=== PATIENT | female | born 1945 | race Caucasian/White ===

== ENCOUNTER → 2018-04-21 06:10 | Outpatient (CLI) | payer MEDICARE, OTHER, SELFPAY ==
--- NOTE | 2018-04-21 12:13 | STRESSREP ---
Stress Test Report Date: 04/21/2018 Procedure: Pharmacologic stress nuclear imaging study Indications: Chest pain; paroxysmal atrial fibrillation; preoperative cardiovascular evaluation Consent: Per the patient Procedure: The patient underwent pharmacologic (Regadenoson) evaluation with a peak heart rate of 86 beats per minute (59 predicted maximal heart rate) and a peak blood pressure of 126/78 mmHg. The baseline ECG demonstrated normal sinus rhythm. The peak pharmacologic ECG demonstrated no obvious ECG changes. There were no cardiac dysrhythmias pretest, during pharmacologic infusion, or recovery. There was no complaint of chest discomfort during pharmacologic infusion or recovery. The examination was discontinued secondary to completion of protocol. Impression: 1. Pharmacologic (Regadenoson) evaluation 2. Peak pharmacologic ECG with no obvious ECG changes. 3. There were no cardiac dysrhythmias pretest, during pharmacologic infusion, or recovery 4. Nuclear images pending Myocardial perfusion imaging study: Technique: The patient was injected with 14.1 millicuries of technetium 99m Cardiolite and subsequently rest SPECT Cardiolite nuclear imaging was obtained in the horizontal long, vertical long, and short axis views. The patient underwent pharmacologic (Regadenoson) evaluation with a peak heart rate of 86 beats per minute (59 % percent predicted maximal heart rate) and a peak blood pressure of 126/78 mmHg. The patient was injected with 44.4 millicuries of technetium 99m Cardiolite and subsequently stress SPECT Cardiolite nuclear imaging was obtained in the horizontal long, vertical long, and short axis views. A gated Cardiolite study at peak stress was obtained. Interpretation: Rest and stress SPECT Cardiolite nuclear imaging status post realignment, normalization, and attenuation correction demonstrate relative uniform tracer uptake and myocardial perfusion appearing within normal limits. There is end systolic thickening and brightening. The gated Cardiolite study demonstrates myocardial thickening and inward wall motion. The reported LVEF is 91%. Impression: 1. Rest and stress SPECT Cardiolite nuclear imaging demonstrate relative uniform tracer uptake and myocardial perfusion appearing within normal limits. 2. The gated Cardiolite study reports an LVEF of 91 %. This note was generated with [employer] software. It may contain incorrect words, spelling, and punctuation that were not noted in checking the note before signing.
== END ==
PROVIDERS: Family Provider Family Medicine; PCP Family Medicine; Visit Provider Internal Medicine Cardiovascular Disease
DX: Z01.818 Encounter for other preprocedural examination (principal); M17.10 Unilateral primary osteoarthritis, unspecified knee; E11.9 Type 2 diabetes mellitus without complications; E78.5 Hyperlipidemia, unspecified; I10 Essential (primary) hypertension; I48.0 Paroxysmal atrial fibrillation; I35.9 Nonrheumatic aortic valve disorder, unspecified; R07.89 Other chest pain
CPT/HCPCS: 78452; 93017; A9500; A4216; J2785

== ENCOUNTER 2018-04-29 23:18 | Emergency (ER) | payer MEDICARE, OTHER, SELFPAY ==
[2018-04-29 23:19] VITALS: BP 134/78; PULSE 82; RESP 22; TEMP 36.8; O2SAT 96; BMI 35.9
--- NOTE | 2018-04-29 23:32 | RAD_ITS ---
STUDY: X-RAY - RIGHT KNEE REASON FOR EXAM: Female, 73 years old. Status post fall. TECHNIQUE: 2 view(s) of the knee. COMPARISON: 04/24/2016. FINDINGS: Normal visualized distal femur. Normal visualized proximal tibia and fibula. Normal proximal tibiofibular articulation. There is no demonstrated fracture. There is new total right knee prosthesis. There is prepatellar soft tissue swelling. There is dressing in the soft tissues anteriorly. There may be small effusion in the suprapatellar joint space. RAD/Knee 1 or 2 Views IMPRESSION: Status post total knee replacement. Soft tissue swelling. No demonstrated fracture. Electronically Signed: John Nelson MD at 0:19 EDT Tel , Service support ,
--- NOTE | 2018-04-29 23:32 | RAD_ITS ---
STUDY: X-RAY - PELVIS AND RIGHT HIP REASON FOR EXAM: Female, 73 years old. Status post fall. TECHNIQUE: Radiological exam, hip, unilateral, with pelvis when performed; 2 or 3 views. COMPARISON: None. FINDINGS: There is a non-specific bowel gas pattern. There are multiple calcified phleboliths. There are degenerative changes in the lower lumbar spine. Normal bilateral iliac wings, sacroiliac joints and visualized sacrum. Normal bilateral superior and inferior pubic rami. Normal pubic symphysis. Normal bilateral ischial tuberosities. Normal visualized femoral head. Normal acetabulum. Normal hip joint. RAD/Hip 2-3 Views with Pelvis IMPRESSION: No demonstrated acute fracture. Electronically Signed: John Nelson MD at 0:16 EDT Tel , Service support ,
--- NOTE | 2018-04-29 23:33 | ED.VISSUMM ---
- ER Visit Summary Date of Service: 04/29/18 Chief Complaint: Right hip injury History of Present Illness: The patient is a 73 F mechanical fall at home after trying to get out of her computer chair. Status post right total knee arthroplasty [address] Martin at [facility], this was elective. Discharged today with a 4 point walker. Was using a Rollator before that. She is on oxycodone every 6 hours. States mild right hip pain, denies knee pain. However is concerned due to her recent surgery. She is on 2 baby aspirins daily. No paresthesias. No head injuries. Unable to get up therefore EMS was called. Lives with her spouse. Physical Examination: General: Alert and oriented ?3, no acute distress HEENT: Normocephalic, atraumatic. Moist mucosa membranes Neck: supple, nontender. Cardiovascular: Regular rate and rhythm, no murmurs Respiratory: Normal breath sounds, symmetric, no distress Abdomen: Soft, nontender, nondistended Extremities: Right lower extremity: Mild tenderness right greater trochanter. Negative logroll. No shortening or rotation. Knee examination, wound clean, dry, intact. No drainage or bleeding. Neuro: no focal neurological deficits. Test Results: X-ray right hip and knee: No fracture or dislocation Emergency Department Course and Treatment: Patient mild right hip tenderness with palpation. X-rays of the hip and knee obtained negative. She is ambulating with a 4 point walker with no difficulties. Nurses redressed the right knee. Patient will follow-up as an outpatient. All questions were answered. Treatment Plan: [] Disposition: Discharge Impression: 1. Mechanical fall 2. Right hip contusion 3. Status post right total knee arthroplasty This note was generated with [employer] dictation software. It may contain incorrect words, spelling, and punctuation that were not noted in review of the chart prior to signing ED Disposition - Plan for ED Patient: Disposition: Home or Assisted Living Chief Complaint: Fall Diagnosis: Contusion of right hip, initial encounter, Mechanical fall Instructions: ED Mechanical Fall, ED Contusion Hip Referrals: Kameron Kemp MD [Primary Care Provider] - 5-7 Days
[2018-04-30 01:02] VITALS: BP 112/75; PULSE 73; RESP 17; O2SAT 96
== END 2018-04-30 01:03 | disposition home or self-care (01) ==
PROVIDERS: Emergency Provider Emergency Medicine; Family Provider Family Medicine; PCP Family Medicine
DX: S70.01XA Contusion of right hip, initial encounter (principal); W18.39XA Other fall on same level, initial encounter; Y93.89 Activity, other specified; Y92.009 Unspecified place in unspecified non-institutional (private) residence as the place of occurrence of the external cause; E11.9 Type 2 diabetes mellitus without complications; E78.00 Pure hypercholesterolemia, unspecified; G47.33 Obstructive sleep apnea (adult) (pediatric); Z96.651 Presence of right artificial knee joint; Z79.82 Long term (current) use of aspirin; Z79.84 Long term (current) use of oral hypoglycemic drugs; Z79.899 Other long term (current) drug therapy
CPT/HCPCS: 73502; 73560; 99284

== ENCOUNTER 2018-10-01 10:30 | Outpatient (RCR) | payer MEDICARE, OTHER, SELFPAY ==
--- NOTE | 2018-05-28 16:15 | HP.PTEVAL_ITS ---
Patient's Visit Information MARCOS OLIVEIRA is a 73 year old F referred to Physical Therapy by Constantine Matias MD with a diagnosis of S/P RIGHT TOTAL KNEE RELPACEMENT,PRIMARY OSTEOARTHRITIS OF RIGHT KNEE. Date of Evaluation: 05/28/18 Physical Therapist: Constantine Katz, PT, - Visit Plan Frequency: 2x /Week Duration: 6 Weeks Plan: AROM,STRENGTHENING QUADS/HAMS,GAIT/BALANCE TRAINING,GAIT TRAINING - Subjective Subjective: This 73 y/o male presents to physical therapy with right TKR on s/p April Ver[facility] at [facility]. Patient d/c home 2017 due to complication with BP and panic attack. Patient d/c to home PT 2weeks. Patient d/ c home with fww. Patient seen DR on 05/20 ,did x-ray of knee looked good. Denies parathesia/tingling. Patient has issues with pain impairs gait ,function and ADL 'S.Patient has h/o falls Patient difficulty with sleeping. Patient surgery affects QOL and function,. SOCAIL: . VOCATION: retired. HOME SITUATION : raunch steps with rails,patient tub seat ,and seat with walk-in shower. with grab rails - Pain Right Knee Pain Intensity (Out of 10): 4 Pain Intensity Range: 10 - Objective POSTURE: mild foward posture. GAIT: mild foward posture,decrease stance time right leg with swing phase gait. STAIRS: one step at time with rail. SKIN: inscion well approximate. EDEMA: mild effusion knee left. BALANCE: fair + with fww. AROM: 5-110 knee supine. MMT: quads/hams 4-/5,hip flexion / abduction 4-/5 ,ankle 4/5. FLEXABLITY: hams min tight - Goals Goal 1:: Patient to be Independant with HEP. Goal Time Frame: 4-6 Weeks Goal 2:: Patient to ambulate with cane with improved quality of gait with swing phase and reciprocal pattern Goal Time Frame: 4-6 Weeks Goal 3:: Patient increase strength quads/hams 4/5 to improve function with ADL'S Goal Time Frame: 4-6 Weeks Goal 4:: Patient increase AROM supine knee flexion 0-120 degrees to improve stairs Goal Time Frame: 4-6 Weeks Goal 5:: Patient improve balance good - for function Goal Time Frame: 4-6 Weeks Goal 6:: Patient be able to perform ADL'S and housework tasks with min limitations. Goal Time Frame: 4-6 Weeks - Rehabilitation Potential Physical Therapy Diagnosis: This patient underwent s/p right TKR on 04/23/18 with decrease ROM ,strength,pain and function thus impairs ADL'S thus benifit from skilled PT Rehabilitation Potential: Good - Anticipated Interventions Patient/Client Instruction: Educate patient on: Condition, Plan of Care For the Purpose of:: To decrease pain, To increase ROM, To improve muscle performance and motor function, To increase tolerance to activity/condition/ position, To improve performance and independence with ADL's, To improve ability of physical actions for home/community/work/leisure, To improve gait and locomotor functions, To improve health of tissue, To decrease soft tissue restriction, To increase flexibility/ROM, To improve endurance, To improve balance, To improve ability to perform tasks related to life management Therapeutic Exercise to Include: Strength training, Endurance training, Balance training, Flexibilty training, Gait and locomotor training, Passive ROM, Active ROM Comment: KNEE For the Purpose of:: To decrease pain, To increase ROM, To improve muscle performance and motor function, To improve ability to perform ADL's, To increase tolerance to activity/condition/position, To improve ability of physical actions for home/community/work/leisure, To improve health of tissue, To decrease soft tissue restriction, To increase flexibility/ROM, To improve balance, To improve safety with gait, To improve ability to perform tasks related to life management Thank you for the opportunity to evaluate your patient. For Medicare and Medicare HMO plans, please review the plan of care and approve it. It will need to be FAXED BACK to us at [phone] for Medicare purposes. Please let me know if there are questions or concerns regarding this plan of care. Physician Signature: Date:
--- NOTE | 2018-06-29 12:40 | HP.PTREVAL_ITS ---
Constantine Matias MD, It has been my pleasure to treat MARCOS OLIVEIRA over the last 9 visits for S/P RIGHT TOTAL KNEE RELPACEMENT,PRIMARY OSTEOARTHRITIS OF RIGHT KNEE. Please see the progress note below for an update on the physical therapy plan of care! Subjective: Doing better .Sees DR Cary. Patient use cane in the house.Patient c /o of knee ocassionally gives way give. Patient doing steps one at time with rail/cane Objective/Function: POSTURE: mild foward posture. GAIT: ambulates with fww in community distances. and cane with reciprocal pattern decrease stance time. BALANCE: fair+ with fww. AROM: 10-115 supine knee flexion. MMT: quads/hams 4/5 ,hip 3+/5. STAIRS: one stepa at time rail /cane Plan Plan: con with POC 2xweek for 4weeks Goals Goal 1:: Patient to be Independant with HEP. Goal Time Frame: 4-6 Weeks Goal 2:: Patient to ambulate with cane with improved quality of gait with swing phase and reciprocal pattern Goal Time Frame: 4-6 Weeks Goal 3:: Patient increase strength quads/hams 4/5 to improve function with ADL'S Goal Time Frame: 4-6 Weeks Goal 4:: Patient increase AROM supine knee flexion 0-120 degrees to improve stairs Goal Time Frame: 4-6 Weeks Goal 5:: Patient improve balance good - for function Goal Time Frame: 4-6 Weeks Goal 6:: Patient be able to perform ADL'S and housework tasks with min limitations. Goal Time Frame: 4-6 Weeks Anticipated Interventions Patient/Client Instruction: Educate patient on: Condition, Plan of Care For the Purpose of:: To decrease pain, To increase ROM, To improve muscle performance and motor function, To increase tolerance to activity/condition/ position, To improve performance and independence with ADL's, To improve ability of physical actions for home/community/work/leisure, To improve gait and locomotor functions, To improve health of tissue, To decrease soft tissue restriction, To increase flexibility/ROM, To improve endurance, To improve balance, To improve ability to perform tasks related to life management Therapeutic Exercise to Include: Strength training, Endurance training, Balance training, Flexibilty training, Gait and locomotor training, Passive ROM, Active ROM Comment: KNEE For the Purpose of:: To decrease pain, To increase ROM, To improve muscle performance and motor function, To improve ability to perform ADL's, To increase tolerance to activity/condition/position, To improve ability of physical actions for home/community/work/leisure, To improve health of tissue, To decrease soft tissue restriction, To increase flexibility/ROM, To improve balance, To improve safety with gait, To improve ability to perform tasks related to life management Please do not hesitate to contact me at [phone] by phone or Fax: if you have questions or concerns regarding this new plan of care! Sincerely, Constantine Katz PT,
--- NOTE | 2018-08-05 12:48 | HP.PTREVAL ---
Constantine Matias MD, It has been my pleasure to treat MARCOS OLIVEIRA over the last 18 visits for S/P RIGHT TOTAL KNEE RELPACEMENT,PRIMARY OSTEOARTHRITIS OF RIGHT KNEE. Please see the progress note below for an update on the physical therapy plan of care! Subjective: Patient stated balance and weakness is cont to be issue. Im abld to perform ADL'S at home Objective/Function: POSTURE: mild foward posture. GAIT: ambulates with mild foward posture reciprocal pattern with cane with lateral sway. BALANCE: good - with cane. STAIRS: alternating ascending steps with descending one step at time with rails and cane. MMT: quads/hams 4/5,hip flexion 3+/5 ,hip abd 4-/5. AROM: supine knee flexion 5-120 degrees Plan Plan: con with POC PT interventions 2x/wk for 4weeks Goals Goal 1:: Patient to be Independant with HEP. Goal Time Frame: 4-6 Weeks Goal 2:: Patient to ambulate with cane with improved quality of gait with swing phase and reciprocal pattern Goal Time Frame: 4-6 Weeks Goal 3:: Patient increase strength quads/hams 4/5 to improve function with ADL'S Goal Time Frame: 4-6 Weeks Goal 4:: Patient increase AROM supine knee flexion 0-120 degrees to improve stairs Goal Time Frame: 4-6 Weeks Goal 5:: Patient improve balance good - for function Goal Time Frame: 4-6 Weeks Goal 6:: Patient be able to perform ADL'S and housework tasks with min limitations. Goal Time Frame: 4-6 Weeks Anticipated Interventions Patient/Client Instruction: Educate patient on: Condition, Plan of Care For the Purpose of:: To decrease pain, To increase ROM, To improve muscle performance and motor function, To increase tolerance to activity/condition/position, To improve performance and independence with ADL's, To improve ability of physical actions for home/community/work/leisure, To improve gait and locomotor functions, To improve health of tissue, To decrease soft tissue restriction, To increase flexibility/ROM, To improve endurance, To improve balance, To improve ability to perform tasks related to life management Therapeutic Exercise to Include: Strength training, Endurance training, Balance training, Flexibilty training, Gait and locomotor training, Passive ROM, Active ROM Comment: KNEE For the Purpose of:: To decrease pain, To increase ROM, To improve muscle performance and motor function, To improve ability to perform ADL's, To increase tolerance to activity/condition/position, To improve ability of physical actions for home/community/work/leisure, To improve health of tissue, To decrease soft tissue restriction, To increase flexibility/ROM, To improve balance, To improve safety with gait, To improve ability to perform tasks related to life management Please do not hesitate to contact me at [phone] by phone or if you have questions or concerns regarding this new plan of care! Sincerely, Constantine Katz, PT,
--- NOTE | 2018-09-01 11:02 | HP.PTREVAL_ITS ---
Constantine Matias MD, It has been my pleasure to treat MARCOS OLIVEIRA over the last 24 visits for S/P RIGHT TOTAL KNEE RELPACEMENT,PRIMARY OSTEOARTHRITIS OF RIGHT KNEE. Please see the progress note below for an update on the physical therapy plan of care! Subjective: Doing better overall ,but I still need cane for walking community. I stumble side to side . I am able to do my ADL'S Objective/Function: POSTURE: mild foward posture. GAIT: ambulates with cane lateral sway 2 point reciporocal pattern. patient able to ambulate with no device improved saida but cues for MELANI and posture. BALANCE : GOOD -. AROM: 5-120 degrees knee flexion. MMT: quads/hams 4/5 fip flexion 4-/5,abduction 3+/5 Plan Plan: con with POC PT interventions 2xweek for 4weeks Goals Goal 1:: Patient to be Independant with HEP. Goal Time Frame: 4-6 Weeks Goal Progress: Goal Met Goal 2:: Patient to ambulate no cane cane with improved quality of gait with swing phase and reciprocal pattern Goal Time Frame: 4-6 Weeks Goal Progress: Progressing Goal 3:: Patient increase strength quads/hams 4/5 hip 4-/5 to improve function with ADL'S Goal Time Frame: 4-6 Weeks Goal 4:: Patient increase AROM supine knee flexion 0-120 degrees to improve stairs Goal Time Frame: 4-6 Weeks Goal Progress: Goal Met Goal 5:: Patient improve balance good - for function no device Goal Time Frame: 4-6 Weeks Goal Progress: Progressing Goal 6:: Patient be able to perform ADL'S and housework tasks with min limitations. Goal Time Frame: 4-6 Weeks Goal Progress: Progressing Anticipated Interventions Patient/Client Instruction: Educate patient on: Condition, Plan of Care For the Purpose of:: To decrease pain, To increase ROM, To improve muscle performance and motor function, To increase tolerance to activity/condi tion/position, To improve performance and independence with ADL's, To improve ability of physical actions for home/community/work/leisure, To improve gait and locomotor functions, To improve health of tissue, To decrease soft tissue restriction, To increase flexibility/ROM, To improve endurance, To improve balance, To improve ability to perform tasks related to life management Therapeutic Exercise to Include: Strength training, Endurance training, Balance training, Flexibilty training, Gait and locomotor training, Passive ROM, Active ROM Comment: KNEE For the Purpose of:: To decrease pain, To increase ROM, To improve muscle performance and motor function, To improve ability to perform ADL's, To increase tolerance to activity/condition/position, To improve ability of physical actions for home/community/work/leisure, To improve health of tissue, To decrease soft tissue restriction, To increase flexibility/ROM, To improve balance, To improve safety with gait, To improve ability to perform tasks related to life management Please do not hesitate to contact me at [phone] by phone or if you have questions or concerns regarding this new plan of care! Sincerely, Constantine Katz PT,
--- NOTE | 2018-10-01 12:51 | HP.PTDCSUM ---
HP - PT D/C Summary It has been my pleasure to treat MARCOS OLIVEIRA under orders from Constantine Matias MD, for the diagnosis of S/P RIGHT TOTAL KNEE RELPACEMENT,PRIMARY OSTEOARTHRITIS OF RIGHT KNEE for a total of 32 visit(s). Discharge Date: Please see the following information for a summary of their discharge status. - Subjective Subjective: Balance has improved overall ,hip/knee strength better. Able to perform all ADL'S - Pain Right Knee Pain Intensity (Out of 10): 0 - Overall Improvement % Improvement: 80 - Objective Objective/Function: POSTURE: mild foward posture. GAIT: ambulate with no device improved gait with UE movement with min sway. BALANCE: good -. MMT: quads/hams 4/5 ,hip flexion/abd 4-/5 - Goals Goal 1:: Patient to be Independant with HEP. Goal Progress: Goal Met Goal 2:: Patient to ambulate no cane cane with improved quality of gait with swing phase and reciprocal pattern Goal Progress: Goal Met Goal 3:: Patient increase strength quads/hams 4/5 hip 4-/5 to improve function with ADL'S Goal Progress: Goal Met Goal 4:: Patient increase AROM supine knee flexion 0-120 degrees to improve stairs Goal Progress: Goal Met Goal 5:: Patient improve balance good - for function no device Goal Progress: Goal Met Goal 6:: Patient be able to perform ADL'S and housework tasks with min limitations. Goal Progress: Goal Met - Plan Plan: D/C TO HEP - D/C Information If there are questions or concerns regarding this patient's physical therapy, please feel free to call me at [phone]. Thank you for the referral of this patient. Sincerely, Constantine Katz, PT,
== END 2018-10-01 19:00 | disposition home or self-care (01) ==
LOC: PT 10:30
PROVIDERS: Family Provider Family Medicine; PCP Family Medicine; Referring Provider Psychiatry & Neurology Neurology; Visit Provider Psychiatry & Neurology Neurology
DX: Z96.651 Presence of right artificial knee joint (principal); M17.11 Unilateral primary osteoarthritis, right knee
CPT/HCPCS: 97110; 97162; 97530; G8978; G8979

== ENCOUNTER 2019-02-01 02:40 | Emergency (ER) | payer MEDICARE, OTHER, SELFPAY ==
[2019-02-01 02:42] VITALS: BP 173/96; PULSE 74; RESP 16; TEMP 36.6; O2SAT 99; BMI 32.9
--- NOTE | 2019-02-01 03:17 | ED.VISSUMM ---
- ER Visit Summary Date of Service: 02/01/19 Chief Complaint: Neck and upper back pain post recent surgery History of Present Illness: The patient is a 73 F who 2 weeks ago at the [facility] had spine surgery on cervical 5 6 and T1 and T2. She had prior cervical spine surgery of 3, 4 and 5 in the past. She is 2 weeks out of surgery. Still has significant drainage. No pus. No fever. No weakness to her upper or lower extremities. No incontinence. She has had her pain medications renewed. Has a scheduled appointment to see her spine surgeon at the end of February. She denies any fall or trauma. Physical Examination: Well-appearing older female. Coming by her . Vital signs are stable and afebrile. H EENT exam unremarkable. Neck and thoracic spine have a well-healing incision over the lower cervical and upper thoracic spine in the midline. There is bruising on both sides. Jen in place. No cellulitis. No pus. There is serosanguineous drainage from the proximal end. Typical appearance of a postop spine surgery 2 weeks out. Lungs clear to auscultation bilaterally. Heart regular rhythm. Abdomen soft not tender. She is moving all 4 extremities. She has normal event coordinator strength bilaterally. Normal dorsi plantar flexion. Normal sensation to her thighs. No cauda equina. No saddle anesthesia. No weakness to upper or lower extremities. She is awake and alert. Test Results: None Emergency Department Course and Treatment: Patient has postop pain. She has drainage but no obvious signs of infection. No fever, redness, cellulitis or pus. Treatment Plan: IM injection of morphine and p.o. Zofran for pain. Continue on her current pain medications. Call and follow-up with her spine surgeon this week. Disposition: Discharge Impression: Neck and upper back pain status post cervical and thoracic multilevel fusion. Drainage for most likely a seroma This note was generated with [employer] dictation software. It may contain incorrect words, spelling, and punctuation that were not noted in review of the chart prior to signing ED Disposition - Plan for ED Patient: Referrals: Kameron Kemp MD [Primary Care Provider] -
[2019-02-01] MEDS: Ondansetron ODT 4 MG Tablet 8 MG PO (03:21)
[2019-02-01] MEDS: morphine 8 MG/ML Syringe IM (03:21)
--- NOTE | 2019-02-01 03:21 | ED.DCSUM_ITS ---
- ER Visit Summary Date of Service: 02/01/19 Chief Complaint: Neck and upper back pain post recent surgery History of Present Illness: The patient is a 73 F who 2 weeks ago at the [facility] had spine surgery on cervical 5 6 and T1 and T2. She had prior cervical spine surgery of 3, 4 and 5 in the past. She is 2 weeks out of surgery. Still has significant drainage. No pus. No fever. No weakness to her upper or lower extremities. No incontinence. She has had her pain medications renewed. Has a scheduled appointment to see her spine surgeon at the end of February. She denies any fall or trauma. Physical Examination: Well-appearing older female. Coming by her . Vital signs are stable and afebrile. H EENT exam unremarkable. Neck and thoracic spine have a well-healing incision over the lower cervical and upper thoracic spine in the midline. There is bruising on both sides. Jen in place. No cellulitis. No pus. There is serosanguineous drainage from the proximal end. Typical appearance of a postop spine surgery 2 weeks out. Lungs clear to auscultation bilaterally. Heart regular rhythm. Abdomen soft not tender. She is moving all 4 extremities. She has normal rod pointer strength bilaterally. Normal dorsi plantar flexion. Normal sensation to her thighs. No cauda equina. No saddle anesthesia. No weakness to upper or lower extremities. She is awake and alert. Test Results: None Emergency Department Course and Treatment: Patient has postop pain. She has drainage but no obvious signs of infection. No fever, redness, cellulitis or pus. Treatment Plan: IM injection of morphine and p.o. Zofran for pain. Continue on her current pain medications. Call and follow-up with her spine surgeon this week. Disposition: Discharge Impression: Neck and upper back pain status post cervical and thoracic multilevel fusion. Drainage for most likely a seroma This note was generated with [employer] dictation software. It may contain incorrect words, spelling, and punctuation that were not noted in review of the chart prior to signing ED Disposition - Plan for ED Patient: Referrals: Kameron Kemp MD [Primary Care Provider] -
--- NOTE | 2019-02-01 03:21 | ED.DEP ---
ED Disposition - Plan for ED Patient: Disposition: Home or Assisted Living Additional Instructions: Keep the surgical site dry and clean. Change the dressing at least twice daily or whenever saturated. Watch for any signs of infection such as fever, redness or pus. Follow-up with your spine surgeon hopefully before your appointment on March 02. You may double up on your pain medication. You can take up to 2 every 4 hours as needed.
[2019-02-01 03:50] VITALS: RESP 16
== END 2019-02-01 03:50 | disposition home or self-care (01) ==
PROVIDERS: Emergency Provider Emergency Medicine; Family Provider Family Medicine; PCP Family Medicine
DX: M54.2 Cervicalgia (principal); M54.6 Pain in thoracic spine; G89.18 Other acute postprocedural pain; I10 Essential (primary) hypertension; I48.91 Unspecified atrial fibrillation; E11.9 Type 2 diabetes mellitus without complications; R42 Dizziness and giddiness; Z79.82 Long term (current) use of aspirin; Z79.84 Long term (current) use of oral hypoglycemic drugs; Z79.899 Other long term (current) drug therapy
CPT/HCPCS: 96372; 99283

== ENCOUNTER → 2019-08-09 08:03 | Outpatient (CLI) | payer MEDICARE, OTHER, SELFPAY ==
[2019-07-23 10:28] VITALS: BMI 34.9
--- NOTE | 2019-08-09 08:09 | ECHOCS_ITS ---
Reason For Study: Chest Pain Procedure This was a 2D Doppler, Color Flow transthoracic echocardiogram. Contrast injection was performed. Exam performed in department. Left Ventricle Normal size and thickness. The estimated ejection fraction is 65 %. Stage 1 diastolic dysfunction. No regional wall motion abnormalities noted. Right Ventricle Normal size and thickness. Normal systolic function. Atria Normal left atrium. Normal right atrium. Normal atrial septum. Mitral Valve The mitral valve is structurally normal. No prolapse or stenosis seen. Mild (1+) eccentric mitral valve insufficiency. Tricuspid Valve Normal tricuspid valve. Mild (1+) tricuspid valve insufficiency. Right ventricular systolic pressure estimated to be 38 mmHg. Mild pulmonary hypertension. Aortic Valve Trisinus/trileaflet aortic valve. Mild diffuse aortic valve thickening. Mild aortic stenosis. Trivial aortic valve insufficiency. Pulmonic Valve Normal pulmonic valve. Trivial pulmonic valve insufficiency. Great Vessels Normal aortic root. Normal arch. Normal inferior vena cava. Inferior vena cava collapse with sniff. Pericardium/Pleural No pericardial effusion. Medication Diluted definity 5ml given slow IV push to enhance endocardial definition. MMode/2D Measurements & Calculations LVIDd: 4.2 cm IVSd: 1.2 cm LVOT diam: 2.0 cm LVIDs: 2.7 cm LVPWd: 1.0 cm RVDd: 4.3 cm FS: 35.5 % LVOT area: 3.1 cm2 Ao root diam: 3.6 cm LAV(MOD-bp): 41.8 ml LVAd ap4: 27.2 cm2 LAV(MOD-bp) Indexed: 22.9 ml/m2 EDV(MOD-sp4): 76.0 ml LAV(MOD-sp2): 42.2 ml EDV(sp4-el): 79.3 ml LAV(MOD-sp4): 36.0 ml LVAs ap4: 12.7 cm2 ESV(MOD-sp4): 24.2 ml ESV(sp4-el): 24.3 ml EF(MOD-sp4): 68.1 % EF(sp4-el): 69.3 % SV(MOD-sp4): 51.7 ml SV(sp4-el): 54.9 ml LA A4 area: 15.9 cm2 LA dimension(2D): 3.8 cm RA A4 area: 15.9 cm2 Doppler Measurements & Calculations MV E max armin: 86.9 cm/sec Lat Peak E' Armin: 9.3 cm/sec Med Peak E' Armin: 7.6 cm/sec MV A max armin: 131.4 cm/sec E/E' lat: 9.4 E/E' med: 11.4 MV E/A: 0.66 Ao V2 max: 231.3 cm/sec LV V1 max: 179.0 cm/sec SV(LVOT): 136.9 ml Ao max P.4 mmHg LV V1 max P.8 mmHg Ao V2 mean: 159.6 cm/sec LV V1 mean P.3 mmHg Ao mean P.4 mmHg LV V1 mean: 127.8 cm/sec Ao V2 VTI: 52.1 cm LV V1 VTI: 43.5 cm EZEQUIEL(I,D): 2.6 cm2 EZEQUIEL(V,D): 2.4 cm2 PA V2 max: 109.8 cm/sec TR max armin: 288.5 cm/sec TR max P.3 mmHg Interpretation Summary The estimated ejection fraction is 65 %. Stage 1 diastolic dysfunction. Mild (1+) eccentric mitral valve insufficiency. Mild (1+) tricuspid valve insufficiency. Right ventricular systolic pressure estimated to be 38 mmHg. Mild pulmonary hypertension. Mild aortic stenosis. Trivial aortic valve insufficiency. The study was technically difficult. Contrast injection was performed. There is no comparison study available. Ordering Physician: Brenton Brandon Referring Physician: Kameron Kemp Performed By: Nati Sapp RDCS, RVT
== END ==
PROVIDERS: Family Provider Family Medicine; PCP Family Medicine; Referring Provider Internal Medicine Cardiovascular Disease; Visit Provider Internal Medicine Cardiovascular Disease
DX: I48.0 Paroxysmal atrial fibrillation (principal); I51.89 Other ill-defined heart diseases; I35.0 Nonrheumatic aortic (valve) stenosis; G47.31 Primary central sleep apnea; R07.9 Chest pain, unspecified
CPT/HCPCS: 93306; Q9957; A4216; C8929

== ENCOUNTER → 2019-08-13 09:31 | Outpatient (CLI) | payer MEDICARE, OTHER, SELFPAY ==
[2019-07-23 10:28] VITALS: BMI 34.9
--- NOTE | 2019-08-13 09:32 | STEWCON_ITS ---
Reason For Study: Chest Pain Stress Results Protocol: Dobutamine Stress Echo Maximum Predicted HR: 144 bpm Target HR: 122 bpm % Maximum Predicted HR: 93 % DurationHeart Rate Stage (mm:ss) (bpm) BP Comment Baseline 66 144/78No Chest Pain; 10 ML Diluted Definity Given DSE 10 MCG 4:02 73 145/59No Chest Pain DSE 20 MCG 3:00 106 138/49No Chest Pain DSE 30 MCG 3:00 110 120/42No Chest Pain DSE 40 MCG 4:32 134 138/534/10 Chest Pain; Atropine 0.25 MG IVP Recovery 102 121/68No Chest Pain Stress Duration: 14:34 mm:ss Maximum Stress HR: 134 bpm METS: 1 Baseline Echocardiogram Findings The estimated ejection fraction is 65 %. Stress Echo Wall motion Data Resting WM Intermediate WM Stress WM Resting Wall Motion Wall Motion Stress No regional wall motion No regional wall motion abnormalities noted. abnormalities noted. EKG Data The baseline ECG displays normal sinus rhythm. The patient was titrated from 10 mcg to a maximum of 40 mcg of dobutamine during the stress. The maximum heart rate attained was 139 beats per minute. This was 96% of maximum predicted heart rate. During dobutamine infusion, there were no ST or T wave changes noted to suggest ischemia. No clinical angina was noted. Interpretation Summary The estimated ejection fraction is 65 %. Normal, adequate, dobutamine echocardiogram. Negative for ischemia by EKG and echocardiographic criteria. No anginal symptoms noted. Rare PVCs, ventricular triplet, and an 8 beat run of nonsustained wide-complex tachycardia during recovery which is a nonspecific finding during dobutamine infusion. Final LVEF of 75%. Decreased sensitivity due to poor echo windows requiring Definity agent. Test terminated due to the attainment of target heart rate. No complications. The study was technically difficult. Contrast injection was performed. Ordering Physician: Brenton Brandon Referring Physician: Kameron Kemp Performed By: Deandre Kruse RCS
== END ==
PROVIDERS: Family Provider Family Medicine; PCP Family Medicine; Referring Provider Internal Medicine Cardiovascular Disease; Visit Provider Internal Medicine Cardiovascular Disease
DX: I11.9 Hypertensive heart disease without heart failure (principal); I35.0 Nonrheumatic aortic (valve) stenosis; I48.0 Paroxysmal atrial fibrillation; R07.9 Chest pain, unspecified
CPT/HCPCS: 93017; 93350; J7040; Q9957; A4216; C8928

== ENCOUNTER 2019-09-06 10:00 | Outpatient (RCR) | payer MEDICARE, OTHER, SELFPAY ==
--- NOTE | 2019-06-28 18:15 | HP.PTEVAL ---
Patient's Visit Information MARCOS OLIVEIRA is a 74 year old F referred to Physical Therapy by KATHLEEN DOWLING with a diagnosis of FUSION OF SPINE OF CERVICOTHORACIC. Date of Evaluation: 06/28/19 Physical Therapist: Constantine Katz, PT, Cert MDT, OCS - Visit Plan Frequency: 2x /Week Duration: 4 Weeks Plan: S/P CERVCAL FUSION . PT INTERVENTIONS US/MHP/STM,PROGRESSIVE BALANCE AND GAIT PROGRAM,GENERALIZED STENGTH LE ,endurance program - Subjective Findings: This 74 y/o female presents to physical therapy with fusion of spine cervicothoracic region. Patient has multiple comorbities Intially,underwent s/p cervical fusion C3-4,C4-[address] Kota Rosas at [facility] May 14 2016. Patient had extensive Rehab due to weakness right side NH and outpatient OT/PT to work , Then had right TKR on April 14 2018 had more therapy. After , being patient noticed more problem with balance and back pain. Patient was consult with DR Rosas after 3 MRI and CATSCAN and recommended surgery due to stenosis and HNP. . But decided to recommend a Neurologist Quintin and recommended surgery. Pateint had posterior decompression T1-T2 ,C5-T12 instrumentation fusion 01/18/19 at [facility]. Patient was d/c next day then had drainage ,then had cervicthoracic wound exploration for debridement and revision on 02/22/19. Patient d/c to home to home with OT/PT ,with OT 1 month and PT d/c June . Patient has pain global. Patient has limiations with ADLS' and housework task. Patient condtion affects QOL. Patient seen DR Mcwilliams recommended PT. patient has some tingling. 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 Patien has difficulty with gait need cane. Patient has difficult with turning affects function. Patient sleeping good.Patient denies dizziness/nausea/WILSON. SOCIAL: . VOCATION: retired - Pain Bilateral Neck Pain Intensity (Out of 10): 2 Pain Intensity Range: 10 - Objective POSTURE: foward head ,rounded shoulders. INSCION: well approximate ,nodual bone cervical spine MD aware. NEUROLOGICAL: C/O tingling in hands ,reflexes C5-6-7 /. PALAPTION:tender UT/levator. CERVICAL ROM: flexion mod loss,rotation/lateral felxion mod/severe loss ~20 degrees. GAIT: ambulates with cane unsteady with 2 point gait. BALANCE: fair + with cane. MMT: quads/hams bilateral 4-/5,hip flexion 3+/5 ,ankle 4/5 ,triceps -R 3+/5,L 4-/5,biceps 4-/5 ,wrist/flexion extension 4-/5,shoulders 3+/5. [employer] STRENGTH : 20# dynamator. BUE : AROM limited 100 degrees flexion. STAIRS: one step at time. - Balance Scores Functional Gait Assessment Score: 5 % Disability: 83.3400 CATSIB Score (Max score 120 seconds): 25 - Goals Goal 1:: Patient to be Independant with HEP Goal Time Frame: 4-6 Weeks Goal 2:: Patient to improve quality of gait with improved gait pattern . Goal Time Frame: 4-6 Weeks Goal 3:: Patient to increase stength to 4/5 except shoulders and hips to 4-/5 to improve function with gait. Goal Time Frame: 4-6 Weeks Goal 4:: Patient to improve CATSIB by 5-10 points to improve balance Goal Time Frame: 4-6 Weeks Goal 5:: Patient to impove dynamic balance to good- Goal Time Frame: 4-6 Weeks Goal 6:: Patient to improve LFES score by 10 points to improve QOL. Goal Time Frame: 4-6 Weeks - Rehabilitation Potential Physical Therapy Diagnosis: This patient has multiple complexity issue with undergoing cervical fusion C5-T12,decompession T1-2 and Wound exploration for debridement and revision .Patient impairments with weakness ,decrease gait and affect balance. Patient deficits impairs ADL's and functional activity ,pain thus benifit from skilled PT Rehabilitation Potential: Good - Anticipated Interventions Thank you for the opportunity to evaluate your patient. For Medicare and Medicare HMO plans, please review the plan of care and approve it. It will need to be FAXED BACK to us at [phone] for Medicare purposes. For Medicare only, by signing this I certify the plan of care. Please let me know if there are questions or concerns regarding this plan of care. Physician Signature: Date:
--- NOTE | 2019-08-05 10:43 | HP.PTREVAL ---
KATHLEEN DOWLING, It has been my pleasure to treat MARCOS OLIVEIRA over the last 9 visits for FUSION OF SPINE OF CERVICOTHORACIC. Please see the progress note below for an update on the physical therapy plan of care! Subjective: Doing okay ,balance about the same. Objective/Function: POSTURE: mod thoracic kyphosis. GAIT: unsteady gait with cane. BALANCE: fair+. MMT: quads 4-/5 R, 4/5 hams 4/5 R ,L 4-/5,HIP flexion 3+/5 R ,L 4-/5 ,ankle 4/5. ROMBERG: feet EC 30SEC. STAIRS: ascend/descend one step with rail /cane Plan Plan: S/P CERVCAL FUSION . CONT WITH POC 2XWK FOR 4WEEKS PT INTERVENTIONS US/MHP/STM,PROGRESSIVE BALANCE AND GAIT PROGRAM,GENERALIZED STENGTH LE ,endurance program Goals Goal 1:: Patient to be Independant with HEP Goal Time Frame: 4-6 Weeks Goal Progress: Progressing Goal 2:: Patient to improve quality of gait with improved gait pattern . Goal Time Frame: 4-6 Weeks Goal Progress: Progressing Goal 3:: Patient to increase stength to 4/5 except shoulders and hips to 4-/5 to improve function with gait. Goal Time Frame: 4-6 Weeks Goal Progress: Progressing Goal 4:: Patient to improve CATSIB by 5-10 points to improve balance Goal Time Frame: 4-6 Weeks Goal Progress: Progressing Goal 5:: Patient to impove dynamic balance to good- Goal Time Frame: 4-6 Weeks Goal Progress: Progressing Goal 6:: Patient to improve LFES score by 10 points to improve QOL. Goal Time Frame: 4-6 Weeks Goal Progress: Progressing Anticipated Interventions Please do not hesitate to contact me at [phone] by phone or if you have questions or concerns regarding this new plan of care! Sincerely, Constantine Katz, PT, Cert MDT, OCS
--- NOTE | 2019-09-06 14:12 | HP.PTDCSUM ---
HP - PT D/C Summary It has been my pleasure to treat MARCOS OLIVEIRA under orders from KATHLEEN DOWLING, for the diagnosis of FUSION OF SPINE OF CERVICOTHORACIC for a total of 17 visit(s). Discharge Date: 09/06/19 Please see the following information for a summary of their discharge status. - Subjective Subjective: Doing okay . said d/c do alot of walking. Still have problem with balance.But able to do all ADL'S - Pain Bilateral Neck Pain Intensity (Out of 10): 4 - Overall Improvement % Improvement: 50 - Objective Objective/Function: POSTURE: mild forward posture,head foward. GAIT: reciprocal pattern mild foward posture unsteady gait with cane. BALANCE: fair+. MMT: shoulderr NT R,LEF4-/5 OTHERWISE 4/5,quads/hams 4/5,hip 4-/5 - Goals Goal 1:: Patient to be Independant with HEP Goal Progress: Goal Met Goal 2:: Patient to improve quality of gait with improved gait pattern . Goal Progress: Progressing Goal 3:: Patient to increase stength to 4/5 except shoulders and hips to 4-/5 to improve function with gait. Goal Progress: Progressing Goal 4:: Patient to improve CATSIB by 5-10 points to improve balance Goal Progress: Goal Met Goal 5:: Patient to impove dynamic balance to good- Goal Progress: Progressing Goal 6:: Patient to improve LFES score by 10 points to improve QOL. Goal Progress: Goal Met - Plan Plan: D/C - D/C Information Discharge Comments: hep If there are questions or concerns regarding this patient's physical therapy, please feel free to call me at [phone]. Thank you for the referral of this patient. Sincerely, Constantine Katz, PT, Cert MDT, OCS
== END 2019-09-06 19:00 | disposition home or self-care (01) ==
LOC: PT 10:00
PROVIDERS: Family Provider Family Medicine; PCP Family Medicine
DX: M43.23 Fusion of spine, cervicothoracic region (principal)
CPT/HCPCS: 97110; 97162; 97530

== ENCOUNTER → 2019-09-20 10:16 | Outpatient (CLI) | payer MEDICARE, OTHER, SELFPAY ==
[2019-07-23 10:28] VITALS: BMI 34.9
[2019-09-20 11:22] LABS: AST(SGOT) 15 U/L (15-37); Alanine Aminotransfer ALT/SGPT 21 U/L (13-56); Albumin, Serum 3.8 g/dL (3.2-5.0); Alkaline Phosphatase 152 U/L (45-117); Bilirubin, Direct 0.17 mg/dL (0.00-0.30); Cholesterol 174 mg/dL (200); Globulin 3.3 g/dL (2.2-4.2); High Density Lipoprotein 64 mg/dL; Protein, Total 7.1 g/dL (6.4-8.2); Triglycerides 95 mg/dL; Very Low Density Lipoprotein 19 mg/dL (5-40)
== END ==
PROVIDERS: Family Provider Family Medicine; PCP Family Medicine; Referring Provider Internal Medicine Cardiovascular Disease; Visit Provider Internal Medicine Cardiovascular Disease
DX: E78.00 Pure hypercholesterolemia, unspecified (principal)
CPT/HCPCS: 36415; 80061; 80076

== ENCOUNTER → 2020-05-09 09:12 | Outpatient (CLI) | payer MEDICARE, OTHER, SELFPAY ==
[2020-03-06 09:47] VITALS: BMI 35.6
[2020-05-09 10:01] LABS: AST(SGOT) 20 U/L (15-37); Alanine Aminotransfer ALT/SGPT 23 U/L (13-56); Alkaline Phosphatase 150 U/L (45-117); Bilirubin, Direct 0.21 mg/dL (0.00-0.30); Cholesterol 179 mg/dL (200); Globulin 3.7 g/dL (2.2-4.2); High Density Lipoprotein 53 mg/dL; Protein, Total 7.7 g/dL (6.4-8.2); Triglycerides 186 mg/dL; Very Low Density Lipoprotein 37 mg/dL (5-40)
[2020-05-09 14:09] LABS: Ferritin 91 ng/mL (8-252); Iron 94 ug/dL (50-170); Iron Binding Capacity,Total 364 ug/dL (250-450)
== END ==
PROVIDERS: PCP Family Medicine; Referring Provider Internal Medicine Cardiovascular Disease; Visit Provider Internal Medicine Cardiovascular Disease
DX: D50.9 Iron deficiency anemia, unspecified (principal); E78.00 Pure hypercholesterolemia, unspecified; E78.5 Hyperlipidemia, unspecified
CPT/HCPCS: 36415; 80061; 80076; 82728; 83540; 83550

== ENCOUNTER → 2020-07-25 17:33 | Outpatient (CLI) | payer MEDICARE, OTHER, SELFPAY ==
[2020-03-06 09:47] VITALS: BMI 35.6
== END ==
PROVIDERS: PCP Family Medicine; Referring Provider Family Medicine; Visit Provider Family Medicine
DX: Z20.828 Contact with and (suspected) exposure to other viral communicable diseases (principal)
CPT/HCPCS: 87635; C9803; U0003

== ENCOUNTER 2020-07-30 17:03 | Inpatient (IN) | payer MEDICARE, OTHER, SELFPAY ==
[2020-03-06 09:47] VITALS: BMI 35.6
[2020-07-30] VITALS (11 sets, daily range): BP systolic 110–125; BP diastolic 48–103; PULSE 83–95; RESP 18–22; TEMP 36.7–38; O2SAT 91–98; BMI 34.5; BMI 33.2; BMI 34.6
--- NOTE | 2020-07-30 17:24 | EKG12_ITS ---
Test Reason : SOB Blood Pressure : / mmHG Vent. Rate : 092 BPM Atrial Rate : 092 BPM P-R Int : 158 ms QRS Dur : 072 ms QT Int : 336 ms P-R-T Axes : -11 -22 -10 degrees QTc Int : 415 ms Normal sinus rhythm Inferior infarct , age undetermined Abnormal ECG Confirmed by VIVI RIGGS, ROHINI ([id number]), manager editorial DESIREE LEAHY ([id number]) on 08/01/2020 11:33:44 AM Referred By: LOUIE/JANNETH Confirmed By:ROHINI TRINIDAD MD
--- NOTE | 2020-07-30 17:25 | ED.VISSUMM ---
- ER Visit Summary Date of Service: 07/30/20 Chief Complaint: [Shortness of breath] History of Present Illness: The patient is a 75 F [presents the emergency department complaint of shortness of breath that started about a week ago. Patient complains of a cough. She denies fever. Cough is been nonproductive. Patient states that she had some blood work including a COVID test on the of the month and was negative for COVID. She denies recent travel or surgery. No history of PE or DVT. She denies any significant chest discomfort. Patient has history of diabetes, hypertension, high cholesterol, GERD, A. fib, and obstructive sleep apnea.] Physical Examination: [HEENT-PERRLA, EOMI. Cranial nerves II through XII grossly intact. TMs clear. Mucous membranes moist. No adenopathy. Cardiovascular-regular rate and rhythm without murmur or ectopy Lungs-good aeration bilaterally. Patient has occasional coarse rhonchi and coughs frequently. No rales noted. No significant expiratory wheezes. No conversational dyspnea. Abdomen-normoactive bowel sounds, soft, nontender, no rebound or rigidity, no peritoneal signs. Extremities-intact ?4, normal range of motion, normal pulses, atraumatic] Test Results: [EKG obtained on arrival showed a sinus rhythm with a ventricular rate of 92 bpm with old inferior infarct. CBC with differential showed a white count 7.6, hemoglobin 9.3, hematocrit 25, placed 391. Chemistries unremarkable. BUN 90 creatinine 1.04. Troponin less than 0.015. BNP was 89. D-dimer was 3.10. Lactate was 2.2. Chest x-ray obtained showed some incomplete expansion of the lungs and some questionable edema versus cannot rule out infiltrates in the lower aspect of the lungs. Patient had a CT of the chest that was nondiagnostic for PE due to the fact of timing of contrast and non-opacification of the pulmonary arteries.] Emergency Department Course and Treatment: [IV line was established. Patient was given normal saline. Patient was given Lovenox 90 mg subcu. Patient ambulated in the department and did become hypoxic with O2 sat dropping to 89% on room air and she became very dyspneic.] Treatment Plan: [Patient will be admitted to hospitalist group.] Etiology of dyspnea unclear at this time I was asked to obtain a COVID test to be done prior to admission. I cannot rule out PE and she does have an elevated d-dimer. Disposition: [Admit] Impression: [Dyspnea Hypoxemia] This note was generated with [employer] dictation software. It may contain incorrect words, spelling, and punctuation that were not noted in review of the chart prior to signing ED Disposition - Plan for ED Patient: Referrals: Kameron Kemp MD [Primary Care Provider] -
--- NOTE | 2020-07-30 17:55 | RAD_ITS ---
STUDY: X-RAY CHEST REASON FOR EXAM: Female, 75 years old. Shortness of breath, cough. TECHNIQUE: Single AP portable view of the chest. COMPARISON: None. FINDINGS: Low to moderate lung volumes. Diffuse hazy density of both lungs with a central distribution. Findings suggest congestion and interstitial edema. More focal mild atelectasis or infiltrate in the lung bases. There is borderline cardiomegaly. Normal mediastinum and giovanna. Normal visualized pulmonary arteries. Normal visualized aortic arch and descending thoracic aorta. Normal visualized thoracic spine. Degenerative changes of the right shoulder. Left shoulder arthroplasty. Extensive cervical spine surgery. There is no demonstrated abnormality of the visualized soft tissue structures of the upper abdomen. RAD/Chest 1 View (Portable) IMPRESSION: Incomplete expansion of the lungs. Mild diffuse pulmonary density suggestive of congestion and pulmonary edema. Cannot exclude additional atelectasis or infiltrate in the lung bases. Electronically Signed: Eagle Barba MD at 18:32 EDT , Service support ,
[2020-07-30 18:12] LABS: Absolute Lymphocyte Count 1.42 X10^3/uL (0.83-4.51); Absolute Neutrophil Count 4.9 X10^3/uL (2.0-7.7); Basophil# 0.05 X10^3/uL; Basophil% 0.7 % (0-1); Eosinophils% 2.6 % (0-5); Hemoglobin 9.3 g/dL (12.0-15.0); Lymphocyte # 1.42 X10^3/ul (4.0); Lymphocyte % 18.8 % (19-41); Mean Corp Hgb Conc 37.2 g/dL (32-36); Mean Corpuscular Hgb 31.7 pg (27.0-32.0); Mean Corpuscular Volume 85.3 fL (81-99); Mean Platelet Vol. 9.5 fl (6.2-12.0); Monocyte# 0.65 X10^3/uL; Monocyte% 8.6 % (0-10); NRBC Flagged by Analyzer 0.3 % (0-5); Neutrophil # 4.92 X10^3/uL (2.7-7.7); Neutrophil % 64.9 % (47-70); Platelet Count 391 K/mm3 (150-450); RBC Distribution Width CV 12.8 % (11.6-14.6); Red Blood Count 2.93 M/mm3 (4.2-5.4); White Blood Count 7.6 K/mm3 (4.4-11.0)
[2020-07-30 18:32] LABS: Anion Gap 7 (5-15); BUN 9 mg/dL (7-18); BUN/Creat Ratio 8.7 RATIO (10-20); Calcium,Total 9.4 mg/dL (8.5-10.1); Chloride 101 mmol/L (98-107); Creatinine, Serum 1.04 mg/dL (0.55-1.02); EST Glomerular Filtration Rate 55 mL/min (>60); Est Glom Filt Rate - Afr Amer 66 mL/min (>60); Estimated Creatinine Clearance 35.83 ml/min; Glucose 224 mg/dL (74-106); Potassium 4.1 mmol/L (3.5-5.1); Sodium Level 134 mmol/L (136-145)
[2020-07-30 18:33] LABS: BNP,B-Type NATRIURETIC PEPTIDE 84.2 pg/mL (0-100)
--- NOTE | 2020-07-30 18:36 | CT_ITS ---
STUDY: CTA CHEST REASON FOR EXAM: Female, 75 years old. DYSPNEA, ELEVATED D-DIMER, COUGH, SOB X 1 WEEK, HX KS, HTN, BASAL CELL CA RADIATION DOSAGE (If Supplied By Facility): CTDIvol = ( 15.03 ) mGy, DLP = ( 507.29 ) mGycm TECHNIQUE: The examination was performed with the intravenous administration of IV 100mL Isovue-370. Post-processing of the angiographic images was performed, with multiplanar reformation and 3D reconstruction. Individualized dose optimization techniques were used for this CT. COMPARISON: None. FINDINGS: Inadequate enhancement of the pulmonary arteries-most of the contrast is seen of the right subclavian vein, yet there is significant contrast in the aorta. This indicates improper contrast timing and bolus. There is adequate enhancement of the main pulmonary trunk. Inadequate enhancement of the main pulmonary arteries and of the bilateral peripheral pulmonary arteries. Therefore, pulmonary emboli cannot be confirmed or excluded beyond the pulmonary trunk. Normal thoracic aorta and visualized great vessels. There is no demonstrated aortic dissection. Normal heart and pericardium. There are calcifications of the coronary arteries. Normal mediastinum. Normal hilar regions. Normal visualized trachea and bronchi. The lungs are well expanded. Lungs show widespread hazy density in all segments most suggestive of mild interstitial edema. No focal infiltrates are seen. No effusions. There are degenerative changes of thoracic spine. Normal visualized upper abdomen. CT/CTA Chest W/WO Contrast IMPRESSION: Technically limited exam-inadequate contrast enhancement of the pulmonary arteries and therefore pulmonary emboli are not confirmed or excluded. Probable widespread mild pulmonary edema. Electronically Signed: Eagle Barba MD at 19:30 EDT , Service support ,
[2020-07-30 18:42] LABS: Lactic Acid 2.2 mmol/L (0.4-1.9)
[2020-07-30] MEDS: 0.9% Normal Saline 1,000 ML 150 ML IV (19:03)
--- NOTE | 2020-07-30 20:48 | HP.PCM_ITS ---
History of Present Illness Date of Admission: 07/30/20 Chief Complaint: Shortness of breath The patient is a 75 year old F with a PMH as below who presents with shortness of breath that started about a 1 to 2 weeks ago. She has a nonproductive cough but denies any fevers or chills. No lightheadedness or dizziness. She was tested for COVID on 07/25/2020 which was negative. She has not had any recent travel or exposures that she can think of. No chest pain or loss of sense of smell or taste. In the ED she had a chest x-ray which showed possible pulmonary edema, a CTA was obtained secondary to an elevated d-dimer over 3 however the CTA read as nondiagnostic secondary to poor contrast bolus, will have second opinion done by radiology as the vasculature does appear to be contrasted and I do not see a PE on my read. She did drop her oxygen sat with ambulation 89%, and a COVID test today was done and it was negative. CTA does show mild diffuse pulmonary edema of unknown etiology as her BNP was normal and her no pleural effusion seen. Past Medical History Past Medical History (Chronic Problems): Chronic Problems (Last Reviewed 07/23/19 @ 10:28 by Susu Jim) Nonrheumatic aortic (valve) stenosis (Chronic) Dynamic left ventricular outflow obstruction (Chronic) Paroxysmal atrial fibrillation (Chronic) Single episode in [address] Rashaun Bauer's OV note from 03/15/2019 Internal hemorrhoids (Chronic) History of total abdominal hysterectomy (Chronic 1983) History of carpal tunnel release of both wrists (Chronic) 09/2000, 11/2000 Hx of bilateral cataract extraction (Chronic) 09/06, 11/2004 History of tonsillectomy (Chronic) History of arthroplasty of left shoulder (Chronic ~2003) History of colonoscopy (Chronic 12/16/08) History of esophagogastroduodenoscopy (EGD) (Chronic 10/21/07) S/P PICC central line placement (Chronic 02/26/19) H/O lumbosacral spine surgery (Chronic ~1989) Status post laser cataract surgery of right eye (Chronic 12/2006) History of blepharoplasty (Chronic 08/2009) H/O cervical spine surgery (Chronic 06/14/16) Diverticulosis of colon (Chronic) Anxiety (Chronic) Thoracic disc herniation (Chronic) Dizziness (Chronic) Abnormality of gait (Chronic) Vitamin D deficiency (Chronic) Chronic constipation (Chronic) Right arm weakness (Chronic) GERD (gastroesophageal reflux disease) (Chronic) Cervical spondylosis with myelopathy (Chronic) RLS (restless legs syndrome) (Chronic) 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 Rashaun Bauer's OV note from 03/15/2019 Essential hypertension (Chronic) I10 Hyperlipidemia (Chronic) E78.5 Diabetes mellitus type II, controlled (Chronic) E11.9 Right hemiparesis (Chronic) G81.91 Obstructive sleep apnea (Chronic) G47.33 Central sleep apnea (Chronic) G47.31 Allergies simvastatin Adverse Reaction (Severe, Verified 07/30/20 17:41) myalgia celecoxib [From Celebrex] Adverse Reaction (Intermediate, Verified 07/30/20 1 7:41) GI upset codeine Adverse Reaction (Intermediate, Verified 07/30/20 17:41) GI upset lisinopril Adverse Reaction (Intermediate, Verified 07/30/20 17:41) cough hydrochlorothiazide Adverse Reaction (Unknown, Verified 07/30/20 17:41) unknown, ask pt at appt metformin Adverse Reaction (Verified 07/30/20 17:41) Other oxycodone Adverse Reaction (Verified 07/30/20 17:41) Nausea/Vom/Diarrhea Home Medications: Ambulatory Orders Medication Instructions Recorded Aspirin [Aspirin, Baby] 81 mg PO DAILY@0800 04/29/18 Atenolol [Tenormin (Beta Ilan)] 50 mg PO DAILY 04/29/18 Glimepiride [Amaryl] 2 mg PO BID 04/29/18 Ipratropium [place] 0.06% 2 spray NASAL BID 04/29/18 [ATROVENT NASAL SPRAY (g)] Omeprazole [Prilosec] 20 mg PO DAILY 04/29/18 Polyethylene Glycol 3350 [Miralax] 17 gm PO QWEEK 04/29/18 docusate sodium 100 mg capsule 100 mg PO DAILY cap 07/21/19 liraglutide 0.6 mg/0.1 mL (18 mg/3 1.8 mg SC DAILY ml 07/21/19 mL) subcutaneous pen injector multivitamin 1 tab PO DAILY 07/21/19 losartan 25 mg tablet 25 mg PO DAILY #90 tab 12/21/19 cholecalciferol (vitamin D3) 25 1,000 unit PO BID tab 03/06/20 mcg (1,000 unit) tablet lovastatin 10 mg tablet 20 mg PO QHS tab 03/06/20 ropinirole 0.25 mg tablet 0.25 mg PO QHS 03/06/20 spironolactone 25 mg tablet 25 mg PO DAILY 03/16/20 ALPRAZolam [Xanax] 0.5 - 1 tab PO TID PRN PRN 07/30/20 Biotin 10,000 mcg PO DAILY 07/30/20 Calcium Carbonate/Vitamin D3 1 ea PO DAILY 07/30/20 [Calcium 250+D Tablet] Cyclosporine/Chondroit Sulf A 1 drp EACH EYE BID 07/30/20 [Cyclosporine 0.1% in [place]] Doxycycline Hyclate 20 mg PO BID PRN 07/30/20 Fluorometholone [Fml] 1 drp EACH EYE DAILY 07/30/20 Ivermectin/Metronidazole/Niaci 1 applicatio TP QHS 07/30/20 [Ivermect 1%-Metronid 1%-Niac4%] L.acidoph,Paracasei, B.lactis 1 ea PO DAILY 07/30/20 [Probiotic] Naproxen Sodium [Aleve] 220 mg PO DAILY 07/30/20 Propylene Glycol/Peg 400 [Systane 1 drp EACH EYE 4X/DAY 07/30/20 Ultra 0.4-0.3% Eye Drp] Surgical History: Surgical History (Last Updated 07/23/19 @ 10:39 by Susu Jim) H/O Spinal surgery Z98.890 X2 since February 2019, complicated by infection and IV antibiotics. Smoking Status: Former smoker Tobacco Use: Cigarettes Alcohol: None Drugs: None - *Family History Maternal Family History: Family History (Last Reviewed 07/23/19 @ 10:28 by Susu Jim) Mother Arthritis CAD (coronary artery disease) Father CAD (coronary artery disease) Diabetes Sister Diabetes Hypertension Sister Diabetes Hypertension Sister Diabetes Hypertension Sister Hypertension Brother Diabetes Hypertension Brother Diabetes Hypertension Brother Hypertension Review of Systems Constitutional: Denies: Chills, Fever, Weight Change HEENT: Denies: Head Aches, Sinus Congestion, Sinus Drainage Cardiovascular: Denies: Chest Pain, Palpitations Respiratory: Reports: Cough, Shortness of Breath. Denies: Shortness of breath at rest, Sputum production Gastrointestinal: Denies: Abdominal Pain, Nausea, Vomiting Genitourinary: Denies: Dysuria Musculoskeletal: Denies: Joint Pain, Joint Tenderness Skin: Denies: Rash, Wounds Neurological: Denies: Numbness, Tingling, Focal weakness Psychiatric: Denies: Anxiety, Depression, Homicidal Ideations, Suicidal Ideations Hematologic/ Lymphatic: Denies: Easy Bruising, Easy Bleeding VTE Information - Inpt Only VTE Present on Admission: No - Physical Exam Vitals/I&O's: Vital Signs Temp Pulse Resp BP Pulse Ox 98.7 F 83 20 H 119/58 L 98 07/30/20 20:00 07/30/20 20:00 07/30/20 20:00 07/30/20 20:00 07/30/20 20:00 Oxygen Flow Rate (L/min) 2 Oxygen Delivery Method Nasal Cannula Weight: 189 lb Body Mass Index (BMI) 34.5 General: Alert, Oriented x3, Cooperative, No apparent distress HEENT: Atraumatic, PERRLA, EOMI, Normocephalic Oral: Moist Mucosa Neck: Supple, No JVD Lungs: Clear to auscultation, Normal air movement, No rhonchi, No wheeze, No rales, Diminished Cardiovascular: Regular rate, Regular Rhythm, Normal S1, Normal S2, No murmurs Abdomen: Soft, Non Tender, Non-Distended, No Hepato-splenomegaly Extremities: No edema, Capillary Refill Less than 3 Seconds Skin: No rashes, No breakdown Neurological: Neuro grossly intact, Sensory exam intact to light touch and pain Psych/Mental Status: Normal Affect, Appropriate Laboratory Results 07/30/20 17:10: COVID-19 ([facility]) Pending 07/30/20 17:40: COVID-19 ([facility]) Cancelled 07/30/20 17:45: WBC 7.6, RBC 2.93 L, Hgb 9.3 L, Hct 25.0 L, MCV 85.3, MCH 31.7, MCHC 37.2 H, RDW Std Deviation 39.0, RDW Coeff of Britt 12.8, Plt Count 391, MPV 9.5, Immature Gran % (Auto) 4.400 H, Neut % (Auto) 64.9, Lymph % (Auto) 18.8 L, [place] % (Auto) 8.6, Eos % (Auto) 2.6, Baso % (Auto) 0.7, Absolute Neuts (auto) 4.9, Absolute Lymphs (auto) 1.42, Nucleated RBC % 0.3 07/30/20 17:45: D-Dimer Quant (PE/DVT) 3.10 H* 07/30/20 17:45: Sodium 134 L, Potassium 4.1, Chloride 101, Carbon Dioxide 26.0, Anion Gap 7, BUN 9, Creatinine 1.04 H, Estim Creat Clear Calc 35.83, Est GFR (MDRD) Af Amer 66, Est GFR (MDRD) Non-Af 55 L, BUN/Creatinine Ratio 8.7 L, Glucose 224 H, Calcium 9.4, Troponin I < 0.015 07/30/20 17:45: Lactic Acid 2.2 H* 07/30/20 17:45: B-Natriuretic Peptide 84.2 Current Medications Enoxaparin Sodium (Lovenox) 90 mg SC Q12 [facility] Sodium Chloride () 1,000 mls @ 150 mls/hr IV .Q6H40M [facility] Last Admin: 07/30/20 19:03 Dose: 150 mls/hr Documented by: Iopamidol (Contrast Allergy Check) 0 ml IV X1 [facility] Assessment/Plan 1. Shortness of breath with acute hypoxic respiratory insufficiency -Unsure of the etiology at the moment. She does not have a history of heart failure however CTA is read as mild pulmonary edema -COVID test was negative, will obtain a respiratory panel -No consolidation or leukocytosis to consider arterial pneumonia -She does require oxygen as she did drop her oxygen saturations to about 88-89% with ambulation -Her d-dimer was elevated to over [address] was read as nondiagnostic, will try to have a second opinion done by radiology, if unable will have in-house radiology in the morning provided over read in the meantime because a PE cannot be excluded as the cause of her shortness of breath despite the elevation in her d-dimer, she will be anticoagulated with therapeutic Lovenox 2. HTN/HLD -Blood pressures are stable currently -Given the possible pulmonary edema, will only give her 1 L of fluid after her CTA -Continue with atenolol, losartan, Aldactone -Continue with lovastatin 3. DM 2 -We will hold her oral hypoglycemics and start her on a sliding scale insulin -Accu-Cheks AC at bedtime 4. GERD -Stable -Continue with PPI DVT: Therapeutic Lovenox OBSV E&M: [id number] Initial observation care L2
[2020-07-30 21:39] LABS: Probe Check PASS; Specimen Processing Control PASS
[2020-07-30 22:08] LABS: Reflex Lactate? Y
[2020-07-30] MEDS: Enoxaparin 100 MG/ML Syringe 90 MG SC (22:16)
[2020-07-30 22:49] LABS: Lactic Acid 1.2 mmol/L (0.4-1.9)
[2020-07-30] MEDS: 0.9% Normal Saline 1,000 ML 100 ML IV (23:31)
[2020-07-31] VITALS (12 sets, daily range): BP systolic 105–138; BP diastolic 51–61; PULSE 75–92; RESP 16–18; TEMP 36.6–36.9; O2SAT 94–97
[2020-07-31 00:10] LABS: Bedside Glucose 208 mg/dL (70-110)
[2020-07-31 05:26] LABS: Absolute Lymphocyte Count 2.39 X10^3/uL (0.83-4.51); Absolute Neutrophil Count 3.9 X10^3/uL (2.0-7.7); Basophil# 0.06 X10^3/uL; Basophil% 0.8 % (0-1); Eosinophil# 0.25 X10^3/uL; Eosinophils% 3.2 % (0-5); Hematocrit 22.7 % (37-47); Hemoglobin 7.6 g/dL (12.0-15.0); Lymphocyte # 2.39 X10^3/ul (4.0); Lymphocyte % 30.5 % (19-41); Mean Corp Hgb Conc 33.5 g/dL (32-36); Mean Corpuscular Hgb 29.2 pg (27.0-32.0); Mean Corpuscular Volume 87.3 fL (81-99); Monocyte# 0.86 X10^3/uL; NRBC Flagged by Analyzer 0 % (0-5); Neutrophil % 49.7 % (47-70); Platelet Count 301 K/mm3 (150-450); RBC Distribution Width CV 13.2 % (11.6-14.6); RBC Distribution Width SD 41.4 fl (35.1-43.9); White Blood Count 7.8 K/mm3 (4.4-11.0)
[2020-07-31 05:41] LABS: Anion Gap 6 (5-15); BUN 8 mg/dL (7-18); BUN/Creat Ratio 8.7 RATIO (10-20); Calcium,Total 8.4 mg/dL (8.5-10.1); Chloride 103 mmol/L (98-107); Creatinine, Serum 0.92 mg/dL (0.55-1.02); EST Glomerular Filtration Rate 63 mL/min (>60); Est Glom Filt Rate - Afr Amer 76 mL/min (>60); Glucose 206 mg/dL (74-106); Potassium 3.7 mmol/L (3.5-5.1); Sodium Level 136 mmol/L (136-145)
[2020-07-31] MEDS: Insulin Lispro 100 UNIT/ML INSULN.PEN SC ×4 (06:37→21:29)
[2020-07-31 06:38] LABS: Ferritin 645 ng/mL (8-252); Iron 50 ug/dL (50-170); Iron Binding Capacity,Total 229 ug/dL (250-450); PERCENT IRON SATURATION 21.8 % (15.0-55.0)
[2020-07-31 06:51] LABS: Bedside Glucose 178 mg/dL (70-110)
[2020-07-31] MEDS: Aspirin 81 MG TAB.CHEW PO (08:52)
[2020-07-31] MEDS: Atenolol 50 MG Tablet PO (08:53)
[2020-07-31] MEDS: Losartan Potassium 25 MG Tablet PO (08:53)
[2020-07-31] MEDS: Pantoprazole Sodium 20 MG Tablet PO (08:53)
[2020-07-31] MEDS: Spironolactone 25 MG Tablet PO (08:53)
[2020-07-31] MEDS: Enoxaparin 100 MG/ML Syringe 90 MG SC (09:01)
--- NOTE | 2020-07-31 11:03 | PN_ITS ---
Reason for Visit: CHF Subjective: Breathing better with oxygen. Dry cough. Vitals/I&O's: Vital Signs Temp Pulse Resp BP Pulse Ox 36.6 C 80 18 119/51 L 94 07/31/20 10:52 07/31/20 10:52 07/31/20 10:52 07/31/20 10:52 07/31/20 10:52 Oxygen Flow Rate (L/min) 2 Oxygen Delivery Method Nasal Cannula Weight: 82.4 kg Body Mass Index (BMI) 33.2 Intake and Output for Last 24 Hours 07/29/20 07/30/20 07/31/20 23:59 23:59 23:59 Intake Total 690 / 690 1000 / 1000 Balance 690 / 690 1000 / 1000 General: Alert, No apparent distress HEENT: Atraumatic, Normocephalic Oral: Moist Mucosa, No Gingival or Mucosal Lesions/ Ulcerations Neck: No Nodes, Thyroid Normal Size and Texture Lungs: Clear to auscultation, Normal air movement, No rhonchi, No wheeze, No rales Cardiovascular: Regular rate, Regular Rhythm, Normal S1, Normal S2, No murmurs Abdomen: Bowel Sounds Present, Soft, Non Tender, Non-Distended, No Hepato- splenomegaly Extremities: No edema, No Calf Tenderness Skin: No rashes, No breakdown Psych/Mental Status: Normal Affect, Appropriate Microbiology Past 72 Hours 07/31/20 07:11 Mucosa - Nasopharyngeal Respiratory Panel (PCR) - Final Laboratory Results 07/30/20 17:10: COVID-19 ([facility]) Negative 07/30/20 17:40: COVID-19 ([facility]) Cancelled 07/30/20 17:45: WBC 7.6, RBC 2.93 L, Hgb 9.3 L, Hct 25.0 L, MCV 85.3, MCH 31.7, MCHC 37.2 H, RDW Std Deviation 39.0, RDW Coeff of Britt 12.8, Plt Count 391, MPV 9.5, Immature Gran % (Auto) 4.400 H, Neut % (Auto) 64.9, Lymph % (Auto) 18.8 L, [place] % (Auto) 8.6, Eos % (Auto) 2.6, Baso % (Auto) 0.7, Absolute Neuts (auto) 4.9, Absolute Lymphs (auto) 1.42, Nucleated RBC % 0.3 07/30/20 17:45: D-Dimer Quant (PE/DVT) 3.10 H* 07/30/20 17:45: Sodium 134 L, Potassium 4.1, Chloride 101, Carbon Dioxide 26.0, Anion Gap 7, BUN 9, Creatinine 1.04 H, Estim Creat Clear Calc 35.83, Est GFR (MDRD) Af Amer 66, Est GFR (MDRD) Non-Af 55 L, BUN/Creatinine Ratio 8.7 L, Glucose 224 H, Calcium 9.4, Troponin I < 0.015 07/30/20 17:45: Lactic Acid 2.2 H* 07/30/20 17:45: B-Natriuretic Peptide 84.2 07/30/20 22:18: Lactic Acid 1.2 07/30/20 23:35: POC Glucose 208 H 07/31/20 05:05: WBC 7.8, RBC 2.60 L, Hgb 7.6 L, Hct 22.7 L, MCV 87.3, MCH 29.2, MCHC 33.5 D, RDW Std Deviation 41.4, RDW Coeff of Rbitt 13.2, Plt Count 301, MPV 9.0, Immature Gran % (Auto) 4.800 H, Neut % (Auto) 49.7, Lymph % (Auto) 30.5, [place] % (Auto) 11.0 H, Eos % (Auto) 3.2, Baso % (Auto) 0.8, Absolute Neuts (auto) 3.9, Absolute Lymphs (auto) 2.39, Nucleated RBC % 0 07/31/20 05:05: Sodium 136, Potassium 3.7, Chloride 103, Carbon Dioxide 27.0, Anion Gap 6, BUN 8, Creatinine 0.92, Estim Creat Clear Calc 40.50, Est GFR (MDRD) Af Amer 76, Est GFR (MDRD) Non-Af 63, BUN/Creatinine Ratio 8.7 L, Glucose 206 H, Calcium 8.4 L 07/31/20 05:05: Iron 50, TIBC 229 L, Iron Saturation 21.8, Ferritin 645 H 07/31/20 06:29: POC Glucose 178 H 07/31/20 06:30: Blood Type B NEGATIVE, Antibody Screen NEGATIVE Current Medications Acetaminophen (Tylenol) 650 mg PO Q6H PRN PRN PRN Reason: Pain Score 1-10/Temp > 100.7 F Aspirin (Aspirin, Baby) 81 mg PO DAILY@0800 COUNT INCLUDES THE [facility] Last Admin: 07/31/20 08:52 Dose: 81 mg Documented by: Atenolol (Tenormin (Beta Ialn)) 50 mg PO DAILY COUNT INCLUDES THE [facility] Last Admin: 07/31/20 08:53 Dose: 50 mg Documented by: Atorvastatin Calcium (Lipitor) 5 mg PO QHS COUNT INCLUDES THE [facility] Dextrose (D50w Syringe) 0 gm IV X1 PRN; Protocol PRN Reason: Hypoglycemia Enoxaparin Sodium (Lovenox) 90 mg SC Q12 [facility]CLUD[facility] Last Admin: 07/31/20 09:01 Dose: 90 mg Documented by: Glucagon () 1 mg IM .X1 PRN PRN Reason: Hypoglycemia Insulin Human Lispro (Humalog Kwikpen (Bkc)) 0 unit SC ACHS COUNT INCLUDES THE [facility]; Protocol Last Admin: 07/31/20 10:54 Dose: 6 units Documented by: Losartan Potassium (Cozaar) 25 mg PO DAILY COUNT INCLUDES THE [facility] Last Admin: 07/31/20 08:53 Dose: 25 mg Documented by: Melatonin (Melatonin) 3 mg PO QHS PRN PRN PRN Reason: INSOMNIA Ondansetron HCl (Zofran) 4 mg IV Q8H PRN PRN PRN Reason: NAUSEA/VOMITING Pantoprazole Sodium (Protonix) 20 mg PO DAILY COUNT INCLUDES THE [facility] Last Admin: 07/31/20 08:53 Dose: 20 mg Documented by: Pramipexole Dihydrochloride (Mirapex) 0.125 mg PO QHS@2100 COUNT INCLUDES THE [facility] Sodium Chloride () 10 - 40 ml IV UD PRN PRN Reason: SALINE FLUSH Spironolactone (Aldactone) 25 mg PO DAILY COUNT INCLUDES THE [facility] Last Admin: 07/31/20 08:53 Dose: 25 mg Documented by: STROKE Vital Signs/Narrative: Vital Signs Temp Pulse Resp BP Pulse Ox 07/31/20 10:52 36.6 C 80 18 119/51 L 94 07/31/20 08:44 36.6 C 88 18 133/55 H 97 Medical Necessity - Tobacco Use Smoking Status: Former smoker Tobacco Use: Cigarettes Assessment/Plan 1. Acute heart failure with preserved ejection fraction exacerbation, * EF 65% from echocardiogram on August 09, 2019 * Start furosemide. Patient states that she has had issues with hypoglycemia with being on furosemide in the past. Informed patient I will be checking her blood sugar while she is here to see if there is any issues with that. Told her that I have not had any patients who have had had issues with hypoglycemia while on furosemide. * Hold Spironolactone * Recheck echocardiogram * BNP was normal but CAT scan showed diffuse edema throughout. Doubt infectious etiology as patient does not have any other somatic complaints. 2. Diabetes mellitus type 2 * Sliding scale insulin * Glimepiride currently held. Liraglutide currently held 3. Acute hypoxic respiratory insufficiency * CAT scan was incomplete though my clinical suspicion for a pulmonary embolism is low. Therefore, I am going to discontinue the therapeutic enoxaparin. * Feels related with presumed heart failure. 4. Anemia * Normocytic * iron studies normal * Check B12, folate and TSH * Check Hemoccult 5. VTE prophylaxis with enoxaparin. Greater than 35 minutes of which greater than 50% of the time was discussed with the patient about CHF, reviewing her echocardiogram, treatment of CHF. Inpatient E&M: [id number] [facility] L3
--- NOTE | 2020-07-31 11:03 | ECHOCS_ITS ---
Version 2 Reason For Study: CHF Procedure This was a 2D Doppler, Color Flow transthoracic echocardiogram. The study was technically difficult. Contrast injection was performed. Exam performed portable in patient room. Left Ventricle Normal LV size. Left ventricular systolic function is normal. The estimated ejection fraction is 65 %. No regional wall motion abnormalities noted. Right Ventricle Normal RV size. Normal systolic function. Mitral Valve Normal mitral valve. Tricuspid Valve Normal tricuspid valve. Mild (1+) tricuspid valve insufficiency. Pulmonary artery systolic pressure is 34 mmHg. Aortic Valve Trisinus/trileaflet aortic valve. Mild focal aortic valve calcification. Peak aortic valve gradient 27 mmHg. Mean aortic valve gradient 14 mmHg. Mild (1+) aortic valve insufficiency. Pulmonic Valve Normal pulmonic valve. Great Vessels Normal aortic root. The pulmonary artery is normal size. Normal inferior vena cava. Pericardium/Pleural No pericardial effusion. Medication Diluted definity 5ml given slow IV push to enhance endocardial definition. MMode/2D Measurements & Calculations LVIDd: 4.1 cm IVSd: 1.0 cm LVOT diam: 2.0 cm LVIDs: 2.6 cm LVPWd: 1.1 cm LVOT area: 3.0 cm2 RVDd: 3.6 cm FS: 37.5 % Ao root diam: 3.1 cm LAV(MOD-bp): 44.3 ml LVAd ap4: 26.9 cm2 LA dimension: 3.8 cm LAV(MOD-bp) Indexed: 23.7 ml/m2 EDV(MOD-sp4): 74.5 ml LAV(MOD-sp2): 35.9 ml EDV(sp4-el): 78.1 ml LAV(MOD-sp4): 43.9 ml LVAs ap4: 12.8 cm2 ESV(MOD-sp4): 23.8 ml ESV(sp4-el): 23.8 ml EF(MOD-sp4): 68.1 % EF(sp4-el): 69.5 % SV(MOD-sp4): 50.7 ml SV(sp4-el): 54.3 ml LA A4 area: 17.4 cm2 RA A4 area: 15.4 cm2 Time Measurements MV dec time: 0.26 sec Doppler Measurements & Calculations MV E max armin: 103.5 cm/sec Lat Peak E' Armin: 11.4 cm/sec Med Peak E' Armin: 9.8 cm/sec MV A max armin: 141.2 cm/sec E/E' lat: 9.1 E/E' med: 10.5 MV E/A: 0.73 MV V2 max: 148.3 cm/sec MV P1/2t max armin: 114.6 cm/sec Ao V2 max: 261.9 cm/sec MV max P.8 mmHg MV P1/2t: 82.7 msec Ao max P.4 mmHg MV V2 mean: 82.5 cm/sec Ao V2 mean: 181.5 cm/sec MV mean P.1 mmHg MV dec slope: 405.6 cm/sec2 Ao mean P.9 mmHg MV V2 VTI: 33.2 cm MVA(P1/2t): 2.7 cm2 Ao V2 VTI: 53.6 cm MVA(VTI): 3.5 cm2 EZEQUIEL(I,D): 2.2 cm2 EZEQUIEL(V,D): 2.1 cm2 LV V1 max: 186.0 cm/sec SV(LVOT): 117.4 ml PA V2 max: 117.5 cm/sec LV V1 max P.8 mmHg LV V1 mean P.6 mmHg LV V1 mean: 126.1 cm/sec LV V1 VTI: 39.0 cm TR max armin: 277.7 cm/sec TR max P.8 mmHg Interpretation Summary Normal LV size. Left ventricular systolic function is normal. The estimated ejection fraction is 65 %. Pulmonary artery systolic pressure is 34 mmHg. Contrast injection was performed. Ordering Physician: Alcides Barajas Referring Physician: MD Justo Kameron Performed By: Deandre Kruse RCS
[2020-07-31 11:10] LABS: Bedside Glucose 316 mg/dL (70-110)
[2020-07-31 11:48] LABS: Vitamin B12 1359 pg/mL (211-911)
--- NOTE | 2020-07-31 13:23 | CASEMGMT ---
LYNSEY MARCOS assessment: Face to Face with patient for initial transition planning/care coordination assessment. LYNSEY MARCOS introduced self and role at [facility], pt voices understanding and consents to assessment at this time. Pt is sitting up in chair with occasional coughing fits at this time. Pt is A/Ox4 at this time and answers all questions appropriately at this time. Pt's is at bedside during assessment. Care providers, pharmacy, and demographics verified at this time. Presentation: Pt c/o increasing cough/SOB w/ symptoms starting one week ago. pt reports had a COVID test on 07/25/2020 Admitting dx: SOB PCP: Justo Specialists: [facility] cardiology(was with Aleksandr but not sure who she will see now); Mustapha pulebony; Radha, pod; Keagan, octavio Preferred Pharmacy: [facility] Insurance: [facility] A/B, [employer] Prescription Benefit: [employer] Living Will/HPOA: Pt states has LW/HPOA and is aware that they are not on file at [facility] at this time. Pt states her , Wojciech Howard, is HPOA. LNOK: Wojciech Howard, /HPOA Living Arrangements: Pt states lives with in a ranch home with 3 railed steps into home and states no concerns at home at this time. Pt states is independent with ADL's. Transportation: Pt states drives self and states no transportation concerns at this time. DME/HHC: Pt states has the following DME: cane, walker, raised toilet seat, grab bars, rails, and shower chair. Pt states she is interested in home oxygen and home oxygen qualification explained to pt/ at this time, voice understanding. Pt states [employer] would be her preference after list of local in-network DME companies provided. Pt states no need for any further DME. Pt states has had HHC x2 in the past and has been to [facility] in the past. Pt states no concerns with going home at time of discharge. Pt states is retired. Pt states quit smoking cigarettes 52 years ago and does not drink ETOH. Pt voice no further concerns/needs at this time. CM to follow for home oxygen qualifications and any further discharge planning/needs. Advised pt to ask for CM if any further questions/concerns/needs arise, voices understanding. Pt Goal: Home Plan: [place] LYNSEY MARCOS
[2020-07-31 16:30] LABS: Bedside Glucose 191 mg/dL (70-110)
[2020-07-31] MEDS: Furosemide 40 MG/4 ML Vial IV (17:24)
[2020-07-31] MEDS: 0.9% Saline Lock 10 ML Syringe IV (17:25)
[2020-07-31] MEDS: Atorvastatin Calcium 10 MG Tablet 5 MG PO (21:30)
[2020-07-31] MEDS: Pramipexole Di-HCl 0.125 MG Tablet PO (21:31)
[2020-07-31 21:41] LABS: Bedside Glucose 232 mg/dL (70-110)
[2020-08-01] VITALS (10 sets, daily range): BP systolic 100–109; BP diastolic 49–56; PULSE 72–85; RESP 18–20; TEMP 36.6–37.1; O2SAT 88–96
[2020-08-01 05:53] LABS: Absolute Lymphocyte Count 1.97 X10^3/uL (0.83-4.51); Absolute Neutrophil Count 3.4 X10^3/uL (2.0-7.7); Basophil# 0.06 X10^3/uL; Basophil% 0.9 % (0-1); Eosinophil# 0.25 X10^3/uL; Eosinophils% 3.7 % (0-5); Hematocrit 23.7 % (37-47); Lymphocyte # 1.97 X10^3/ul (4.0); Lymphocyte % 29.5 % (19-41); Mean Corp Hgb Conc 33.8 g/dL (32-36); Mean Corpuscular Volume 88.8 fL (81-99); Mean Platelet Vol. 9.3 fl (6.2-12.0); Monocyte# 0.73 X10^3/uL; Monocyte% 10.9 % (0-10); NRBC Flagged by Analyzer 0 % (0-5); Neutrophil # 3.37 X10^3/uL (2.7-7.7); Neutrophil % 50.5 % (47-70); Platelet Count 336 K/mm3 (150-450); RBC Distribution Width CV 13.4 % (11.6-14.6); RBC Distribution Width SD 43.3 fl (35.1-43.9); Red Blood Count 2.67 M/mm3 (4.2-5.4); White Blood Count 6.7 K/mm3 (4.4-11.0)
[2020-08-01 06:14] LABS: Anion Gap 6 (5-15); BUN 10 mg/dL (7-18); BUN/Creat Ratio 10.2 RATIO (10-20); Calcium,Total 8.7 mg/dL (8.5-10.1); Chloride 101 mmol/L (98-107); Creatinine, Serum 0.98 mg/dL (0.55-1.02); EST Glomerular Filtration Rate 59 mL/min (>60); Est Glom Filt Rate - Afr Amer 71 mL/min (>60); Estimated Creatinine Clearance 38.02 ml/min; Glucose 202 mg/dL (74-106); Potassium 4.1 mmol/L (3.5-5.1); Sodium Level 135 mmol/L (136-145)
[2020-08-01] MEDS: Enoxaparin 40 MG/0.4 ML Syringe SC (06:29)
[2020-08-01] MEDS: Insulin Lispro 100 UNIT/ML INSULN.PEN SC ×2 (06:29→11:54)
[2020-08-01 06:40] LABS: Bedside Glucose 222 mg/dL (70-110)
[2020-08-01] MEDS: Aspirin 81 MG TAB.CHEW PO (08:04)
[2020-08-01] MEDS: Losartan Potassium 25 MG Tablet PO (09:54)
[2020-08-01] MEDS: Atenolol 50 MG Tablet PO (09:54)
[2020-08-01] MEDS: Pantoprazole Sodium 20 MG Tablet PO (09:54)
[2020-08-01] MEDS: 0.9% Saline Lock 10 ML Syringe IV (09:55)
[2020-08-01] MEDS: Furosemide 40 MG/4 ML Vial IV (09:55)
--- NOTE | 2020-08-01 11:32 | DCINST_ITS ---
You will use the following diet at home:: Cardiac Your food should be the consistency of: Regular Your liquids should be the consistency of: Regular/Thin Discharge Activity: Return to Normal Activity Call your doctor if you observe: Shortness of breath, Swelling in the ankles Allergies/Adverse Reactions: Allergies simvastatin Adverse Reaction (Severe, Verified 07/30/20 17:41) myalgia celecoxib [From Celebrex] Adverse Reaction (Intermediate, Verified 07/30/20 17:41) GI upset codeine Adverse Reaction (Intermediate, Verified 07/30/20 17:41) GI upset lisinopril Adverse Reaction (Intermediate, Verified 07/30/20 17:41) cough hydrochlorothiazide Adverse Reaction (Unknown, Verified 07/30/20 17:41) unknown, ask pt at appt metformin Adverse Reaction (Verified 07/30/20 17:41) Other oxycodone Adverse Reaction (Verified 07/30/20 17:41) Nausea/Vom/Diarrhea Medications to take at Discharge Aspirin [Aspirin, Baby] 81 mg PO DAILY@0800 04/29/18 Atenolol [Tenormin (beta gina)] 50 mg PO DAILY 04/29/18 Glimepiride [Amaryl] 2 mg PO BID 04/29/18 Ipratropium [place] 0.06% [ATROVENT NASAL SPRAY] 2 spray NASAL BID 04/29/18 Omeprazole [Prilosec] 20 mg PO DAILY 04/29/18 Polyethylene Glycol 3350 [Miralax] 17 gm PO QWEEK 04/29/18 docusate sodium 100 mg capsule 100 mg PO DAILY cap 07/21/19 liraglutide 0.6 mg/0.1 mL (18 mg/3 mL) subcutaneous pen injector 1.8 mg SC DAILY ml 07/21/19 multivitamin 1 tab PO DAILY 07/21/19 losartan 25 mg tablet 25 mg PO DAILY #90 tab 12/21/19 cholecalciferol (vitamin D3) 25 mcg (1,000 unit) tablet 1,000 unit PO BID tab 03/06/20 lovastatin 10 mg tablet 20 mg PO QHS tab 03/06/20 ropinirole 0.25 mg tablet 0.25 mg PO QHS 03/06/20 spironolactone 25 mg tablet 25 mg PO DAILY 03/16/20 ALPRAZolam [Xanax] 0.5 - 1 tab PO TID PRN PRN 07/30/20 Biotin 10,000 mcg PO DAILY 07/30/20 Calcium Carbonate/Vitamin D3 [Calcium 250-D Tablet] 1 ea PO DAILY 07/30/20 Cyclosporine/Chondroit Sulf A [Cyclosporine 0.1% in Klarity] 1 drp EACH EYE BID 07/30/20 Fluorometholone [Fml] 1 drp EACH EYE DAILY 07/30/20 Ivermectin/Metronidazole/Niaci [Ivermect 1%-Metronid 1%-Niac4%] 1 applicatio TP QHS 07/30/20 L.acidoph,Paracasei, B.lactis [Probiotic] 1 ea PO DAILY 07/30/20 Naproxen Sodium [Aleve] 220 mg PO DAILY 07/30/20 Propylene Glycol/Peg 400 [Systane Ultra 0.4-0.3% Eye Drp] 1 drp EACH EYE 4X/DAY 07/30/20 Albuterol Inhaler [Ventolin Hfa] 2 puff INHALATION Q4H PRN PRN #1 inhaler 08/01/20 Benzonatate [Tessalon Perle] 100 mg PO Q4H PRN PRN #30 cap 08/01/20 Prednisone 2 tab PO DAILY #10 tab 08/01/20 The following prescriptions were given: Prednisone 2 tab PO DAILY #10 tab Transmission Status: Pending to [id number] Benzonatate [Tessalon Perle] 100 mg PO Q4H PRN PRN #30 cap PRN Reason: Cough Transmission Status: Pending to [id number] Albuterol Inhaler [Ventolin Hfa] 2 puff INHALATION Q4H PRN PRN #1 inhaler PRN Reason: Shortness Of Breath Transmission Status: Pending to [id number] Primary Care Physician: Kameron Kemp MD [Primary Care Provider] - Within 1 Week Test Results: Test results from this visit will be discussed in further detail at your follow- up appointment, if applicable. Please Follow Up With: [facility] When: 3-6 weeks Please Follow Up With: [facility] When: 1-2 months Proposed Discharge Date: 08/01/20
--- NOTE | 2020-08-01 11:34 | PCM.DC.SUM ---
Discharge Date and Diagnosis Date of Admission: 07/30/20 Date of Discharge: 08/01/20 - Primary Discharge Diagnosis Acute Problems: 1. acute hypoxic respiratory insufficiency - Secondary Discharge Diagnosis Chronic Problems: Chronic Problems (Last Reviewed 07/23/19 @ 10:28 by Susu Jim) Nonrheumatic aortic (valve) stenosis (Chronic) Dynamic left ventricular outflow obstruction (Chronic) Paroxysmal atrial fibrillation (Chronic) Single episode in [address] Rashaun Bauer's OV note from 03/15/2019 Internal hemorrhoids (Chronic) History of total abdominal hysterectomy (Chronic 1983) History of carpal tunnel release of both wrists (Chronic) 09/2000, 11/2000 Hx of bilateral cataract extraction (Chronic) 09/06, 11/2004 History of tonsillectomy (Chronic) History of arthroplasty of left shoulder (Chronic ~2003) History of colonoscopy (Chronic 12/16/08) History of esophagogastroduodenoscopy (EGD) (Chronic 10/21/07) S/P PICC central line placement (Chronic 02/26/19) H/O lumbosacral spine surgery (Chronic ~1989) Status post laser cataract surgery of right eye (Chronic 12/2006) History of blepharoplasty (Chronic 08/2009) H/O cervical spine surgery (Chronic 06/14/16) Diverticulosis of colon (Chronic) Anxiety (Chronic) Thoracic disc herniation (Chronic) Dizziness (Chronic) Abnormality of gait (Chronic) Vitamin D deficiency (Chronic) Chronic constipation (Chronic) Right arm weakness (Chronic) GERD (gastroesophageal reflux disease) (Chronic) Cervical spondylosis with myelopathy (Chronic) RLS (restless legs syndrome) (Chronic) 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 Mild diffuse pulmonary density suggestive of congestion and pulmonary edema. Cannot exclude additional atelectasis or infiltrate in the lung bases. Electronically Signed: Eagle Barba MD at 18:32 EDT , Service support , Chest CTA 07/30/20 18:36 IMPRESSION: Technically limited exam-inadequate contrast enhancement of the pulmonary arteries and therefore pulmonary emboli are not confirmed or excluded. Probable widespread mild pulmonary edema. Electronically Signed: Eagle Barba MD at 19:30 EDT , Service support , Procedures: 2-D Echocardiogram - Normal LV size. Left ventricular systolic function is normal. The estimated ejection fraction is 65 %. Pulmonary artery systolic pressure is 34 mmHg. Contrast injection was performed. Summary of Care Provided: The patient is a 75 year old F presents with a 1 to 2-week history of shortness of breath and cough. Cough is been nonproductive. Patient had been checked for COVID-19 on the and then again on the . Both were negative. Chest x-ray and CT scan shows some pulmonary edema. CAT scan was CTA and did not show to have complete opacification of the arteries but certainly did not show any large burden pulmonary embolism. The clinical suspicion for this being a pulmonary embolism, however, is low and was felt that anticoagulation would not be appropriate. Concern was for heart failure though the patient's BNP was normal. Patient echocardiogram showed EF of 65%. Patient was started on some empiric Lasix to see how she would respond to that. Patient had been on Lasix in the past but had been stopped due to issues with some hyperglycemia. Patient not having fever nor does she have a white count. Explained the patient has really not clear what the etiology of her shortness of breath nor cough is. Recommended a albuterol metered-dose inhaler plus a short course of prednisone burst. Patient will have an amatory pulse ox prior to her being discharged. To sum up, it is not clear the patient does have an infection such as bronchitis with patient will be treated as such. Did have some edema noted on her CAT scan but clinically does not fit with CHF particular with a normal BNP and certainly no evidence of any pneumonia. And clinically, the suspicion for pulmonary embolism is low and will not treat her as such. [] - Physical Exam Vitals/I&O's: Vital Signs Temp Pulse Resp BP Pulse Ox 36.6 C 80 20 H 106/51 L 94 08/01/20 09:52 08/01/20 09:52 08/01/20 09:52 08/01/20 09:52 08/01/20 09:52 Oxygen Flow Rate (L/min) 2 Oxygen Delivery Method Room Air Weight: 81.13 kg Body Mass Index (BMI) 33.2 Intake and Output for Last 24 Hours 07/30/20 07/31/20 08/01/20 23:59 23:59 23:59 Intake Total 690 / 690 2000 / 2000 Output Total 100 / 1100 1000 / 1000 Balance 690 / 690 1900 / 900 -1000 / -1000 General: Alert, No apparent distress HEENT: Atraumatic, Normocephalic Oral: Moist Mucosa, No Gingival or Mucosal Lesions/ Ulcerations Neck: No Nodes, Thyroid Normal Size and Texture Lungs: Normal air movement, - - faint bibasilar crackles. Psych/Mental Status: Normal Affect, Appropriate Microbiology Past 72 Hours 07/31/20 13:55 Stool Stool Occult Blood (SHERRI) - Final 07/31/20 07:11 Mucosa - Nasopharyngeal Respiratory Panel (PCR) - Final Laboratory Results 07/31/20 05:10: TSH 1.10 07/31/20 05:10: Vitamin B12 1359 H 07/31/20 16:25: POC Glucose 191 H 07/31/20 21:28: POC Glucose 232 H 08/01/20 05:24: WBC 6.7, RBC 2.67 L, Hgb 8.0 L, Hct 23.7 L, MCV 88.8, MCH 30.0, MCHC 33.8, RDW Std Deviation 43.3, RDW Coeff of Britt 13.4, Plt Count 336, MPV 9.3, Immature Gran % (Auto) 4.500 H, Neut % (Auto) 50.5, Lymph % (Auto) 29.5, Castro % (Auto) 10.9 H, Eos % (Auto) 3.7, Baso % (Auto) 0.9, Absolute Neuts (auto) 3.4, Absolute Lymphs (auto) 1.97, Nucleated RBC % 0 08/01/20 05:24: Sodium 135 L, Potassium 4.1, Chloride 101, Carbon Dioxide 28.0, Anion Gap 6, BUN 10, Creatinine 0.98, Estim Creat Clear Calc 38.02, Est GFR (MDRD) Af Amer 71, Est GFR (MDRD) Non-Af 59 L, BUN/Creatinine Ratio 10.2, Glucose 202 H, Calcium 8.7 08/01/20 06:29: POC Glucose 222 H Current Medications Acetaminophen (Tylenol) 650 mg PO Q6H PRN PRN PRN Reason: Pain Score 1-10/Temp > 100.7 F Aspirin (Aspirin, Baby) 81 mg PO DAILY@0800 [facility] Last Admin: 08/01/20 08:04 Dose: 81 mg Documented by: Atenolol (Tenormin (Beta Ilan)) 50 mg PO DAILY [facility] Last Admin: 08/01/20 09:54 Dose: 50 mg Documented by: Atorvastatin Calcium (Lipitor) 5 mg PO QHS [facility] Last Admin: 07/31/20 21:30 Dose: 5 mg Documented by: Dextrose (D50w Syringe) 0 gm IV X1 PRN; Protocol PRN Reason: Hypoglycemia Enoxaparin Sodium (Lovenox) 40 mg SC DAILY@0600 [facility] Last Admin: 08/01/20 06:29 Dose: 40 mg Documented by: Furosemide (Lasix) 40 mg IV BID@1000,1800 [facility] Last Admin: 08/01/20 09:55 Dose: 40 mg Documented by: Glucagon () 1 mg IM .X1 PRN PRN Reason: Hypoglycemia Insulin Human Lispro (Humalog Kwikpen (Bkc)) 0 unit SC ACHS [facility]; Protocol Last Admin: 08/01/20 06:29 Dose: 4 units Documented by: Losartan Potassium (Cozaar) 25 mg PO DAILY [facility] Last Admin: 08/01/20 09:54 Dose: 25 mg Documented by: Melatonin (Melatonin) 3 mg PO QHS PRN PRN PRN Reason: INSOMNIA Ondansetron HCl (Zofran) 4 mg IV Q8H PRN PRN PRN Reason: NAUSEA/VOMITING Pantoprazole Sodium (Protonix) 20 mg PO DAILY [facility] Last Admin: 08/01/20 09:54 Dose: 20 mg Documented by: Pramipexole Dihydrochloride (Mirapex) 0.125 mg PO QHS@2100 [facility] Last Admin: 07/31/20 21:31 Dose: 0.125 mg Documented by: Sodium Chloride () 10 - 40 ml IV UD PRN PRN Reason: SALINE FLUSH Last Admin: 08/01/20 09:55 Dose: 10 ml Documented by: Discharge Diet: No Restrictions Discharge Activity: Return to Normal Activity Call your doctor if you observe: Shortness of breath, Swelling in the ankles Home Medications: Medications to take at Discharge Aspirin [Aspirin, Baby] 81 mg PO DAILY@0800 04/29/18 Atenolol [Tenormin (beta ilan)] 50 mg PO DAILY 04/29/18 Glimepiride [Amaryl] 2 mg PO BID 04/29/18 Ipratropium [place] 0.06% [ATROVENT NASAL SPRAY] 2 spray NASAL BID 04/29/18 Omeprazole [Prilosec] 20 mg PO DAILY 04/29/18 Polyethylene Glycol 3350 [Miralax] 17 gm PO QWEEK 04/29/18 docusate sodium 100 mg capsule 100 mg PO DAILY cap 07/21/19 liraglutide 0.6 mg/0.1 mL (18 mg/3 mL) subcutaneous pen injector 1.8 mg SC DAILY ml 07/21/19 multivitamin 1 tab PO DAILY 07/21/19 losartan 25 mg tablet 25 mg PO DAILY #90 tab 12/21/19 cholecalciferol (vitamin D3) 25 mcg (1,000 unit) tablet 1,000 unit PO BID tab 03/06/20 lovastatin 10 mg tablet 20 mg PO QHS tab 03/06/20 ropinirole 0.25 mg tablet 0.25 mg PO QHS 03/06/20 spironolactone 25 mg tablet 25 mg PO DAILY 03/16/20 ALPRAZolam [Xanax] 0.5 - 1 tab PO TID PRN PRN 07/30/20 Biotin 10,000 mcg PO DAILY 07/30/20 Calcium Carbonate/Vitamin D3 [Calcium 250-D Tablet] 1 ea PO DAILY 07/30/20 Cyclosporine/Chondroit Sulf A [Cyclosporine 0.1% in Klarity] 1 drp EACH EYE BID 07/30/20 Fluorometholone [Fml] 1 drp EACH EYE DAILY 07/30/20 Ivermectin/Metronidazole/Niaci [Ivermect 1%-Metronid 1%-Niac4%] 1 applicatio TP QHS 07/30/20 L.acidoph,Paracasei, B.lactis [Probiotic] 1 ea PO DAILY 07/30/20 Naproxen Sodium [Aleve] 220 mg PO DAILY 07/30/20 Propylene Glycol/Peg 400 [Systane Ultra 0.4-0.3% Eye Drp] 1 drp EACH EYE 4X/DAY 07/30/20 Albuterol Inhaler [Ventolin Hfa] 2 puff INHALATION Q4H PRN PRN #1 inhaler 08/01/20 Benzonatate [Tessalon Perle] 100 mg PO Q4H PRN PRN #30 cap 08/01/20 Prednisone 2 tab PO DAILY #10 tab 08/01/20 Following Prescriptions Were Given to Patient: Prednisone 2 tab PO DAILY #10 tab Transmission Status: Pending to [facility]/pharmacy #[id number] Benzonatate [Tessalon Perle] 100 mg PO Q4H PRN PRN #30 cap PRN Reason: Cough Transmission Status: Pending to [facility]/pharmacy #[id number] Albuterol Inhaler [Ventolin Hfa] 2 puff INHALATION Q4H PRN PRN #1 inhaler PRN Reason: Shortness Of Breath Transmission Status: Pending to [facility]/pharmacy #[id number] Primary Care Physician: Kameron Kemp MD [Primary Care Provider] - Within 1 Week Please Follow Up With: [facility] When: 3-6 weeks Please Follow Up With: [facility] When: 1-2 months Medical Necessity - Tobacco Use Smoking Status: Former smoker Tobacco Use: Cigarettes Meaningful Use Info Meaningful Use Diagnoses (Choose all that apply): None applicable Inpatient E&M: 31790 [facility]
[2020-08-01 12:01] LABS: Bedside Glucose 308 mg/dL (70-110)
--- NOTE | 2020-08-01 12:44 | CASEMGMT ---
Pt does qualify for home oxygen at this time and stated preference for [employer] previously. Order/referral faxed to [facility] at this time and call to Chloé at [facility] to notify of referral at this time, voices understanding. Pt updated on all at this time, voices understanding and all questions answered at this time. Pt/ voice no further questions/concerns/needs at this time. Pt is awaiting tank for dispo and Natalie MENON aware. Lucretia MENON CM
--- NOTE | 2020-08-01 14:18 | PHA.DC.MC ---
Pharmacy Service has performed discharge medication reconciliation and counseling for this patient. The patient was counseled on the following discharge medications and changes in medications for homegoing were reviewed. 1. PREDNISONE 2. PROAIR 3. TESSALON PERLES The Reason for Use, instructions for use, and potential side effects were reviewed for all new medications. The patient's questions regarding all of their medications were answered. The patient was able to verbally demonstrate an understanding of their discharge medications. Home Medications Aspirin [Aspirin, Baby] 81 mg PO DAILY@0800 04/29/18 Atenolol [Tenormin (beta gina)] 50 mg PO DAILY 04/29/18 Glimepiride [Amaryl] 2 mg PO BID 04/29/18 Ipratropium [place] 0.06% [ATROVENT NASAL SPRAY] 2 spray NASAL BID 04/29/18 Omeprazole [Prilosec] 20 mg PO DAILY 04/29/18 Polyethylene Glycol 3350 [Miralax] 17 gm PO QWEEK 04/29/18 docusate sodium 100 mg capsule 100 mg PO DAILY cap 07/21/19 liraglutide 0.6 mg/0.1 mL (18 mg/3 mL) subcutaneous pen injector 1.8 mg SC DAILY ml 07/21/19 multivitamin 1 tab PO DAILY 07/21/19 losartan 25 mg tablet 25 mg PO DAILY #90 tab 12/21/19 cholecalciferol (vitamin D3) 25 mcg (1,000 unit) tablet 1,000 unit PO BID tab 03/06/20 lovastatin 10 mg tablet 20 mg PO QHS tab 03/06/20 ropinirole 0.25 mg tablet 0.25 mg PO QHS 03/06/20 spironolactone 25 mg tablet 25 mg PO DAILY 03/16/20 ALPRAZolam [Xanax] 0.5 - 1 tab PO TID PRN PRN 07/30/20 Biotin 10,000 mcg PO DAILY 07/30/20 Calcium Carbonate/Vitamin D3 [Calcium 250-D Tablet] 1 ea PO DAILY 07/30/20 Cyclosporine/Chondroit Sulf A [Cyclosporine 0.1% in Klarity] 1 drp EACH EYE BID 07/30/20 Fluorometholone [Fml] 1 drp EACH EYE DAILY 07/30/20 Ivermectin/Metronidazole/Niaci [Ivermect 1%-Metronid 1%-Niac4%] 1 applicatio TP QHS 07/30/20 L.acidoph,Paracasei, B.lactis [Probiotic] 1 ea PO DAILY 07/30/20 Naproxen Sodium [Aleve] 220 mg PO DAILY 07/30/20 Propylene Glycol/Peg 400 [Systane Ultra 0.4-0.3% Eye Drp] 1 drp EACH EYE 4X/DAY 07/30/20 Albuterol Inhaler [Ventolin Hfa] 2 puff INHALATION Q4H PRN PRN #1 inhaler 08/01/20 Benzonatate [Tessalon Perle] 100 mg PO Q4H PRN PRN #30 cap 08/01/20 Prednisone 2 tab PO DAILY #10 tab 08/01/20 The patient's discharge medication list was reviewed for discrepancies and discrepancies were resolved.
[2020-08-01 21:07] LABS: Folates, RBC Test 1733 ng/mL (>498)
== END 2020-08-01 14:39 | disposition home or self-care (01) | DRG 206 ==
LOC: ED 22:20 → PCU 22:44
PROVIDERS: Admitting Provider Family Medicine; Emergency Provider Emergency Medicine; PCP Family Medicine
DX: R09.02 Hypoxemia (principal); I50.32 Chronic diastolic (congestive) heart failure; G81.91 Hemiplegia, unspecified affecting right dominant side; R06.89 Other abnormalities of breathing; Z23 Encounter for immunization; K21.9 Gastro-esophageal reflux disease without esophagitis; I48.0 Paroxysmal atrial fibrillation; I11.0 Hypertensive heart disease with heart failure; E11.9 Type 2 diabetes mellitus without complications; G47.33 Obstructive sleep apnea (adult) (pediatric); E78.5 Hyperlipidemia, unspecified; Z87.891 Personal history of nicotine dependence; D64.9 Anemia, unspecified
CPT/HCPCS: 36415; 71045; 71275; 80048; 82274; 82607; 82728; 82747; 82962; 83540; 83550; 83605; 83880; 84443; 84484; 85014; 85025; 85379; 86850; 86900; 86901; 87040; 87633; 87635; 93005; 93306; 97110; 97162; 97166; 97530; 99285; G0008; J7030; Q9957; Q9967; 90686; A4216; C8929; J1940; U0003

== ENCOUNTER → 2020-08-15 13:34 | Outpatient (CLI) | payer MEDICARE, OTHER, SELFPAY ==
[2020-07-30 23:17] VITALS: BMI 33.2
[2020-08-14 09:10] LABS: Bacteria 0 SEEN /hpf (None Seen); Mucous, Urine 0 SEEN /hpf (<or=2+); Red Blood Cells-Urine 0 SEEN /hpf (0-5); Squamous Epithelial Cells - UA 0 SEEN /hpf (5-10)
[2020-08-14 09:49] LABS: Erythrocyte Sedimentation Rate < 1 mm/hr (0-30)
[2020-08-14 10:41] LABS: CRP < 2.90 mg/L (0.0-3.0); Rheumatoid Factor < 10.0 IU/mL (<15)
[2020-08-14 11:02] LABS: Color, Urine Yellow (Yellow); Glucose, Dipstick 1000 mg/dl (Normal); Ketone-Dipstick 5 mg/dl (Negative); Leukocyte Esterase-Dipstick 500 /ul (Negative); Nitrite-Dipstick Negative (Negative); Occult Blood-Urine Negative /ul (Negative); Protein-Dipstick 30 mg/dl (Negative); Specific Gravity, Urine 1.015 (1.002-1.030); Urine Bilirubin Dipstick Negative (Negative); Urine Clarity Clear (Clear); Urine Urobilinogen 1 mg/dl (Normal)
[2020-08-14 11:27] LABS: White Blood Cells 5-10 SEEN /hpf (0-5)
[2020-08-14 11:58] LABS: BNP,B-Type NATRIURETIC PEPTIDE 155.2 pg/mL (0-100)
[2020-08-15 08:57] LABS: SARS-COV-2 TOTAL ABS Nonreactive (Nonreactive)
--- NOTE | 2020-08-15 13:36 | VDLE_ITS ---
Reason For Study: edema RIGHT LEFT GSV is normal. GSV is normal. CFV is compressible, spontaneous, phasic, CFV is compressible, spontaneous, phasic, competent and demonstrates normal competent, and demonstrates normal augmentation. augmentation. FV is compressible, spontaneous, phasic, FV is compressible, spontaneous, phasic, competent and demonstrates normal competent and demonstrates normal augmentation. augmentation. POP V is compressible, spontaneous, phasic, POP V is compressible, spontaneous, phasic, competent and demonstrates normal competent and demonstrates normal augmentation. augmentation. T/P Trunk is compressible. T/P Trunk is compressible. PTV is compressible. LT PerV is compressible. RT PerV is compressible. PTV and Soleus V are dilated and Soleus V is dilated and noncompressible. noncompressible. Procedure This is a venous duplex using B-mode, color flow and spectral Doppler. Exam performed in department. The exam was diagnostic. A preliminary report was called and/or faxed to Dr. Luciano. Interpretation Summary Acute deep vein thrombosis is noted in the right soleus vein. The remainder of the right lower extremity deep venous system is patent and compressible. Acute deep vein thrombosis is noted in the left posterior tibial vein. Acute deep vein thrombosis is noted in the left soleus vein. The remainder of the left lower extremity deep venous system is patent and compressible. The proximal deep venous system is competent bilaterally. The great saphenous veins are patent and compressible bilaterally. Ordering Physician: Issac Luciano Performed By: Deny Bates RVT
[2020-08-15 15:58] LABS: Anti-Scleroderma-70 AB <0.2 AI (0.0-0.9)
[2020-08-15 16:03] LABS: ANTINUCLEAR ANTIBODIES DIRECT Negative (Negative); Anti-dsDNA Ab <1 IU/mL (0-9)
[2020-08-16 16:08] LABS: Angiotensin Convert Enzyme 63 U/L (14-82); Cytoplasmic Ab (C-ANCA) <1:20 titer (Neg:<1:20)
[2020-08-16 21:06] LABS: Immunoglobulin M 391 mg/dL (26-217); Perinuclear Ab (P-ANCA) <1:20 titer (Neg:<1:20)
== END ==
PROVIDERS: PCP Family Medicine; Referring Provider Internal Medicine Pulmonary Disease; Visit Provider Internal Medicine Pulmonary Disease
DX: R60.0 Localized edema (principal); R06.00 Dyspnea, unspecified; R05 Cough; I27.20 Pulmonary hypertension, unspecified
CPT/HCPCS: 81001; 82164; 82784; 83880; 85652; 86038; 86140; 86225; 86235; 86256; 86431; 86769; 93970

== ENCOUNTER → 2020-11-02 09:27 | Outpatient (CLI) | payer MEDICARE, OTHER, SELFPAY ==
[2020-11-02 09:26] VITALS: BMI 34.9
[2020-11-02 10:24] LABS: Erythrocyte Sedimentation Rate < 1 mm/hr (0-30)
[2020-11-02 10:50] LABS: AST(SGOT) 29 U/L (15-37); Alanine Aminotransfer ALT/SGPT 63 U/L (13-56); Albumin, Serum 3.5 g/dL (3.2-5.0); Alkaline Phosphatase 142 U/L (45-117); Bilirubin, Direct 0.42 mg/dL (0.00-0.30); CRP 5.65 mg/L (0.0-3.0); Cholesterol 194 mg/dL (200); Globulin 2.7 g/dL (2.2-4.2); High Density Lipoprotein 73 mg/dL; Protein, Total 6.2 g/dL (6.4-8.2); Triglycerides 305 mg/dL; Very Low Density Lipoprotein 61 mg/dL (5-40)
== END ==
PROVIDERS: Physician Assistant Medical; PCP Family Medicine; Visit Provider Internal Medicine Pulmonary Disease
DX: J84.9 Interstitial pulmonary disease, unspecified (principal); R05 Cough; E78.5 Hyperlipidemia, unspecified
CPT/HCPCS: 36415; 80061; 80076; 85652; 86140

== ENCOUNTER → 2021-03-29 07:54 | Outpatient (CLI) | payer MEDICARE, OTHER, SELFPAY ==
[2021-03-12 10:47] VITALS: BMI 34.9
[2021-03-29 08:13] VITALS: BP 177/56; PULSE 55; RESP 16; TEMP 35.7; O2SAT 100; BMI 21.9
[2021-03-29] MEDS: Cosyntropin 0.25 MG Vial IM (08:35)
[2021-03-29 08:38] LABS: Erythrocyte Sedimentation Rate < 1 mm/hr (0-30)
[2021-03-29 08:46] LABS: CRP 9.54 mg/L (0.0-3.0)
== END ==
PROVIDERS: PCP Family Medicine; Referring Provider Internal Medicine Pulmonary Disease; Visit Provider Internal Medicine Pulmonary Disease
DX: J84.9 Interstitial pulmonary disease, unspecified (principal); Z79.899 Other long term (current) drug therapy
CPT/HCPCS: 36415; 82533; 85652; 86140; 96372; J0834

== ENCOUNTER → 2021-05-08 08:30 | Outpatient (CLI) | payer MEDICARE, OTHER, SELFPAY ==
[2021-03-29 08:13] VITALS: BMI 21.9
[2021-05-08 09:34] LABS: AST(SGOT) 31 U/L (15-37); Alanine Aminotransfer ALT/SGPT 29 U/L (13-56); Albumin, Serum 3.3 g/dL (3.2-5.0); Alkaline Phosphatase 130 U/L (45-117); Bilirubin, Direct 0.42 mg/dL (0.00-0.30); Cholesterol 165 mg/dL (200); Globulin 3.3 g/dL (2.2-4.2); High Density Lipoprotein 58 mg/dL; Protein, Total 6.6 g/dL (6.4-8.2); Triglycerides 191 mg/dL; Very Low Density Lipoprotein 38 mg/dL (5-40)
== END ==
PROVIDERS: PCP Family Medicine; Referring Provider Physician Assistant Medical; Visit Provider Physician Assistant Medical
DX: E78.00 Pure hypercholesterolemia, unspecified (principal); E78.5 Hyperlipidemia, unspecified
CPT/HCPCS: 36415; 80061; 80076

== ENCOUNTER → 2021-06-06 10:42 | Outpatient (CLI) | payer MEDICARE, OTHER, SELFPAY ==
[2021-03-29 08:13] VITALS: BMI 21.9
[2021-06-06 11:26] LABS: Erythrocyte Sedimentation Rate 1 mm/hr (0-30)
[2021-06-06 11:34] LABS: Hematocrit 29.4 % (37-47); Hemoglobin 10.9 g/dL (12.0-15.0); Mean Corp Hgb Conc 37.1 g/dL (32-36); Mean Corpuscular Hgb 35.6 pg (27.0-32.0); Mean Corpuscular Volume 96.1 fL (81-99); Mean Platelet Vol. 9.9 fl (6.2-12.0); Platelet Count 287 K/mm3 (150-450); RBC Distribution Width CV 13.7 % (11.6-14.6); RBC Distribution Width SD 45.4 fl (35.1-43.9); Red Blood Count 3.06 M/mm3 (4.2-5.4)
== END ==
PROVIDERS: PCP Family Medicine; Referring Provider Internal Medicine Pulmonary Disease; Visit Provider Internal Medicine Pulmonary Disease
DX: J84.111 Idiopathic interstitial pneumonia, not otherwise specified (principal); I27.20 Pulmonary hypertension, unspecified; I10 Essential (primary) hypertension
CPT/HCPCS: 36415; 85027; 85652; 86140

== ENCOUNTER → 2021-06-13 17:36 | Outpatient (CLI) | payer MEDICARE, OTHER, SELFPAY ==
[2021-03-29 08:13] VITALS: BMI 21.9
--- NOTE | 2021-06-13 17:39 | CT_ITS ---
STUDY: CT CHEST WITHOUT CONTRAST REASON FOR EXAM: Female, 76 years old. INTERSTITIAL PNEUMONIA -- HI RES RADIATION DOSAGE (If Supplied By Facility): CTDIvol = ( 23.10 ) mGy, DLP = ( 671.33 ) mGycm TECHNIQUE: Transaxial imaging was performed without the administration of intravenous contrast material. Multiplanar coronal and sagittal images were reformatted. Individualized dose optimization techniques were used for this CT. COMPARISON: Comparison is made with the prior examination dated 07/30/2020. FINDINGS: Mild degree of increased interstitial markings in the lower lobes more prominent along the posterior medial segments of the right and left lower lobes. There is no demonstrated pleural abnormality. There are calcifications of the coronary arteries. Normal mediastinum. Normal hilar regions. Normal unenhanced pulmonary arteries. There is atherosclerotic calcification of the aortic arch with tortuosity and elongation of the aortic arch and descending thoracic aorta. There are multi-level degenerative changes of the thoracic spine. There is a 9.2 mm x 9 mm well-defined rounded hypodensity in the right side of the T12 vertebrae. There is no demonstrated abnormality of the visualized upper abdomen. CT/Chest without Contrast IMPRESSION: Mild increased interstitial markings at the lung bases more prominent in the posterior medial segments. Coronary artery calcification. 9.2 mm x 9 mm well-defined round hypodensity in the right side of the T12 vertebrae. Electronically Signed: Gene Nieves MD at 9:22 EDT , Service support ,
== END ==
PROVIDERS: PCP Family Medicine; Referring Provider Internal Medicine Pulmonary Disease; Visit Provider Internal Medicine Pulmonary Disease
DX: J84.111 Idiopathic interstitial pneumonia, not otherwise specified (principal)
CPT/HCPCS: 71250

== ENCOUNTER → 2021-06-28 08:42 | Outpatient (CLI) | payer MEDICARE, OTHER, SELFPAY ==
[2021-06-28 10:04] LABS: Erythrocyte Sedimentation Rate < 1 mm/hr (0-30)
[2021-06-28 10:39] LABS: CRP 9.24 mg/L (0.0-3.0)
== END ==
PROVIDERS: PCP Family Medicine; Referring Provider Internal Medicine Pulmonary Disease; Visit Provider Internal Medicine Pulmonary Disease
DX: J84.111 Idiopathic interstitial pneumonia, not otherwise specified (principal); R05 Cough
CPT/HCPCS: 36415; 85652; 86140

== ENCOUNTER → 2021-07-05 10:00 | Outpatient (CLI) | payer MEDICARE, OTHER, SELFPAY ==
[2021-07-05 11:07] LABS: Hematocrit 35.6 % (37-47); Hemoglobin 11.6 g/dL (12.0-15.0); Mean Corp Hgb Conc 32.6 g/dL (32-36); Mean Corpuscular Hgb 29.7 pg (27.0-32.0); Mean Corpuscular Volume 91.3 fL (81-99); Mean Platelet Vol. 9.9 fl (6.2-12.0); Platelet Count 254 K/mm3 (150-450); RBC Distribution Width CV 13.3 % (11.6-14.6); White Blood Count 11.4 K/mm3 (4.4-11.0)
[2021-07-05 11:33] LABS: AST(SGOT) 22 U/L (15-37); Alanine Aminotransfer ALT/SGPT 30 U/L (13-56); Albumin, Serum 3.4 g/dL (3.2-5.0); Alkaline Phosphatase 134 U/L (45-117); Bilirubin, Direct 0.29 mg/dL (0.00-0.30); Protein, Total 6.4 g/dL (6.4-8.2)
== END ==
PROVIDERS: PCP Family Medicine; Referring Provider Internal Medicine Pulmonary Disease; Visit Provider Internal Medicine Pulmonary Disease
DX: D50.9 Iron deficiency anemia, unspecified (principal); I10 Essential (primary) hypertension; R05 Cough
CPT/HCPCS: 36415; 80076; 85027

== ENCOUNTER → 2021-07-24 13:05 | Outpatient (CLI) | payer MEDICARE, OTHER, SELFPAY ==
[2021-07-24 13:25] LABS: Bacteria 0 SEEN /hpf (None Seen); Mucous, Urine 0 SEEN /hpf (<or=2+); Red Blood Cells-Urine 0 SEEN /hpf (0-5)
[2021-07-24 13:41] LABS: Absolute Lymphocyte Count 0.92 X10^3/uL (0.83-4.51); Absolute Neutrophil Count 9.3 X10^3/uL (2.0-7.7); Basophil# 0.04 X10^3/uL; Basophil% 0.4 % (0-1); Eosinophil# 0.03 X10^3/uL; Eosinophils% 0.3 % (0-5); Hemoglobin 11.5 g/dL (12.0-15.0); Lymphocyte # 0.92 X10^3/ul (0.83-4.51); Lymphocyte % 8.4 % (19-41); Mean Corp Hgb Conc 31.9 g/dL (32-36); Mean Corpuscular Hgb 29.4 pg (27.0-32.0); Mean Corpuscular Volume 92.1 fL (81-99); Mean Platelet Vol. 9.7 fl (6.2-12.0); Monocyte# 0.43 X10^3/uL; Monocyte% 3.9 % (0-10); NRBC Flagged by Analyzer 0 % (0-5); Neutrophil # 9.33 X10^3/uL (2.7-7.7); Neutrophil % 85.5 % (47-70); Platelet Count 237 K/mm3 (150-450); RBC Distribution Width CV 13.7 % (11.6-14.6); RBC Distribution Width SD 46.4 fl (35.1-43.9); Red Blood Count 3.91 M/mm3 (4.2-5.4); White Blood Count 10.9 K/mm3 (4.4-11.0)
[2021-07-24 13:43] LABS: Color, Urine Yellow (Yellow); Glucose, Dipstick 1000 mg/dl (Normal); Ketone-Dipstick Negative (Negative); Leukocyte Esterase-Dipstick 100 /ul (Negative); Nitrite-Dipstick Negative (Negative); Occult Blood-Urine Negative /ul (Negative); Protein-Dipstick Negative (Negative); Urine Bilirubin Dipstick Negative (Negative); Urine Clarity Clear (Clear); Urine Urobilinogen Normal (Normal)
[2021-07-24 13:48] LABS: White Blood Cells 0-5 SEEN /hpf (0-5)
[2021-07-24 13:49] LABS: Squamous Epithelial Cells - UA 0-5 SEEN /hpf (5-10)
[2021-07-24 14:12] LABS: CPK Total, Creatine Kinase 37 U/L (26-192); Calcium,Total 9.6 mg/dL (8.5-10.1); Creatinine, Serum 1.15 mg/dL (0.55-1.02); EST Glomerular Filtration Rate 49 mL/min (>60); Est Glom Filt Rate - Afr Amer 59 mL/min (>60); Rheumatoid Factor < 10.0 IU/mL (<15)
[2021-07-26 16:09] LABS: RNP Ab <0.2 AI (0.0-0.9); SJOGREN'S Anti-SS-A test < 0.2 AI (0.0-0.9); SJOGREN'S Anti-SS-B test < 0.2 AI (0.0-0.9); Smith Ab <0.2 AI (0.0-0.9)
[2021-07-26 17:12] LABS: ANTINUCLEAR ANTIBODIES DIRECT Negative (Negative); Anti-dsDNA Ab <1 IU/mL (0-9)
[2021-07-27 03:06] LABS: Albumin 3.6 g/dL (2.9-4.4); Alpha-1-Globulins 0.3 g/dL (0.0-0.4); Alpha-2-Globulins 0.7 g/dL (0.4-1.0); Gamma Globulin 0.7 g/dL (0.4-1.8); Immunoglobulin G 433 mg/dL (586-1602); Immunoglobulin M 311 mg/dL (26-217); PROEL- TOTAL PROTEIN 6.2 g/dL (6.0-8.5)
[2021-07-27 08:38] LABS: CCP IgG Antibodies 5 units (0-19); Immunoglobulin A 49 mg/dL (64-422)
== END ==
PROVIDERS: PCP Family Medicine; Referring Provider Internal Medicine Rheumatology; Visit Provider Internal Medicine Rheumatology
DX: M79.18 Myalgia, other site (principal); J84.9 Interstitial pulmonary disease, unspecified
CPT/HCPCS: 36415; 81001; 82310; 82550; 82565; 82784; 84165; 85025; 86038; 86200; 86225; 86235; 86334; 86431

== ENCOUNTER → 2021-08-07 11:38 | Outpatient (CLI) | payer MEDICARE, OTHER, SELFPAY ==
[2021-08-07 12:36] LABS: Hematocrit 30.8 % (37-47); Mean Corpuscular Volume 95.1 fL (81-99); Mean Platelet Vol. 9.7 fl (6.2-12.0); POSITIVE COUNT YES; Platelet Count 237 K/mm3 (150-450); RBC Distribution Width CV 15.8 % (11.6-14.6); Red Blood Count 3.24 M/mm3 (4.2-5.4)
[2021-08-07 13:02] LABS: Hemoglobin 11.8 g/dL (12.0-15.0)
[2021-08-07 13:03] LABS: Mean Corpuscular Hgb 36.4 pg (27.0-32.0)
[2021-08-07 13:04] LABS: Mean Corp Hgb Conc 38.3 g/dL (32-36)
[2021-08-07 13:05] LABS: Scan Indicated on CBC? Y/N NO
== END ==
PROVIDERS: PCP Family Medicine; Referring Provider Internal Medicine Pulmonary Disease; Visit Provider Internal Medicine Pulmonary Disease
DX: J84.111 Idiopathic interstitial pneumonia, not otherwise specified (principal)
CPT/HCPCS: 36415; 85027

== ENCOUNTER → 2021-10-02 10:22 | Outpatient (CLI) | payer MEDICARE, OTHER, SELFPAY ==
[2021-10-02 10:45] LABS: Hematocrit 35.5 % (37-47); Hemoglobin 11.7 g/dL (12.0-15.0); Mean Corpuscular Hgb 29.8 pg (27.0-32.0); Mean Corpuscular Volume 90.3 fL (81-99); Mean Platelet Vol. 9.5 fl (6.2-12.0); Platelet Count 219 K/mm3 (150-450); RBC Distribution Width CV 13.8 % (11.6-14.6); RBC Distribution Width SD 45.3 fl (35.1-43.9); Red Blood Count 3.93 M/mm3 (4.2-5.4); White Blood Count 12.2 K/mm3 (4.4-11.0)
== END ==
PROVIDERS: PCP Family Medicine; Referring Provider Internal Medicine Pulmonary Disease; Visit Provider Internal Medicine Pulmonary Disease
DX: J84.111 Idiopathic interstitial pneumonia, not otherwise specified (principal)
CPT/HCPCS: 36415; 85027

== ENCOUNTER 2021-11-22 13:02 | Outpatient (CLI) | payer MEDICARE, OTHER, SELFPAY ==
--- NOTE | 2021-11-22 13:09 | CT_ITS ---
STUDY: CT CHEST WITHOUT CONTRAST REASON FOR EXAM: Female, 76 years old. PNEUMONIA RADIATION DOSAGE (If Supplied By Facility): CTDIvol = ( 20.03 ) mGy, DLP = ( 606.52 ) mGycm TECHNIQUE: Transaxial imaging was performed without the administration of intravenous contrast material. Multiplanar coronal and sagittal images were reformatted. Individualized dose optimization techniques were used for this CT. COMPARISON: Comparison is made with prior study of 06/13/2021. FINDINGS: The patient is status post left shoulder replacement as well as fusion in the lower cervical spine. The lungs are normal. There is no demonstrated pleural abnormality. There are calcifications of the coronary arteries. Normal mediastinum. Normal hilar regions. Normal unenhanced pulmonary arteries. There is atherosclerotic calcification of the aortic arch with tortuosity and elongation of the aortic arch and descending thoracic aorta. There are multi-level degenerative changes of the thoracic spine. Stable 9.2 mm well-defined rounded hypodensity in the right side of the T12 vertebrae. There is no demonstrated abnormality of the visualized upper abdomen. CT/Chest without Contrast IMPRESSION: Stable examination. No acute pneumonia is seen. Electronically Signed: Gene Nieves MD at 13:48 EST , Service support ,
== END 2021-11-22 23:59 | disposition short-term general hospital (02) ==
LOC: CT 13:04
PROVIDERS: PCP Family Medicine; Referring Provider Internal Medicine Pulmonary Disease; Visit Provider Internal Medicine Pulmonary Disease
DX: J84.111 Idiopathic interstitial pneumonia, not otherwise specified (principal)
CPT/HCPCS: 71250

== ENCOUNTER 2021-12-12 11:32 | Outpatient (CLI) | payer MEDICARE, OTHER, SELFPAY ==
--- NOTE | 2021-12-12 11:47 | RAD_ITS ---
STUDY: X-RAY CHEST REASON FOR EXAM: Female, 76 years old. Dyspnea. Recent shortness of breath. History of interstitial pneumonia. TECHNIQUE: PA and lateral views of the chest. COMPARISON: 07/30/2020. CT of the chest, 11/22/2021. FINDINGS: The lungs are clear and expanded. There is no demonstrated pleural abnormality. Normal size heart. Normal mediastinum and giovanna. Normal visualized pulmonary arteries. Normal visualized aortic arch and descending thoracic aorta. Normal visualized thoracic spine. End noted is cervical spine fusion. There are degenerative changes of the right shoulder. There are surgical changes of the left shoulder. There is no demonstrated abnormality of the visualized soft tissue structures of the upper abdomen. RAD/Chest PA and Lateral IMPRESSION: No acute cardiopulmonary disease. Electronically Signed: Enoc Mcnamara DO at 16:49 EST ,
[2021-12-12 12:13] LABS: Erythrocyte Sedimentation Rate < 1 mm/hr (0-30)
[2021-12-12 13:01] LABS: CRP 5.52 mg/L (0.0-3.0)
== END 2021-12-12 23:59 | disposition home or self-care (01) ==
LOC: RAD.FUTURE 11:35 → RAD 11:49
PROVIDERS: PCP Family Medicine; Referring Provider Internal Medicine Pulmonary Disease; Visit Provider Internal Medicine Pulmonary Disease
DX: R06.00 Dyspnea, unspecified (principal); I27.20 Pulmonary hypertension, unspecified
CPT/HCPCS: 36415; 71046; 85652; 86140

== ENCOUNTER 2021-12-13 09:21 | Outpatient (CLI) | payer MEDICARE, OTHER, SELFPAY ==
[2021-12-13 10:57] LABS: AST(SGOT) 37 U/L (15-37); Alanine Aminotransfer ALT/SGPT 45 U/L (13-56); Albumin, Serum 3.6 g/dL (3.2-5.0); Alkaline Phosphatase 103 U/L (45-117); Bilirubin, Direct 0.45 mg/dL (0.00-0.30); Cholesterol 140 mg/dL (200); High Density Lipoprotein 78 mg/dL; Protein, Total 6.6 g/dL (6.4-8.2); Triglycerides 147 mg/dL; Very Low Density Lipoprotein 29 mg/dL (5-40)
== END 2021-12-13 23:59 | disposition home or self-care (01) ==
LOC: LAB 09:25
PROVIDERS: PCP Family Medicine; Referring Provider Physician Assistant Medical; Visit Provider Physician Assistant Medical
DX: E78.00 Pure hypercholesterolemia, unspecified (principal); E78.5 Hyperlipidemia, unspecified
CPT/HCPCS: 36415; 80061; 80076

== ENCOUNTER 2021-12-14 16:32 | Outpatient (CLI) | payer MEDICARE, OTHER, SELFPAY ==
[2021-12-14 17:50] LABS: Hematocrit 32.9 % (37-47); Hemoglobin 11.4 g/dL (12.0-15.0); Mean Corp Hgb Conc 34.7 g/dL (32-36); Mean Corpuscular Volume 92.4 fL (81-99); Mean Platelet Vol. 9.6 fl (6.2-12.0); Platelet Count 289 K/mm3 (150-450); RBC Distribution Width CV 15.1 % (11.6-14.6); RBC Distribution Width SD 49.5 fl (35.1-43.9); Red Blood Count 3.56 M/mm3 (4.2-5.4)
[2021-12-14 17:59] LABS: BNP,B-Type NATRIURETIC PEPTIDE 118.8 pg/mL (0-100)
[2021-12-14 18:02] LABS: AST(SGOT) 24 U/L (15-37); Alanine Aminotransfer ALT/SGPT 48 U/L (13-56); Albumin, Serum 3.9 g/dL (3.2-5.0); Alkaline Phosphatase 120 U/L (45-117); Anion Gap 8 (5-15); Bilirubin, Direct 0.64 mg/dL (0.00-0.30); Chloride 100 mmol/L (98-107); Potassium 5.1 mmol/L (3.5-5.1); Protein, Total 6.9 g/dL (6.4-8.2); Sodium Level 137 mmol/L (136-145)
[2021-12-14 18:51] LABS: D-Dimer Quantitative (DVT/PE) 2.24 FEU/ug/m (0.27-0.49)
== END 2021-12-14 23:59 | disposition home or self-care (01) ==
LOC: LAB 16:33
PROVIDERS: PCP Family Medicine; Visit Provider Internal Medicine Pulmonary Disease
DX: R06.00 Dyspnea, unspecified (principal); R60.9 Edema, unspecified
CPT/HCPCS: 36415; 80051; 80076; 83880; 85027; 85379

== ENCOUNTER 2021-12-18 11:57 | Outpatient (CLI) | payer MEDICARE, OTHER, SELFPAY ==
--- NOTE | 2021-12-18 12:18 | CT_ITS ---
STUDY: CTA CHEST REASON FOR EXAM: Female, 76 years old. SOB RADIATION DOSAGE (If Supplied By Facility): CTDIvol = ( 10.29 ) mGy, DLP = ( 459.41 ) mGycm TECHNIQUE: The examination was performed with the intravenous administration of IV 100mL [id number]-370. Post-processing of the angiographic images was performed, with multiplanar reformation and 3D reconstruction. Individualized dose optimization techniques were used for this CT. COMPARISON: Comparison is made with prior study dated 05/22/2022. FINDINGS: Intraluminal filling defects are seen in the distal portion of the right pulmonary artery extending into the right upper lobe pulmonary arterial branches as well as the right interlobar pulmonary artery and the branches in the lower lobe. Small intraluminal filling defects are also seen in branches of the left lower lobe pulmonary artery. Normal thoracic aorta and visualized great vessels. There is no demonstrated aortic dissection. There are calcifications of the coronary arteries. Normal mediastinum. Normal hilar regions. Normal visualized trachea and bronchi. The lungs are well expanded. Normal pulmonary parenchyma. Normal pleura. Normal chest wall structures. There are degenerative changes of thoracic spine. Normal visualized upper abdomen. CT/CTA Chest W/WO Contrast IMPRESSION: Bilateral pulmonary emboli more prominent in the right lung. Electronically Signed: Gene Nieves MD at 12:42 EST ,
== END 2021-12-18 23:59 | disposition home or self-care (01) ==
LOC: CT 11:59
PROVIDERS: PCP Family Medicine; Referring Provider Internal Medicine Pulmonary Disease; Visit Provider Internal Medicine Pulmonary Disease
DX: R06.02 Shortness of breath (principal); R06.00 Dyspnea, unspecified; R07.9 Chest pain, unspecified
CPT/HCPCS: 71275; Q9967

== ENCOUNTER 2021-12-18 12:25 | Emergency (ER) | payer MEDICARE, OTHER, SELFPAY ==
[2021-12-18 12:25] VITALS: BP 149/83; PULSE 78; RESP 16; TEMP 36.6; O2SAT 95; O2SAT 98; BMI 39.0
[2021-12-18 13:04] VITALS: O2SAT 98
[2021-12-18] MEDS: APIXABAN 5 MG TABLET 10 MG PO (14:07)
[2021-12-18 14:17] LABS: Absolute Lymphocyte Count 1.17 X10^3/uL (0.83-4.51); Absolute Neutrophil Count 7.9 X10^3/uL (2.0-7.7); Basophil# 0.04 X10^3/uL; Basophil% 0.4 % (0-1); Eosinophil# 0.03 X10^3/uL; Eosinophils% 0.3 % (0-5); Hematocrit 30.2 % (37-47); Hemoglobin 10.3 g/dL (12.0-15.0); Lymphocyte # 1.17 X10^3/ul (0.83-4.51); Lymphocyte % 11.8 % (19-41); Mean Corp Hgb Conc 34.1 g/dL (32-36); Mean Corpuscular Hgb 31.4 pg (27.0-32.0); Mean Corpuscular Volume 92.1 fL (81-99); Mean Platelet Vol. 9.1 fl (6.2-12.0); Monocyte# 0.66 X10^3/uL; Monocyte% 6.7 % (0-10); NRBC Flagged by Analyzer 0 % (0-5); Neutrophil # 7.87 X10^3/uL (2.7-7.7); Neutrophil % 79.3 % (47-70); Platelet Count 209 K/mm3 (150-450); RBC Distribution Width CV 15.6 % (11.6-14.6); RBC Distribution Width SD 50.5 fl (35.1-43.9); Red Blood Count 3.28 M/mm3 (4.2-5.4); White Blood Count 9.9 K/mm3 (4.4-11.0)
[2021-12-18 14:25] LABS: Prothrombin Time (Protime)PT. 12.9 SECONDS (11.7-14.9)
[2021-12-18 14:26] LABS: Partial Thromboplast Time 21.9 Seconds (24.1-36.2)
[2021-12-18 14:34] LABS: ALB/GLOB Ratio 1.4 RATIO (0.9-2.4); AST(SGOT) 24 U/L (15-37); Alanine Aminotransfer ALT/SGPT 38 U/L (13-56); Albumin, Serum 3.5 g/dL (3.2-5.0); Alkaline Phosphatase 92 U/L (45-117); Anion Gap 6 (5-15); BUN 15 mg/dL (7-18); BUN/Creat Ratio 14.6 RATIO (10-20); Calcium,Total 8.9 mg/dL (8.5-10.1); Chloride 105 mmol/L (98-107); Creatinine, Serum 1.03 mg/dL (0.55-1.02); EST Glomerular Filtration Rate 55 mL/min (>60); Est Glom Filt Rate - Afr Amer 67 mL/min (>60); Estimated Creatinine Clearance 32.33 ml/min; Globulin 2.5 g/dL (2.2-4.2); Glucose 157 mg/dL (74-106); Potassium 4.1 mmol/L (3.5-5.1); Sodium Level 138 mmol/L (136-145)
--- NOTE | 2021-12-18 15:05 | EDS_ITS ---
HPI History of Present Illness Chief Complaint: Shortness of Breath Informant: patient Onset/Context/Timing Onset: Weeks (2) Context: gradual Timing: Intermittent Quality: Positive for Dyspnea on exertion Worsened by: Exertion Relieved by: Nothing Associated Symptoms Negative for cough, rhinorrhea, post nasal drip, ear pain, fever, sore throat, chills, sweats, clear sputum, white sputum, yellow sputum or green sputum Chest Pain: Positive for None Narrative Narrative: Patient presents with shortness of breath that has been getting worse over the past 2 weeks. Patient states it comes and goes. Patient states it is worse with any exertion. Patient denies any chest pain. Patient denies any cough. Patient denies any nausea or vomiting. Patient had an outpatient CTA of the chest which showed pulmonary embolism in the distal portion of the right pulmonary artery extending into the right upper lobe as well as the right interlobar pulmonary artery. There is also a small intraluminal filling defects in the branches of the left lower lobe pulmonary artery. Patient was then referred to the emergency department for further evaluation. 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 lactis 1 ea PO DAILY 07/30/20 [History Last Taken Unknown] cyclosporine-chondroit sulf A 1 drp EACH EYE BID 07/30/20 [History Last Taken Unknown] dobyqdvwvw-tecngzjsygjg-ljkcat 1 applicatio TP QHS 07/30/20 [History Last Taken Unknown] aspirin 81 mg tablet,delayed release 81 mg PO DAILY 10/05/20 [History Last Taken Unknown] glimepiride 2 mg tablet 4 mg PO BID tab 03/12/21 [History Last Taken Unknown] apixaban [Eliquis] 5 mg PO BID #74 tab 12/18/21 [Rx Last Taken Unknown] atenolol 25 mg tablet 25 mg PO DAILY 12/18/21 [History Last Taken Unknown] calcium carbonate 600 mg-vitamin D3 5 mcg (200 unit) capsule 1 cap PO DAILY cap 12/18/21 [History Last Taken Unknown] cholecalciferol (vitamin D3) 25 mcg (1,000 unit) tablet 1,000 unit PO DAILY tab 12/18/21 [History Last Taken Unknown] dulaglutide 1.5 mg/0.5 mL subcutaneous pen injector 1.5 mg SUBCUT QWEEK 12/18/21 [History Last Taken Unknown] fluorometholone 0.1 % eye drops,suspension 1 drp EACH EYE BID ml 12/18/21 [History Last Taken Unknown] insulin glargine 100 unit/mL (3 mL) subcutaneous pen 55 unit SUBCUT DAILY ml 12/18/21 [History Last Taken Unknown] losartan 100 mg tablet 100 mg PO DAILY 12/18/21 [History Last Taken Unknown] mycophenolate mofetil 500 mg tablet 1,000 mg PO BID tab 12/18/21 [History Last Taken Unknown] peg 400-propylene glycol 0.4 %-0.3 % eye drops 1 drp EACH EYE 4X/DAY PRN 12/18/21 [History Last Taken Unknown] prednisone 10 mg tablet 5 mg PO DAILY tab 12/18/21 [History Last Taken Unknown] rosuvastatin 20 mg tablet 20 mg PO DAILY tab 12/18/21 [History Last Taken Unkno wn] Allergy/AdvReac Type Severity Reaction Status Date / Time furosemide [From Lasix] Allergy Intermediate elevated Verified 12/18/21 11:04 glucose simvastatin AdvReac Severe myalgia Verified 12/18/21 11:04 celecoxib [From Celebrex] AdvReac Intermediate GI upset Verified 12/18/21 11:04 codeine AdvReac Intermediate GI upset Verified 12/18/21 11:04 lisinopril AdvReac Intermediate cough Verified 12/18/21 11:04 hydrochlorothiazide AdvReac Unknown unknown, Verified 12/18/21 11:04 ask pt at appt metformin AdvReac Other Verified 12/18/21 11:04 naproxen [From Naprosyn] AdvReac Upset Verified 12/18/21 11:04 Stomach oxycodone AdvReac Nausea/Vom/ Verified 12/18/21 11:04 Diarrhea Family History Mother Arthritis CAD (coronary artery disease) Father CAD (coronary artery disease) Diabetes Sister Diabetes Hypertension Sister Diabetes Hypertension Sister Diabetes Hypertension Sister Hypertension Brother Diabetes Hypertension Brother Diabetes Hypertension Brother Hypertension Surgical History H/O cervical spine surgery (06/14/16) H/O lumbosacral spine surgery (~1989) H/O Spinal surgery History of arthroplasty of left shoulder (~2003) History of blepharoplasty (08/2009) History of carpal tunnel release of both wrists History of colonoscopy (12/16/08) History of esophagogastroduodenoscopy (EGD) (10/21/07) History of tonsillectomy History of total abdominal hysterectomy (1983) Hx of bilateral cataract extraction S/P PICC central line placement (02/26/19) Status post laser cataract surgery of right eye (12/2006) Social History Smoking Status: Former smoker quit date: 04/03/1968 Tobacco: How many years used: 1 how long ago did patient quit smokin alcohol intake: never substance use type: does not use caffeine: Yes Type: tea ROS ROS ED Constitutional Constitutional ED: Denies chills or fever(s) Eyes Eyes: Denies blurry vision or change in vision ENT ENT ED: Denies rhinorrhea or sore throat Cardiovascular Cardiovascular: Denies chest pain or palpitations Respiratory/Chest Respiratory/Chest: Reports dyspnea; Denies cough Gastrointestinal Gastrointestinal: Denies nausea or vomiting Genitourinary Genitourinary ED: Denies dysuria or hematuria Musculoskeletal Musculoskeletal: Reports back pain and neck pain Integumentary Denies abscess or rash Neurologic Neurologic: Denies headache(s) or weakness Allergic/Immunologic Allergic/Immunologic ED: Denies mouth swelling or urticaria EXAM Physical Exam Const Vital Signs: 12/18/21 12:25 12/18/21 13:04 Temperature 97.8 F Temperature Source Temporal Pulse Rate 78 Respiratory Rate 16 Respiratory Effort Short of Breath Respiratory Depth Normal Respiratory Pattern Normal Blood Pressure 149/83 H Blood Pressure Mean 105 Pulse Ox 95 Oxygen Delivery Method Room Air Room Air Positive well nourished, well developed and obese General Appearance ED: well developed and NAD Nutritional Appearance: obese HEENT Reports moist mucous membranes Neck supple and no JVD Resp normal respiratory effort and clear to auscultation bilaterally Cardio regular rate, regular rhythm and no murmurs GI normal to inspection, nondistended, normoactive bowel sounds and non-tender Palpation: soft Extremity normal to inspection General Extremety ED: Negative for edema or tenderness General Extremity: Negative for edema Neuro oriented x3, CN's II-XII intact bilaterally and no sensory deficits noted Sensorium / Orientation: alert Motor Exam: strength 5/5 throughout Psych mental status grossly normal Skin no rashes or lesions noted MDM MDM MDM Narrative Medical decision making narrative: Outpatient CTA of the chest was reviewed which showed the bilateral pulmonary emboli. Patient was given a dose of Eliquis here. CBC shows a slight anemia with a hemoglobin of 10.3 hematocrit 30.2. PT with INR and PTT were within normal limits. Comprehensive metabolic profile was essentially within normal limits. Patient had no hypoxic episodes here in the emergency department. Patient feels better and wants to go home. Patient was given a prescription for Eliquis. Patient was instructed to follow- up with her primary care physician in 5 to 7 days. Patient understood and was agreeable with the plan. All questions were answered. Lab Data Attestation: I reviewed the patient's lab results. Labs: Laboratory Results - last 24 hr 12/18/21 12/18/21 12/18/21 14:08 14:08 14:08 WBC 9.9 RBC 3.28 L Hgb 10.3 L Hct 30.2 L MCV 92.1 MCH 31.4 MCHC 34.1 RDW Std Deviation 50.5 H RDW Coeff of Britt 15.6 H Plt Count 209 MPV 9.1 Immature Gran % (Auto) 1.500 H Neut % (Auto) 79.3 H Lymph % (Auto) 11.8 L Kidder % (Auto) 6.7 Eos % (Auto) 0.3 Baso % (Auto) 0.4 Absolute Neuts (auto) 7.9 H Absolute Lymphs (auto) 1.17 Nucleated RBC % 0 PT 12.9 INR 1.0 APTT 21.9 L Sodium 138 Potassium 4.1 Chloride 105 Carbon Dioxide 27.0 Anion Gap 6 BUN 15 Creatinine 1.03 H Estim Creat Clear Calc 32.33 Est GFR (MDRD) Af Amer 67 Est GFR (MDRD) Non-Af 55 L BUN/Creatinine Ratio 14.6 Glucose 157 H Calcium 8.9 Total Bilirubin 1.60 H AST 24 ALT 38 Alkaline Phosphatase 92 Total Protein 6.0 L Albumin 3.5 Globulin 2.5 Albumin/Globulin Ratio 1.4 Discharge Plan Triage Chief Complaint: Shortness of Breath ED Provider: Alcides Alvares Dx/Rx/DC Orders Clinical Impression: Pulmonary embolism, bilateral Instructions: Pulmonary Embolism Prescriptions: New Eliquis 5 MG tablet 5 mg PO BID Qty: 74 RF: 0 No Action multivitamin Tablet 1 tab PO DAILY RF: 0 ropinirole 0.25 mg tablet 0.25 mg PO QHS RF: 0 rosuvastatin 20 mg tablet 20 mg PO DAILY RF: 0 Basaglar KwikPen U-100 Insulin 100 unit/mL (3 mL) insulin pen 55 unit subcut DAILY RF: 0 Trulicity 1.5 mg/0.5 mL pen injector 1.5 mg subcut QWEEK RF: 0 atenolol 25 mg tablet 25 mg PO DAILY RF: 0 losartan 100 mg tablet 100 mg PO DAILY RF: 0 prednisone 10 mg tablet 5 mg PO DAILY RF: 0 mycophenolate mofetil 500 mg tablet 1,000 mg PO BID RF: 0 Calcium 600 + D(3) 600 mg-5 mcg (200 unit) capsule 1 cap PO DAILY RF: 0 polyethylene glycol 3350 17 GM packet 17 g PO QWEEK RF: 0 ipratropium bromide 1 SPRAY spray,non-aerosol 2 spray NASAL BID RF: 0 docusate sodium 100 mg capsule 100 mg PO DAILY RF: 0 glimepiride 2 mg tablet 4 mg PO BID RF: 0 cholecalciferol (vitamin D3) 25 mcg (1,000 unit) tablet 1,000 unit PO DAILY RF: 0 L.acidoph, paracasei,B. lactis 1 EACH capsule 1 ea PO DAILY RF: 0 cyclosporine-chondroit sulf A 5.5 ML drops 1 drp EACH EYE BID RF: 0 daigokuvyv-gwyrvgbspvhc-knsdlg 30 GM gel 1 applicatio TP QHS RF: 0 fluorometholone 0.1 % drops,suspension 1 drp EACH EYE BID RF: 0 peg 400-propylene glycol 0.4-0.3 % drops 1 drp EACH EYE 4X/DAY PRN (Reason: Constipation) RF: 0 aspirin [Adult Aspirin Regimen] 81 mg tablet,delayed release (DR/EC) 81 mg PO DAILY RF: 0 Primary Care Provider: Kameron Kemp Referrals: Kameron Kemp MD [Primary Care Provider] - 3-5 Days Disposition Disposition: Home, Self Care
[2021-12-18 15:16] VITALS: BP 137/61; PULSE 78; RESP 16; O2SAT 96
== END 2021-12-18 15:22 | disposition home or self-care (01) ==
PROVIDERS: Emergency Provider Emergency Medicine; PCP Family Medicine; Visit Provider Emergency Medicine
DX: I26.99 Other pulmonary embolism without acute cor pulmonale (principal); I48.0 Paroxysmal atrial fibrillation; E11.9 Type 2 diabetes mellitus without complications; R06.00 Dyspnea, unspecified; R07.9 Chest pain, unspecified; E78.5 Hyperlipidemia, unspecified; D64.9 Anemia, unspecified; I10 Essential (primary) hypertension; E66.9 Obesity, unspecified; G47.33 Obstructive sleep apnea (adult) (pediatric); Z86.718 Personal history of other venous thrombosis and embolism; Z87.891 Personal history of nicotine dependence; Z79.01 Long term (current) use of anticoagulants; Z79.82 Long term (current) use of aspirin; Z79.899 Other long term (current) drug therapy
CPT/HCPCS: 71275; 80053; 85025; 85610; 85730; 99284; Q9967

== ENCOUNTER 2022-01-07 08:10 | Outpatient (CLI) | payer MEDICARE, OTHER, SELFPAY ==
--- NOTE | 2022-01-07 08:11 | ECHOCS_ITS ---
Reason For Study: Dyspnea/SOB Procedure This was a 2D Doppler, Color Flow transthoracic echocardiogram. Contrast injection was performed. Exam performed in department. Left Ventricle Normal LV size. Left ventricular systolic function is normal. The estimated ejection fraction is 70 %. Stage 1 diastolic dysfunction. No regional wall motion abnormalities noted. Right Ventricle Normal RV size. Normal systolic function. Atria Normal left atrium. Normal right atrium. Mitral Valve Normal mitral valve. Tricuspid Valve Normal tricuspid valve. Mild (1+) tricuspid valve insufficiency. Pulmonary artery systolic pressure is 38 mmHg. Aortic Valve Trisinus/trileaflet aortic valve. Mild focal aortic valve calcification. Peak aortic valve gradient 27 mmHg. Mean aortic valve gradient 14 mmHg. Mild aortic stenosis. Mild (1+) aortic valve insufficiency. Pulmonic Valve Normal pulmonic valve. Great Vessels Calcified aortic root. The pulmonary artery is normal size. Normal inferior vena cava. Pericardium/Pleural No pericardial effusion. Medication Diluted definity 2ml given slow IV push to enhance endocardial definition. MMode/2D Measurements & Calculations LVIDd: 4.7 cm IVSd: 1.0 cm LVOT diam: 1.9 cm LVIDs: 2.6 cm LVPWd: 1.1 cm RVDd: 3.0 cm FS: 45.7 % LVOT area: 2.9 cm2 Ao root diam: 3.1 cm LAV(MOD-bp): 44.3 ml LVAd ap4: 21.7 cm2 LAV(MOD-bp) Indexed: 23.5 ml/m2 LVLd ap4: 6.8 cm LAV(MOD-sp2): 54.2 ml EDV(MOD-sp4): 56.7 ml LAV(MOD-sp4): 33.4 ml EDV(sp4-el): 58.7 ml LVAs ap4: 10.8 cm2 LVLs ap4: 5.3 cm ESV(MOD-sp4): 18.5 ml ESV(sp4-el): 18.5 ml EF(MOD-sp4): 67.3 % EF(sp4-el): 68.5 % SV(MOD-sp4): 38.2 ml SV(sp4-el): 40.2 ml LA A4 area: 15.5 cm2 LA dimension(2D): 3.8 cm RA A4 area: 11.7 cm2 Doppler Measurements & Calculations MV E max armin: 72.4 cm/sec Lat Peak E' Armin: 6.5 cm/sec Med Peak E' Armin: 7.3 cm/sec MV A max armin: 113.0 cm/sec E/E' lat: 11.1 E/E' med: 9.9 MV E/A: 0.64 Ao V2 max: 258.7 cm/sec AI max armin: 388.8 cm/sec LV V1 max: 181.8 cm/sec Ao max P.8 mmHg AI max P.5 mmHg LV V1 max P.2 mmHg Ao V2 mean: 178.2 cm/sec LV V1 mean P.5 mmHg Ao mean P.2 mmHg AI dec slope: 185.1 cm/sec2 LV V1 mean: 138.6 cm/sec Ao V2 VTI: 53.8 cm AI P1/2t: 615.2 msec LV V1 VTI: 38.6 cm EZEQUIEL(I,D): 2.1 cm2 EZEQUIEL(V,D): 2.1 cm2 SV(LVOT): 113.1 ml PA V2 max: 145.4 cm/sec TR max armin: 294.2 cm/sec TR max P.6 mmHg ECHO/Echo Complete W/ Contrast Interpretation Summary Normal LV size. Left ventricular systolic function is normal. The estimated ejection fraction is 70 %. Stage 1 diastolic dysfunction. Contrast injection was performed. Ordering Physician: Joanne Pena Referring Physician: Kameron Kemp Performed By: Nati Sapp RDCS, RVT
== END 2022-01-07 23:59 | disposition home or self-care (01) ==
LOC: CVS 08:10
PROVIDERS: PCP Family Medicine; Referring Provider Physician Assistant Medical; Visit Provider Physician Assistant Medical
DX: G47.31 Primary central sleep apnea (principal); R06.00 Dyspnea, unspecified; R06.02 Shortness of breath
CPT/HCPCS: 93306; Q9957; A4216; C8929

== ENCOUNTER 2022-01-22 09:44 | Outpatient (CLI) | payer MEDICARE, OTHER, SELFPAY ==
--- NOTE | 2022-01-22 09:47 | VDLE_ITS ---
Reason For Study: BLE Edema RIGHT LEFT GSV is normal. GSV is normal. CFV is compressible, spontaneous, phasic, CFV is compressible, spontaneous, phasic, competent and demonstrates normal competent, and demonstrates normal augmentation. augmentation. FV is compressible, spontaneous, phasic, FV is compressible, spontaneous, phasic, competent and demonstrates normal competent and demonstrates normal augmentation. augmentation. POP V is compressible, spontaneous, phasic, POP V is compressible, spontaneous, phasic, competent and demonstrates normal competent and demonstrates normal augmentation. augmentation. T/P Trunk is compressible. T/P Trunk is compressible. PTV is compressible. PTV is compressible. RT PerV is compressible. LT PerV is compressible. Procedure This is a venous duplex using B-mode, color flow and spectral Doppler. Exam performed in department. A preliminary report was called and/or faxed to [facility]. VL/Venous Duplex US - Ian Extrem Interpretation Summary Deep veins of the lower extremities are bilaterally patent and compressible seg mentally. There is no evidence of deep vein thrombosis on either side. Valvular competence appears in tact within the proximal deep venous systems bilaterally. The great saphenous veins appear bila terally patent and compressible segmentally. Ordering Physician: Issac Luicano Referring Physician: MD Justo Kameron Performed By: Paloma Younger RVT
== END 2022-01-22 23:59 | disposition home or self-care (01) ==
LOC: CVS 09:45
PROVIDERS: PCP Family Medicine; Referring Provider Internal Medicine Pulmonary Disease; Visit Provider Internal Medicine Pulmonary Disease
DX: R60.0 Localized edema (principal)
CPT/HCPCS: 93970

== ENCOUNTER 2022-02-05 10:08 | Emergency (ER) | payer MEDICARE, OTHER, SELFPAY ==
[2022-02-05 10:09] VITALS: BP 159/74; PULSE 78; RESP 19; TEMP 36.6; O2SAT 99; BMI 40.3
--- NOTE | 2022-02-05 10:37 | EKG12_ITS ---
Test Reason : SOB Blood Pressure : / mmHG Vent. Rate : 074 BPM Atrial Rate : 074 BPM P-R Int : 184 ms QRS Dur : 084 ms QT Int : 380 ms P-R-T Axes : -11 -25 000 degrees QTc Int : 421 ms Normal sinus rhythm low voltage QRS ( precordial leads) Confirmed by JONI RIGGS, ADA ([id number]), editor trade journal JESSICA NGUYEN ([id number]) on 02/07/2022 11:32:33 AM Referred By: MARK/EVELIA Confirmed By:ADA QUINONES MD
--- NOTE | 2022-02-05 10:37 | RAD_ITS ---
STUDY: X-RAY CHEST REASON FOR EXAM: Female, 76 years old. Sob TECHNIQUE: Single AP portable view of the chest. COMPARISON: Comparison is made with prior study dated 12/12/2021. FINDINGS: EKG electrodes are seen. Increased markings are seen at the right lung base. Atelectasis and/or early infiltrate should be ruled out. There is no demonstrated pleural abnormality. Normal size heart. Normal mediastinum and giovanna. Normal visualized pulmonary arteries. There is atherosclerotic tortuosity of the aortic arch and descending thoracic aorta. There are diffuse degenerative changes of the visualized thoracic spine. Prior left shoulder replacement. Degenerative changes of the right shoulder. Prior laminectomy and fusion of the cervical spine. There is no demonstrated abnormality of the visualized soft tissue structures of the upper abdomen. RAD/Chest 1 View (Portable) IMPRESSION: Increased markings at the right lung base suggestive of atelectasis and/or early infiltrate. Electronically Signed: Gene Nieves MD at 11:07 EDT ,
--- NOTE | 2022-02-05 10:46 | ED.VIS.DYS ---
HPI History of Present Illness Chief Complaint: Shortness of Breath Informant: patient Narrative Narrative: Patient is a 76-year-old female with history of proximal atrial fibrillation, recent diagnosis of pulmonary emboli started on Eliquis on January 03 as well as aortic valve stenosis presenting with shortness of breath. Patient states has had worsening shortness of breath over the past few days. Seems to worsen the evening before she goes to bed. She does have a history of obstructive sleep apnea and she states her breathing feels better when she wears her CPAP. She notes when she took her CPAP off this morning her breathing felt significantly worse. She describes it as feeling like she is not getting enough air in her lungs even though she knows she is breathing. She was brought to the ER by EMS for evaluation of this. Patient denies any swelling of her legs. She notes she is been completely compliant with her Eliquis but did not take it this morning. She was reported to have a pulse ox around 98% but did feel better when they placed her on nasal cannula oxygen. Patient does not wear oxygen at home. She denies any current chest pain. She states chronically she will get a nagging sensation in her sternal area but does not have that currently and states that is not new. No other complaints at this time. PE Risk Factors: Positive for Prior DVT or PE [facility] Medical History Abnormality of gait Anxiety Central sleep apnea Cervical spondylosis with myelopathy Chronic constipation Deep vein thrombosis of both lower extremities (08/2020) Diabetes mellitus type II, controlled Diverticulosis of colon Dizziness Dynamic left ventricular outflow obstruction Essential hypertension GERD (gastroesophageal reflux disease) Hyperlipidemia Internal hemorrhoids Nonrheumatic aortic (valve) stenosis Obstructive sleep apnea Paroxysmal atrial fibrillation Right arm weakness Right hemiparesis RLS (restless legs syndrome) 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 lactis 1 ea PO DAILY 07/30/20 [History Last Taken Unknown] cyclosporine-chondroit sulf A 1 drp EACH EYE BID 07/30/20 [History Last Taken Unknown] jjieuainnl-vujhbzakrvme-bnblpq 1 applicatio TP QHS 07/30/20 [History Last Taken Unknown] aspirin 81 mg tablet,delayed release 81 mg PO DAILY 10/05/20 [History Last Taken Unknown] glimepiride 2 mg tablet 4 mg PO BID tab 03/12/21 [History Last Taken Unknown] apixaban [Eliquis] 5 mg PO BID #74 tab 12/18/21 [Rx Last Taken Unknown] atenolol 25 mg tablet 25 mg PO DAILY 12/18/21 [History Last Taken Unknown] calcium carbonate 600 mg-vitamin D3 5 mcg (200 unit) capsule 1 cap PO DAILY cap 12/18/21 [History Last Taken Unknown] cholecalciferol (vitamin D3) 25 mcg (1,000 unit) tablet 1,000 unit PO DAILY tab 12/18/21 [History Last Taken Unknown] dulaglutide 1.5 mg/0.5 mL subcutaneous pen injector 1.5 mg SUBCUT QWEEK 12/18/21 [History Last Taken Unknown] fluorometholone 0.1 % eye drops,suspension 1 drp EACH EYE BID ml 12/18/21 [History Last Taken Unknown] insulin glargine 100 unit/mL (3 mL) subcutaneous pen 55 unit SUBCUT DAILY ml 12/18/21 [History Last Taken Unknown] losartan 100 mg tablet 100 mg PO DAILY 12/18/21 [History Last Taken Unknown] mycophenolate mofetil 500 mg tablet 1,000 mg PO BID tab 12/18/21 [History Last Taken Unknown] peg 400-propylene glycol 0.4 %-0.3 % eye drops 1 drp EACH EYE 4X/DAY PRN 12/18/21 [History Last Taken Unknown] prednisone 10 mg tablet 5 mg PO DAILY tab 12/18/21 [History Last Taken Unknown] rosuvastatin 20 mg tablet 20 mg PO DAILY tab 12/18/21 [History Last Taken Unknown] Allergy/AdvReac Type Severity Reaction Status Date / Time furosemide [From Lasix] Allergy Intermediate elevated Verified 02/05/22 10:15 glucose simvastatin AdvReac Severe myalgia Verified 02/05/22 10:15 celecoxib [From Celebrex] AdvReac Intermediate GI upset Verified 02/05/22 10:15 codeine AdvReac Intermediate GI upset Verified 02/05/22 10:15 lisinopril AdvReac Intermediate cough Verified 02/05/22 10:15 hydrochlorothiazide AdvReac Unknown unknown, Verified 02/05/22 10:15 ask pt at appt metformin AdvReac Other Verified 02/05/22 10:15 naproxen [From Naprosyn] AdvReac Upset Verified 02/05/22 10:15 Stomach oxycodone AdvReac Nausea/Vom/ Verified 02/05/22 10:15 Diarrhea Family History Mother Arthritis CAD (coronary artery disease) Father CAD (coronary artery disease) Diabetes Sister Diabetes Hypertension Sister Diabetes Hypertension Sister Diabetes Hypertension Sister Hypertension Brother Diabetes Hypertension Brother Diabetes Hypertension Brother Hypertension Surgical History H/O cervical spine surgery (06/14/16) H/O lumbosacral spine surgery (~1989) H/O Spinal surgery History of arthroplasty of left shoulder (~2003) History of blepharoplasty (08/2009) History of carpal tunnel release of both wrists History of colonoscopy (12/16/08) History of esophagogastroduodenoscopy (EGD) (10/21/07) History of tonsillectomy History of total abdominal hysterectomy (1983) Hx of bilateral cataract extraction S/P PICC central line placement (02/26/19) Status post laser cataract surgery of right eye (12/2006) Social History Smoking Status: Former smoker quit date: 04/03/1968 Tobacco: How many years used: 1 how long ago did patient quit smokin alcohol intake: never substance use type: does not use caffeine: Yes Type: tea ROS ROS ED Constitutional Constitutional ED: Denies chills, fever(s) or sweats Eyes Eyes: Denies change in vision ENT ENT ED: Denies rhinorrhea or sore throat Cardiovascular Cardiovascular: Denies chest pain or palpitations Respiratory/Chest Respiratory/Chest: Reports dyspnea; Denies cough, dyspnea on exertion or sputum Gastrointestinal Gastrointestinal: Denies abdominal pain, melena or vomiting Musculoskeletal Musculoskeletal: Denies arthralgias or myalgias Integumentary Denies rash Neurologic Neurologic: Denies headache(s), paresthesias or weakness Psychiatric Psychiatric: Reports anxiety; Denies depression Hematologic/Lymphatic Hematologic/Lymphatic: Reports easy bleeding and easy bruising EXAM Physical Exam Const Vital Signs: 02/05/22 10:09 02/05/22 10:13 02/05/22 13:50 Temperature 97.8 F Temperature Source Oral Pulse Rate 78 90 Respiratory Rate 19 H 20 H Respiratory Effort Normal Non-Labored Respiratory Depth Normal Respiratory Pattern Normal Blood Pressure 159/74 H 121/88 H Blood Pressure Mean 102 99 Pulse Ox 99 98 Oxygen Delivery Method Room Air Room Air Positive well nourished, well developed and obese General Appearance ED: well developed and NAD Nutritional Appearance: obese HEENT Reports TM's clear and moist mucous membranes atraumatic Tympanic Membrane ED: Yes TM's clear Eyes PERRL and EOMs intact bilaterally Neck supple and no JVD Resp normal respiratory effort and clear to auscultation bilaterally Auscultation: Negative for wheezes or diminished lung sounds Cardio regular rate and regular rhythm Cardio Narrative: + murmur GI non-tender and non-distended Palpation: soft Neuro oriented x3 and CN's II-XII intact bilaterally Sensorium / Orientation: alert and oriented to person Motor Exam: Negative for general weakness Psych mental status grossly normal Thought Process: normal thought process Skin Lesions: no lesions Rashes: no rashes MDM MDM MDM Narrative Medical decision making narrative: Patient evaluated for sensation of knocking of air in her lungs. Is been worsening over the past few days. She is currently anticoagulated with a new diagnosis of pulmonary emboli. Patient is hemodynamically stable. She is not hypoxic in the emergency room. Overall she is very well. She has normal breath sounds. Hemoglobin is mildly low at 11.4 but this appears to be her baseline. No signs of acute bleed. Her high since he troponin is normal at 7. Given that her symptoms going on for the past few days I do not suspect ACS or NSTEMI. Patient does not appear fluid overloaded. BNP is normal. Do not suspect right-sided heart strain either. I did obtain a repeat CTA of the chest to make sure that she does not all of a sudden have increased clot burden or failure of outpatient therapy. CT of the chest shows mild residual intraluminal filling defects in the distal portion of the right pulmonary artery and proximal aspect of the right upper lobe pulmonary artery. This is not appear to be an acute change. Patient has outpatient follow-up tomorrow. She also has follow-up with her eeg technician in a couple weeks. At this time I do not think she requires admission. I think she is safe to go home. Patient is agreeable with this plan of care. Lab Data Attestation: I reviewed the patient's lab results. Labs: Laboratory Results - last 24 hr 02/05/22 02/05/22 02/05/22 10:00 10:00 10:00 WBC 7.7 RBC 3.60 L Hgb 11.4 L Hct 33.1 L MCV 91.9 MCH 31.7 MCHC 34.4 RDW Std Deviation 45.1 H RDW Coeff of Britt 13.5 Plt Count 267 MPV 9.6 Immature Gran % (Auto) 0.700 Neut % (Auto) 62.5 Lymph % (Auto) 24.9 Ada % (Auto) 9.6 Eos % (Auto) 1.4 Baso % (Auto) 0.9 Absolute Neuts (auto) 4.8 Absolute Lymphs (auto) 1.91 Nucleated RBC % 0 Sodium 137 Potassium 3.7 Chloride 102 Carbon Dioxide 28.0 Anion Gap 7 BUN 11 Creatinine 0.92 Estim Creat Clear Calc 36.20 Est GFR (MDRD) Af Amer 76 Est GFR (MDRD) Non-Af 63 BUN/Creatinine Ratio 12.0 Glucose 173 H Calcium 9.5 Troponin I High Sens 7 B-Natriuretic Peptide 44.2 Radiography Chest X-Ray - ED: 1 View, Read by ED Physician, Read by Radiologist, No Acute Disease and - (right atelectasis) Diagnostic Testing: Clinical Impression(s) from Imaging Studies Chest X-Ray 02/05/22 10:37 IMPRESSION: Increased markings at the right lung base suggestive of atelectasis and/or early infiltrate. Electronically Signed: Gene Nieves MD at 11:07 EDT , Chest CTA 02/05/22 12:18 IMPRESSION: Mild residual intraluminal filling defects in the distal portion of the right pulmonary artery and proximal aspect of the right upper lobe pulmonary artery. Electronically Signed: Gene Nieves MD at 13:13 EDT , Rhythm Strip Rhythm Strip: Sinus Rhythm Rate: 74 Ectopy: None EKG Initial EKG: Attestation: I personally reviewed and interpreted this EKG as follows: Interpretation: Sinus Rhythm Comments: Normal sinus rhythm at a rate of 84 Slight left axis deviation Normal intervals Normal ST segments Discharge Plan Triage Chief Complaint: Shortness of Breath ED Provider: Antionette Porter Dx/Rx/DC Orders Clinical Impression: Acute dyspnea, Pulmonary emboli Instructions: ED Dyspnea Prescriptions: No Action multivitamin Tablet 1 tab PO DAILY RF: 0 ropinirole 0.25 mg tablet 0.25 mg PO QHS RF: 0 rosuvastatin 20 mg tablet 20 mg PO DAILY RF: 0 Basaglar KwikPen U-100 Insulin 100 unit/mL (3 mL) insulin pen 55 unit subcut DAILY RF: 0 Trulicity 1.5 mg/0.5 mL pen injector 1.5 mg subcut QWEEK RF: 0 atenolol 25 mg tablet 25 mg PO DAILY RF: 0 losartan 100 mg tablet 100 mg PO DAILY RF: 0 prednisone 10 mg tablet 5 mg PO DAILY RF: 0 mycophenolate mofetil 500 mg tablet 1,000 mg PO BID RF: 0 Calcium 600 + D(3) 600 mg-5 mcg (200 unit) capsule 1 cap PO DAILY RF: 0 polyethylene glycol 3350 17 GM packet 17 g PO QWEEK RF: 0 ipratropium bromide 1 SPRAY spray,non-aerosol 2 spray NASAL BID RF: 0 docusate sodium 100 mg capsule 100 mg PO DAILY RF: 0 glimepiride 2 mg tablet 4 mg PO BID RF: 0 cholecalciferol (vitamin D3) 25 mcg (1,000 unit) tablet 1,000 unit PO DAILY RF: 0 L.acidoph, paracasei,B. lactis 1 EACH capsule 1 ea PO DAILY RF: 0 cyclosporine-chondroit sulf A 5.5 ML drops 1 drp EACH EYE BID RF: 0 ghmjcaftxz-eymipvaearqm-kjakip 30 GM gel 1 applicatio TP QHS RF: 0 fluorometholone 0.1 % drops,suspension 1 drp EACH EYE BID RF: 0 peg 400-propylene glycol 0.4-0.3 % drops 1 drp EACH EYE 4X/DAY PRN (Reason: Constipation) RF: 0 Eliquis 5 MG tablet 5 mg PO BID Qty: 74 RF: 0 aspirin [Adult Aspirin Regimen] 81 mg tablet,delayed release (DR/EC) 81 mg PO DAILY RF: 0 Primary Care Provider: Kameron Kemp Referrals: Kameron Kemp MD [Primary Care Provider] - Disposition Disposition: Home, Self Care Discharge Date/Time: 02/05/22 14:15
[2022-02-05 11:10] LABS: Anion Gap 7 (5-15); BUN 11 mg/dL (7-18); Calcium,Total 9.5 mg/dL (8.5-10.1); Chloride 102 mmol/L (98-107); Creatinine, Serum 0.92 mg/dL (0.55-1.02); EST Glomerular Filtration Rate 63 mL/min (>60); Est Glom Filt Rate - Afr Amer 76 mL/min (>60); Glucose 173 mg/dL (74-106); Potassium 3.7 mmol/L (3.5-5.1); Sodium Level 137 mmol/L (136-145); Troponin-I HS 7 pg/mL (3.0-54.0)
[2022-02-05 11:18] LABS: Absolute Lymphocyte Count 1.91 X10^3/uL (0.83-4.51); Absolute Neutrophil Count 4.8 X10^3/uL (2.0-7.7); Basophil# 0.07 X10^3/uL; Basophil% 0.9 % (0-1); Eosinophil# 0.11 X10^3/uL; Eosinophils% 1.4 % (0-5); Hematocrit 33.1 % (37-47); Hemoglobin 11.4 g/dL (12.0-15.0); Lymphocyte # 1.91 X10^3/ul (0.83-4.51); Lymphocyte % 24.9 % (19-41); Mean Corp Hgb Conc 34.4 g/dL (32-36); Mean Corpuscular Hgb 31.7 pg (27.0-32.0); Mean Corpuscular Volume 91.9 fL (81-99); Mean Platelet Vol. 9.6 fl (6.2-12.0); Monocyte# 0.74 X10^3/uL; Monocyte% 9.6 % (0-10); NRBC Flagged by Analyzer 0 % (0-5); Neutrophil # 4.79 X10^3/uL (2.7-7.7); Neutrophil % 62.5 % (47-70); Platelet Count 267 K/mm3 (150-450); RBC Distribution Width CV 13.5 % (11.6-14.6); RBC Distribution Width SD 45.1 fl (35.1-43.9); White Blood Count 7.7 K/mm3 (4.4-11.0)
[2022-02-05 11:34] LABS: BNP,B-Type NATRIURETIC PEPTIDE 44.2 pg/mL (0-100)
--- NOTE | 2022-02-05 12:18 | CT_ITS ---
STUDY: CTA CHEST REASON FOR EXAM: Female, 76 years old. Sob, hx of pe RADIATION DOSAGE (If Supplied By Facility): CTDIvol = ( 12.67 ) mGy, DLP = ( 455.85 ) mGycm TECHNIQUE: The examination was performed with the intravenous administration of IV 100mL Isovue-370. Post-processing of the angiographic images was performed, with multiplanar reformation and 3D reconstruction. Individualized dose optimization techniques were used for this CT. COMPARISON: Comparison is made with prior study dated 12/18/2021. FINDINGS: Tiny residual intraluminal filling defects are seen in the distal portion of the right pulmonary artery and the proximal portion of the right upper lobe pulmonary artery although there has been improvement as compared to prior study.. Normal thoracic aorta and visualized great vessels. There is no demonstrated aortic dissection. Normal heart and pericardium. Normal mediastinum. Normal hilar regions. Normal visualized trachea and bronchi. The lungs are well expanded. Mild degree of dependent bibasilar atelectasis. Normal pleura. Normal chest wall structures. There are degenerative changes of thoracic spine. Normal visualized upper abdomen. CT/CTA Chest W/WO Contrast IMPRESSION: Mild residual intraluminal filling defects in the distal portion of the right pulmonary artery and proximal aspect of the right upper lobe pulmonary artery. Electronically Signed: Gene Nieves MD at 13:13 EDT ,
[2022-02-05 13:47] VITALS: O2SAT 98
[2022-02-05 13:50] VITALS: BP 121/88; PULSE 90; RESP 20; O2SAT 98
== END 2022-02-05 14:15 | disposition home or self-care (01) ==
PROVIDERS: Emergency Provider Emergency Medicine; PCP Family Medicine; Visit Provider Emergency Medicine
DX: I26.99 Other pulmonary embolism without acute cor pulmonale (principal); R06.00 Dyspnea, unspecified; G47.33 Obstructive sleep apnea (adult) (pediatric); E66.9 Obesity, unspecified; Z79.01 Long term (current) use of anticoagulants; Z87.891 Personal history of nicotine dependence
CPT/HCPCS: 71045; 71275; 80048; 83880; 84484; 85025; 93005; 99285; Q9967

== ENCOUNTER 2022-02-08 08:43 | Outpatient (CLI) | payer MEDICARE, OTHER, SELFPAY ==
[2022-02-08 08:57] VITALS: BP 143/109; PULSE 70; RESP 16; TEMP 35.9; O2SAT 100; BMI 39.0
[2022-02-08] MEDS: Cosyntropin 0.25 MG Vial IM (09:20)
== END 2022-02-08 23:59 | disposition home or self-care (01) ==
LOC: MEDOUTP 08:43
PROVIDERS: PCP Family Medicine; Referring Provider Internal Medicine Pulmonary Disease; Visit Provider Internal Medicine Pulmonary Disease
DX: Z79.899 Other long term (current) drug therapy (principal)
CPT/HCPCS: 82533; 96372; J0834

== ENCOUNTER → 2022-02-26 | Outpatient (CLI) | payer MEDICARE, OTHER, SELFPAY ==
[2022-02-26 09:31] LABS: Hematocrit 36.1 % (37-47); Hemoglobin 12.3 g/dL (12.0-15.0); Mean Corp Hgb Conc 34.1 g/dL (32-36); Mean Corpuscular Hgb 31.9 pg (27.0-32.0); Mean Corpuscular Volume 93.8 fL (81-99); Mean Platelet Vol. 9.6 fl (6.2-12.0); Platelet Count 337 K/mm3 (150-450); RBC Distribution Width CV 14.5 % (11.6-14.6); RBC Distribution Width SD 46.8 fl (35.1-43.9); Red Blood Count 3.85 M/mm3 (4.2-5.4); White Blood Count 13.6 K/mm3 (4.4-11.0)
== END | disposition home or self-care (01) ==
LOC: LAB 08:46
PROVIDERS: PCP Family Medicine; Referring Provider Internal Medicine Pulmonary Disease; Visit Provider Internal Medicine Pulmonary Disease
DX: R06.00 Dyspnea, unspecified (principal)
CPT/HCPCS: 36415; 85027

== ENCOUNTER → 2022-06-12 | Outpatient (CLI) | payer MEDICARE, OTHER, SELFPAY ==
[2022-06-12 10:44] LABS: AST(SGOT) 15 U/L (15-37); Alanine Aminotransfer ALT/SGPT 19 U/L (13-56); Albumin, Serum 3.3 g/dL (3.2-5.0); Alkaline Phosphatase 112 U/L (45-117); Bilirubin, Direct 0.23 mg/dL (0.00-0.30); Cholesterol 149 mg/dL (200); Globulin 3.1 g/dL (2.2-4.2); High Density Lipoprotein 63 mg/dL; Protein, Total 6.4 g/dL (6.4-8.2); Triglycerides 102 mg/dL; Very Low Density Lipoprotein 20 mg/dL (5-40)
== END | disposition home or self-care (01) ==
LOC: LAB 08:34
PROVIDERS: PCP Family Medicine; Referring Provider Internal Medicine Cardiovascular Disease; Visit Provider Internal Medicine Cardiovascular Disease
DX: E78.00 Pure hypercholesterolemia, unspecified (principal)
CPT/HCPCS: 36415; 80061; 80076

== ENCOUNTER → 2022-07-29 | Outpatient (CLI) | payer MEDICARE, OTHER, SELFPAY ==
--- NOTE | 2022-07-29 09:41 | STRESSREP ---
Stress Test Report Oncologic cardial perfusion stress test. 77-year-old lady with a history of dyspnea on exertion. Stress protocol: Resting EKG demonstrates sinus rhythm with a rate of 81 bpm normal intervals are noted resting blood pressure is 130/62 mmHg. 0.4 mg of regadenoson was infused per usual protocol followed by rapid intravenous saline flush injection continuous EKG monitoring was performed. The maximum heart rate was 102 bpm which was 72% of max impacted heart rate the maximum workload was 1 metabolic equivalent. At rest there were no ST or T wave changes noted to suggest ischemia. At peak infusion nonspecific ST changes were noted with did not meet the criteria for ischemia. No clinical angina was noted. Myocardial perfusion protocol. 11.5 mCi of technetium 99m sestamibi was injected at rest. 0.4 mg of regadenoson was infused per usual protocol. At peak infusion 33.5 mCi of technetium 99m sestamibi was injected stress images were obtained stress and rest images were reconstructed and compared in the short axis vertical long and horizontal long axis. Gated images were also obtained. Perfusion SPECT analysis: Review of the stress images demonstrate normal uptake of tracer noted in all areas of the myocardium. The resting images similar demonstrate normal uptake of tracer noted in all areas of the myocardium. No areas of reversibility are noted to suggest ischemia and no previous infarct is noted. Gated SPECT analysis: The gated ejection fraction is 88%. Conclusion: Normal pharmacologic myocardial perfusion stress test. Preserved ejection fraction.
== END | disposition home or self-care (01) ==
LOC: CVS 07:06
PROVIDERS: PCP Family Medicine; Referring Provider Physician Assistant Medical; Visit Provider Physician Assistant Medical
DX: R06.09 Other forms of dyspnea (principal)
CPT/HCPCS: 78452; 93017; A9500; A4216; J2785

== ENCOUNTER → 2022-08-16 | Outpatient (CLI) | payer MEDICARE, OTHER, SELFPAY ==
[2022-08-16 10:52] LABS: Absolute Lymphocyte Count 1.32 X10^3/uL (0.83-4.51); Absolute Neutrophil Count 7.1 X10^3/uL (2.0-7.7); Basophil# 0.05 X10^3/uL; Basophil% 0.5 % (0-1); Eosinophil# 0.17 X10^3/uL; Eosinophils% 1.8 % (0-5); Hematocrit 31.3 % (37-47); Hemoglobin 10.8 g/dL (12.0-15.0); Lymphocyte # 1.32 X10^3/ul (0.83-4.51); Lymphocyte % 13.8 % (19-41); Mean Corp Hgb Conc 34.5 g/dL (32-36); Mean Corpuscular Hgb 31.4 pg (27.0-32.0); Mean Platelet Vol. 10.1 fl (6.2-12.0); Monocyte# 0.87 X10^3/uL; Monocyte% 9.1 % (0-10); NRBC Flagged by Analyzer 0 % (0-5); Neutrophil # 7.08 X10^3/uL (2.7-7.7); Platelet Count 288 K/mm3 (150-450); RBC Distribution Width CV 14.2 % (11.6-14.6); RBC Distribution Width SD 45.7 fl (35.1-43.9); Red Blood Count 3.44 M/mm3 (4.2-5.4); White Blood Count 9.6 K/mm3 (4.4-11.0)
[2022-08-16 11:25] LABS: Anion Gap 7 (5-15); BUN 9 mg/dL (7-18); BUN/Creat Ratio 10.1 RATIO (10-20); Calcium,Total 9.6 mg/dL (8.5-10.1); Chloride 104 mmol/L (98-107); EST Glomerular Filtration Rate 65 mL/min (>60); Est Glom Filt Rate - Afr Amer 78 mL/min (>60); Glucose 204 mg/dL (74-106); Potassium 4.4 mmol/L (3.5-5.1); Sodium Level 138 mmol/L (136-145)
== END | disposition home or self-care (01) ==
LOC: LAB 10:14
PROVIDERS: PCP Family Medicine; Referring Provider Physician Assistant Medical; Visit Provider Physician Assistant Medical
DX: R06.00 Dyspnea, unspecified (principal); I48.0 Paroxysmal atrial fibrillation
CPT/HCPCS: 36415; 80048; 83880; 85025

== ENCOUNTER 2022-10-21 09:09 | Emergency (ER) | payer MEDICARE, OTHER, SELFPAY ==
[2022-10-21 09:10] VITALS: BP 158/104; PULSE 79; RESP 16; TEMP 36.4; O2SAT 99; BMI 34.0
--- NOTE | 2022-10-21 09:39 | EX.ED.VIS.UR ---
HPI HPI - URI History of Present Illness Chief Complaint: Nosebleed Detail of Chief Complaint: Left-sided nosebleed this morning. Informant: patient Onset/Context/Timing Onset: Today and Hours Context: Gradual Onset Timing: Continuous Current Severity: Mild Maximum Severity: Mild Associated Symptoms Associated Symptoms: Negative for Nasal Congestion, Headache, Sinus Pressure, Diarrhea, Shortness of Breath, Chest Pain or Nonproductive cough Narrative Narrative: 77-year-old female on Xarelto due to A. fib. Also history of diabetes and lymphoma. States that this morning she had a bloody nose on the left side. It resolved after they put on a nasal clip. She denies any other complaints. She does not get frequent nose bleeds. Prior similar symptoms: Yes Recent Illness/Hospitalization: No ROS ROS ED ROS Narrative Denies. Review of Systems ROS Unobtainable: Denies due to encephalopathy Constitutional Constitutional ED: Denies chills or fever(s) Eyes Eyes: Denies blurry vision ENT ENT ED: Denies ear pain, rhinorrhea or sore throat Cardiovascular Cardiovascular: Denies chest pain or palpitations Respiratory/Chest Respiratory/Chest: Denies cough or dyspnea Gastrointestinal Gastrointestinal: Denies abdominal pain Genitourinary Genitourinary ED: Denies dysuria or hematuria Musculoskeletal Musculoskeletal: Denies arthralgias Integumentary Denies abscess Neurologic Neurologic: Denies headache(s) Psychiatric Psychiatric: Denies anxiety Endocrine Endocrinology: Denies cold intolerance Hematologic/Lymphatic Hematologic/Lymphatic: Denies easy bleeding Allergic/Immunologic Allergic/Immunologic ED: Denies mouth swelling or tongue swelling [facility] Medical History Abnormality of gait Anxiety Cancer Central sleep apnea Cervical spondylosis with myelopathy Chronic constipation Deep vein thrombosis of both lower extremities (08/2020) Diabetes mellitus type II, controlled Diverticulosis of colon Dizziness Dynamic left ventricular outflow obstruction Essential hypertension GERD (gastroesophageal reflux disease) Hyperlipidemia Internal hemorrhoids Nonrheumatic aortic (valve) stenosis Obstructive sleep apnea Osteoarthritis Paroxysmal atrial fibrillation Right arm weakness Right hemiparesis RLS (restless legs syndrome) Rosacea 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 Vitamin D deficiency Home Medications ipratropium bromide 42 mcg (0.06 %) nasal spray 2 spray NASAL BID 04/29/18 [History Last Taken Unknown] ropinirole 0.25 mg tablet 0.25 mg PO QHS 03/06/20 [History Last Taken Unknown] atenolol 25 mg tablet 25 mg PO DAILY 12/18/21 [History Last Taken Unknown] cholecalciferol (vitamin D3) 25 mcg (1,000 unit) tablet 1,000 unit PO DAILY 12/18/21 [History Last Taken Unknown] fluorometholone 0.1 % eye drops,suspension 1 drp EACH EYE BID 12/18/21 [History Last Taken Unknown] losartan 100 mg tablet 100 mg PO DAILY 12/18/21 [History Last Taken Unknown] mycophenolate mofetil 500 mg tablet 1,000 mg PO BID 12/18/21 [History Last Taken Unknown] Lactobacillus acidophilus 10 billion cell capsule (Probiotic) 10,000 mmu cells PO DAILY 10/21/22 [History Last Taken Unknown] amoxicillin 250 mg capsule 250 mg PO TID 3 days #9 caps 10/21/22 [Rx Last Taken Unknown] docusate sodium 100 mg capsule (Stool Softener) 100 mg PO DAILY 10/21/22 [History Last Taken Unknown] dulaglutide 3 mg/0.5 mL subcutaneous pen injector (Trulicity) 3 mg subcut QWEEK 10/21/22 [History Last Taken Unknown] folic acid 1 mg tablet 1 mg PO DAILY 10/21/22 [History Last Taken Unknown] glimepiride 4 mg tablet 4 mg PO DAILY 10/21/22 [History Last Taken Unknown] insulin glargine 100 unit/mL (3 mL) subcutaneous pen (Basaglar Tempo Pen (U-100) Insulin) 42 unit subcut QPM 10/21/22 [History Last Taken Unknown] polyethylene glycol 3350 17 gram oral powder packet (Miralax) 17 g PO DAILY 10/21/22 [History Last Taken Unknown] rivaroxaban 10 mg tablet (Xarelto) 10 mg PO DAILY 10/21/22 [History Last Taken Unknown] rosuvastatin 20 mg tablet 20 mg PO DAILY 10/21/22 [History Last Taken Unknown] Allergy/AdvReac Type Severity Reaction Status Date / Time furosemide [From Lasix] Allergy Intermediate elevated Verified 10/21/22 09:11 glucose simvastatin AdvReac Severe myalgia Verified 10/21/22 09:11 celecoxib [From Celebrex] AdvReac Intermediate GI upset Verified 10/21/22 09:11 codeine AdvReac Intermediate GI upset Verified 10/21/22 09:11 lisinopril AdvReac Intermediate cough Verified 10/21/22 09:11 hydrochlorothiazide AdvReac Unknown unknown, Verified 10/21/22 09:11 ask pt at appt metformin AdvReac Other Verified 10/21/22 09:11 naproxen [From Naprosyn] AdvReac Upset Verified 10/21/22 09:11 Stomach oxycodone AdvReac Nausea/Vom/ Verified 10/21/22 09:11 Diarrhea Family History Mother Arthritis CAD (coronary artery disease) Father CAD (coronary artery disease) Diabetes Sister Diabetes Hypertension Sister Diabetes Hypertension Sister Diabetes Hypertension Sister Hypertension Brother Diabetes Hypertension Brother Diabetes Hypertension Brother Hypertension Surgical History H/O cervical spine surgery (06/14/16) H/O lumbosacral spine surgery (~1989) H/O Spinal surgery History of arthroplasty of left shoulder (~2003) History of blepharoplasty (08/2009) History of carpal tunnel release of both wrists History of colonoscopy (12/16/08) History of esophagogastroduodenoscopy (EGD) (10/21/07) History of tonsillectomy History of total abdominal hysterectomy (1983) Hx of bilateral cataract extraction S/P PICC central line placement (02/26/19) Status post laser cataract surgery of right eye (12/2006) Social History Smoking Status: Former smoker quit date: 04/03/1968 Tobacco: How many years used: 1 how long ago did patient quit smokin alcohol intake: never substance use type: does not use caffeine: Yes Type: tea EXAM Physical Exam Narrative Exam Narrative: 77 female no acute distress. Vital signs stable afebrile. H EENT exam left anterior Kesselbachs plexus of the nose on the nasal septum is dried and there is blood but no active bleeding. No clots. Right side is normal. Posterior pharynx moist and pink. There is no blood or active bleeding. Neck nontender no lymphadenopathy. Lungs clear. Heart regular rhythm rate about 80. 3/6 systolic ejection murmur. Abdomen soft nontender. Moving all 4 extremities. Normal strength. Calves are nontender without edema. Neurologically she is awake and alert. No focal motor deficits. Const Vital Signs: 10/21/22 09:10 Temperature 97.5 F L Temperature Source Temporal Pulse Rate 79 Respiratory Rate 16 Blood Pressure 158/104 H Blood Pressure Mean 122 Pulse Ox 99 Oxygen Delivery Method Room Air Positive well nourished and well developed; Negative for cachectic or contractures General Appearance ED: well developed and NAD; Negative for cachectic, contractures, cyanotic, diaphoretic or pallor Nutritional Appearance: Negative for cachectic HEENT Reports moist mucous membranes; Denies dry mucous membranes normocephalic and atraumatic; Negative for scalp tenderness Face and Sinus: Negative for sinus tenderness, maxillary instability or facial tenderness Mouth ED: No dry mucous membranes Mouth: No dry mucous membranes Teeth and Gingiva: Negative for caries Throat: posterior oropharynx normal Eyes PERRL and EOMs intact bilaterally General Eye ED: Negative for pale conjunctiva or scleral icterus Neck no lymphadenopathy, supple, no meningeal signs and no JVD General: Negative for anterior neck swelling or lymphadenopathy Resp normal respiratory effort and clear to auscultation bilaterally Effort and Inspection: Negative for retractions Auscultation: Negative for rales, rhonchi or wheezes Cardio S1 normal heart sound, S2 normal heart sound and no murmurs Rate: regular rate; Negative for bradycardia or tachycardic Rhythm: regular rhythm; Negative for abnormal rhythm GI non-tender, non-distended and no masses Inspection: Negative for abdominal distention Auscultation: normoactive bowel sounds Palpation: soft; Negative for tender or guarding Back/Spine no CVA tenderness and normal ROM General Back: CVA tenderness Cervical Spine: Negative for cervical spine tenderness Thoracic Spine / Upper Back: Negative for thoracic spinal tenderness Lumbar Spine / Lower Back: Negative for lumbar spinal tenderness Sacrum: Negative for tenderness Extremity normal to inspection and full ROM General Extremety ED: Negative for cyanosis, tenderness or other findings General Extremity: Negative for cyanosis or other findings Neuro oriented x3, CN's II-XII intact bilaterally and no sensory deficits noted Sensorium / Orientation: alert, oriented to person and oriented to place; Negative for oriented to time, orientation impaired, lethargic or stuporous Motor Exam: strength 5/5 throughout Psych mental status grossly normal Appearance: Negative for other Attitude: No agitated Mood & Affect: Negative for depressed or anxious Skin General Skin Exam: Negative for jaundice or pallor Lesions: no lesions Rashes: no rashes Trauma: Negative for abrasion MDM MDM MDM Narrative Medical decision making narrative: 77-year-old female on Xarelto due to A. fib with a left anterior nosebleed. Currently she is not bleeding. But there is an obvious anterior source. Cotton ball soaked with Afrin to be placed in her nose. Then we will place an anterior nasal pack. Placed a Merocel anterior nasal pack in the left side of her nose. Patient tolerated well. There is no bleeding from the right or the posterior pharynx. She will be discharged to home. Pull the packing in 3 days. Started on amoxicillin 253 times a day for 3 days. Follow-up with ENT as needed. Return if worse. Procedures Other Procedures Procedure(s): Left anterior nasal packing placed. Discharge Plan Triage Chief Complaint: Nosebleed ED Provider: Surendra Alvarenga Dx/Rx/DC Orders Clinical Impression: Acute anterior epistaxis, Chronic anticoagulation, History of atrial fibrillation Instructions: ED Epistaxis (Adult) Prescriptions: New amoxicillin 250 mg capsule 250 mg PO TID 3 Days Qty: 9 0RF No Action ropinirole 0.25 mg tablet 0.25 mg PO QHS Rx Instructions: administer 1-3 hours before bedtime atenolol 25 mg tablet 25 mg PO DAILY losartan 100 mg tablet 100 mg PO DAILY mycophenolate mofetil 500 mg tablet 1,000 mg PO BID ipratropium bromide 1 SPRAY spray,non-aerosol 2 spray NASAL BID cholecalciferol (vitamin D3) 25 mcg (1,000 unit) tablet 1,000 unit PO DAILY fluorometholone 0.1 % drops,suspension 1 drp EACH EYE BID polyethylene glycol 3350 [Miralax] 17 gram Powder In Packet 17 g PO DAILY glimepiride 4 mg Tablet 4 mg PO DAILY docusate sodium [Stool Softener] 100 mg Capsule 100 mg PO DAILY folic acid 1 mg Tablet 1 mg PO DAILY rosuvastatin 20 mg Tablet 20 mg PO DAILY insulin glargine [Basaglar Tempo Pen(U-100)Insln] 100 unit/mL (3 mL) Insulin Pen 42 unit SUBCUT QPM Xarelto 10 mg Tablet 10 mg PO DAILY Probiotic 10 billion cell Capsule 10,000 mmu cells PO DAILY Trulicity 3 mg/0.5 mL Pen Injector 3 mg SUBCUT QWEEK Primary Care Provider: Kameron Kemp Referrals: Juan Manuel Dunne MD [Med Staff - Active Staff] - 3-5 Days if not improving Kameron Kemp MD [Primary Care Provider] - As Needed Activity Restrictions/Additional Instructions: You have a left anterior nosebleed. Keep the packing in for 3 days you can slowly pull it out either Friday night or morning. You will be on antibiotics amoxicillin 3 times a day for the next 3 days while the packing is in to prevent any type of sinus infection. If you have recurrent bleeding direct pressure pinch her nose for 20 to 30 minutes if unable to stop return. Once the packing is out take it Q-tip with either Vaseline or antibiotic ointment on it put it inside your nose and help keep the area moist. The dry air has caused your nose to bleed. Disposition Disposition: Home, Self Care
[2022-10-21] MEDS: Oxymetazoline 0.05% 1 SPRAY SPRAY.BTL 2 SPRAY NASAL (10:06)
== END 2022-10-21 10:46 | disposition home or self-care (01) ==
PROVIDERS: Emergency Provider Emergency Medicine; PCP Family Medicine; Visit Provider Emergency Medicine
DX: R04.0 Epistaxis (principal); I48.91 Unspecified atrial fibrillation; E11.9 Type 2 diabetes mellitus without complications; I10 Essential (primary) hypertension; E78.5 Hyperlipidemia, unspecified; Z79.01 Long term (current) use of anticoagulants; Z87.891 Personal history of nicotine dependence
CPT/HCPCS: 30901; 99282

== ENCOUNTER → 2022-12-17 | Outpatient (CLI) | payer MEDICARE, OTHER, SELFPAY ==
[2022-12-17 11:05] LABS: BNP,B-Type NATRIURETIC PEPTIDE 132.3 pg/mL (0-100)
[2022-12-17 11:08] LABS: AST(SGOT) 21 U/L (15-37); Alanine Aminotransfer ALT/SGPT 22 U/L (13-56); Albumin, Serum 3.4 g/dL (3.2-5.0); Alkaline Phosphatase 110 U/L (45-117); Bilirubin, Direct 0.28 mg/dL (0.00-0.30); CRP < 2.90 mg/L (0.0-3.0); Cholesterol 132 mg/dL (200); Globulin 2.5 g/dL (2.2-4.2); High Density Lipoprotein 61 mg/dL; Protein, Total 5.9 g/dL (6.4-8.2); Triglycerides 84 mg/dL; Very Low Density Lipoprotein 17 mg/dL (5-40)
[2022-12-17 11:15] LABS: Absolute Lymphocyte Count 1.01 X10^3/uL (0.83-4.51); Absolute Neutrophil Count 6.1 X10^3/uL (2.0-7.7); Basophil# 0.03 X10^3/uL; Basophil% 0.4 % (0-1); Eosinophil# 0.06 X10^3/uL; Eosinophils% 0.8 % (0-5); Hematocrit 30.5 % (37-47); Hemoglobin 10.8 g/dL (12.0-15.0); Lymphocyte # 1.01 X10^3/ul (0.83-4.51); Lymphocyte % 12.7 % (19-41); Mean Corp Hgb Conc 35.4 g/dL (32-36); Mean Corpuscular Hgb 32.7 pg (27.0-32.0); Mean Corpuscular Volume 92.4 fL (81-99); Mean Platelet Vol. 10.2 fl (6.2-12.0); Monocyte# 0.67 X10^3/uL; Monocyte% 8.4 % (0-10); NRBC Flagged by Analyzer 0 % (0-5); Neutrophil # 6.11 X10^3/uL (2.7-7.7); Neutrophil % 77.1 % (47-70); Platelet Count 225 K/mm3 (150-450); RBC Distribution Width CV 13.7 % (11.6-14.6); RBC Distribution Width SD 44.9 fl (35.1-43.9); White Blood Count 7.9 K/mm3 (4.4-11.0)
[2022-12-18 01:52] LABS: Erythrocyte Sedimentation Rate < 1 mm/hr (0-30)
== END | disposition home or self-care (01) ==
LOC: LAB 10:13
PROVIDERS: Internal Medicine Cardiovascular Disease; PCP Family Medicine; Referring Provider Internal Medicine Pulmonary Disease; Visit Provider Internal Medicine Pulmonary Disease
DX: J84.111 Idiopathic interstitial pneumonia, not otherwise specified (principal); I50.32 Chronic diastolic (congestive) heart failure; E78.00 Pure hypercholesterolemia, unspecified
CPT/HCPCS: 36415; 80061; 80076; 83880; 85025; 85652; 86140

== ENCOUNTER → 2023-01-02 | Outpatient (CLI) | payer MEDICARE, OTHER, SELFPAY ==
[2023-01-02 07:21] LABS: Anion Gap 5 (5-15); BUN 31 mg/dL (7-18); BUN/Creat Ratio 20.4 RATIO (10-20); Chloride 105 mmol/L (98-107); Creatinine, Serum 1.52 mg/dL (0.55-1.02); EST Glomerular Filtration Rate 35 mL/min (>60); Est Glom Filt Rate - Afr Amer 42 mL/min (>60); Glucose 182 mg/dL (74-106); Potassium 4.8 mmol/L (3.5-5.1); Sodium Level 138 mmol/L (136-145)
== END | disposition home or self-care (01) ==
LOC: LAB 06:02
PROVIDERS: PCP Family Medicine; Referring Provider Physician Assistant Medical; Visit Provider Physician Assistant Medical
DX: R06.00 Dyspnea, unspecified (principal)
CPT/HCPCS: 36415; 80048

== ENCOUNTER → 2023-01-09 | Outpatient (CLI) | payer MEDICARE, OTHER, SELFPAY ==
--- NOTE | 2023-01-09 07:53 | CT_ITS ---
INDICATION: INTERSITIAL PNA EXAMINATION: CT CHEST WITHOUT CONTRAST - CT Chest W/O Contrast Injection TECHNIQUE: Helically acquired images were obtained of the chest. A radiation dose optimization technique was used for this scan. IV Contrast dosage and agent: None. COMPARISON: CT chest February 05, 2022 no other comparisons are provided. FINDINGS: LUNGS, PLEURA AND LARGE AIRWAYS: A minimal focus of probable scarring in the posterior aspect of the lung in the superior aspect of the left lower lobe. There is minimal bronchiectasis within the lingula. There is no visualized new focal consolidation pleural effusion or pulmonary edema. No pleural effusion or thickening. No pneumothorax. THYROID: No thyroid lesions. HEART AND PERICARDIUM: The heart is of normal size. There are coronary calcifications. No pericardial effusion. CORONARY ARTERIES: Coronary artery calcification is seen. VESSELS: There is partially calcified. The aorta is tortuous. There is borderline aneurysmal dilatation of the ascending thoracic aorta similar to prior study. MEDIASTINUM AND DREW: No mediastinal or hilar adenopathy. Esophagus is unremarkable. No hiatal hernia. UPPER ABDOMEN: No acute pathology. BONES: There is advanced degenerative change of the thoracic spine. There is multilevel disc space narrowing spondylosis. There is a visualized cervical spine fusion and a T1-T2 effusion. There is a visualized left shoulder arthroplasty. Advanced degenerative change of the right shoulder joint. CT/Chest without Contrast IMPRESSION: Coronary artery calcifications. Borderline aneurysmal dilatation of the ascending thoracic aorta stable since prior study. Minimal dependent atelectasis possible minimal scarring within the superior aspect of the left lower lobe. No visualized focal consolidation or findings to suggest pneumonia. Advanced degenerative change of the thoracic spine and right shoulder joint. Status post left shoulder arthroplasty. Partially visualized cervical spine fusion and upper thoracic spine fusion. Electronically Signed: Dinorah Youngblood MD at 5:33 EST ,
== END | disposition home or self-care (01) ==
PROVIDERS: PCP Family Medicine; Referring Provider Internal Medicine Pulmonary Disease; Visit Provider Internal Medicine Pulmonary Disease
DX: J84.111 Idiopathic interstitial pneumonia, not otherwise specified (principal)
CPT/HCPCS: 71250

== ENCOUNTER → 2023-01-20 | Outpatient (CLI) | payer MEDICARE, OTHER, SELFPAY ==
[2023-01-20 11:18] LABS: Anion Gap 6 (5-15); BUN 16 mg/dL (7-18); BUN/Creat Ratio 14.7 RATIO (10-20); Chloride 105 mmol/L (98-107); Creatinine, Serum 1.09 mg/dL (0.55-1.02); EST Glomerular Filtration Rate 51 mL/min (>60); Est Glom Filt Rate - Afr Amer 62 mL/min (>60); Glucose 170 mg/dL (74-106); Potassium 4.8 mmol/L (3.5-5.1); Sodium Level 138 mmol/L (136-145)
== END | disposition home or self-care (01) ==
LOC: LAB 10:26
PROVIDERS: PCP Family Medicine; Referring Provider Physician Assistant Medical; Visit Provider Physician Assistant Medical
DX: I10 Essential (primary) hypertension (principal)
CPT/HCPCS: 36415; 80048

== ENCOUNTER → 2023-04-09 | Outpatient (CLI) | payer MEDICARE, OTHER, SELFPAY ==
--- NOTE | 2023-04-09 09:25 | RAD_ITS ---
STUDY: X-RAY CHEST REASON FOR EXAM: Female, 78 years old. SOB and cough. TECHNIQUE: PA and lateral views of the chest. COMPARISON: Comparison is made with prior study February 05, 2022. FINDINGS: Mild increased markings at the right lung base suggests probably atelectasis and/or scarring. There is no demonstrated pleural abnormality. Normal size heart. Normal mediastinum and giovanna. Normal visualized pulmonary arteries. There is atherosclerotic calcification of the aortic arch with tortuosity. Normal visualized thoracic spine. There is degenerative osteoarthritis of the right shoulder. The patient is status post left shoulder replacement. Prior fusion in the lower cervical spine. There is no demonstrated abnormality of the visualized soft tissue structures of the upper abdomen. RAD/Chest PA and Lateral IMPRESSION: Mild increased markings at the right lung base suggests probable atelectasis and/or scarring. Electronically Signed: Gene Nieves MD at 9:59 EDT ,
[2023-04-09 09:51] LABS: Erythrocyte Sedimentation Rate 2 mm/hr (0-30)
[2023-04-09 10:13] LABS: BNP,B-Type NATRIURETIC PEPTIDE 93.1 pg/mL (0-100)
== END | disposition home or self-care (01) ==
LOC: LAB 09:11
PROVIDERS: PCP Family Medicine; Referring Provider Internal Medicine Pulmonary Disease; Visit Provider Internal Medicine Pulmonary Disease
DX: R06.02 Shortness of breath (principal)
CPT/HCPCS: 36415; 71046; 83880; 85652; 86140

== ENCOUNTER 2023-04-11 08:07 | Emergency (ER) | payer MEDICARE, OTHER, SELFPAY ==
[2023-04-11] VITALS (7 sets, daily range): BP systolic 95–136; BP diastolic 42–114; PULSE 69–103; RESP 14–22; TEMP 37.2; O2SAT 96–99
--- NOTE | 2023-04-11 08:46 | EKG12_ITS ---
Test Reason : SOB Blood Pressure : / mmHG Vent. Rate : 076 BPM Atrial Rate : 000 BPM P-R Int : 000 ms QRS Dur : 056 ms QT Int : 352 ms P-R-T Axes : 000 -16 009 degrees QTc Int : 396 ms Atrial fibrillation Minimal voltage criteria for LVH, may be normal variant ( R in aVL ) Junctional ST depression, probably abnormal Abnormal ECG Confirmed by VIVI RIGGS, ROHINI ([id number]), make up editor DESIREE LEAHY ([id number]) on 04/14/2023 1:34:04 PM Referred By: CATARINO Confirmed By:ROHINI TRINIDAD MD
--- NOTE | 2023-04-11 08:47 | EDS_ITS ---
HPI History of Present Illness Chief Complaint: Shortness of Breath Informant: patient Narrative Narrative: Patient states she has some type of interstitial lung disease and sees Dr. Luciano with pulmonary, she started having an exacerbation about a week ago and saw him, was placed on a prednisone taper, she is still on 40 mg daily which is where she started that, and no other new prescriptions, her breathing has been getting worse within the last day or 2 especially in this morning she states she woke up and cannot breathe. She has been coughing the whole time, but just now coughing out some sputum that is a little yellowish but no blood. No fevers or chills or leg swelling or orthopnea. No other new symptoms. Chronically anticoagulated on rivaroxaban for paroxysmal atrial fibrillation. No bleeding from anywhere right now. [facility] Medical History Abnormality of gait Anxiety Cancer Central sleep apnea Cervical spondylosis with myelopathy Chronic constipation Deep vein thrombosis of both lower extremities (08/2020) Diabetes mellitus type II, controlled Diverticulosis of colon Dizziness Dynamic left ventricular outflow obstruction Essential hypertension GERD (gastroesophageal reflux disease) Hyperlipidemia Internal hemorrhoids Nonrheumatic aortic (valve) stenosis Obstructive sleep apnea Osteoarthritis Paroxysmal atrial fibrillation Right arm weakness Right hemiparesis RLS (restless legs syndrome) Rosacea 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 Vitamin D deficiency Home Medications ipratropium bromide 42 mcg (0.06 %) nasal spray 2 spray NASAL BID 04/29/18 [History Last Taken Unknown] atenolol 25 mg tablet 25 mg PO DAILY 12/18/21 [History Last Taken Unknown] cholecalciferol (vitamin D3) 25 mcg (1,000 unit) tablet 1,000 unit PO DAILY 12/18/21 [History Last Taken Unknown] fluorometholone 0.1 % eye drops,suspension 1 drp EACH EYE BID 12/18/21 [History Last Taken Unknown] losartan 100 mg tablet 100 mg PO DAILY 12/18/21 [History Last Taken Unknown] mycophenolate mofetil 500 mg tablet 1,000 mg PO BID 12/18/21 [History Last Taken Unknown] Lactobacillus acidophilus 10 billion cell capsule (Probiotic) 10,000 mmu cells PO DAILY 10/21/22 [History Last Taken Unknown] docusate sodium 100 mg capsule (Stool Softener) 100 mg PO DAILY 10/21/22 [History Last Taken Unknown] folic acid 1 mg tablet 1 mg PO DAILY 10/21/22 [History Last Taken Unknown] polyethylene glycol 3350 17 gram oral powder packet (Miralax) 17 g PO DAILY 10/21/22 [History Last Taken Unknown] rosuvastatin 20 mg tablet 20 mg PO DAILY 10/21/22 [History Last Taken Unknown] dulaglutide 4.5 mg/0.5 mL subcutaneous pen injector (Trulicity) 4.5 mg subcut QWEEK 12/19/22 [History Last Taken Unknown] glimepiride 4 mg tablet 4 mg PO BID 12/19/22 [History Last Taken Unknown] insulin glargine 100 unit/mL (3 mL) subcutaneous pen (Basaglar Tempo Pen (U-100) Insulin) 44 unit subcut QPM 12/19/22 [History Last Taken Unknown] rivaroxaban 20 mg tablet (Xarelto) 20 mg PO DAILY 12/19/22 [History Last Taken Unknown] ropinirole 0.5 mg tablet 1 mg PO QHS 12/19/22 [History Last Taken Unknown] spironolactone 25 mg tablet 25 mg PO DAILY #90 tabs 12/19/22 [Rx Last Taken Unknown] albuterol sulfate 90 mcg/actuation aerosol inhaler (Ventolin HFA) 1 - 2 puff inhalation Q4H PRN PRN Wheezing ##1 04/11/23 [Rx Last Taken Unknown] Allergy/AdvReac Type Severity Reaction Status Date / Time furosemide [From Lasix] Allergy Intermediate elevated Verified 04/11/23 08:09 glucose simvastatin AdvReac Severe myalgia Verified 04/11/23 08:09 celecoxib [From Celebrex] AdvReac Intermediate GI upset Verified 04/11/23 08:09 codeine AdvReac Intermediate GI upset Verified 04/11/23 08:09 lisinopril AdvReac Intermediate cough Verified 04/11/23 08:09 hydrochlorothiazide AdvReac Unknown unknown, Verified 04/11/23 08:09 ask pt at appt metformin AdvReac Other Verified 04/11/23 08:09 naproxen [From Naprosyn] AdvReac Upset Verified 04/11/23 08:09 Stomach oxycodone AdvReac Nausea/Vom/ Verified 04/11/23 08:09 Diarrhea Family History Mother Arthritis CAD (coronary artery disease) Father CAD (coronary artery disease) Diabetes Sister Diabetes Hypertension Sister Diabetes Hypertension Sister Diabetes Hypertension Sister Hypertension Brother Diabetes Hypertension Brother Diabetes Hypertension Brother Hypertension Surgical History H/O cervical spine surgery (06/14/16) H/O lumbosacral spine surgery (~1989) H/O Spinal surgery History of arthroplasty of left shoulder (~2003) History of blepharoplasty (08/2009) History of carpal tunnel release of both wrists History of colonoscopy (12/16/08) History of esophagogastroduodenoscopy (EGD) (10/21/07) History of tonsillectomy History of total abdominal hysterectomy (1983) Hx of bilateral cataract extraction S/P PICC central line placement (02/26/19) Status post laser cataract surgery of right eye (12/2006) Social History Smoking Status: Former smoker quit date: 04/03/1968 Tobacco: How many years used: 1 how long ago did patient quit smokin alcohol intake: never substance use type: does not use caffeine: Yes Type: tea ROS ROS ED Constitutional Constitutional ED: Denies chills or fever(s) Eyes Eyes: Denies change in vision or diplopia ENT ENT ED: Denies rhinorrhea or sore throat Cardiovascular Cardiovascular: Denies chest pain or palpitations Respiratory/Chest Respiratory/Chest: Reports cough, dyspnea and sputum Gastrointestinal Gastrointestinal: Denies abdominal pain, diarrhea, nausea or vomiting Genitourinary Genitourinary ED: Denies dysuria or hematuria Musculoskeletal Musculoskeletal: Denies back pain or neck pain Integumentary Denies abscess or rash Neurologic Neurologic: Denies headache(s), paresthesias or weakness Psychiatric Psychiatric: Denies anxiety or suicidal thoughts EXAM Physical Exam Const Vital Signs: 04/11/23 08:09 04/11/23 08:40 04/11/23 08:40 Temperature 99 F 99 F 99 F Temperature Source Temporal Temporal Temporal Pulse Rate 75 79 103 H Respiratory Rate 14 16 16 Respiratory Effort Respiratory Depth Respiratory Pattern Blood Pressure 95/42 L 136/114 H 136/114 H Blood Pressure Mean 59 121 121 Pulse Ox 99 98 98 Oxygen Delivery Method Room Air Room Air Room Air 04/11/23 08:40 04/11/23 09:30 04/11/23 10:15 Temperature Temperature Source Pulse Rate 69 Respiratory Rate 22 H 20 H Respiratory Effort Short of Breath Labored Respiratory Depth Normal Respiratory Pattern Normal Blood Pressure Blood Pressure Mean Pulse Ox 96 Oxygen Delivery Method Room Air Room Air Positive well nourished and well developed General Appearance ED: well developed and NAD HEENT Reports moist mucous membranes normocephalic and atraumatic Eyes PERRL and EOMs intact bilaterally Neck full ROM, no lymphadenopathy and supple Resp Resp Narrative: Mild respiratory distress, lung exam limited due to bronchospasm whenever she tries to take a breath, breath sounds are equal bilaterally, coarse on expiration Cardio regular rate, regular rhythm and no murmurs GI non-tender and non-distended Auscultation: normoactive bowel sounds Palpation: soft Back/Spine no CVA tenderness General Back: other FROM Extremity normal to inspection General Extremety ED: Negative for edema, pulses abnormal or tenderness General Extremity: Negative for edema or pulses abnormal Neuro oriented x3, CN's II-XII intact bilaterally and no sensory deficits noted Sensorium / Orientation: awake and alert Motor Exam: strength 5/5 throughout Skin no rashes or lesions noted and no wounds MDM MDM MDM Narrative Medical decision making narrative: Work patient up while giving her breathing treatments which really helped. She states she really is worse in the mornings, this morning was worse than they had been, she is not hypoxic, she is not fluid overloaded clinically and her BNP of only 100 supports that, and the rest of her work-up here is unremarkable. I attempted to discuss with Dr. Luciano with regards to prescription/medication recommendations, however he is not available until 04/14 which is Friday, today is Friday. I discussed her general case with the radiation therapy technician on-call Dr. Quintanilla, and he does not recommend antibiotics or other prescriptions other than the prednisone she is on unless she has pneumonia which she does not. Two-view x-ray my interpretation negative for acute pneumonia, radiology in agreement. Patient is ambulatory without hypoxemia, doing well clinically and okay going home, will prescribe her an albuterol inhaler since that worked well give her another treatment prior to discharge. She is comfortable with that plan we discussed reasons to return. Lab Data Attestation: I reviewed the patient's lab results. Labs: Laboratory Results - last 24 hr 04/11/23 04/11/23 04/11/23 08:40 08:40 08:40 WBC 12.1 H RBC 3.84 L Hgb 11.4 L Hct 33.6 L MCV 87.5 MCH 29.7 MCHC 33.9 RDW Std Deviation 44.4 H RDW Coeff of Britt 14.2 Plt Count 408 MPV 9.5 Immature Gran % (Auto) 4.600 H Neut % (Auto) 76.2 H Lymph % (Auto) 8.4 L Smith % (Auto) 10.1 H Eos % (Auto) 0.0 Baso % (Auto) 0.7 Absolute Neuts (auto) 9.2 H Absolute Lymphs (auto) 1.02 Nucleated RBC % 0.2 Sodium 135 L Potassium 4.1 Chloride 102 Carbon Dioxide 26.0 Anion Gap 7 BUN 30 H Creatinine 1.26 H Est GFR (MDRD) Af Amer 53 L Est GFR (MDRD) Non-Af 43 L BUN/Creatinine Ratio 23.8 H Glucose 195 H Calcium 9.8 Troponin I High Sens 11 B-Natriuretic Peptide 100.3 H Radiography Diagnostic Testing: Clinical Impression(s) from Imaging Studies Chest X-Ray 04/11/23 09:45 IMPRESSION: Stable examination. No acute abnormality is seen. Electronically Signed: Gene Nieves MD at 10:17 EDT , Rhythm Strip Rhythm Strip: Sinus Rhythm Rate: 75 Ectopy: None EKG Initial EKG: Attestation: I personally reviewed and interpreted this EKG as follows: Interpretation: Sinus Rhythm and No Acute Injury Pattern Prior EKG tracings: available for review Prior: Unchanged Discharge Plan Triage Chief Complaint: Shortness of Breath ED Provider: Mukul Acosta Dx/Rx/DC Orders Clinical Impression: Interstitial pulmonary disease, unspecified, Acute dyspnea Instructions: Interstitial Lung Disease, Interstitial Lung Disease Meds Prescriptions: New albuterol sulfate [Ventolin HFA] 90 mcg/actuation HFA aerosol inhaler 1 - 2 puff inhalation Q4H PRN PRN (Reason: Wheezing) Qty: 1 0RF No Action atenolol 25 mg tablet 25 mg PO DAILY losartan 100 mg tablet 100 mg PO DAILY mycophenolate mofetil 500 mg tablet 1,000 mg PO BID Xarelto 20 mg tablet 20 mg PO DAILY Trulicity 4.5 mg/0.5 mL pen injector 4.5 mg subcut QWEEK ropinirole 0.5 mg tablet 1 mg PO QHS Label Comments: TAKE 1-2 TABLETS BY MOUTH AT BEDTIME spironolactone 25 mg tablet 25 mg PO DAILY Qty: 90 3RF ipratropium bromide 1 SPRAY spray,non-aerosol 2 spray NASAL BID cholecalciferol (vitamin D3) 25 mcg (1,000 unit) tablet 1,000 unit PO DAILY fluorometholone 0.1 % drops,suspension 1 drp EACH EYE BID polyethylene glycol 3350 [Miralax] 17 gram Powder In Packet 17 g PO DAILY docusate sodium [Stool Softener] 100 mg Capsule 100 mg PO DAILY folic acid 1 mg Tablet 1 mg PO DAILY rosuvastatin 20 mg Tablet 20 mg PO DAILY Probiotic 10 billion cell Capsule 10,000 mmu cells PO DAILY insulin glargine [Basaglar Tempo Pen(U-100)Insln] 100 unit/mL (3 mL) insulin pen 44 unit SUBCUT QPM glimepiride 4 mg tablet 4 mg PO BID Primary Care Provider: Kameron Kemp Referrals: Kameron Kemp MD [Primary Care Provider] - Issac Luciano MD [Med Staff - Active Staff] - 3-5 Days Disposition Disposition: Home, Self Care
[2023-04-11 08:56] LABS: Absolute Lymphocyte Count 1.02 X10^3/uL (0.83-4.51); Absolute Neutrophil Count 9.2 X10^3/uL (2.0-7.7); Basophil# 0.08 X10^3/uL; Basophil% 0.7 % (0-1); Hematocrit 33.6 % (37-47); Hemoglobin 11.4 g/dL (12.0-15.0); Lymphocyte # 1.02 X10^3/ul (0.83-4.51); Lymphocyte % 8.4 % (19-41); Mean Corp Hgb Conc 33.9 g/dL (32-36); Mean Corpuscular Hgb 29.7 pg (27.0-32.0); Mean Corpuscular Volume 87.5 fL (81-99); Mean Platelet Vol. 9.5 fl (6.2-12.0); Monocyte# 1.23 X10^3/uL; Monocyte% 10.1 % (0-10); NRBC Flagged by Analyzer 0.2 % (0-5); Neutrophil # 9.24 X10^3/uL (2.7-7.7); Neutrophil % 76.2 % (47-70); Platelet Count 408 K/mm3 (150-450); RBC Distribution Width CV 14.2 % (11.6-14.6); RBC Distribution Width SD 44.4 fl (35.1-43.9); Red Blood Count 3.84 M/mm3 (4.2-5.4); White Blood Count 12.1 K/mm3 (4.4-11.0)
[2023-04-11] MEDS: Ipratropium/Albuterol Sulfate 3 ML AMPUL.NEB INHALATION (09:09)
[2023-04-11] MEDS: Albuterol 2.5 MG/3 ML VIAL.NEB. INHALATION ×2 (09:09→11:38)
[2023-04-11 09:14] LABS: BNP,B-Type NATRIURETIC PEPTIDE 100.3 pg/mL (0-100)
[2023-04-11 09:19] LABS: Anion Gap 7 (5-15); BUN 30 mg/dL (7-18); BUN/Creat Ratio 23.8 RATIO (10-20); Calcium,Total 9.8 mg/dL (8.5-10.1); Chloride 102 mmol/L (98-107); Creatinine, Serum 1.26 mg/dL (0.55-1.02); EST Glomerular Filtration Rate 43 mL/min (>60); Est Glom Filt Rate - Afr Amer 53 mL/min (>60); Glucose 195 mg/dL (74-106); Potassium 4.1 mmol/L (3.5-5.1); Sodium Level 135 mmol/L (136-145); Troponin-I HS 11 pg/mL (3.0-54.0)
--- NOTE | 2023-04-11 09:45 | RAD_ITS ---
STUDY: X-RAY CHEST REASON FOR EXAM: Female, 78 years old. Shortness of breath. Dry cough. TECHNIQUE: PA and lateral views of the chest. COMPARISON: Comparison is made with prior study dated April 09, 2023. FINDINGS: EKG electrodes are seen. Stable mild degree of increased markings at the right lung base suggestive of scarring. No acute infiltrate is seen. There is no demonstrated pleural abnormality. Normal size heart. Normal mediastinum and giovanna. Normal visualized pulmonary arteries. There is atherosclerotic calcification of the aortic arch with tortuosity. There are diffuse degenerative changes of the visualized thoracic spine. There is degenerative osteoarthritis of the right shoulder. Status post left reverse shoulder replacement. Fusion of the lower cervical spine. There is no demonstrated abnormality of the visualized soft tissue structures of the upper abdomen. RAD/Chest PA and Lateral IMPRESSION: Stable examination. No acute abnormality is seen. Electronically Signed: Gene Nieves MD at 10:17 EDT ,
== END 2023-04-11 12:17 | disposition home or self-care (01) ==
PROVIDERS: Emergency Provider Emergency Medicine; PCP Family Medicine; Visit Provider Emergency Medicine
DX: J84.9 Interstitial pulmonary disease, unspecified (principal); R06.00 Dyspnea, unspecified; G47.33 Obstructive sleep apnea (adult) (pediatric); Z86.718 Personal history of other venous thrombosis and embolism; Z87.891 Personal history of nicotine dependence
CPT/HCPCS: 71046; 80048; 83880; 84484; 85025; 93005; 94640; 99284; A4216

== ENCOUNTER → 2023-04-28 | Outpatient (CLI) | payer MEDICARE, OTHER, SELFPAY ==
[2023-04-28 12:54] LABS: Hematocrit 25.7 % (37-47); Hemoglobin 8.5 g/dL (12.0-15.0); Mean Corp Hgb Conc 33.1 g/dL (32-36); Mean Corpuscular Hgb 30.4 pg (27.0-32.0); Mean Corpuscular Volume 91.8 fL (81-99); Mean Platelet Vol. 10.3 fl (6.2-12.0); Platelet Count 172 K/mm3 (150-450); RBC Distribution Width CV 14.8 % (11.6-14.6); RBC Distribution Width SD 48.5 fl (35.1-43.9); White Blood Count 7.6 K/mm3 (4.4-11.0)
[2023-04-28 13:13] LABS: AST(SGOT) 20 U/L (15-37); Alanine Aminotransfer ALT/SGPT 27 U/L (13-56); Albumin, Serum 3.3 g/dL (3.2-5.0); Alkaline Phosphatase 98 U/L (45-117); Bilirubin, Direct 0.43 mg/dL (0.00-0.30); Globulin 2.2 g/dL (2.2-4.2); Protein, Total 5.5 g/dL (6.4-8.2)
== END | disposition home or self-care (01) ==
LOC: LAB 11:19
PROVIDERS: PCP Family Medicine; Referring Provider Internal Medicine Pulmonary Disease; Visit Provider Internal Medicine Pulmonary Disease
DX: R05.9 Cough, unspecified (principal); R06.02 Shortness of breath
CPT/HCPCS: 36415; 80076; 85027

== ENCOUNTER → 2023-05-12 | Outpatient (CLI) | payer MEDICARE, OTHER, SELFPAY ==
--- NOTE | 2023-05-12 07:44 | CT_ITS ---
STUDY: CT CHEST WITHOUT CONTRAST REASON FOR EXAM: Female, 78 years old. COUGH RADIATION DOSAGE (If Supplied By Facility): CTDIvol = ( 18.50 ) mGy, DLP = ( 588.93 ) mGycm TECHNIQUE: Transaxial imaging was performed without the administration of intravenous contrast material. Multiplanar coronal and sagittal images were reformatted. Individualized dose optimization techniques were used for this CT. COMPARISON: Comparison is made with prior study dated January 09, 2023. FINDINGS: CHEST Stable minimal focal area of scarring in the posterior medial aspect of the superior segment of the left lower lobe. There is no demonstrated pleural abnormality. There are calcifications of the coronary arteries. Normal mediastinum. Normal hilar regions. Normal unenhanced pulmonary arteries. There is atherosclerotic calcification of the aortic arch with tortuosity and elongation of the aortic arch and descending thoracic aorta. There are multi-level degenerative changes of the thoracic spine. There is no demonstrated abnormality of the visualized upper abdomen. CT/Chest without Contrast IMPRESSION: Stable examination. Electronically Signed: Gene Nieves MD at 15:22 EDT ,
== END | disposition home or self-care (01) ==
LOC: CT 07:43
PROVIDERS: PCP Family Medicine; Referring Provider Internal Medicine Pulmonary Disease; Visit Provider Internal Medicine Pulmonary Disease
DX: J84.111 Idiopathic interstitial pneumonia, not otherwise specified (principal); R05.9 Cough, unspecified
CPT/HCPCS: 71250

== ENCOUNTER → 2023-05-22 | Outpatient (CLI) | payer MEDICARE, OTHER, SELFPAY ==
[2023-05-22 11:25] LABS: Hematocrit 27.9 % (37-47); Mean Corp Hgb Conc 32.3 g/dL (32-36); Mean Corpuscular Hgb 30.3 pg (27.0-32.0); Mean Corpuscular Volume 93.9 fL (81-99); Mean Platelet Vol. 9.5 fl (6.2-12.0); Platelet Count 250 K/mm3 (150-450); RBC Distribution Width CV 15.7 % (11.6-14.6); RBC Distribution Width SD 53.3 fl (35.1-43.9); Red Blood Count 2.97 M/mm3 (4.2-5.4); White Blood Count 12.8 K/mm3 (4.4-11.0)
[2023-05-22 11:33] LABS: AST(SGOT) 19 U/L (15-37); Alanine Aminotransfer ALT/SGPT 37 U/L (13-56); Albumin, Serum 3.4 g/dL (3.2-5.0); Alkaline Phosphatase 115 U/L (45-117); Globulin 2.7 g/dL (2.2-4.2); Protein, Total 6.1 g/dL (6.4-8.2)
== END | disposition home or self-care (01) ==
LOC: LAB 09:29
PROVIDERS: PCP Family Medicine; Referring Provider Internal Medicine Pulmonary Disease; Visit Provider Internal Medicine Pulmonary Disease
DX: R05.9 Cough, unspecified (principal); R06.02 Shortness of breath
CPT/HCPCS: 36415; 80076; 85027

== ENCOUNTER → 2023-06-17 | Outpatient (CLI) | payer MEDICARE, OTHER, SELFPAY ==
[2023-06-17 11:17] LABS: Hematocrit 20.6 % (37-47); Hemoglobin 6.9 g/dL (12.0-15.0); Mean Corp Hgb Conc 33.5 g/dL (32-36); Mean Corpuscular Hgb 31.7 pg (27.0-32.0); Mean Corpuscular Volume 94.5 fL (81-99); Mean Platelet Vol. 9.9 fl (6.2-12.0); Platelet Count 228 K/mm3 (150-450); RBC Distribution Width CV 15.9 % (11.6-14.6); RBC Distribution Width SD 53.4 fl (35.1-43.9); Red Blood Count 2.18 M/mm3 (4.2-5.4); White Blood Count 10.8 K/mm3 (4.4-11.0)
[2023-06-17 11:20] LABS: AST(SGOT) 22 U/L (15-37); Alanine Aminotransfer ALT/SGPT 40 U/L (13-56); Albumin, Serum 3.4 g/dL (3.2-5.0); Alkaline Phosphatase 140 U/L (45-117); Bilirubin, Direct 0.74 mg/dL (0.00-0.30); Globulin 2.5 g/dL (2.2-4.2); Protein, Total 5.9 g/dL (6.4-8.2)
== END | disposition home or self-care (01) ==
LOC: LAB 10:02
PROVIDERS: PCP Family Medicine; Referring Provider Internal Medicine Pulmonary Disease; Visit Provider Internal Medicine Pulmonary Disease
DX: I27.20 Pulmonary hypertension, unspecified (principal); J84.111 Idiopathic interstitial pneumonia, not otherwise specified
CPT/HCPCS: 36415; 80076; 85027

== ENCOUNTER 2023-07-25 08:19 | Outpatient (CLI) | payer MEDICARE, OTHER, SELFPAY ==
[2023-07-25] VITALS (7 sets, daily range): BP systolic 81–111; BP diastolic 30–46; PULSE 74–82; RESP 16; TEMP 36.2–36.6; O2SAT 98–99; BMI 33.2
[2023-07-25] MEDS: 0.9% Normal Saline (500mL Bag) 500 ML 15 ML IV (08:56)
[2023-07-25] MEDS: 0.9% NaCl Peripheral Flush Adult/Peds IV ×2 (08:57→11:14)
== END 2023-07-25 08:20 | disposition home or self-care (01) ==
PROVIDERS: PCP Family Medicine; Referring Provider Internal Medicine Hematology & Oncology; Visit Provider Internal Medicine Hematology & Oncology
DX: D59.10 Autoimmune hemolytic anemia, unspecified (principal)
CPT/HCPCS: 36430; 86850; 86900; 86901; 86920; 86922; J7040; P9016; A4216

== ENCOUNTER 2023-09-09 08:26 | Outpatient (CLI) | payer MEDICARE, OTHER, SELFPAY ==
[2023-09-09] VITALS (8 sets, daily range): BP systolic 92–129; BP diastolic 46–66; PULSE 70–76; RESP 16; TEMP 35.9–36.6; O2SAT 98–100; BMI 33.2
[2023-09-09] MEDS: 0.9% Normal Saline (500mL Bag) 500 ML 15 ML IV (09:06)
[2023-09-09] MEDS: 0.9% NaCl Peripheral Flush Adult/Peds IV (09:06)
== END 2023-09-09 08:27 | disposition home or self-care (01) ==
LOC: MEDOUTP 08:26
PROVIDERS: PCP Family Medicine; Referring Provider Internal Medicine Hematology & Oncology; Visit Provider Internal Medicine Hematology & Oncology
DX: D59.10 Autoimmune hemolytic anemia, unspecified (principal)
CPT/HCPCS: 36430; 86850; 86900; 86901; 86920; 86922; J7040; P9016; A4216

== ENCOUNTER 2023-09-29 11:09 | Inpatient (IN) | payer MEDICARE, OTHER, SELFPAY ==
[2023-09-29] VITALS (12 sets, daily range): BP systolic 75–123; BP diastolic 41–71; PULSE 68–85; RESP 15–19; TEMP 36.2–37.1; O2SAT 95–100; BMI 32.2; BMI 33.5
--- NOTE | 2023-09-29 11:37 | EKG12_ITS ---
Test Reason : ABD PAIN Blood Pressure : / mmHG Vent. Rate : 079 BPM Atrial Rate : 079 BPM P-R Int : 170 ms QRS Dur : 066 ms QT Int : 380 ms P-R-T Axes : 022 -20 -12 degrees QTc Int : 435 ms Normal sinus rhythm Nonspecific ST and T wave abnormality Abnormal ECG Confirmed by VIVI RIGGS, ROHINI ([id number]), editor in chief DESIREE LEAHY ([id number]) on 09/30/2023 10:43:20 AM Referred By: Confirmed By:ROHINI TRINIDAD MD
--- NOTE | 2023-09-29 11:54 | EDS_ITS ---
HPI <NAIMA Martin - Last Filed: 09/29/23 13:08> History of Present Illness Chief Complaint: Abn Labs Narrative Narrative: Patient is an 78-year-old female with history of lymphoma who sees Dr. Arnold, she is currently undergoing chemotherapy, last treatment was 1 week ago. Patient also has history of hypertension, hyperlipidemia, diabetes. She is currently on Xarelto for DVT/pulmonary emboli. Patient states that since Friday she noticed that she had dark tarry stool. Patient was called secondary to a hemoglobin of 5.9, she is here for evaluation. Since Friday, she states has been more tired, more shortness of breath on exertion. Patient is pale appearing, is here for evaluation. She denies any specific pain. PFS <NAIMA Martin - Last Filed: 09/29/23 13:08> [facility] Medical History Abnormality of gait Anxiety Cancer Central sleep apnea Cervical spondylosis with myelopathy Chronic constipation Deep vein thrombosis of both lower extremities (08/2020) Diabetes mellitus type II, controlled Diverticulosis of colon Dizziness Dynamic left ventricular outflow obstruction Essential hypertension GERD (gastroesophageal reflux disease) Hyperlipidemia Internal hemorrhoids Nonrheumatic aortic (valve) stenosis Obstructive sleep apnea Osteoarthritis Paroxysmal atrial fibrillation Right arm weakness Right hemiparesis RLS (restless legs syndrome) Rosacea 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 Vitamin D deficiency Home Medications atenolol 25 mg tablet 25 mg PO DAILY 12/18/21 [History Last Taken 09/28/23] cholecalciferol (vitamin D3) 25 mcg (1,000 unit) tablet 1,000 unit PO DAILY 12/18/21 [History Last Taken 09/28/23] losartan 100 mg tablet 100 mg PO DAILY 12/18/21 [History Last Taken 09/28/23] Lactobacillus acidophilus 10 billion cell capsule (Probiotic) 10,000 mmu cells PO DAILY 10/21/22 [History Last Taken 09/28/23] folic acid 1 mg tablet 1 mg PO DAILY 10/21/22 [History Last Taken 09/28/23] rosuvastatin 20 mg tablet 20 mg PO DAILY 10/21/22 [History Last Taken 09/28/23] dulaglutide 4.5 mg/0.5 mL subcutaneous pen injector (Trulicity) 4.5 mg subcut QWEEK 12/19/22 [History Last Taken 09/28/23] glimepiride 4 mg tablet 4 mg PO BID 12/19/22 [History Last Taken Unknown] insulin glargine 100 unit/mL (3 mL) subcutaneous pen (Basaglar Tempo Pen (U-100) Insulin) 44 unit subcut QPM 12/19/22 [History Last Taken 09/28/23] ropinirole 0.5 mg tablet 1 mg PO TID 12/19/22 [History Last Taken 09/28/23] spironolactone 25 mg tablet 25 mg PO DAILY #90 tabs 12/19/22 [Rx Last Taken 09/28/23] prednisone 10 mg tablet 5 mg PO DAILY 07/25/23 [History Last Taken 09/28/23] insulin aspart (niacinamide)(U-100) 100 unit/mL(3 mL) subcutaneous pen (Fiasp FlexTouch U-100 Insulin) 22 unit subcut TID 09/29/23 [History Last Taken 09/28/23] pantoprazole 40 mg tablet,delayed release 40 mg PO DAILY 09/29/23 [History Last Taken 09/28/23] rivaroxaban 15 mg tablet (Xarelto) 15 mg PO Q24H 09/29/23 [History Last Taken 09/28/23] Allergy/AdvReac Type Severity Reaction Status Date / Time furosemide [From Lasix] Allergy Intermediate elevated Verified 09/29/23 11:12 glucose simvastatin AdvReac Severe myalgia Verified 09/29/23 11:12 celecoxib [From Celebrex] AdvReac Intermediate GI upset Verified 09/29/23 11:12 codeine AdvReac Intermediate GI upset Verified 09/29/23 11:12 lisinopril AdvReac Intermediate cough Verified 09/29/23 11:12 hydrochlorothiazide AdvReac Unknown unknown, Verified 09/29/23 11:12 ask pt at appt metformin AdvReac Other Verified 09/29/23 11:12 naproxen [From Naprosyn] AdvReac Upset Verified 09/29/23 11:12 Stomach oxycodone AdvReac Nausea/Vom/ Verified 09/29/23 11:12 Diarrhea Family History Mother Arthritis CAD (coronary artery disease) Father CAD (coronary artery disease) Diabetes Sister Diabetes Hypertension Sister Diabetes Hypertension Sister Diabetes Hypertension Sister Hypertension Brother Diabetes Hypertension Brother Diabetes Hypertension Brother Hypertension Surgical History H/O cervical spine surgery (06/14/16) H/O lumbosacral spine surgery (~1989) H/O Spinal surgery History of arthroplasty of left shoulder (~2003) History of blepharoplasty (08/2009) History of carpal tunnel release of both wrists History of colonoscopy (12/16/08) History of esophagogastroduodenoscopy (EGD) (10/21/07) History of tonsillectomy History of total abdominal hysterectomy (1983) Hx of bilateral cataract extraction S/P PICC central line placement (02/26/19) Status post laser cataract surgery of right eye (12/2006) Social History Smoking Status: Former smoker quit date: 04/03/1968 Tobacco: How many years used: 1 how long ago did patient quit smokin alcohol intake: never substance use type: does not use caffeine: Yes Type: tea ROS <NAIMA Martin - Last Filed: 09/29/23 13:08> ROS ED ROS Narrative Constitutional: Negative for fever, chills, weight loss. Positive for generalized weakness Eyes: Negative for vision loss, vision change, double vision ENT: Negative for any sore throat, ear pain, congestion Cardiovascular: Negative for any chest pain, tightness, palpitations Respiratory: Negative for any cough, sputum production, hemoptysis, dyspnea, orthopnea. Positive for dyspnea on exertion Gastrointestinal: Negative for any abdominal pain, nausea, vomiting, diarrhea, constipation, blood in vomit. Positive for blood in stool : Negative for any urinary frequency, dysuria, retention, blood in urine Muscle skeletal: Negative for any myalgias, arthralgias, neck pain, back pain Neurological: Negative for any headache, syncope, numbness or tingling, dizziness Skin: Negative for any rashes, lumps, itching, abrasions, lacerations Psychiatric: Negative for any depression, anxiety, stress, suicidal ideation, homicidal ideation Hematologic: Negative for any easy bruising, excessive bruising, easy bleeding Allergies: Negative for any eczema, hives, rash EXAM <NAIMA Martin - Last Filed: 09/29/23 13:08> Physical Exam Narrative Exam Narrative: Vital signs reviewed. Patient's blood pressure is slightly low, 96 systolic. Patient is not tachycardic. Patient's color does appear pale HEET: Head normocephalic atraumatic, TMs clear bilaterally. Posterior pharynx is clear, dry mucous membranes. Nares clear bilaterally. Neck: Supple with no lymphadenopathy or tenderness. No signs of meningismus. Cardiac: Regular rate and rhythm no murmurs gallops or rubs, equal peripheral pu lses bilaterally. Respiratory: Lungs clear to auscultation bilaterally. No chest tenderness. Abdomen: Soft, nontender, nondistended. No abdominal bruit or pulsatile masses. No hepatosplenomegaly Extremities: No peripheral edema, no signs of gross trauma or deformity. Active full range of motion of all extremities. Neuro: Cranial nerves II through XII intact, no focal neurological deficits. Skin: Clean dry and intact with no rash, purpura, petechiae, vesicles or pustules. Pale appearing Backs/flank: No CVA tenderness, no midline spinal tenderness, no deformity. Psych: Normal mood and affect. No SI, HI or acute psychosis. Rectal: Rectal exam was completed with female nurse cfo controller nurse Kenia, there is no active bleeding, there is no letty blood. Patient did have hard stool in the rectal vault, she has history of chronic constipation. Patient's stool was dark in color. There is no masses felt, Const Vital Signs: 09/29/23 11:10 Temperature 97.2 F L Temperature Source Temporal Pulse Rate 84 Respiratory Rate 16 Blood Pressure 86/71 L Blood Pressure Mean 76 Pulse Ox 95 Oxygen Delivery Method Room Air Positive well nourished and well developed General Appearance ED: well developed <Dr. Alcides Alvares DO - Last Filed: 09/29/23 13:05> Physical Exam Const Vital Signs: 09/29/23 11:10 Temperature 97.2 F L Temperature Source Temporal Pulse Rate 84 Respiratory Rate 16 Blood Pressure 86/71 L Blood Pressure Mean 76 Pulse Ox 95 Oxygen Delivery Method Room Air MDM <NAIMA Martin - Last Filed: 09/29/23 13:08> MDM Lab Data Labs: Laboratory Results - last 24 hr 09/29/23 09/29/23 11:40 12:30 WBC 9.0 RBC 1.52 L Hgb 5.0 L* Hct 15.7 L MCV 103.3 H MCH 32.9 H MCHC 31.8 L RDW Std Deviation 60.6 H RDW Coeff of Britt 18.3 H Plt Count 196 MPV 10.1 Immature Gran % (Auto) 3.100 H Neut % (Auto) 80.7 H Lymph % (Auto) 8.2 L [place] % (Auto) 7.7 Eos % (Auto) 0.1 Baso % (Auto) 0.2 Absolute Neuts (auto) 7.2 Absolute Lymphs (auto) 0.74 L Nucleated RBC % 1.0 Differential Comment COMMENT Diff Path Review March foll PT 23.9 H INR 2.1 Sodium 138 Potassium 4.9 Chloride 106 Carbon Dioxide 20.0 L Anion Gap 12 BUN 48 H Creatinine 1.66 H Estim Creat Clear Calc 19.42 Est GFR (MDRD) Af Amer 38 L Est GFR (MDRD) Non-Af 32 L BUN/Creatinine Ratio 28.9 H Glucose 336 H Calcium 8.5 Urine Color Yellow Urine Clarity Sl. Cloudy Urine pH 5.0 Ur Specific [place] 1.020 Urine Protein Negative Urine Glucose (UA) 100 H Urine Ketones Negative Urine Occult Blood Negative Urine Nitrite Negative Urine Bilirubin Negative Urine Urobilinogen Normal Ur Leukocyte Esterase Negative Urine RBC 0 SEEN Urine WBC 0 SEEN Ur Squamous Epith Cells 0-5 SEEN Urine Bacteria 0 SEEN Urine Mucus 0 SEEN EKG Normal sinus rhythm: Attestation: I personally reviewed and interpreted this EKG as follows: Comments: Normal sinus rhythm, rate 79 bpm, RI 170 ms, QRS duration 66 ms, no acute ST elevation, no acute infarct noted. Treatment and Re-Evaluation :: Patient appears to be in no obvious respiratory distress, vital signs do show slight hypotension with a blood pressure at 96 systolic. Patient is alert and orient x4, patient is pale appearing. Patient is brought in for a hemoglobin of 5.9. Differential diagnosis includes anemia secondary to cancer, anemia secondary to rectal bleeding, I am concerned because the patient is on Xarelto. Rectal exam did show some dark stool. Patient will receive basic labs, type and cross for 2 units of packed red blood cells, patient will receive 2 units of packed red blood cells. After my initial evaluation, I did speak with the patient regarding admission. Patient's CBC showed significantly low hemoglobin of 5.0. This is the lowest that patient has been. Patient baseline is around 10-11. Patient has been having anemia since April 2023. Patient's chemistries show slight renal insufficiency with a creatinine of 1.6, patient is normally 0.9-1.0. PT/INR still pending. Urinalysis is negative for any infection. Patient will be typed and screened, given 2 units of blood here. Patient's stool occult was positive. I did reach out to Dr. Hurd to make him aware of this patient, I will admit this patient to medicine. Patient remained stable. Patient is in no discomfort. <Dr. Alcides Alvares, DO - Last Filed: 09/29/23 13:05> [facility] Narrative Medical decision making narrative: I have personally performed a face to face assessment of the patient and have reviewed the LETI Note. I performed a substantive portion of the visit including all aspects of the following. My zaragoza findings include: History: Patient presents with low hemoglobin that was noticed today. Patient states she had an episode of black tarry stools last night. Patient denies any abdominal pain. Patient denies any nausea or vomiting. Patient denies any fevers or chills. Patient denies any chest pain or shortness of breath. Exam: Vital signs are stable. Patient is afebrile. Patient is in no acute distress. Pupils are equal, round, and reactive to light bilaterally. Extraocular muscles are intact. Conjunctiva was pale. There is pallor noted to the skin as well. Heart was regular rate and rhythm. Lungs are clear and equal bilaterally. Abdomen is soft. Bowel sounds are normal. There is no tenderness. Cranial nerves II through XII are intact. There are no focal motor or sensory deficits noted. Medical Decision Making: Differential diagnosis includes gastrointestinal bleeding, anemia, electrolyte abnormality, and coagulopathy. CBC will be obtained to assess for anemia and leukocytosis. Basic metabolic profile will be obtained to assess for electrolyte abnormality and renal function. PT with INR will be obtained to assess for coagulopathy. Urinalysis will be obtained to assess for urinary tract infection. CBC was reviewed. Hemoglobin was 5.0 and hematocrit was 15.7. Platelets were normal. White blood cell count was normal. Basic metabolic profile was reviewed. BUN was 48 and creatinine was 1.66. Glucose was mildly elevated at 336. Urinalysis was reviewed. There is no evidence of urinary tract infection or hematuria. Stool was positive for occult blood. Patient was typed and crossed for 2 units of packed red blood cells. These will be transfused. Case was discussed with the hospitalist. He will admit the patient to his service. Patient understood and was agreeable with the plan. All questions were answered. Lab Data Labs: Laboratory Results - last 24 hr 09/29/23 09/29/23 11:40 12:30 WBC 9.0 RBC 1.52 L Hgb 5.0 L* Hct 15.7 L MCV 103.3 H MCH 32.9 H MCHC 31.8 L RDW Std Deviation 60.6 H RDW Coeff of Britt 18.3 H Plt Count 196 MPV 10.1 Immature Gran % (Auto) 3.100 H Neut % (Auto) 80.7 H Lymph % (Auto) 8.2 L [place] % (Auto) 7.7 Eos % (Auto) 0.1 Baso % (Auto) 0.2 Absolute Neuts (auto) 7.2 Absolute Lymphs (auto) 0.74 L Nucleated RBC % 1.0 Differential Comment COMMENT Diff Path Review March foll PT 23.9 H INR 2.1 Sodium 138 Potassium 4.9 Chloride 106 Carbon Dioxide 20.0 L Anion Gap 12 BUN 48 H Creatinine 1.66 H Estim Creat Clear Calc 19.42 Est GFR (MDRD) Af Amer 38 L Est GFR (MDRD) Non-Af 32 L BUN/Creatinine Ratio 28.9 H Glucose 336 H Calcium 8.5 Urine Color Yellow Urine Clarity Sl. Cloudy Urine pH 5.0 Ur Specific [place] 1.020 Urine Protein Negative Urine Glucose (UA) 100 H Urine Ketones Negative Urine Occult Blood Negative Urine Nitrite Negative Urine Bilirubin Negative Urine Urobilinogen Normal Ur Leukocyte Esterase Negative Urine RBC 0 SEEN Urine WBC 0 SEEN Ur Squamous Epith Cells 0-5 SEEN Urine Bacteria 0 SEEN Urine Mucus 0 SEEN Discharge Plan Triage Chief Complaint: Abn Labs ED Midlevel Provider: Vickey Garvin ED Provider: Alcides Alvares Dx/Rx/DC Orders Prescriptions: No Action atenolol 25 mg tablet 25 mg PO DAILY losartan 100 mg tablet 100 mg PO DAILY Trulicity 4.5 mg/0.5 mL pen injector 4.5 mg subcut QWEEK ropinirole 0.5 mg tablet 1 mg PO TID spironolactone 25 mg tablet 25 mg PO DAILY Qty: 90 3RF cholecalciferol (vitamin D3) 25 mcg (1,000 unit) tablet 1,000 unit PO DAILY folic acid 1 mg Tablet 1 mg PO DAILY rosuvastatin 20 mg Tablet 20 mg PO DAILY Probiotic 10 billion cell Capsule 10,000 mmu cells PO DAILY insulin glargine [Basaglar Tempo Pen(U-100)Insln] 100 unit/mL (3 mL) insulin pen 44 unit SUBCUT QPM glimepiride 4 mg tablet 4 mg PO BID Hold Instructions: MD Ordered prednisone 10 mg tablet 5 mg PO DAILY Fiasp FlexTouch U-100 Insulin 100 unit/mL (3 mL) insulin pen 22 unit SUBCUT TID pantoprazole 40 mg tablet,delayed release (DR/EC) 40 mg PO DAILY Xarelto 15 mg tablet 15 mg PO Q24H Primary Care Provider: Kameron Kemp Referrals: Kameron Kemp MD [Primary Care Provider] -
[2023-09-29 12:06] LABS: Absolute Lymphocyte Count 0.74 X10^3/uL (0.83-4.51); Absolute Neutrophil Count 7.2 X10^3/uL (2.0-7.7); Basophil# 0.02 X10^3/uL; Basophil% 0.2 % (0-1); Eosinophil# 0.01 X10^3/uL; Eosinophils% 0.1 % (0-5); Hematocrit 15.7 % (37-47); Lymphocyte # 0.74 X10^3/ul (0.83-4.51); Lymphocyte % 8.2 % (19-41); Mean Corp Hgb Conc 31.8 g/dL (32-36); Mean Corpuscular Hgb 32.9 pg (27.0-32.0); Mean Corpuscular Volume 103.3 fL (81-99); Mean Platelet Vol. 10.1 fl (6.2-12.0); Monocyte# 0.69 X10^3/uL; Monocyte% 7.7 % (0-10); Neutrophil # 7.23 X10^3/uL (2.7-7.7); Neutrophil % 80.7 % (47-70); POSITIVE COUNT YES; Platelet Count 196 K/mm3 (150-450); RBC Distribution Width CV 18.3 % (11.6-14.6); RBC Distribution Width SD 60.6 fl (35.1-43.9); Red Blood Count 1.52 M/mm3 (4.2-5.4)
[2023-09-29 12:09] LABS: Differential Indicated SCAN CRITERIA MET
[2023-09-29 12:12] LABS: Anion Gap 12 (5-15); BUN 48 mg/dL (7-18); BUN/Creat Ratio 28.9 RATIO (10-20); Calcium,Total 8.5 mg/dL (8.5-10.1); Chloride 106 mmol/L (98-107); Creatinine, Serum 1.66 mg/dL (0.55-1.02); EST Glomerular Filtration Rate 32 mL/min (>60); Est Glom Filt Rate - Afr Amer 38 mL/min (>60); Estimated Creatinine Clearance 19.42 ml/min; Glucose 336 mg/dL (74-106); Potassium 4.9 mmol/L (3.5-5.1); Sodium Level 138 mmol/L (136-145)
[2023-09-29 12:38] LABS: Bacteria 0 SEEN /hpf (None Seen); Mucous, Urine 0 SEEN /hpf (<or=2+); Red Blood Cells-Urine 0 SEEN /hpf (0-5); White Blood Cells 0 SEEN /hpf (0-5)
[2023-09-29 12:43] LABS: Color, Urine Yellow (Yellow); Glucose, Dipstick 100 mg/dl (Normal); Ketone-Dipstick Negative (Negative); Leukocyte Esterase-Dipstick Negative /ul (Negative); Nitrite-Dipstick Negative (Negative); Occult Blood-Urine Negative /ul (Negative); Protein-Dipstick Negative (Negative); Urine Bilirubin Dipstick Negative (Negative); Urine Clarity Sl. Cloudy (Clear); Urine Urobilinogen Normal (Normal)
[2023-09-29 12:51] LABS: Squamous Epithelial Cells - UA 0-5 SEEN /hpf (5-10)
[2023-09-29 12:57] LABS: International Normalized Ratio 2.1; Prothrombin Time (Protime)PT. 23.9 SECONDS (11.7-14.9)
[2023-09-29] MEDS: Pantoprazole Sodium 80 MG in 0.9% Normal Saline (100mL Bag) 80 ML 10 MG CONT INF (15:00)
[2023-09-29] MEDS: 0.9% Saline Lock 10 ML Syringe IV ×3 (15:03→23:52)
--- NOTE | 2023-09-29 15:38 | EX.PCM.CON.S ---
Assessment & Plan Assessment/Plan (1) Anemia: QUALIFIERS: Anemia type: unspecified type Qualified Code(s): D64.9 - Anemia, unspecified (2) Deep vein thrombosis of both lower extremities: QUALIFIERS: Affected thrombotic vein of extremity: unspecified vein of extremity Chronicity: unspecified Qualified Code(s): I82.403 - Acute embolism and thrombosis of unspecified deep veins of lower extremity, bilateral (3) Pulmonary emboli: QUALIFIERS: Pulmonary embolism type: unspecified Chronicity: unspecified Acute cor pulmonale presence: unspecified Qualified Code(s): I26.99 - Other pulmonary embolism without acute cor pulmonale PLAN: Plan I have been consulted in conjunction with Dr. Curtis. I have reviewed and discussed this patient with Dr. Curtis. Dr. Curtis will plan to preform an inferior vena cava filter placement tomorrow. Procedure details, risks and benefits have been explained. Patient verbally understands and agrees with the plan. Plan to hold Xarelto for at least 1 day, will defer to medicine if/when to restart blood thinner. Plan for patient to be NPO after midnight tonight for procedure tomorrow. Our office will reach out to Dr. Lindo's office to make him aware of the proposed surgical procedure. Thank you for allowing us to participate in this patient's care. HPI Consult Data Date of Consult: 09/30/23 HPI Narrative Reason for Consultation: IVC filter placement HPI Narrative: MARCOS OLIVEIRA, is a 78 F who presents at the recommendation of her oncologist, Dr. Lindo's office, following 1 week post-treatment laboratory. Patient's hemoglobin was found to be 5.9 on her labs yesterday. She was instructed to proceed to the ED. Patient states she has had anemia previously where she required blood transfusions. Patient is currently being treated for leukemia. She completed her 4 cycle series 1 week ago. She is unsure of the plan moving forward at this time. She is hopeful she will not need any further chemotherapy treatment. 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 Patient has a history of lower extremity DVT's and pulmonary embolism in 2019 and 2021 that have been documented. Patient states she is unable to recall how many other times she has developed blood clots, however she believes only two occasions. Patient was first placed on Eliquis and is now on Xarelto. Patient notes she also has a history of A Fib for which she sees the [facility]. Patient denies any previous complications or side effects from anesthesia. She denies previous myocardial infarction or stroke. She does follow with a early childhood special educator, Dr. Luciano for sleep apnea and interstitial lung disease. Patient's Hgb on admission was 5.0 in the ED. Patient denies any ongoing bleeding today. She notes a history of nosebleeds, however those typically cease on their own. She denies rectal bleeding. [facility] Medical History (Updated 09/30/23 @ 06:[address] 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 Chronic constipation Constipation Deep vein thrombosis of both lower extremities (08/2020) Diabetes Diabetes mellitus type II, controlled Diverticulosis of colon Dizziness DVT (deep venous thrombosis) Dynamic left ventricular outflow obstruction Essential hypertension GERD (gastroesophageal reflux disease) Hyperlipidemia Hypertension Internal hemorrhoids Nonrheumatic aortic (valve) stenosis Obstructive sleep apnea Osteoarthritis Paroxysmal atrial fibrillation Right arm weakness Right hemiparesis RLS (restless legs syndrome) Rosacea 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 Vitamin D deficiency Home Medications atenolol 25 mg tablet 25 mg PO DAILY 12/18/21 [History Last Taken 09/28/23] cholecalciferol (vitamin D3) 25 mcg (1,000 unit) tablet 1,000 unit PO DAILY 12/18/21 [History Last Taken 09/28/23] losartan 100 mg tablet 100 mg PO DAILY 12/18/21 [History Last Taken 09/28/23] Lactobacillus acidophilus 10 billion cell capsule (Probiotic) 10,000 mmu cells PO DAILY 10/21/22 [History Last Taken 09/28/23] folic acid 1 mg tablet 1 mg PO DAILY 10/21/22 [History Last Taken 09/28/23] rosuvastatin 20 mg tablet 20 mg PO DAILY 10/21/22 [History Last Taken 09/28/23] dulaglutide 4.5 mg/0.5 mL subcutaneous pen injector (Trulicity) 4.5 mg subcut QWEEK 12/19/22 [History Last Taken 09/28/23] glimepiride 4 mg tablet 4 mg PO BID 12/19/22 [History Last Taken Unknown] insulin glargine 100 unit/mL (3 mL) subcutaneous pen (Basaglar Tempo Pen (U-100) Insulin) 44 unit subcut QPM 12/19/22 [History Last Taken 09/28/23] ropinirole 0.5 mg tablet 1 mg PO TID 12/19/22 [History Last Taken 09/28/23] spironolactone 25 mg tablet 25 mg PO DAILY #90 tabs 12/19/22 [Rx Last Taken 09/28/23] prednisone 10 mg tablet 5 mg PO DAILY 07/25/23 [History Last Taken 09/28/23] insulin aspart (niacinamide)(U-100) 100 unit/mL(3 mL) subcutaneous pen (Fiasp FlexTouch U-100 Insulin) 22 unit subcut TID 09/29/23 [History Last Taken 09/28/23] pantoprazole 40 mg tablet,delayed release 40 mg PO DAILY 09/29/23 [History Last Taken 09/28/23] rivaroxaban 15 mg tablet (Xarelto) 15 mg PO Q24H 09/29/23 [History Last Taken 09/28/23] Allergy/AdvReac Type Severity Reaction Status Date / Time furosemide [From Lasix] Allergy Intermediate elevated Verified 09/29/23 11:12 glucose simvastatin AdvReac Severe myalgia Verified 09/29/23 11:12 celecoxib [From Celebrex] AdvReac Intermediate GI upset Verified 09/29/23 11:12 codeine AdvReac Intermediate GI upset Verified 09/29/23 11:12 lisinopril AdvReac Intermediate cough Verified 09/29/23 11:12 hydrochlorothiazide AdvReac Unknown unknown, Verified 09/29/23 11:12 ask pt at appt metformin AdvReac Other Verified 09/29/23 11:12 naproxen [From Naprosyn] AdvReac Upset Verified 09/29/23 11:12 Stomach oxycodone AdvReac Nausea/Vom/ Verified 09/29/23 11:12 Diarrhea Family History Mother Arthritis CAD (coronary artery disease) Father CAD (coronary artery disease) Diabetes Sister Diabetes Hypertension Sister Diabetes Hypertension Sister Diabetes Hypertension Sister Hypertension Brother Diabetes Hypertension Brother Diabetes Hypertension Brother Hypertension Surgical History H/O cervical spine surgery (06/14/16) H/O lumbosacral spine surgery (~1989) H/O Spinal surgery History of arthroplasty of left shoulder (~2003) History of blepharoplasty (08/2009) History of carpal tunnel release of both wrists History of colonoscopy (12/16/08) History of esophagogastroduodenoscopy (EGD) (10/21/07) History of tonsillectomy History of total abdominal hysterectomy (1983) Hx of bilateral cataract extraction S/P PICC central line placement (02/26/19) Status post laser cataract surgery of right eye (12/2006) Social History Smoking Status: Former smoker quit date: 04/03/1968 Tobacco: How many years used: 1 how long ago did patient quit smokin alcohol intake: never substance use type: does not use caffeine: Yes Type: tea ROS Constitutional Constitutional: Reports fatigue, lethargy and malaise Eyes Eyes: Reports systems reviewed and no addt'l complaints, except as documented ENT HEENT: Reports systems reviewed and no addt'l complaints, except as documented Cardiovascular Cardiovascular: Reports systems reviewed and no addt'l complaints, except as documented Respiratory/Chest Respiratory/Chest: Reports systems reviewed and no addt'l complaints, except as documented Gastrointestinal Gastrointestinal: Reports systems reviewed and no addt'l complaints, except as documented Genitourinary Genitourinary: Reports systems reviewed and no addt'l complaints, except as documented Musculoskeletal Musculoskeletal: Reports systems reviewed and no addt'l complaints, except as documented Integumentary Integumentary: Reports systems reviewed and no addt'l complaints, except as documented Neurologic Neurologic: Reports systems reviewed and no addt'l complaints, except as documented Psychiatric Psychiatric: Reports systems reviewed and no addt'l complaints, except as documented Endocrine Endocrinology: Reports systems reviewed and no addt'l complaints, except as documented Hematologic/Lymphatic Hematologic/Lymphatic: Reports systems reviewed and no addt'l complaints, except as documented Allergic/Immunologic Allergic/Immunologic: Reports systems reviewed and no addt'l complaints, except as documented Physical Exam Const alert, oriented x3 and no apparent distress HEENT normocephalic and head/scalp atraumatic Eyes PERRL Neck full ROM Lymph Lymphatic: no lymphadenopathy noted Chest inspection of chest normal Resp normal respiratory effort and clear to auscultation bilaterally Cardio regular rate and regular rhythm GI normal to inspection, nondistended, normoactive bowel sounds no CVA tenderness Back/Spine no CVA tenderness Extremity normal to inspection Skin no rashes or lesions noted Neuro no focal motor deficits and no sensory deficits noted Psych mental status grossly normal Appearance: grossly normal Attitude: calm Thought Process: normal thought process Lab / Micro Data 09/30/23 04:44 09/30/23 04:44 Labs: Laboratory Results - last 24 hr 09/29/23 11:40: WBC 9.0, RBC 1.52 L, Hgb 5.0 L*, Hct 15.7 L, MCV 103.3 H, MCH 32.9 H, MCHC 31.8 L, RDW Std Deviation 60.6 H, RDW Coeff of Britt 18.3 H, Plt Count 196, MPV 10.1, Immature Gran % (Auto) 3.100 H, Neut % (Auto) 80.7 H, Lymph % (Auto) 8.2 L, [place] % (Auto) 7.7, Eos % (Auto) 0.1, Baso % (Auto) 0.2, Absolute Neuts (auto) 7.2, Absolute Lymphs (auto) 0.74 L, Nucleated RBC % 1.0, Differential Comment COMMENT, Diff Path Review March foll, PT 23.9 H, INR 2.1, Sodium 138, Potassium 4.9, Chloride 106, Carbon Dioxide 20.0 L, Anion Gap 12, BUN 48 H, Creatinine 1.66 H, Estim Creat Clear Calc 19.42, Est GFR (MDRD) Af Amer 38 L, Est GFR (MDRD) Non-Af 32 L, BUN/Creatinine Ratio 28.9 H, Glucose 336 H, Calcium 8.5 09/29/23 12:30: Urine Color Yellow, Urine Clarity Sl. Cloudy, Urine pH 5.0, Ur Specific [place] 1.020, Urine Protein Negative, Urine Glucose (UA) 100 H, Urine Ketones Negative, Urine Occult Blood Negative, Urine Nitrite Negative, Urine Bilirubin Negative, Urine Urobilinogen Normal, Ur Leukocyte Esterase Negative, Urine RBC 0 SEEN, Urine WBC 0 SEEN, Ur Squamous Epith Cells 0-5 SEEN, Urine Bacteria 0 SEEN, Urine Mucus 0 SEEN 09/29/23 15:00: Crossmatch See Detail Micro: Microbiology 09/29/23 11:50 Stool Stool Occult Blood (SHERRI) - Final Occult Blood Positive Charges/Coding Visit Charges Office Visits / Consults: 47628 IP Consult L3
--- NOTE | 2023-09-29 16:31 | EX.PCM.CON.G ---
HPI Consult Data Date of Consult: 09/30/23 HPI Narrative Reason for Consultation: Anemia HPI Narrative: MARCOS OLIVEIRA, is a 78 F who presents with fatigue and weakness. She has a history of lymphoma who sees Dr. Arnold, she is currently undergoing chemotherapy, last treatment was 1 week ago. Patient also has history of hypertension, hyperlipidemia, diabetes. She is currently on Xarelto for DVT/pulmonary emboli. Patient states that since Friday she noticed that she had dark tarry stool. Patient was called secondary to a hemoglobin of 5.9, she is here for evaluation. Since Friday, she states has been more tired, more shortness of breath on exertion. Patient is pale appearing, is here for evaluation. She denies any specific pain. [facility] Medical History (Updated 09/30/23 @ 06:[address] 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 Chronic constipation Constipation Deep vein thrombosis of both lower extremities (08/2020) Diabetes Diabetes mellitus type II, controlled Diverticulosis of colon Dizziness DVT (deep venous thrombosis) Dynamic left ventricular outflow obstruction Essential hypertension GERD (gastroesophageal reflux disease) Hyperlipidemia Hypertension Internal hemorrhoids Nonrheumatic aortic (valve) stenosis Obstructive sleep apnea Osteoarthritis Paroxysmal atrial fibrillation Right arm weakness Right hemiparesis RLS (restless legs syndrome) Rosacea 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 Vitamin D deficiency Home Medications atenolol 25 mg tablet 25 mg PO DAILY 12/18/21 [History Last Taken 09/28/23] cholecalciferol (vitamin D3) 25 mcg (1,000 unit) tablet 1,000 unit PO DAILY 12/18/21 [History Last Taken 09/28/23] losartan 100 mg tablet 100 mg PO DAILY 12/18/21 [History Last Taken 09/28/23] Lactobacillus acidophilus 10 billion cell capsule (Probiotic) 10,000 mmu cells PO DAILY 10/21/22 [History Last Taken 09/28/23] folic acid 1 mg tablet 1 mg PO DAILY 10/21/22 [History Last Taken 09/28/23] rosuvastatin 20 mg tablet 20 mg PO DAILY 10/21/22 [History Last Taken 09/28/23] dulaglutide 4.5 mg/0.5 mL subcutaneous pen injector (Trulicity) 4.5 mg subcut QWEEK 12/19/22 [History Last Taken 09/28/23] glimepiride 4 mg tablet 4 mg PO BID 12/19/22 [History Last Taken Unknown] insulin glargine 100 unit/mL (3 mL) subcutaneous pen (Basaglar Tempo Pen (U-100) Insulin) 44 unit subcut QPM 12/19/22 [History Last Taken 09/28/23] ropinirole 0.5 mg tablet 1 mg PO TID 12/19/22 [History Last Taken 09/28/23] spironolactone 25 mg tablet 25 mg PO DAILY #90 tabs 12/19/22 [Rx Last Taken 09/28/23] prednisone 10 mg tablet 5 mg PO DAILY 07/25/23 [History Last Taken 09/28/23] insulin aspart (niacinamide)(U-100) 100 unit/mL(3 mL) subcutaneous pen (Fiasp FlexTouch U-100 Insulin) 22 unit subcut TID 09/29/23 [History Last Taken 09/28/23] pantoprazole 40 mg tablet,delayed release 40 mg PO DAILY 09/29/23 [History Last Taken 09/28/23] rivaroxaban 15 mg tablet (Xarelto) 15 mg PO Q24H 09/29/23 [History Last Taken 09/28/23] Allergy/AdvReac Type Severity Reaction Status Date / Time furosemide [From Lasix] Allergy Intermediate elevated Verified 09/29/23 11:12 glucose simvastatin AdvReac Severe myalgia Verified 09/29/23 11:12 celecoxib [From Celebrex] AdvReac Intermediate GI upset Verified 09/29/23 11:12 codeine AdvReac Intermediate GI upset Verified 09/29/23 11:12 lisinopril AdvReac Intermediate cough Verified 09/29/23 11:12 hydrochlorothiazide AdvReac Unknown unknown, Verified 09/29/23 11:12 ask pt at appt metformin AdvReac Other Verified 09/29/23 11:12 naproxen [From Naprosyn] AdvReac Upset Verified 09/29/23 11:12 Stomach oxycodone AdvReac Nausea/Vom/ Verified 09/29/23 11:12 Diarrhea Family History Mother Arthritis CAD (coronary artery disease) Father CAD (coronary artery disease) Diabetes Sister Diabetes Hypertension Sister Diabetes Hypertension Sister Diabetes Hypertension Sister Hypertension Brother Diabetes Hypertension Brother Diabetes Hypertension Brother Hypertension Surgical History H/O cervical spine surgery (06/14/16) H/O lumbosacral spine surgery (~1989) H/O Spinal surgery History of arthroplasty of left shoulder (~2003) History of blepharoplasty (08/2009) History of carpal tunnel release of both wrists History of colonoscopy (12/16/08) History of esophagogastroduodenoscopy (EGD) (10/21/07) History of tonsillectomy History of total abdominal hysterectomy (1983) Hx of bilateral cataract extraction S/P PICC central line placement (02/26/19) Status post laser cataract surgery of right eye (12/2006) Social History Smoking Status: Former smoker quit date: 04/03/1968 Tobacco: How many years used: 1 how long ago did patient quit smokin alcohol intake: never substance use type: does not use caffeine: Yes Type: tea ROS Review of Systems ROS Unobtainable: other Constitutional Constitutional: Denies fatigue, fever(s), poor appetite, weight gain or weight loss ENT HEENT: Denies mouth lesions Cardiovascular Cardiovascular: Denies abdominal bloating, abdominal edema or abdominal pain Respiratory/Chest Respiratory/Chest: Denies change in mental status, change in phlegm color, chest congestion or chest tightness Gastrointestinal Gastrointestinal: Denies belching, bloating, change in bowel habits, change in stool character, chewing difficulty, coffee ground emesis, constipation, cramping, diarrhea, dyspepsia, dysphagia, early satiety, excessive flatus, fecal incontinence, heartburn, hematemesis, hematochezia, hemorrhoids, loose stools, melena, nausea, odynophagia, rectal bleeding, tenesmus, vomiting or weight changes Genitourinary Genitourinary: Denies abdominal discomfort, burning urination or itching Musculoskeletal Musculoskeletal: Reports as per HPI; Denies muscle weakness or myalgias Integumentary Integumentary: Denies jaundice Neurologic Neurologic: Denies lack of coordination or weakness Psychiatric Psychiatric: Denies confusion, depression, memory loss, mood swings, paranoia or suicidal ideation Endocrine Endocrinology: Denies systems reviewed and no addt'l complaints, except as documented Hematologic/Lymphatic Hematologic/Lymphatic: Denies anemia, easy bleeding, easy bruising or lymphadenopathy Allergic/Immunologic Allergic/Immunologic: Denies systems reviewed and no addt'l complaints, except as documented Physical Exam Const alert General Appearance: cooperative Orientation / Consciousness: oriented to person HEENT hearing grossly normal bilaterally Head and Scalp: normal to inspection Face and Sinus: face symmetric Nose: external nose normal Mouth: oral and palatal mucosa normal Eyes conjunctivae normal General Eye: normal appearance of both eyes Neck full ROM General: normal visual inspection Lymph Lymphatic: no lymphadenopathy noted Chest inspection of chest normal and palpation of chest normal Chest: symmetrical chest wall rise Resp normal respiratory effort Effort and Inspection: able to speak in complete sentences Cardio regular rate GI non-distended Percussion: normal to percussion Rectal Exam: deferred Neuro Speech: speech normal Gait (Neuro): normal gait Lab / Micro Data 09/30/23 08:53 09/30/23 04:44 Labs: Laboratory Results - last 24 hr 09/29/23 11:40: WBC 9.0, RBC 1.52 L, Hgb 5.0 L*, Hct 15.7 L, MCV 103.3 H, MCH 32.9 H, MCHC 31.8 L, RDW Std Deviation 60.6 H, RDW Coeff of Britt 18.3 H, Plt Count 196, MPV 10.1, Immature Gran % (Auto) 3.100 H, Neut % (Auto) 80.7 H, Lymph % (Auto) 8.2 L, [place] % (Auto) 7.7, Eos % (Auto) 0.1, Baso % (Auto) 0.2, Absolute Neuts (auto) 7.2, Absolute Lymphs (auto) 0.74 L, Nucleated RBC % 1.0, Differential Comment COMMENT, Diff Path Review March foll, PT 23.9 H, INR 2.1, Sodium 138, Potassium 4.9, Chloride 106, Carbon Dioxide 20.0 L, Anion Gap 12, BUN 48 H, Creatinine 1.66 H, Estim Creat Clear Calc 19.42, Est GFR (MDRD) Af Amer 38 L, Est GFR (MDRD) Non-Af 32 L, BUN/Creatinine Ratio 28.9 H, Glucose 336 H, Calcium 8.5 09/29/23 12:30: Urine Color Yellow, Urine Clarity Sl. Cloudy, Urine pH 5.0, Ur Specific [place] 1.020, Urine Protein Negative, Urine Glucose (UA) 100 H, Urine Ketones Negative, Urine Occult Blood Negative, Urine Nitrite Negative, Urine Bilirubin Negative, Urine Urobilinogen Normal, Ur Leukocyte Esterase Negative, Urine RBC 0 SEEN, Urine WBC 0 SEEN, Ur Squamous Epith Cells 0-5 SEEN, Urine Bacteria 0 SEEN, Urine Mucus 0 SEEN 09/29/23 15:00: Blood Type B NEGATIVE, Antibody Screen NEGATIVE, Crossmatch See Detail Micro: Microbiology 09/29/23 11:50 Stool Stool Occult Blood (SHERRI) - Final Occult Blood Positive Assessment & Plan Assessment/Plan (1) Anemia: QUALIFIERS: Anemia type: unspecified type Qualified Code(s): D64.9 - Anemia, unspecified (2) Chronic anticoagulation: PLAN: Plan 78-year-old with past medical history of lymphoma on chemotherapy, history of PE and DVT on Xarelto comes in with a significant drop in hemoglobin. This is likely secondary to acute GI blood loss. She will need to undergo an upper endoscopy to evaluate upper GI tract to see if it safe for her to go back on Xarelto therapy. If this had a negative she may need a colonoscopy and possible capsule endoscopy. She was explained alternatives, risk, benefits include not withstanding bleeding, infection, sepsis, perforation, need for emergent surgery . She will have an ASA of 3. Charges/Coding Visit Charges Inpatient E&M: 54224 Init Hosp L3
[2023-09-29 17:01] LABS: Bedside Glucose 234 mg/dL (74-106)
[2023-09-29] MEDS: Insulin Lispro 100 UNIT/ML INSULN.PEN SC (17:51)
--- NOTE | 2023-09-29 19:03 | HP.PCM.HOS_ITS ---
HPI - General General Date of Admission: 09/29/23 Date of Service: 09/29/23 Chief Complaint: Abnormal outpatient CBC HPI Cha OLIVEIRA, is a 78 F who presents to the emergency room at [place]
--- NOTE | 2023-09-29 19:03 | PCM.HP.STD ---
[facility] - General General Date of Admission: 09/29/23 Date of Service: 09/29/23 Chief Complaint: Abnormal outpatient CBC HPI Narrative MARCSO OLIVEIRA, is a 78 F who presents to the emergency room at [facility] after having outpatient labs which showed a low hemoglobin at 5.9. Patient tells this examiner that she underwent a blood transfusion approximately 1 to 2 weeks ago, she has had anemia in the past but the etiology of the anemia has not been confirmed. Patient states that this year she believes she underwent a colonoscopy, she states the prep was not good however and nobody informed her that there was a cause of her anemia. Patient states she is seeing black stools at home over the past week, she denies seeing any letty rectal bleeding or any hematochezia. She denies any unusual odor to her stool. She denies taking iron. Patient states she is on Pepcid AC for GERD symptoms. Work-up in the emergency room today included a hemoglobin which was low at 5, Susannah profile showed a creatinine 1.66 and a BUN of 48. Patient's glucose was 336. Patient will be admitted to PCU, she will be given 2 units of packed red blood cells initially and her hemoglobin will be monitored. She will be seen by gastroenterology who has been contacted by the emergency room concerning endoscopic evaluation. I have also taken the liberty to contact general surgery about the insertion of an IVC filter due to the fact the patient has had a history of venous thromboembolism including a pulmonary embolism in the past, I went over this plan with her oncologist and he agreed that it would be ybarra to place a filter. Dr. Deluca will place a filter tomorrow. [facility] Medical History (Updated 09/29/23 @ 15:39 by Meghan RICHARDS, PAAdonayC) Abnormality of gait Anxiety Arthritis Atrial fibrillation Cancer Central sleep apnea Cervical spondylosis with myelopathy Chronic constipation Constipation Deep vein thrombosis of both lower extremities (08/2020) Diabetes Diabetes mellitus type II, controlled Diverticulosis of colon Dizziness DVT (deep venous thrombosis) Dynamic left ventricular outflow obstruction Essential hypertension GERD (gastroesophageal reflux disease) Hyperlipidemia Hypertension Internal hemorrhoids Nonrheumatic aortic (valve) stenosis Obstructive sleep apnea Osteoarthritis Paroxysmal atrial fibrillation Right arm weakness Right hemiparesis RLS (restless legs syndrome) Rosacea 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 Vitamin D deficiency Home Medications atenolol 25 mg tablet 25 mg PO DAILY 12/18/21 [History Last Taken 09/28/23] cholecalciferol (vitamin D3) 25 mcg (1,000 unit) tablet 1,000 unit PO DAILY 12/18/21 [History Last Taken 09/28/23] losartan 100 mg tablet 100 mg PO DAILY 12/18/21 [History Last Taken 09/28/23] Lactobacillus acidophilus 10 billion cell capsule (Probiotic) 10,000 mmu cells PO DAILY 10/21/22 [History Last Taken 09/28/23] folic acid 1 mg tablet 1 mg PO DAILY 10/21/22 [History Last Taken 09/28/23] rosuvastatin 20 mg tablet 20 mg PO DAILY 10/21/22 [History Last Taken 09/28/23] dulaglutide 4.5 mg/0.5 mL subcutaneous pen injector (Trulicity) 4.5 mg subcut QWEEK 12/19/22 [History Last Taken 09/28/23] glimepiride 4 mg tablet 4 mg PO BID 12/19/22 [History Last Taken Unknown] insulin glargine 100 unit/mL (3 mL) subcutaneous pen (Basaglar Tempo Pen (U-100) Insulin) 44 unit subcut QPM 12/19/22 [History Last Taken 09/28/23] ropinirole 0.5 mg tablet 1 mg PO TID 12/19/22 [History Last Taken 09/28/23] spironolactone 25 mg tablet 25 mg PO DAILY #90 tabs 12/19/22 [Rx Last Taken 09/28/23] prednisone 10 mg tablet 5 mg PO DAILY 07/25/23 [History Last Taken 09/28/23] insulin aspart (niacinamide)(U-100) 100 unit/mL(3 mL) subcutaneous pen (Fiasp FlexTouch U-100 Insulin) 22 unit subcut TID 09/29/23 [History Last Taken 09/28/23] pantoprazole 40 mg tablet,delayed release 40 mg PO DAILY 09/29/23 [History Last Taken 09/28/23] rivaroxaban 15 mg tablet (Xarelto) 15 mg PO Q24H 09/29/23 [History Last Taken 09/28/23] Allergy/AdvReac Type Severity Reaction Status Date / Time furosemide [From Lasix] Allergy Intermediate elevated Verified 09/29/23 11:12 glucose simvastatin AdvReac Severe myalgia Verified 09/29/23 11:12 celecoxib [From Celebrex] AdvReac Intermediate GI upset Verified 09/29/23 11:12 codeine AdvReac Intermediate GI upset Verified 09/29/23 11:12 lisinopril AdvReac Intermediate cough Verified 09/29/23 11:12 hydrochlorothiazide AdvReac Unknown unknown, Verified 09/29/23 11:12 ask pt at appt metformin AdvReac Other Verified 09/29/23 11:12 naproxen [From Naprosyn] AdvReac Upset Verified 09/29/23 11:12 Stomach oxycodone AdvReac Nausea/Vom/ Verified 09/29/23 11:12 Diarrhea Family History Mother Arthritis CAD (coronary artery disease) Father CAD (coronary artery disease) Diabetes Sister Diabetes Hypertension Sister Diabetes Hypertension Sister Diabetes Hypertension Sister Hypertension Brother Diabetes Hypertension Brother Diabetes Hypertension Brother Hypertension Surgical History H/O cervical spine surgery (06/14/16) H/O lumbosacral spine surgery (~1989) H/O Spinal surgery History of arthroplasty of left shoulder (~2003) History of blepharoplasty (08/2009) History of carpal tunnel release of both wrists History of colonoscopy (12/16/08) History of esophagogastroduodenoscopy (EGD) (10/21/07) History of tonsillectomy History of total abdominal hysterectomy (1983) Hx of bilateral cataract extraction S/P PICC central line placement (02/26/19) Status post laser cataract surgery of right eye (12/2006) Social History Smoking Status: Former smoker quit date: 04/03/1968 Tobacco: How many years used: 1 how long ago did patient quit smokin alcohol intake: never substance use type: does not use caffeine: Yes Type: tea ROS Constitutional Constitutional: Reports fatigue and weakness; Denies anorexia, change in weight, chills, fever(s) or night sweats Eyes Eyes: Denies blurry vision, change in vision, discharge from eye(s) or eye pain Cardiovascular Cardiovascular: Denies chest pain, claudication, dyspnea on exertion, edema, lightheadedness, orthopnea or palpitations Respiratory/Chest Respiratory/Chest: Denies cough, hemoptysis, shortness of breath at rest or shortness of breath with exertion Gastrointestinal Gastrointestinal: Reports dyspepsia and melena; Denies abdominal pain, coffee ground emesis, constipation, diarrhea, hematemesis, hematochezia, loose stools, nausea or vomiting Genitourinary Genitourinary: Denies dysuria, hematuria, urinary frequency, urinary hesitancy, urinary incontinence or urinary urgency Musculoskeletal Musculoskeletal: Denies back pain, joint pain, joint stiffness, joint swelling, myalgias or neck pain Neurologic Neurologic: Denies abnormal gait, abnormal speech, dizziness, focal weakness, headache(s), loss of vision, numbness, other visual disturbances, paresthesias, syncope or tingling Psychiatric Psychiatric: Denies anxiety, cognitive impairment, depression, irritability, mood swings or suicidal ideation Endocrine Endocrinology: Denies change in body appearance, cold intolerance, excessive sweating, heat intolerance, polydipsia or polyuria Hematologic/Lymphatic Hematologic/Lymphatic: Denies none, anemia, easy bleeding, easy bruising or lymphadenopathy Allergic/Immunologic Allergic/Immunologic: Denies rhinitis, urticaria, eczemia or asthma Vital Signs Vital Signs Vital Signs: 09/29/23 11:10 09/29/23 13:14 09/29/23 13:32 Temperature 97.2 F L Temperature Source Temporal Pulse Rate 84 72 Respiratory Rate 16 19 H Respiratory Effort Respiratory Depth Respiratory Pattern Normal Blood Pressure 86/71 L 104/41 L Blood Pressure Mean 76 62 Blood Pressure Source Blood Pressure Position Blood Pressure Location Pulse Ox 95 98 Oxygen Delivery Method Room Air Room Air 09/29/23 14:00 09/29/23 14:26 09/29/23 17:44 Temperature 97.4 F L 98.5 F Temperature Source Oral Oral Pulse Rate 68 83 Respiratory Rate 16 16 Respiratory Effort Normal Non-Labored Respiratory Depth Normal Respiratory Pattern Normal Blood Pressure 102/47 L 75/59 L Blood Pressure Mean 65 64 Blood Pressure Source Monitor Monitor Blood Pressure Position Semi-Fowlers Semi-Fowlers Blood Pressure Location Right Arm Right Arm Pulse Ox 99 97 Oxygen Delivery Method Room Air Room Air Room Air 09/29/23 18:00 Temperature 98.8 F Temperature Source Oral Pulse Rate 79 Respiratory Rate 16 Respiratory Effort Respiratory Depth Respiratory Pattern Blood Pressure 100/60 Blood Pressure Mean 73 Blood Pressure Source Monitor Blood Pressure Position Semi-Fowlers Blood Pressure Location Right Arm Pulse Ox 100 Oxygen Delivery Method Room Air Weight Weight: 77.8 kg Body Mass Index (BMI) 33.5 Physical Exam Const alert, oriented x3 and no apparent distress Constitutional Narrative: Patient appears younger than her stated age General Appearance: cooperative, well kempt and well developed Orientation / Consciousness: awake, oriented to person, oriented to place and oriented to time HEENT normocephalic, head/scalp atraumatic, hearing grossly normal bilaterally and moist oral mucous membranes Eyes PERRL, EOMs intact bilaterally and conjunctivae normal Neck supple, no JVD, thyroid normal and no carotid bruits General: trachea midline Resp normal respiratory effort, no retractions, no use of accessory muscles and clear to auscultation bilaterally Auscultation: Negative for rales, rhonchi or wheezes Cardio regular rate, regular rhythm, S1 normal heart sound, S2 normal heart sound, no rub, no gallops and no clicks Cardio Narrative: Patient has a 3/6 systolic murmur noted at the apex and left sternal border, there is a 2/6 systolic murmur noted at the right sternal border GI normal to inspection, nondistended, normoactive bowel sounds, soft to palpation, non-tender and non-distended Extremity no clubbing, cyanosis or edema Skin no rashes or lesions noted General Skin Exam: no breakdown Neuro oriented x3, CN's II-XII intact bilaterally, moves all extremities, no focal motor deficits and no sensory deficits noted Sensorium / Orientation: awake and alert Speech: speech normal Psych affect normal Results Lab / Micro Data 09/29/23 11:40 09/29/23 11:40 Labs: Laboratory Results - last 24 hr 09/29/23 11:40: WBC 9.0, RBC 1.52 L, Hgb 5.0 L*, Hct 15.7 L, MCV 103.3 H, MCH 32.9 H, MCHC 31.8 L, RDW Std Deviation 60.6 H, RDW Coeff of Britt 18.3 H, Plt Count 196, MPV 10.1, Immature Gran % (Auto) 3.100 H, Neut % (Auto) 80.7 H, Lymph % (Auto) 8.2 L, [place] % (Auto) 7.7, Eos % (Auto) 0.1, Baso % (Auto) 0.2, Absolute Neuts (auto) 7.2, Absolute Lymphs (auto) 0.74 L, Nucleated RBC % 1.0, Differential Comment COMMENT, Diff Path Review March foll, PT 23.9 H, INR 2.1, Sodium 138, Potassium 4.9, Chloride 106, Carbon Dioxide 20.0 L, Anion Gap 12, BUN 48 H, Creatinine 1.66 H, Estim Creat Clear Calc 19.42, Est GFR (MDRD) Af Amer 38 L, Est GFR (MDRD) Non-Af 32 L, BUN/Creatinine Ratio 28.9 H, Glucose 336 H, Calcium 8.5 09/29/23 12:30: Urine Color Yellow, Urine Clarity Sl. Cloudy, Urine pH 5.0, Ur Specific [place] 1.020, Urine Protein Negative, Urine Glucose (UA) 100 H, Urine Ketones Negative, Urine Occult Blood Negative, Urine Nitrite Negative, Urine Bilirubin Negative, Urine Urobilinogen Normal, Ur Leukocyte Esterase Negative, Urine RBC 0 SEEN, Urine WBC 0 SEEN, Ur Squamous Epith Cells 0-5 SEEN, Urine Bacteria 0 SEEN, Urine Mucus 0 SEEN 09/29/23 15:00: Blood Type B NEGATIVE, Antibody Screen NEGATIVE, Crossmatch See Detail 09/29/23 16:43: POC Glucose 234 H Micro: Microbiology 09/29/23 11:50 Stool Stool Occult Blood (SHERRI) - Final Occult Blood Positive Assessment & Plan Assessment/Plan (1) Anemia: QUALIFIERS: Anemia type: unspecified type Qualified Code(s): D64.9 - Anemia, unspecified PLAN: Plan 1. Acute on chronic anemia-etiology unclear, patient was admitted to PCU, she received 2 units of packed red blood cells, CBC will be rechecked, she will need to undergo an endoscopic evaluation and she will need an IVC filter placed due to her past history of pulmonary embolism and DVT. Patient was placed on a Protonix drip. #2 paroxysmal atrial fib-patient will need to stay off her Xarelto for now, she remains in sinus rhythm at this time #3 lymphoma-patient is currently under treatment as an outpatient for lymphoma, this complicates care, medical course, recovery, and prognosis #4 probable melena-patient gives a history of dark/black stool over the past week-again she will be placed on a Protonix drip and undergo endoscopic evaluation by gastroenterology #5 essential hypertension-patient's blood pressure medications will be held at this time due to her anemia, she will be reevaluated for restart of the medication tomorrow #6 hyperlipidemia-patient's statin will be held at this time, I will reevaluate placing the patient on a statin tomorrow #7 type 2 diabetes-patient's blood sugars will be checked every 6 hours, sliding scale insulin was ordered per fingerstick blood sugar result Total clinical time spent by myself addressing the patient's medical issues, reviewing all of her data, and collaborating with patient's care team: 75-minutes Charges/Coding Visit Charges Inpatient E&M: 74776 Init Hosp L3
[2023-09-30] VITALS (19 sets, daily range): BP systolic 87–128; BP diastolic 44–79; PULSE 72–84; RESP 16–22; TEMP 36.4–36.8; O2SAT 95–100; BMI 33.5
[2023-09-30] MEDS: Pantoprazole Sodium 80 MG in 0.9% Normal Saline (100mL Bag) 80 ML 10 MG CONT INF ×2 (00:04→12:05)
[2023-09-30 00:25] LABS: Bedside Glucose 300 mg/dL (74-106)
[2023-09-30 01:29] LABS: Hematocrit 24.4 % (37-47); Hemoglobin 8.3 g/dL (12.0-15.0)
[2023-09-30 04:58] LABS: Absolute Lymphocyte Count 0.65 X10^3/uL (0.83-4.51); Absolute Neutrophil Count 6.3 X10^3/uL (2.0-7.7); Basophil# 0.03 X10^3/uL; Basophil% 0.4 % (0-1); Eosinophil# 0.02 X10^3/uL; Eosinophils% 0.2 % (0-5); Hematocrit 22.8 % (37-47); Hemoglobin 7.6 g/dL (12.0-15.0); Lymphocyte # 0.65 X10^3/ul (0.83-4.51); Lymphocyte % 8.1 % (19-41); Mean Corp Hgb Conc 33.3 g/dL (32-36); Mean Corpuscular Volume 93.1 fL (81-99); Mean Platelet Vol. 9.7 fl (6.2-12.0); Monocyte% 9.9 % (0-10); NRBC Flagged by Analyzer 1.6 % (0-5); Neutrophil # 6.33 X10^3/uL (2.7-7.7); Neutrophil % 78.4 % (47-70); Platelet Count 167 K/mm3 (150-450); RBC Distribution Width CV 18.4 % (11.6-14.6); RBC Distribution Width SD 55.8 fl (35.1-43.9); Red Blood Count 2.45 M/mm3 (4.2-5.4); White Blood Count 8.1 K/mm3 (4.4-11.0)
[2023-09-30 05:06] LABS: International Normalized Ratio 1.2; Prothrombin Time (Protime)PT. 15.5 SECONDS (11.7-14.9)
[2023-09-30 05:07] LABS: Partial Thromboplast Time 21.4 Seconds (24.1-36.2)
[2023-09-30 05:16] LABS: Anion Gap 8 (5-15); BUN 43 mg/dL (7-18); BUN/Creat Ratio 33.6 RATIO (10-20); Calcium,Total 8.1 mg/dL (8.5-10.1); Chloride 108 mmol/L (98-107); Creatinine, Serum 1.28 mg/dL (0.55-1.02); EST Glomerular Filtration Rate 43 mL/min (>60); Est Glom Filt Rate - Afr Amer 52 mL/min (>60); Estimated Creatinine Clearance 25.18 ml/min; Glucose 252 mg/dL (74-106); Potassium 4.2 mmol/L (3.5-5.1); Sodium Level 139 mmol/L (136-145)
[2023-09-30 05:42] LABS: Bedside Glucose 244 mg/dL (74-106)
--- NOTE | 2023-09-30 05:55 | EKG12_ITS ---
Test Reason : AM EKG Blood Pressure : / mmHG Vent. Rate : 078 BPM Atrial Rate : 078 BPM P-R Int : 176 ms QRS Dur : 082 ms QT Int : 394 ms P-R-T Axes : 032 -21 016 degrees QTc Int : 449 ms Normal sinus rhythm Low voltage QRS Borderline ECG When compared with ECG of 29-SEP-2023 11:53, MANUAL COMPARISON REQUIRED, DATA IS UNCONFIRMED Confirmed by VIVI RIGGS, ROHINI ([id number]), news videotape editor JESSICA NGUYEN ([id number]) on 09/30/2023 1:20:37 PM Referred By: Confirmed By:ROHINI TRINIDAD MD
--- NOTE | 2023-09-30 06:19 | PN.SURG_ITS ---
Subjective Subjective Patient is resting comfortably without complaint. Objective Data Objective Data Vital Signs: Vital Signs Temp Pulse Resp BP Pulse Ox O2 Del Method 98.2 F 78 16 114/54 L 97 Room Air 09/30/23 05:03 09/30/23 05:03 09/30/23 05:03 09/30/23 05:03 09/30/23 05:03 09/30/23 05:03 Oxygen Delivery Method Room Air Weight: 171 lb 8.314 oz Body Mass Index (BMI) 33.5 Intake & Output: Intake and Output for Last 24 Hours 09/28/23 09/29/23 09/30/23 23:59 23:59 23:59 Intake Total 122 210.67 / 210.67 Balance 122 210.67 / 210.67 Lab / Micro Data 09/30/23 04:44 09/30/23 04:44 Labs: Laboratory Results - last 24 hr 09/29/23 11:40: WBC 9.0, RBC 1.52 L, Hgb 5.0 L*, Hct 15.7 L, MCV 103.3 H, MCH 32.9 H, MCHC 31.8 L, RDW Std Deviation 60.6 H, RDW Coeff of Britt 18.3 H, Plt Count 196, MPV 10.1, Immature Gran % (Auto) 3.100 H, Neut % (Auto) 80.7 H, Lymph % (Auto) 8.2 L, [place] % (Auto) 7.7, Eos % (Auto) 0.1, Baso % (Auto) 0.2, Absolute Neuts (auto) 7.2, Absolute Lymphs (auto) 0.74 L, Nucleated RBC % 1.0, Differential Comment COMMENT, Diff Path Review March foll, PT 23.9 H, INR 2.1, Sodium 138, Potassium 4.9, Chloride 106, Carbon Dioxide 20.0 L, Anion Gap 12, BUN 48 H, Creatinine 1.66 H, Estim Creat Clear Calc 19.42, Est GFR (MDRD) Af Amer 38 L, Est GFR (MDRD) Non-Af 32 L, BUN/Creatinine Ratio 28.9 H, Glucose 336 H, Calcium 8.5 09/29/23 12:30: Urine Color Yellow, Urine Clarity Sl. Cloudy, Urine pH 5.0, Ur Specific [place] 1.020, Urine Protein Negative, Urine Glucose (UA) 100 H, Urine Ketones Negative, Urine Occult Blood Negative, Urine Nitrite Negative, Urine Bilirubin Negative, Urine Urobilinogen Normal, Ur Leukocyte Esterase Negative, Urine RBC 0 SEEN, Urine WBC 0 SEEN, Ur Squamous Epith Cells 0-5 SEEN, Urine Bacteria 0 SEEN, Urine Mucus 0 SEEN 09/29/23 15:00: Blood Type B NEGATIVE, Antibody Screen NEGATIVE, Crossmatch See Detail 09/29/23 16:43: POC Glucose 234 H 09/29/23 23:59: POC Glucose 300 H 09/30/23 01:13: Hgb 8.3 L, Hct 24.4 L 09/30/23 04:44: WBC 8.1, RBC 2.45 L, Hgb 7.6 L, Hct 22.8 L, MCV 93.1 D, MCH 31.0, MCHC 33.3, RDW Std Deviation 55.8 H, RDW Coeff of Britt 18.4 H, Plt Count 167, MPV 9.7, Immature Gran % (Auto) 3.000 H, Neut % (Auto) 78.4 H, Lymph % (Auto) 8.1 L, [place] % (Auto) 9.9, Eos % (Auto) 0.2, Baso % (Auto) 0.4, Absolute Neuts (auto) 6.3, Absolute Lymphs (auto) 0.65 L, Nucleated RBC % 1.6, PT 15.5 H, INR 1.2, APTT 21.4 L, Sodium 139, Potassium 4.2, Chloride 108 H, Carbon Dioxide 23.0, Anion Gap 8, BUN 43 H, Creatinine 1.28 H, Estim Creat Clear Calc 25.18, Est GFR (MDRD) Af Amer 52 L, Est GFR (MDRD) Non-Af 43 L, BUN/Creatinine Ratio 33.6 H, Glucose 252 H, Calcium 8.1 L 09/30/23 05:08: POC Glucose 244 H Micro: Microbiology 09/29/23 11:50 Stool Stool Occult Blood (SHERRI) - Final Occult Blood Positive Physical Exam Resp normal respiratory effort Resp Narrative: Neck and upper chest appear clear Assessment & Plan Assessment/Plan (1) Anemia: QUALIFIERS: Anemia type: unspecified type Qualified Code(s): D64.9 - Anemia, unspecified (2) Pulmonary emboli: QUALIFIERS: Pulmonary embolism type: unspecified Chronicity: unspecified Acute cor pulmonale presence: unspecified Qualified Code(s): I26.99 - Other pulmonary embolism without acute cor pulmonale (3) Deep vein thrombosis of both lower extremities: QUALIFIERS: Affected thrombotic vein of extremity: unspecified vein of extremity Chronicity: unspecified Qualified Code(s): I82.403 - Acute embolism and thrombosis of unspecified deep veins of lower extremity, bilateral PLAN: Plan 78-year-old female whose had a previous history of DVT and PE. Fact one of her episodes occurred when she was on Eliquis and she had her therapy changed to Xarelto. She now presents with significant anemia and her anticoagulation is being held. She is felt to be at increased risk for DVT and PE. I have disc ussed with her technique, benefit, risk, alternatives of retrievable inferior vena cava filter placement. She has had an opportunity to ask and have questions answered. I plan to proceed under mild sedation and local anesthesia and she is scheduled for 1130 today. Also anticipate surgery contacting the patient's publications editor Dr. Vickey Lindo this morning prior to proceeding. Appreciate the opportunity of assisting with her surgical care Issac Curtis M.D., F.A.C.S.
[2023-09-30 09:11] LABS: Hematocrit 22.3 % (37-47); Hemoglobin 7.4 g/dL (12.0-15.0)
--- NOTE | 2023-09-30 10:57 | PCM.OPRPT ---
Report of Operation Date of Procedure: 09/30/23 Pre-Operative Diagnosis: History of deep venous thrombosis and pulmonary embolus with severe anemia and suspected GI bleeding Post-Operative Diagnosis: Same Surgery/Procedure Performed:: Right internal jugular inferior vena cava Cat filter placement Description of Surgical Findings:: Timeout informed consent was obtained. The patient was taken to the special procedures lab placed upon the table. 50 mcg of fentanyl 1 mg of Versed were given as intravenous sedation. The right neck was sterilely prepped and draped. Under ultrasound guidance 2% lidocaine was instilled overlying the right internal jugular vein. Micropuncture needle was inserted I actually had to do 2 insertions in order to get the wire to advance. Was unable to get the wire to nicely advance but a micropuncture sheath and then an 035 standard J-wire. Using a universal flush cath was able to get the J-wire into the SVC IVC and into the right common iliac. Placed the universal flush catheter distally in the vena cava and using Isovue contrast a rate of 15 cc a second for 20 cc an inferior venacavogram was obtained. The inferior venacavogram demonstrates a normal diameter vena cava I did not see any thrombus and I could see the origin of both renal veins. We then dilated the tract with a 9 [place] sheath after removing the catheter. We then placed the 8 [place] introducing sheath to advance the jugular release Cat filter position itself the apex was at the junction of the renal veins and deployed the filter. The filter deployed in a straight upright clean fashion. Delivery magnet was removed the sheath was removed pressure was held for hemostasis Steri-Strip Telfa OpSite dressing applied. She taught procedure well with no apparent complication she was taken back to her room in satisfied condition. Specimens none. Drains none. Blood loss minimal. Issac Curtis M.D., F.A.C.S. Surgeon: Issac Curtis Type of Anesthesia: IV Sedation and Local
[2023-09-30 11:44] LABS: Bedside Glucose 233 mg/dL (74-106)
--- NOTE | 2023-09-30 14:22 | PCM.PN.HOSP ---
Reason for Visit Reason for Visit: Diagnoses Anemia, unspecified (09/29/23) Other pulmonary embolism without acute cor pulmonale (09/29/23) Acute embolism and thrombosis of unspecified deep veins of lower extremity, bilateral (09/29/23) Subjective Subjective Patient was seen and examined today, her hemoglobin this morning was 7.4, at the time of my visit today she underwent placement of an IVC filter today without complications. Objective Data Objective Data Vital Signs: Vital Signs Temp Pulse Resp BP Pulse Ox O2 Del Method 98.1 F 79 18 120/53 L 99 Room Air 09/30/23 13:59 09/30/23 13:59 09/30/23 13:59 09/30/23 13:59 09/30/23 13:59 09/30/23 13:59 Oxygen Delivery Method Room Air Weight: 77.8 kg Body Mass Index (BMI) 33.5 Intake & Output: Intake and Output for Last 24 Hours 09/28/23 09/29/23 09/30/23 23:59 23:59 23:59 Intake Total 2 122 330.50 / 330.50 Balance 2 122 330.50 / 330.50 Lab / Micro Data 09/30/23 08:53 09/30/23 04:44 Labs: Laboratory Results - last 24 hr 09/29/23 15:00: Blood Type B NEGATIVE, Antibody Screen NEGATIVE, Crossmatch See Detail 09/29/23 16:43: POC Glucose 234 H 09/29/23 23:59: POC Glucose 300 H 09/30/23 01:13: Hgb 8.3 L, Hct 24.4 L 09/30/23 04:44: WBC 8.1, RBC 2.45 L, Hgb 7.6 L, Hct 22.8 L, MCV 93.1 D, MCH 31.0, MCHC 33.3, RDW Std Deviation 55.8 H, RDW Coeff of Britt 18.4 H, Plt Count 167, MPV 9.7, Immature Gran % (Auto) 3.000 H, Neut % (Auto) 78.4 H, Lymph % (Auto) 8.1 L, [place] % (Auto) 9.9, Eos % (Auto) 0.2, Baso % (Auto) 0.4, Absolute Neuts (auto) 6.3, Absolute Lymphs (auto) 0.65 L, Nucleated RBC % 1.6, PT 15.5 H, INR 1.2, APTT 21.4 L, Sodium 139, Potassium 4.2, Chloride 108 H, Carbon Dioxide 23.0, Anion Gap 8, BUN 43 H, Creatinine 1.28 H, Estim Creat Clear Calc 25.18, Est GFR (MDRD) Af Amer 52 L, Est GFR (MDRD) Non-Af 43 L, BUN/Creatinine Ratio 33.6 H, Glucose 252 H, Hemoglobin A1c 6.0 H, Calcium 8.1 L 09/30/23 05:08: POC Glucose 244 H 09/30/23 08:53: Hgb 7.4 L, Hct 22.3 L 09/30/23 11:25: POC Glucose 233 H Micro: Microbiology 09/29/23 11:50 Stool Stool Occult Blood (SHERRI) - Final Occult Blood Positive Physical Exam Narrative alert, oriented x3 and no apparent distress Constitutional Narrative: Patient appears younger than her stated age General Appearance: cooperative, well kempt and well developed Orientation / Consciousness: awake, oriented to person, oriented to place and oriented to time HEENT normocephalic, head/scalp atraumatic, hearing grossly normal bilaterally and moist oral mucous membranes Eyes PERRL, EOMs intact bilaterally and conjunctivae normal Neck supple, no JVD, thyroid normal and no carotid bruits General: trachea midline Resp normal respiratory effort, no retractions, no use of accessory muscles and clear to auscultation bilaterally Auscultation: Negative for rales, rhonchi or wheezes Cardio regular rate, regular rhythm, S1 normal heart sound, S2 normal heart sound, no rub, no gallops and no clicks Cardio Narrative: Patient has a 3/6 systolic murmur noted at the apex and left sternal border, there is a 2/6 systolic murmur noted at the right sternal border GI normal to inspection, nondistended, normoactive bowel sounds, soft to palpation, non-tender and non-distended Extremity no clubbing, cyanosis or edema Skin no rashes or lesions noted General Skin Exam: no breakdown Neuro oriented x3, CN's II-XII intact bilaterally, moves all extremities, no focal motor deficits and no sensory deficits noted Sensorium / Orientation: awake and alert Speech: speech normal Psych affect normal Assessment & Plan Assessment/Plan (1) Anemia: QUALIFIERS: Anemia type: unspecified type Qualified Code(s): D64.9 - Anemia, unspecified PLAN: Plan 1. Acute on chronic anemia-etiology unclear, requiring blood transfusion-patient's CBC will be rechecked tomorrow, she remains on a Protonix drip at this time. #2 paroxysmal atrial fib-patient will need to stay off her Xarelto for now, she remains in sinus rhythm at this time #3 lymphoma-patient is currently under treatment as an outpatient for lymphoma, this complicates care, medical course, recovery, and prognosis #4 probable melena-patient gives a history of dark/black stool over the past week-again she will undergo endoscopic evaluation by gastroenterology, she is on a Protonix drip #5 essential hypertension-patient's blood pressure medications will be held , blood pressure is stable at this time #6 hyperlipidemia-patient's statin will be held at this time, patient will resume her statin upon discharge #7 type 2 diabetes-patient's blood sugars will be checked every 6 hours, sliding scale insulin was ordered per fingerstick blood sugar result Total clinical time spent by myself addressing the patient's medical issues, reviewing all of her data, and collaborating with patient's care team: 25-minutes Charges/Coding Visit Charges Inpatient E&M: 49485 Subs Hosp L1
[2023-09-30] MEDS: Lactated Ringers 1,000 ML 15 ML IV (14:25)
--- NOTE | 2023-09-30 14:46 | CHAPLAIN ---
Type of Pastoral Visit _x__ Initial Visit ___ Follow-up Visit ___ On-call Visit ___ General Patient Visit ___ Spiritual Assessment ___ Family Conference ___ Bereavement ___ Rapid Response ___ Code Blue ___ Other (describe below) Pastoral Care Referral From _x__ Patient ___ Family ___ Nurse ___ Physician ___ Temporary Data Entry Clerk ___ Civil Engineering Technician ___ Other (describe below) Sacrament/Intervention _x__ Active listening ___ Anointing ___ Mosque ___ Bereavement ___ Communion ___ Janelle exploration ___ _x__ Life review ___ Prayer ___ Reconciliation ___ Sacrament of Sick _x__ Supportive presence ___ Wedding ___ Other (describe below) Pastoral Comments patient and spouse are in the room together; both talk and invite this demand generation manager to be present and give support; pt gives her health review of recent weeks with input from spouse; this couple has been for 55 years and speak of a good marriage; pt states that does so much around the house for her; pt is having tests done to determine cause for her condition; pt speaks of her other diagnosis as well and how she handles it all; pt states that she just takes whatever life gives her and she goes with that as best as she can; pt has enjoyed blessings over the years
--- NOTE | 2023-09-30 15:35 | OP.EGD_ITS ---
Patient Name: Ivonne Howard Procedure Date: 09/30/2023 3:13 PM Date of : 1945 Age: 78 Procedure: Upper GI endoscopy Indications: Recent gastrointestinal bleeding, Suspected upper gastrointestinal bleeding Providers: Tony Hurd DO Medicines: Monitored Anesthesia Care Patient Profile: This is an 78 year old female. Refer to note in patient chart for documentation of history and physical. Patient has symptoms of acute dyspepsia. Complications: No immediate complications. Procedure: Pre-Anesthesia Assessment: - Prior to the procedure, a History and Physical was performed, and patient medications and allergies were reviewed. The patient is competent. The risks and benefits of the procedure and the sedation options and risks were discussed with the patient. All questions were answered and informed consent was obtained. Patient identification and proposed procedure were verified by the physician in the pre-procedure area. Mental Status Examination: alert and oriented. Airway Examination: normal oropharyngeal airway and neck mobility. Respiratory Examination: clear to auscultation. CV Examination: normal. Prophylactic Antibiotics: The patient does not require prophylactic antibiotics. Prior Anticoagulants: The patient has taken no anticoagulant or antiplatelet agents. ASA Grade Assessment: III - A patient with severe systemic disease. After reviewing the risks and benefits, the patient was deemed in satisfactory condition to undergo the procedure. The anesthesia plan was to use monitored anesthesia care (MAC). Immediately prior to administration of medications, the patient was re-assessed for adequacy to receive sedatives. The heart rate, respiratory rate, oxygen saturations, blood pressure, adequacy of pulmonary ventilation, and response to care were monitored throughout the procedure. The physical status of the patient was re-assessed after the procedure. After obtaining informed consent, the endoscope was passed under direct vision. Throughout the procedure, the patient's blood pressure, pulse, and oxygen saturations were monitored continuously. The gastroscope was introduced through the mouth, and advanced to the second part of duodenum. The upper GI endoscopy was accomplished without difficulty. The patient tolerated the procedure well. Scope In: 3:25:38 PM Scope Out: 3:30:05 PM Total Procedure Duration Time 0 hours 4 minutes 27 seconds Findings: The examined esophagus was normal. A medium-sized hiatal hernia was present. The cardia and gastric fundus were normal on retroflexion. The second portion of the duodenum was normal. Impression: - Normal esophagus. - Medium-sized hiatal hernia. - Normal second portion of the duodenum. - No specimens collected. Recommendation: - [facility]. - Clear liquid diet today. - Continue present medications. - Colonoscopy tomorrow Procedure Code(s): --- Professional --- 18261, Esophagogastroduodenoscopy, flexible, transoral; diagnostic, including collection of specimen(s) by brushing or washing, when performed (separate procedure) CPT copyright 2021 [employer]. All rights reserved. The codes documented in this report are preliminary and upon baggage smasher review may be revised to meet current compliance requirements. Tony Hurd DO 09/30/2023 3:35:01 PM This report has been signed electronically. Number of Addenda: 0 Note Initiated On: 09/30/2023 3:13 PM
--- NOTE | 2023-09-30 15:35 | OP.CCLET_ITS ---
09/30/2023 Kameron Kemp [address] [place] [address] Re : Upper GI endoscopy procedure for Ivonne Howard Dear Dr. Kemp This procedure was performed on Saturday, September 30, 2023. My impressions and recommendations are as follows: Impressions : - Normal esophagus. - Medium-sized hiatal hernia. - Normal second portion of the duodenum. - No specimens collected. Recommendations : - [facility] care. - Clear liquid diet today. - Continue present medications. - Colonoscopy tomorrow My findings are described in the full procedure note, which is enclosed. If I can be of further assistance, please feel free to contact me at . Sincerely, Tony Hurd, 09/30/2023 3:35:01 PM This report has been signed electronically.
[2023-09-30] MEDS: Bisacodyl 5 MG Tablet 20 MG PO (16:12)
[2023-09-30] MEDS: Azithromycin 500 MG in Dextrose 5%-Water (250mL Bag) 250 ML 250 MG IV (16:19)
--- NOTE | 2023-09-30 16:30 | CASEMGMT ---
RN CM attempted to complete assessment at this time. Patient is OOR at procedure. CM will attempt to complete assessment at later time.
[2023-09-30] MEDS: Electrolyte Solution/Peg's 4000 ML PO (16:41)
[2023-09-30] MEDS: Insulin Lispro 100 UNIT/ML INSULN.PEN SC ×2 (16:43)
[2023-09-30 17:03] LABS: Bedside Glucose 236 mg/dL (74-106)
[2023-09-30] MEDS: Metoclopramide 10 MG/2 ML Vial 5 MG IV (17:28)
[2023-09-30] MEDS: Ondansetron 4 MG/2 ML Vial IV (20:34)
[2023-09-30] MEDS: 0.9% Saline Lock 10 ML Syringe IV (20:34)
[2023-09-30] MEDS: Ipratropium Bromide 0.06% NASAL SPRAY 2 SPRAY NASAL (20:56)
[2023-10-01] VITALS (10 sets, daily range): BP systolic 91–146; BP diastolic 38–130; PULSE 62–88; RESP 16–18; TEMP 36.4–36.7; O2SAT 97–100; BMI 33.5
[2023-10-01] MEDS: Metoclopramide 10 MG/2 ML Vial 5 MG IV ×2 (00:05→05:50)
[2023-10-01] MEDS: 0.9% Saline Lock 10 ML Syringe IV ×3 (00:06→09:56)
[2023-10-01] MEDS: Insulin Lispro 100 UNIT/ML INSULN.PEN SC (00:12)
[2023-10-01] MEDS: Pantoprazole Sodium 80 MG in 0.9% Normal Saline (100mL Bag) 80 ML 10 MG CONT INF (00:14)
--- NOTE | 2023-10-01 05:42 | EX.PCM.DISCH ---
Discharge Instructions Follow Up Care Please Follow Up With: Issac Curtis MD When: Once you have been cleared to resume your blood thinning therapy and have no further problems with anemia and are cleared by your primary care physician and intelligence manager then please contact my office for planned removal of your inferior vena cava filter. This is typically not considered a permanent filter and retrieval is important if medically possible. [phone] Test Results: Test results from this visit will be discussed in further detail at your follow-up appointment, if applicable. Discharge Plan Admission Admit Date/Time: 09/29/23 12:58 Attending Provider: Kameron Chen Primary Care Provider: Kameron Kemp Consulting Providers: Issac Curtis Discharge Orders/Prescriptions Prescriptions: No Action atenolol 25 mg tablet 25 mg PO DAILY losartan 100 mg tablet 100 mg PO DAILY Trulicity 4.5 mg/0.5 mL pen injector 4.5 mg subcut QWEEK ropinirole 0.5 mg tablet 1 mg PO TID spironolactone 25 mg tablet 25 mg PO DAILY Qty: 90 3RF cholecalciferol (vitamin D3) 25 mcg (1,000 unit) tablet 1,000 unit PO DAILY folic acid 1 mg Tablet 1 mg PO DAILY rosuvastatin 20 mg Tablet 20 mg PO DAILY Probiotic 10 billion cell Capsule 10,000 mmu cells PO DAILY insulin glargine [Basaglar Tempo Pen(U-100)Insln] 100 unit/mL (3 mL) insulin pen 44 unit SUBCUT QPM glimepiride 4 mg tablet 4 mg PO BID Hold Instructions: Ordered prednisone 10 mg tablet 5 mg PO DAILY Fiasp FlexTouch U-100 Insulin 100 unit/mL (3 mL) insulin pen 22 unit SUBCUT TID pantoprazole 40 mg tablet,delayed release (DR/EC) 40 mg PO DAILY Xarelto 15 mg tablet 15 mg PO Q24H Referrals / Follow Up: Kameron Kemp MD [Primary Care Provider] -
[2023-10-01 05:45] LABS: Bedside Glucose 233 mg/dL (74-106)
[2023-10-01 06:24] LABS: Bedside Glucose 200 mg/dL (74-106)
[2023-10-01 08:39] LABS: Anion Gap 9 (5-15); BUN 27 mg/dL (7-18); BUN/Creat Ratio 20.3 RATIO (10-20); Calcium,Total 8.5 mg/dL (8.5-10.1); Chloride 107 mmol/L (98-107); Creatinine, Serum 1.33 mg/dL (0.55-1.02); EST Glomerular Filtration Rate 41 mL/min (>60); Est Glom Filt Rate - Afr Amer 50 mL/min (>60); Estimated Creatinine Clearance 24.23 ml/min; Glucose 225 mg/dL (74-106); Potassium 3.6 mmol/L (3.5-5.1); Sodium Level 139 mmol/L (136-145)
--- NOTE | 2023-10-01 09:18 | NURSING ---
unsure of retained amount d/t intermittent leaking during enema being given. pt tushar call when ready to get up to [facility].
[2023-10-01 09:25] LABS: International Normalized Ratio 1.1; Prothrombin Time (Protime)PT. 14.3 SECONDS (11.7-14.9)
[2023-10-01 09:26] LABS: Partial Thromboplast Time 20.4 Seconds (24.1-36.2)
[2023-10-01 09:31] LABS: Absolute Lymphocyte Count 0.65 X10^3/uL (0.83-4.51); Absolute Neutrophil Count 8.7 X10^3/uL (2.0-7.7); Basophil# 0.05 X10^3/uL; Basophil% 0.5 % (0-1); Eosinophil# 0.01 X10^3/uL; Eosinophils% 0.1 % (0-5); Hematocrit 25.4 % (37-47); Hemoglobin 8.4 g/dL (12.0-15.0); Lymphocyte # 0.65 X10^3/ul (0.83-4.51); Lymphocyte % 6.1 % (19-41); Mean Corp Hgb Conc 33.1 g/dL (32-36); Mean Corpuscular Hgb 31.7 pg (27.0-32.0); Mean Corpuscular Volume 95.8 fL (81-99); Mean Platelet Vol. 9.9 fl (6.2-12.0); Monocyte# 0.92 X10^3/uL; Monocyte% 8.7 % (0-10); NRBC Flagged by Analyzer 0.6 % (0-5); Neutrophil # 8.68 X10^3/uL (2.7-7.7); Platelet Count 210 K/mm3 (150-450); RBC Distribution Width CV 18.3 % (11.6-14.6); RBC Distribution Width SD 58.8 fl (35.1-43.9); Red Blood Count 2.65 M/mm3 (4.2-5.4); White Blood Count 10.6 K/mm3 (4.4-11.0)
[2023-10-01] MEDS: Ipratropium Bromide 0.06% NASAL SPRAY 2 SPRAY NASAL (09:37)
--- NOTE | 2023-10-01 10:01 | NURSING ---
took full bag with intermittent leaking. will call when ready to get up to [facility]
[2023-10-01] MEDS: Lactated Ringers 1,000 ML 15 ML IV (11:16)
--- NOTE | 2023-10-01 12:17 | OP.CCLET_ITS ---
10/01/2023 Kameron Kemp [address] [place] [address] Re : Colonoscopy procedure for Ivonne Howard Dear Dr. Kemp This procedure was performed on Sunday, October 01, 2023. My impressions and recommendations are as follows: Impressions : - Diverticulosis in the recto-sigmoid colon and in the sigmoid colon. - The examination was otherwise normal on direct and retroflexion views. - No specimens collected. Recommendations : - Discharge patient to home. - Resume previous diet. - Continue present medications. - No repeat colonoscopy due to age. - Outpatient capsule endoscopy My findings are described in the full procedure note, which is enclosed. If I can be of further assistance, please feel free to contact me at . Sincerely, Tony Friend, 10/01/2023 12:17:03 PM This report has been signed electronically.
--- NOTE | 2023-10-01 12:17 | OP.COLON_ITS ---
Patient Name: Ivonne Howard Procedure Date: 10/01/2023 11:45 AM Date of : 1945 Age: 78 Procedure: Colonoscopy Indications: Iron deficiency anemia Providers: Tony Hurd DO Medicines: Monitored Anesthesia Care Patient Profile: This is an 78 year old female. Refer to note in patient chart for documentation of history and physical. Last Colonoscopy: 3 years ago. Complications: No immediate complications. Procedure: Pre-Anesthesia Assessment: - Prior to the procedure, a History and Physical was performed, and patient medications and allergies were reviewed. The patient is competent. The risks and benefits of the procedure and the sedation options and risks were discussed with the patient. All questions were answered and informed consent was obtained. Patient identification and proposed procedure were verified by the physician in the pre-procedure area. Mental Status Examination: alert and oriented. Airway Examination: normal oropharyngeal airway and neck mobility. Respiratory Examination: clear to auscultation. CV Examination: normal. Prophylactic Antibiotics: The patient does not require prophylactic antibiotics. Prior Anticoagulants: The patient has taken no anticoagulant or antiplatelet agents. ASA Grade Assessment: III - A patient with severe systemic disease. After reviewing the risks and benefits, the patient was deemed in satisfactory condition to undergo the procedure. The anesthesia plan was to use monitored anesthesia care (MAC). Immediately prior to administration of medications, the patient was re-assessed for adequacy to receive sedatives. The heart rate, respiratory rate, oxygen saturations, blood pressure, adequacy of pulmonary ventilation, and response to care were monitored throughout the procedure. The physical status of the patient was re-assessed after the procedure. After I obtained informed consent, the scope was passed under direct vision. Throughout the procedure, the patient's blood pressure, pulse, and oxygen saturations were monitored continuously. The Colonoscope was introduced through the anus and advanced to the cecum, identified by appendiceal orifice and ileocecal valve. The colonoscopy was performed without difficulty. The patient tolerated the procedure well. The quality of the bowel preparation was adequate. The terminal ileum was photographed. Scope In: 11:58:59 AM Scope Withdrawal Time 0 hours 7 minutes 28 seconds Scope Out: 12:11:09 PM Total Procedure Duration Time 0 hours 12 minutes 10 seconds Findings: The perianal and digital rectal examinations were normal. Multiple small and large-mouthed diverticula were found in the recto-sigmoid colon and sigmoid colon. The exam was otherwise without abnormality on direct and retroflexion views. Impression: - Diverticulosis in the recto-sigmoid colon and in the sigmoid colon. - The examination was otherwise normal on direct and retroflexion views. - No specimens collected. Recommendation: - Discharge patient to home. - Resume previous diet. - Continue present medications. - No repeat colonoscopy due to age. - Outpatient capsule endoscopy Procedure Code(s): --- Professional --- 12162, Colonoscopy, flexible; diagnostic, including collection of specimen(s) by brushing or washing, when performed (separate procedure) CPT copyright 2021 [employer]. All rights reserved. The codes documented in this report are preliminary and upon field sales engineer review may be revised to meet current compliance requirements. Tony Hurd DO 10/01/2023 12:17:03 PM This report has been signed electronically. Number of Addenda: 0 Note Initiated On: 10/01/2023 11:45 AM
--- NOTE | 2023-10-01 13:45 | DCINST_ITS ---
Discharge Instructions Diet Discharge Diet: 1800 Calorie Control Diet Activity Discharge Activity: Return to Normal Activity Weight Bearing Status: Full weight bearing Follow Up Care Please Follow Up With: Issac Curtis MD Test Results: Test results from this visit will be discussed in further detail at your follow- up appointment, if applicable. Discharge Plan Admission Admit Date/Time: 09/29/23 12:58 Primary Reason for Your Visit: anemia Attending Provider: Kameron Chen Primary Care Provider: Kameron Kemp Consulting Providers: Issac Curtis Instructions Additional Instructions / Restrictions: You will need to follow-up with Dr. Curtis when you are placed back on Xarelto, your vena caval filter will need to be removed if possible in the future if you resume Xarelto and have no problems/anemia with this medication Discharge Orders/Prescriptions Prescriptions: Continued atenolol 25 mg tablet 25 mg PO DAILY losartan 100 mg tablet 100 mg PO DAILY Trulicity 4.5 mg/0.5 mL pen injector 4.5 mg subcut QWEEK ropinirole 0.5 mg tablet 1 mg PO TID spironolactone 25 mg tablet 25 mg PO DAILY Qty: 90 3RF cholecalciferol (vitamin D3) 25 mcg (1,000 unit) tablet 1,000 unit PO DAILY folic acid 1 mg Tablet 1 mg PO DAILY rosuvastatin 20 mg Tablet 20 mg PO DAILY Probiotic 10 billion cell Capsule 10,000 mmu cells PO DAILY insulin glargine [Basaglar Tempo Pen(U-100)Insln] 100 unit/mL (3 mL) insulin pen 44 unit SUBCUT QPM glimepiride 4 mg tablet 4 mg PO BID Hold Instructions: Ordered prednisone 10 mg tablet 5 mg PO DAILY Fiasp FlexTouch U-100 Insulin 100 unit/mL (3 mL) insulin pen 22 unit SUBCUT TID pantoprazole 40 mg tablet,delayed release (DR/EC) 40 mg PO DAILY Discontinued Xarelto 15 mg tablet 15 mg PO Q24H Referrals / Follow Up: Kameron Kemp MD [Primary Care Provider] - Within 1 Month Vickey Lindo DO [Med Staff - Active Staff] - Within 2 Weeks Tony Hurd DO [Med Staff - Active Staff] - Within 2 Weeks Disposition Disposition (needs filled in before D/C Order can be placed): Home, Self Care
--- NOTE | 2023-10-01 13:45 | CASEMGMT ---
RN HEMANT Face to Face with patient for initial transition planning/care coordination assessment. RN CM introduced self and role at [facility]. Patient sitting in chair, alert and oriented, at bedside. Patient willing to participate in assessment and is able to answer all questions appropriately. Care providers, pharmacy, and demographics verified. Patient wishes to discharge home, denies need for home health at this time. Patient states she has no further needs or concerns at this time. CM to follow for discharge planning needs that may arise. PCP: [facility] Specialists: Philip, cardiologsit; Mustapha, pulmonologsit; Guicho, oncologsit; Radha, labeling specialist; Friend, GI Preferred Pharmacy: [facility] Insurance: [employer], [employer] Prescription Benefit: yes Living Will/HPOA: yes, Wojciech Howard LNOK: Living Arrangements: Patient lives with in a single story home with 2 step and railing to enter the home. Patient was independent at home prior to current illness Transportation: DME/HHC: Patient has shower chair, raised toilet, cane, walker, grab bars, rollator, cpap, pulse ox, and glucometer at home. Patient has been to [facility] in the past. Patient has had HHC in the past. Disposition Plan: Patient to discharge home with family support and follow-up plans in place. Paloma NEUMANN, RN, CM
[2023-10-01 15:20] LABS: Pathologist Review Reviewed
--- NOTE | 2023-10-01 18:41 | DS.PCM_ITS ---
Providers Date of Admission: 09/29/23 Date of Discharge: 10/01/23 Primary Care Physician: Dr. Kameron Kemp MD Consultations 09/29/23 14:04 Consult: Gastroenterology Routine Consulting Provider: [facility] Reason for Consult: upper gi bleed EMERGENT Consult: No Notified: Yes Date Notified: 09/29/23 Time Notified: 13:05 Method of Notification: Verbal 09/29/23 14:41 Consult: General Surgery Routine Consulting Provider: Issac Curtis Reason for Consult: IVC placement EMERGENT Consult: No Notified: Yes Date Notified: 09/29/23 Time Notified: 14:41 Method of Notification: Verbal Reason For Visit: BLOOD LOSS ANEMIA Diagnosis Discharge Diagnosis (1) Anemia: Status: Acute Code(s): D64.9 - Anemia, unspecified Qualifiers: Anemia type: unspecified type Qualified Code(s): D64.9 - Anemia, unspecified (2) Chronic anticoagulation: Status: Inactive 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 Acute on chronic anemia-etiology unclear, requiring blood transfusion- patient's CBC will be rechecked tomorrow, she remains on a Protonix drip at this time. #2 paroxysmal atrial fib-patient will need to stay off her Xarelto for now, she remains in sinus rhythm at this time #3 lymphoma-patient is currently under treatment as an outpatient for lymphoma, this complicates care, medical course, recovery, and prognosis #4 probable melena-patient gives a history of dark/black stool over the past week-again she will undergo endoscopic evaluation by gastroenterology, she is on a Protonix drip #5 essential hypertension-patient's blood pressure medications will be held , blood pressure is stable at this time #6 hyperlipidemia-patient's statin will be held at this time, patient will resume her statin upon discharge #7 type 2 diabetes-patient's blood sugars will be checked every 6 hours, sliding scale insulin was ordered per fingerstick blood sugar result Total clinical time spent by myself addressing the patient's medical issues, reviewing all of her data, and collaborating with patient's care team: 25- minutes Medications at Discharge Home Medications atenolol 25 mg tablet 25 mg PO DAILY 12/18/21 cholecalciferol (vitamin D3) 25 mcg (1,000 unit) tablet 1,000 unit PO DAILY 12/18/21 losartan 100 mg tablet 100 mg PO DAILY 12/18/21 Lactobacillus acidophilus 10 billion cell capsule (Probiotic) 10,000 mmu cells PO DAILY 10/21/22 folic acid 1 mg tablet 1 mg PO DAILY 10/21/22 rosuvastatin 20 mg tablet 20 mg PO DAILY 10/21/22 dulaglutide 4.5 mg/0.5 mL subcutaneous pen injector (Trulicity) 4.5 mg subcut QWEEK 12/19/22 glimepiride 4 mg tablet 4 mg PO BID 12/19/22 insulin glargine 100 unit/mL (3 mL) subcutaneous pen (Basaglar Tempo Pen (U-100) Insulin) 44 unit subcut QPM 12/19/22 ropinirole 0.5 mg tablet 1 mg PO TID 12/19/22 spironolactone 25 mg tablet 25 mg PO DAILY #90 tabs 12/19/22 prednisone 10 mg tablet 5 mg PO DAILY 07/25/23 insulin aspart (niacinamide)(U-100) 100 unit/mL(3 mL) subcutaneous pen (Fiasp FlexTouch U-100 Insulin) 22 unit subcut TID 09/29/23 pantoprazole 40 mg tablet,delayed release 40 mg PO DAILY 09/29/23 Hospital Course Operations None Procedures Colonoscopy and EGD Summary of Care Provided Minutes Spent on Discharge: 33 Hospital Course: This 78-year-old white female was seen in the emergency room at [facility] after having outpatient labs which showed a low hemoglobin of 5.9. Patient had previously undergone a blood transfusion approximately 2 weeks prior, she had a history of anemia in the past but the etiology of the anemia had not been confirmed. Patient stated that she was seeing black stools over the past week, she denied any letty rectal bleeding. Labs were repeated in the emergency room, her hemoglobin was 5, chemistry profile showed a creatinine 1.66 and a BUN of 48, patient's glucose was 336. Patient was admitted to PCU, she was transfused 2 units of packed red blood cells and her labs were monitored. She was seen in consultation by gastroenterology who performed an EGD which was unremarkable and performed a colonoscopy which did not show evidence of bleeding or any etiology of her anemia. It was recommended that she have a capsule endoscopy as an outpatient, patient underwent an insertion of an IVC filter due to the fact she was on chronic anticoagulation for previous pulmonary emboli and VTE's. There were no untoward events noted from placing the IVC filter. On 10/01/2023, patient was seen and examined: On examination she appeared in good health and spirits, she does not appear to be in any distress. Vital signs as documented. Skin warm and dry and without overt rashes. Neck without JVD, thyroid appears normal, trachea is midline, neck is supple. Lungs clear, normal air movement was noted. Heart exam notable for regular rhythm, normal sounds and absence of murmurs, rubs or gallops. Abdomen unremarkable and without evidence of organomegaly, masses, or abdominal aortic enlargement, bowel sounds are present in all 4 quadrants, no abdominal tenderness was noted. Extremities nonedematous, no cyanosis was noted, no clubbing was noted. Neuro: Cranial nerv es II through XII are grossly intact, no focal motor deficits were noted, sensation to light touch and pinprick is intact, motor exam 5/5 throughout. Psych: Patient is alert and oriented x3, she does not appear anxious or depressed, she does not appear agitated. Patient was discharged home in stable condition on 10/01/2023, she was instructed to contact gastroenterology concerning capsule endoscopy as an outpatient and she was instructed that when she was placed back on full anticoagulation by her oncologist, she was to contact Dr. Curtis's office for follow-up appointment to discuss removal of her IVC filter. Weight / BMI Weight Weight: 77.8 kg Body Mass Index (BMI) 33.5 ABG / Lab / Microbiology Data 10/01/23 07:00 10/01/23 07:00 Laboratory: Laboratory Results - last 24 hr 09/29/23 11:40: Diff Path Review Reviewed 10/01/23 00:11: POC Glucose 233 H 10/01/23 05:56: POC Glucose 200 H 10/01/23 07:00: WBC 10.6, RBC 2.65 L, Hgb 8.4 L, Hct 25.4 L, MCV 95.8, MCH 31.7, MCHC 33.1, RDW Std Deviation 58.8 H, RDW Coeff of Britt 18.3 H, Plt Count 210, MPV 9.9, Immature Gran % (Auto) 2.600 H, Neut % (Auto) 82.0 H, Lymph % (Auto) 6.1 L, [place] % (Auto) 8.7, Eos % (Auto) 0.1, Baso % (Auto) 0.5, Absolute Neuts (auto) 8.7 H, Absolute Lymphs (auto) 0.65 L, Nucleated RBC % 0.6, PT 14.3, INR 1.1, APTT 20.4 L, Sodium 139, Potassium 3.6, Chloride 107, Carbon Dioxide 23.0, Anion Gap 9, BUN 27 H, Creatinine 1.33 H, Estim Creat Clear Calc 24.23, Est GFR (MDRD) Af Amer 50 L, Est GFR (MDRD) Non-Af 41 L, BUN/Creatinine Ratio 20.3 H, Glucose 225 H, Calcium 8.5 Microbiology: Microbiology 09/29/23 11:50 Stool Stool Occult Blood (SHERRI) - Final Occult Blood Positive D/C Instructions Discharge Diet: 1800 Calorie Control Diet Weight Bearing Status: Full weight bearing Please Follow Up With: Issac Curtis MD When: Once you have been cleared to resume your blood thinning therapy and have no further problems with anemia and are 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 This is typically not considered a permanent filter and retrieval is important if medically possible. [phone] Meaningful Use Info Meaningful Use Diagnoses (Choose all that apply): None applicable Discharge Plan Admission Admit Date/Time: 09/29/23 12:58 Primary Reason for Your Visit: anemia Attending Provider: Kameron Chen Primary Care Provider: Kameron Kemp Consulting Providers: Issac Curtis Instructions Additional Instructions / Restrictions: You will need to follow-up with Dr. Curtis when you are placed back on Xarelto, your vena caval filter will need to be removed if possible in the future if you resume Xarelto and have no problems/anemia with this medication Discharge Orders/Prescriptions Prescriptions: Continued atenolol 25 mg tablet 25 mg PO DAILY losartan 100 mg tablet 100 mg PO DAILY Trulicity 4.5 mg/0.5 mL pen injector 4.5 mg subcut QWEEK ropinirole 0.5 mg tablet 1 mg PO TID spironolactone 25 mg tablet 25 mg PO DAILY Qty: 90 3RF cholecalciferol (vitamin D3) 25 mcg (1,000 unit) tablet 1,000 unit PO DAILY folic acid 1 mg Tablet 1 mg PO DAILY rosuvastatin 20 mg Tablet 20 mg PO DAILY Probiotic 10 billion cell Capsule 10,000 mmu cells PO DAILY insulin glargine [Basaglar Tempo Pen(U-100)Insln] 100 unit/mL (3 mL) insulin pen 44 unit SUBCUT QPM glimepiride 4 mg tablet 4 mg PO BID Hold Instructions: MD Ordered prednisone 10 mg tablet 5 mg PO DAILY Fiasp FlexTouch U-100 Insulin 100 unit/mL (3 mL) insulin pen 22 unit SUBCUT TID pantoprazole 40 mg tablet,delayed release (DR/EC) 40 mg PO DAILY Discontinued Xarelto 15 mg tablet 15 mg PO Q24H Referrals / Follow Up: Kameron Kemp MD [Primary Care Provider] - Within 1 Month Vickey Lindo DO [Med Staff - Active Staff] - Within 2 Weeks Tony Hurd DO [Med Staff - Active Staff] - Within 2 Weeks Disposition Disposition (needs filled in before D/C Order can be placed): Home, Self Care Charges/Coding Visit Charges Inpatient E&M: 33872 Disch Hosp >30min
== END 2023-10-01 16:58 | disposition home or self-care (01) | DRG 812 ==
LOC: ED 12:50 → PCU 13:19
PROVIDERS: Anesthesiology; Internal Medicine Gastroenterology; Nurse Practitioner; Admitting Provider Internal Medicine; Emergency Provider Emergency Medicine; PCP Family Medicine; Visit Provider Internal Medicine
PROC: 0DJ08ZZ Inspection of Upper Intestinal Tract, Via Natural or Artificial Opening Endoscopic (ICD-10-PCS; CPT 43235; principal; 2023-09-30 15:10)
PROC: 0DJD8ZZ Inspection of Lower Intestinal Tract, Via Natural or Artificial Opening Endoscopic (ICD-10-PCS; CPT 45378; principal; 2023-10-01 12:15)
DX: D50.9 Iron deficiency anemia, unspecified (principal); C85.90 Non-Hodgkin lymphoma, unspecified, unspecified site; E11.9 Type 2 diabetes mellitus without complications; E78.5 Hyperlipidemia, unspecified; K44.9 Diaphragmatic hernia without obstruction or gangrene; I48.0 Paroxysmal atrial fibrillation; Z79.4 Long term (current) use of insulin; I10 Essential (primary) hypertension; K57.30 Diverticulosis of large intestine without perforation or abscess without bleeding; Z87.891 Personal history of nicotine dependence; Z86.711 Personal history of pulmonary embolism; Z86.718 Personal history of other venous thrombosis and embolism; Z79.01 Long term (current) use of anticoagulants; Z79.899 Other long term (current) drug therapy
CPT/HCPCS: 36415; 37191; 76937; 80048; 81001; 82274; 82962; 83036; 85014; 85018; 85025; 85610; 85730; 86850; 86900; 86901; 86920; 86922; 93005; 97162; 97166; 97802; 99152; 99153; 99284; C1894; J7040; J7120; P9016; Q9967; A4216; C1769; C1880; J2405

== ENCOUNTER 2023-10-19 13:42 | Emergency (ER) | payer MEDICARE, OTHER, SELFPAY ==
[2023-10-19 13:44] VITALS: BP 119/48; PULSE 96; RESP 16; TEMP 36.5; O2SAT 99; BMI 32.5
--- NOTE | 2023-10-19 14:07 | EKG12_ITS ---
Test Reason : Blood Pressure : / mmHG Vent. Rate : 100 BPM Atrial Rate : 100 BPM P-R Int : 182 ms QRS Dur : 068 ms QT Int : 330 ms P-R-T Axes : 030 -25 003 degrees QTc Int : 425 ms Normal sinus rhythm Minimal voltage criteria for LVH, may be normal variant ( R in aVL ) Borderline ECG Confirmed by VIVI RIGSG, ROHINI ([id number]), medical transcription editor DESIREE LEAHY ([id number]) on 10/20/2023 1:02:03 PM Referred By: THA Confirmed By:ROHINI TRINIDAD MD
--- NOTE | 2023-10-19 14:07 | RAD_ITS ---
STUDY: XR Chest 1 View 10/19/2023 2:36 PM REASON FOR EXAM: Female, 78 years old. dyspnea COMPARISON: 04/11/2023 TECHNIQUE: XR Chest 1 View FINDINGS: There is no demonstrated pleural abnormality. Total left shoulder arthroplasty. Cervical spinal fusion hardware. There is an elevated right hemidiaphragm. Normal heart size. Normal mediastinum. Normal giovanna. Prominent appearing increased interstitial lung markings. Normal visualized pulmonary arteries. There is atherosclerotic calcification of the aortic arch with tortuosity. There are diffuse degenerative changes of the visualized thoracic spine. There is degenerative osteoarthritis of the bilateral shoulders. There are no acute findings of the upper abdomen. RAD/Chest 1 View (Portable) IMPRESSION: There are no acute findings. Electronically Signed: Gigi Oropeza MD at 15:08 EST ,
--- NOTE | 2023-10-19 14:09 | EX.ED.DYSGE1 ---
HPI History of Present Illness Chief Complaint: Weakness Detail of Chief Complaint: Not feeling well and generalized weakness Informant: patient Narrative Narrative: Patient presents to the emergency department with complaint of not feeling well today. Patient apparently was sitting in a chair when she started feeling short of breath. She complains of some chills. She has been coughing today. Patient had a [place] filter placed 2 to 3 weeks ago because she has been anemic and they had to take her off her anticoagulation. She has history of A-fib. History of lymphoma. Patient denies sick contacts. She denies urinary symptoms. She has had no vomiting or diarrhea. [facility] Medical History (Updated 10/19/23 @ 15:[address] 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 Chronic constipation Constipation Deep vein thrombosis of both lower extremities (08/2020) Diabetes Diabetes mellitus type II, controlled Diverticulosis of colon Dizziness DVT (deep venous thrombosis) Dynamic left ventricular outflow obstruction Essential hypertension GERD (gastroesophageal reflux disease) Hyperlipidemia Hypertension Internal hemorrhoids Nonrheumatic aortic (valve) stenosis Obstructive sleep apnea Osteoarthritis Paroxysmal atrial fibrillation Right arm weakness Right hemiparesis RLS (restless legs syndrome) Rosacea 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 Vitamin D deficiency Home Medications atenolol 25 mg tablet 25 mg PO DAILY 12/18/21 [History Last Taken 09/28/23] cholecalciferol (vitamin D3) 25 mcg (1,000 unit) tablet 1,000 unit PO DAILY 12/18/21 [History Last Taken 09/28/23] losartan 100 mg tablet 100 mg PO DAILY 12/18/21 [History Last Taken 09/28/23] Lactobacillus acidophilus 10 billion cell capsule (Probiotic) 10,000 mmu cells PO DAILY 10/21/22 [History Last Taken 09/28/23] folic acid 1 mg tablet 1 mg PO DAILY 10/21/22 [History Last Taken 09/28/23] rosuvastatin 20 mg tablet 20 mg PO DAILY 10/21/22 [History Last Taken 09/28/23] dulaglutide 4.5 mg/0.5 mL subcutaneous pen injector (Trulicity) 4.5 mg subcut QWEEK 12/19/22 [History Last Taken 09/28/23] insulin glargine 100 unit/mL (3 mL) subcutaneous pen (Basaglar Tempo Pen (U-100) Insulin) 44 unit subcut QPM 12/19/22 [History Last Taken 09/28/23] ropinirole 0.5 mg tablet 1 mg PO TID 12/19/22 [History Last Taken 09/28/23] spironolactone 25 mg tablet 25 mg PO DAILY #90 tabs 12/19/22 [Rx Last Taken 09/28/23] prednisone 10 mg tablet 5 mg PO DAILY 07/25/23 [History Last Taken 09/28/23] insulin aspart (niacinamide)(U-100) 100 unit/mL(3 mL) subcutaneous pen (Fiasp FlexTouch U-100 Insulin) 22 unit subcut TID 09/29/23 [History Last Taken 09/28/23] pantoprazole 40 mg tablet,delayed release 40 mg PO DAILY 09/29/23 [History Last Taken 09/28/23] fluorometholone 0.1 % eye drops,suspension 1 drp ophthalmic (eye) Q12H 10/19/23 [History Last Taken Unknown] nirmatrelvir 300 mg (150 mg x2)-ritonavir 100 mg tablet,dose pack (Paxlovid) See Rx Instructions PO .COMPLEX #30 tabs 10/19/23 [Rx Last Taken Unknown] prochlorperazine maleate 10 mg tablet 10 mg PO Q6H 10/19/23 [History Last Taken Unknown] Allergy/AdvReac Type Severity Reaction Status Date / Time furosemide [From Lasix] Allergy Intermediate elevated Verified 10/19/23 13:51 glucose simvastatin AdvReac Severe myalgia Verified 10/19/23 13:51 celecoxib [From Celebrex] AdvReac Intermediate GI upset Verified 10/19/23 13:51 codeine AdvReac Intermediate GI upset Verified 10/19/23 13:51 lisinopril AdvReac Intermediate cough Verified 10/19/23 13:51 hydrochlorothiazide AdvReac Unknown unknown, Verified 10/19/23 13:51 ask pt at appt metformin AdvReac Other Verified 10/19/23 13:51 naproxen [From Naprosyn] AdvReac Upset Verified 10/19/23 13:51 Stomach oxycodone AdvReac Nausea/Vom/ Verified 10/19/23 13:51 Diarrhea Family History Mother Arthritis CAD (coronary artery disease) Father CAD (coronary artery disease) Diabetes Sister Diabetes Hypertension Sister Diabetes Hypertension Sister Diabetes Hypertension Sister Hypertension Brother Diabetes Hypertension Brother Diabetes Hypertension Brother Hypertension Surgical History H/O cervical spine surgery (06/14/16) H/O lumbosacral spine surgery (~1989) H/O Spinal surgery History of arthroplasty of left shoulder (~2003) History of blepharoplasty (08/2009) History of carpal tunnel release of both wrists History of colonoscopy (12/16/08) History of esophagogastroduodenoscopy (EGD) (10/21/07) History of tonsillectomy History of total abdominal hysterectomy (1983) Hx of bilateral cataract extraction S/P PICC central line placement (02/26/19) Status post laser cataract surgery of right eye (12/2006) Social History (Updated 10/19/23 @ 14:31 by Deanna Hoffman) household members: spouse housing: house Smoking Status: Former smoker quit date: 04/03/1968 Tobacco: How many years used: 1 how long ago did patient quit smokin alcohol intake: never substance use type: does not use caffeine: Yes Type: tea ROS ROS ED Review of Systems ROS Unobtainable: other Constitutional Constitutional ED: Reports chills and lethargy; Denies fever(s), sweats or weight loss Eyes Eyes: Denies blurry vision, change in vision or diplopia ENT ENT ED: Denies rhinorrhea or sore throat Cardiovascular Cardiovascular: Denies chest pain, orthopnea or racing heartbeat Respiratory/Chest Respiratory/Chest: Reports cough and dyspnea; Denies dyspnea on exertion, orthopnea or sputum Gastrointestinal Gastrointestinal: Denies abdominal pain, diarrhea, nausea or vomiting Genitourinary Genitourinary ED: Denies dysuria, hematuria or urinary frequency Musculoskeletal Musculoskeletal: Denies arthralgias, back pain, myalgias or neck pain Integumentary Denies abscess, Abrasions or rash Neurologic Neurologic: Denies headache(s) or weakness Psychiatric Psychiatric: Denies anxiety, depression or suicidal thoughts Endocrine Endocrinology: Denies polydipsia, polyphagia or polyuria Hematologic/Lymphatic Hematologic/Lymphatic: Denies easy bleeding, easy bruising or lymphadenopathy Allergic/Immunologic Allergic/Immunologic ED: Denies mouth swelling, tongue swelling or urticaria EXAM Physical Exam Const Vital Signs: 10/19/23 13:44 10/19/23 14:30 10/19/23 14:33 Temperature 97.7 F L Temperature Source Temporal Pulse Rate 96 101 H Respiratory Rate 16 27 H Respiratory Effort Short of Breath Respiratory Pattern Normal Blood Pressure 119/48 L 131/95 H Blood Pressure Mean 71 107 Pulse Ox 99 95 Oxygen Delivery Method Room Air Room Air 10/19/23 16:40 10/19/23 16:40 Temperature Temperature Source Pulse Rate Respiratory Rate 16 Respiratory Effort Respiratory Pattern Blood Pressure 121/72 H Blood Pressure Mean 88 Pulse Ox Oxygen Delivery Method Positive well nourished and well developed General Appearance ED: well developed and NAD HEENT Reports TM's clear and moist mucous membranes normocephalic and atraumatic; Negative for trauma or tenderness Tympanic Membrane ED: Yes TM's clear Eyes PERRL and EOMs intact bilaterally General Eye ED: Negative for pale conjunctiva or scleral icterus Neck no lymphadenopathy, supple and no JVD General: Negative for tenderness Chest Wall inspection of chest normal and palpation of chest normal Chest: Negative for tenderness Resp normal respiratory effort and clear to auscultation bilaterally Effort and Inspection: Negative for respiratory distress or pain with movement Auscultation: Negative for rhonchi, wheezes or diminished lung sounds Cardio regular rate, regular rhythm, S1 normal heart sound, S2 normal heart sound and no murmurs Peripheral Pulses: pulses 2+ throughout GI normal to inspection, nondistended, normoactive bowel sounds, soft to palpation, non-tender, non-distended and no masses Back/Spine no CVA tenderness and no thoracic nor lumbar tenderness Extremity normal to inspection Extremity Narrative: +2 edema both lower extremities. General Extremety ED: Yes edema General Extremity: edema Neuro oriented x3, CN's II-XII intact bilaterally, no sensory deficits noted and gait normal Sensorium / Orientation: awake, alert, oriented to person, oriented to place and oriented to time Motor Exam: strength 5/5 throughout and strength abnormal Psych mental status grossly normal Skin no rashes or lesions noted and no wounds MDM MDM MDM Narrative Medical decision making narrative: Patient complains of shortness of breath that started today and chills. Clinically she looks well. IV established. CBC with differential obtained showing 11.3 with hemoglobin 9.3 and platelet count of 264. Chemistries unremarkable. BUN 24 creatinine 1.3. Lactate normal at 1.7. 1 view chest x-ray obtained interpreted by myself as no evidence of infiltrate or acute disease process. Influenza COVID testing positive for COVID-19. Urinalysis unremarkable. I did discuss case with Dr. Luciano who is patient's popcorn machine operator who did recommend that we start Paxlovid. Patient was ordered the Paxlovid. She is comfortable with going home and following up with Dr. Luciano's office within the next 10 days to 2 weeks. She is advised to return if increasing shortness of breath or condition worsen anyway. Lab Data Attestation: I reviewed the patient's lab results. Labs: Laboratory Results - last 24 hr 10/19/23 10/19/23 14:22 15:38 WBC 11.3 H RBC 3.02 L Hgb 9.3 L Hct 29.5 L MCV 97.7 MCH 30.8 MCHC 31.5 L RDW Std Deviation 55.3 H RDW Coeff of Britt 15.6 H Plt Count 264 MPV 9.4 Immature Gran % (Auto) 1.400 H Neut % (Auto) 86.4 H Lymph % (Auto) 2.5 L [place] % (Auto) 8.8 Eos % (Auto) 0.4 Baso % (Auto) 0.5 Absolute Neuts (auto) 9.7 H Absolute Lymphs (auto) 0.28 L Nucleated RBC % 0 Differential Comment SCANNED Sodium 141 Potassium 4.2 Chloride 108 H Carbon Dioxide 25.0 Anion Gap 8 BUN 24 H Creatinine 1.30 H Estim Creat Clear Calc 24.79 Est GFR (MDRD) Af Amer 51 L Est GFR (MDRD) Non-Af 42 L BUN/Creatinine Ratio 18.5 Glucose 211 H Lactic Acid 1.7 Calcium 8.4 L Total Bilirubin 0.90 AST 29 ALT 30 Alkaline Phosphatase 107 Troponin I High Sens 13 Total Protein 5.9 L Albumin 3.0 L Globulin 2.9 Albumin/Globulin Ratio 1.0 Urine Color Yellow Urine Clarity Sl Cldy Urine pH 6.0 Ur Specific [place] 1.015 Urine Protein Negative Urine Glucose (UA) 100 H Urine Ketones Negative Urine Occult Blood 10 H Urine Nitrite Negative Urine Bilirubin Negative Urine Urobilinogen 1 H Ur Leukocyte Esterase 100 H Urine RBC 0-5 SEEN Urine WBC 25-50 SEEN Ur Squamous Epith Cells 0-5 SEEN Urine Bacteria 0 SEEN Urine Mucus 0 SEEN Radiography Diagnostic Testing: Clinical Impression(s) from Imaging Studies Chest X-Ray 10/19/23 14:07 IMPRESSION: There are no acute findings. Electronically Signed: Gigi Oropeza MD at 15:08 EST , 1 view chest x-ray obtained interpreted by myself as no evidence of infiltrate or acute disease process. Radiology in agreement. EKG Initial EKG: Attestation: I personally reviewed and interpreted this EKG as follows: Comments: Sinus rhythm with rate of 100 bpm with no acute ST segment changes Discharge Plan Triage Chief Complaint: Weakness Other Complaint: General Illness ED Provider: Zoila Brantely Dx/Rx/DC Orders Clinical Impression: COVID-19, Weakness Instructions: Caring for Someone Who Has COVID-19 Prescriptions: New Paxlovid 300 mg (150 mg x 2)-100 mg tablets,dose pack See Rx Instructions .ROUTE .COMPLEX Qty: 30 0RF Rx Instructions: take TWO 150 mg tablets of nirmatrelvir with ONE 100 mg tablet of ritonavir twice daily for 5 days No Action atenolol 25 mg tablet 25 mg PO DAILY losartan 100 mg tablet 100 mg PO DAILY Trulicity 4.5 mg/0.5 mL pen injector 4.5 mg subcut QWEEK ropinirole 0.5 mg tablet 1 mg PO TID spironolactone 25 mg tablet 25 mg PO DAILY Qty: 90 3RF cholecalciferol (vitamin D3) 25 mcg (1,000 unit) tablet 1,000 unit PO DAILY folic acid 1 mg Tablet 1 mg PO DAILY rosuvastatin 20 mg Tablet 20 mg PO DAILY Probiotic 10 billion cell Capsule 10,000 mmu cells PO DAILY insulin glargine [Basaglar Tempo Pen(U-100)Insln] 100 unit/mL (3 mL) insulin pen 44 unit SUBCUT QPM prednisone 10 mg tablet 5 mg PO DAILY Fiasp FlexTouch U-100 Insulin 100 unit/mL (3 mL) insulin pen 22 unit SUBCUT TID pantoprazole 40 mg tablet,delayed release (DR/EC) 40 mg PO DAILY fluorometholone 0.1 % drops,suspension 1 drp ophthalmic (eye) Q12H Patient Comments: place 1 drop into both eyes twice a day prochlorperazine maleate 10 mg tablet 10 mg PO Q6H Patient Comments: TAKE 1 TABLET BY MOUTH EVERY 6 HOURS NEEDED Primary Care Provider: Kameron Kemp Referrals: Kameron Kemp MD [Primary Care Provider] - Issac Luciano MD [Med Staff - Active Staff] - 10-14 Days if not better Disposition Disposition: Home, Self Care Discharge Date/Time: 10/19/23 16:41
[2023-10-19] MEDS: 0.9% Normal Saline (1000mL) 1,000 ML 15 ML IV (14:29)
[2023-10-19 14:30] VITALS: BP 131/95; PULSE 101; RESP 27; O2SAT 95
[2023-10-19 14:45] LABS: Absolute Lymphocyte Count 0.28 X10^3/uL (0.83-4.51); Absolute Neutrophil Count 9.7 X10^3/uL (2.0-7.7); Basophil# 0.06 X10^3/uL; Basophil% 0.5 % (0-1); Eosinophil# 0.05 X10^3/uL; Eosinophils% 0.4 % (0-5); Hematocrit 29.5 % (37-47); Hemoglobin 9.3 g/dL (12.0-15.0); Lymphocyte # 0.28 X10^3/ul (0.83-4.51); Lymphocyte % 2.5 % (19-41); Mean Corp Hgb Conc 31.5 g/dL (32-36); Mean Corpuscular Hgb 30.8 pg (27.0-32.0); Mean Corpuscular Volume 97.7 fL (81-99); Mean Platelet Vol. 9.4 fl (6.2-12.0); Monocyte# 0.99 X10^3/uL; Monocyte% 8.8 % (0-10); NRBC Flagged by Analyzer 0 % (0-5); Neutrophil # 9.72 X10^3/uL (2.7-7.7); Neutrophil % 86.4 % (47-70); POSITIVE DIFFERENTIAL YES; Platelet Count 264 K/mm3 (150-450); RBC Distribution Width CV 15.6 % (11.6-14.6); RBC Distribution Width SD 55.3 fl (35.1-43.9); Red Blood Count 3.02 M/mm3 (4.2-5.4); White Blood Count 11.3 K/mm3 (4.4-11.0)
[2023-10-19 14:46] LABS: Differential Indicated SCAN CRITERIA MET
[2023-10-19 15:08] LABS: Lactic Acid 1.7 mmol/L (0.4-1.9)
[2023-10-19 15:10] LABS: AST(SGOT) 29 U/L (15-37); Alanine Aminotransfer ALT/SGPT 30 U/L (13-56); Alkaline Phosphatase 107 U/L (45-117); Anion Gap 8 (5-15); BUN 24 mg/dL (7-18); BUN/Creat Ratio 18.5 RATIO (10-20); Calcium,Total 8.4 mg/dL (8.5-10.1); Chloride 108 mmol/L (98-107); EST Glomerular Filtration Rate 42 mL/min (>60); Est Glom Filt Rate - Afr Amer 51 mL/min (>60); Estimated Creatinine Clearance 24.79 ml/min; Globulin 2.9 g/dL (2.2-4.2); Glucose 211 mg/dL (74-106); Potassium 4.2 mmol/L (3.5-5.1); Protein, Total 5.9 g/dL (6.4-8.2); Sodium Level 141 mmol/L (136-145); Troponin-I HS 13 pg/mL (3.0-54.0)
[2023-10-19 15:26] LABS: Differential Comment SCANNED
[2023-10-19 15:44] LABS: Bacteria 0 SEEN /hpf (None Seen); Mucous, Urine 0 SEEN /hpf (<or=2+)
[2023-10-19 15:47] LABS: Color, Urine Yellow (Yellow); Glucose, Dipstick 100 mg/dl (Normal); Ketone-Dipstick Negative (Negative); Leukocyte Esterase-Dipstick 100 /ul (Negative); Nitrite-Dipstick Negative (Negative); Occult Blood-Urine 10 /ul (Negative); Protein-Dipstick Negative (Negative); Specific Gravity, Urine 1.015 (1.002-1.030); Urine Bilirubin Dipstick Negative (Negative); Urine Urobilinogen 1 mg/dl (Normal)
[2023-10-19 15:57] LABS: Red Blood Cells-Urine 0-5 SEEN /hpf (0-5); Squamous Epithelial Cells - UA 0-5 SEEN /hpf (5-10); White Blood Cells 25-50 SEEN /hpf (0-5)
[2023-10-19 15:58] LABS: Urine Clarity Sl Cldy (Clear)
[2023-10-19 16:40] VITALS: BP 121/72; RESP 16
== END 2023-10-19 16:41 | disposition home or self-care (01) ==
PROVIDERS: Emergency Provider Emergency Medicine; PCP Family Medicine; Visit Provider Emergency Medicine
DX: U07.1 COVID-19 (principal); I48.0 Paroxysmal atrial fibrillation; E11.9 Type 2 diabetes mellitus without complications; Z79.4 Long term (current) use of insulin; R53.1 Weakness; I10 Essential (primary) hypertension; E78.5 Hyperlipidemia, unspecified; G47.33 Obstructive sleep apnea (adult) (pediatric); E55.9 Vitamin D deficiency, unspecified; K21.9 Gastro-esophageal reflux disease without esophagitis; Z87.891 Personal history of nicotine dependence; Z79.899 Other long term (current) drug therapy; Z86.718 Personal history of other venous thrombosis and embolism
CPT/HCPCS: 71045; 80053; 81001; 83605; 84484; 85025; 87077; 87086; 87088; 87186; 87428; 93005; 99284; J7030; P9612; A4216

== ENCOUNTER 2023-11-06 11:11 | Inpatient (IN) | payer MEDICARE, OTHER, SELFPAY ==
[2023-11-06] VITALS (13 sets, daily range): BP systolic 85–130; BP diastolic 42–79; PULSE 74–95; RESP 14–36; TEMP 36.4–38.2; O2SAT 89–98; BMI 33.3; BMI 32.2
--- NOTE | 2023-11-06 12:35 | RAD_ITS ---
STUDY: X-RAY CHEST REASON FOR EXAM: Female, 78 years old. Cough and weakness. TECHNIQUE: Single frontal view of the chest. COMPARISON: October 19, 2023 FINDINGS: Slight increase in bibasilar linear opacities compatible with atelectasis. Early/developing pneumonia cannot be excluded and follow up chest imaging to resolution is recommended. Stable cardiomegaly. Normal size heart. Normal mediastinum and giovanna. Normal visualized pulmonary arteries. Normal visualized aortic arch and descending thoracic aorta. Normal visualized thoracic spine. Normal visualized ribs, clavicles, and shoulders. There is no demonstrated abnormality of the visualized soft tissue structures of the upper abdomen. RAD/Chest 1 View (Portable) IMPRESSION: Bibasilar atelectasis. Early/developing pneumonia cannot be excluded so follow-up chest imaging to resolution is recommended. Electronically Signed: Pool Hickey MD at 12:53 EST ,
[2023-11-06 12:44] LABS: Absolute Lymphocyte Count 0.32 X10^3/uL (0.83-4.51); Absolute Neutrophil Count 4.4 X10^3/uL (2.0-7.7); Basophil# 0.01 X10^3/uL; Basophil% 0.2 % (0-1); Hematocrit 25.3 % (37-47); Hemoglobin 9.5 g/dL (12.0-15.0); Lymphocyte # 0.32 X10^3/ul (0.83-4.51); Lymphocyte % 6.1 % (19-41); Mean Corp Hgb Conc 37.5 g/dL (32-36); Mean Corpuscular Hgb 34.9 pg (27.0-32.0); Mean Platelet Vol. 10.5 fl (6.2-12.0); Monocyte# 0.54 X10^3/uL; Monocyte% 10.2 % (0-10); NRBC Flagged by Analyzer 0 % (0-5); Neutrophil # 4.36 X10^3/uL (2.7-7.7); Neutrophil % 82.7 % (47-70); POSITIVE DIFFERENTIAL YES; Platelet Count 170 K/mm3 (150-450); RBC Distribution Width CV 16.2 % (11.6-14.6); Red Blood Count 2.72 M/mm3 (4.2-5.4); White Blood Count 5.3 K/mm3 (4.4-11.0)
[2023-11-06] MEDS: 0.9% Normal Saline (500mL Bag) 500 ML 1000 ML IV (12:44)
[2023-11-06] MEDS: Ipratropium/Albuterol Sulfate 3 ML AMPUL.NEB INHALATION ×2 (12:50→23:40)
[2023-11-06 12:53] LABS: Differential Indicated SCAN CRITERIA MET
[2023-11-06 13:26] LABS: ALB/GLOB Ratio 0.8 RATIO (0.9-2.4); AST(SGOT) 39 U/L (15-37); Alanine Aminotransfer ALT/SGPT 18 U/L (13-56); Albumin, Serum 2.8 g/dL (3.2-5.0); Alkaline Phosphatase 92 U/L (45-117); Anion Gap 10 (5-15); BUN 37 mg/dL (7-18); BUN/Creat Ratio 18.1 RATIO (10-20); Calcium,Total 8.6 mg/dL (8.5-10.1); Chloride 100 mmol/L (98-107); Creatinine, Serum 2.04 mg/dL (0.55-1.02); EST Glomerular Filtration Rate 25 mL/min (>60); Est Glom Filt Rate - Afr Amer 30 mL/min (>60); Globulin 3.3 g/dL (2.2-4.2); Glucose 357 mg/dL (74-106); Potassium 4.8 mmol/L (3.5-5.1); Protein, Total 6.1 g/dL (6.4-8.2); Sodium Level 133 mmol/L (136-145); Troponin-I HS 35 pg/mL (3.0-54.0)
[2023-11-06 13:29] LABS: Prothrombin Time (Protime)PT. 13.5 SECONDS (11.7-14.9)
[2023-11-06 13:30] LABS: Partial Thromboplast Time 26.1 Seconds (24.1-36.2)
[2023-11-06 13:32] LABS: Lactic Acid 2.6 mmol/L (0.4-1.9)
[2023-11-06 13:36] LABS: Anisocytosis 1+
[2023-11-06] MEDS: Ceftriaxone 1 GM/50 ML BAG IV (14:52)
[2023-11-06 15:00] LABS: Procalcitonin 1.53 ng/mL (0.00-0.09)
[2023-11-06] MEDS: 0.9% Normal Saline (500mL Bag) 500 ML 999 ML IV (15:44)
[2023-11-06] MEDS: Azithromycin 500 MG in Dextrose 5%-Water (250mL Bag) 250 ML 250 MG IV (15:46)
--- NOTE | 2023-11-06 15:50 | PCM.HP.STD ---
HPI - General General Date of Admission: 11/06/23 Date of Service: 11/06/23 Chief Complaint: Short of breath, generalized weakness HPI Narrative MARCOS OLIVEIRA, is a 78-year-old female history of central sleep apnea, lymphoma, hypertension, DMII, paroxysmal atrial fibrillation, PE presented to [facility] 11/06/2023 with increased weakness and fatigue over several days, was diagnosed on COVID on October 21 with symptoms starting October 19 and has continued to have cough and shortness of breath with increased weakness prompting her to return to the emergency department. Today she went to [facility] to have her blood drawn as she does at least once a week due to her chronic anemia and it was hard for her to even get back in the car when she was leaving, when she got home she had to sit down on the steps and could not get back up prompting her to come to the ED. In the ED she is not hypoxic however she is tachypneic, chest x-ray shows an early pneumonia and patient also has lactic acid of 2.6 with a total bili 1.9, glucose 357 and she has an BERTA with creatinine 2.04 with a baseline of around 1.3. Patient given gentle hydration and nebs and hospitalist contacted for admission. Patient evaluated at bedside with family member present. They endorse history of her being sick since mid October with shortness of breath not serially worsening but not improving, has had cough and intermittently has had some diarrhea and nausea that has been present intermittently over the past couple of weeks, was diagnosed with COVID in October 21 and completed Paxlovid but again still not feeling well overall. Has felt some intermittent left-sided chest pains, and no swelling in legs. No current fevers or chills. Did have an episode in the last 48 hours of 1 dark bowel movement but has not had any before or since and presently not having abdominal pain and not having nausea at present either but does have history of GI bleed and is supposed to have capsule endoscopy on outpatient basis. [facility] Medical History Abnormality of gait Anxiety Arthritis Atrial fibrillation Cancer Central sleep apnea Cervical spondylosis with myelopathy Chronic constipation Constipation Deep vein thrombosis of both lower extremities (08/2020) Diabetes Diabetes mellitus type II, controlled Diverticulosis of colon Dizziness DVT (deep venous thrombosis) Dynamic left ventricular outflow obstruction Essential hypertension GERD (gastroesophageal reflux disease) Hyperlipidemia Hypertension Internal hemorrhoids Nonrheumatic aortic (valve) stenosis Obstructive sleep apnea Osteoarthritis Paroxysmal atrial fibrillation Right arm weakness Right hemiparesis RLS (restless legs syndrome) Rosacea 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 Vitamin D deficiency Home Medications atenolol 25 mg tablet 25 mg PO QHS blood pressure 12/18/21 [History Last Taken 09/28/23] cholecalciferol (vitamin D3) 25 mcg (1,000 unit) tablet 1,000 unit PO DAILY supplement 12/18/21 [History Last Taken 09/28/23] losartan 100 mg tablet 100 mg PO DAILY blood pressure 12/18/21 [History Last Taken 09/28/23] Lactobacillus acidophilus 10 billion cell capsule (Probiotic) 10,000 mmu cells PO DAILY supplement 10/21/22 [History Last Taken 09/28/23] folic acid 1 mg tablet 1 mg PO DAILY supplement 10/21/22 [History Last Taken 09/28/23] rosuvastatin 20 mg tablet 20 mg PO DAILY cholestrol 10/21/22 [History Last Taken 09/28/23] dulaglutide 4.5 mg/0.5 mL subcutaneous pen injector (Trulicity) 3 mg subcut QWEEK blood glucose 12/19/22 [History Last Taken 09/28/23] insulin glargine 100 unit/mL (3 mL) subcutaneous pen (Basaglar Tempo Pen (U-100) Insulin) 44 unit subcut QPM blood glucose 12/19/22 [History Last Taken 09/28/23] ropinirole 0.5 mg tablet 1 mg PO BID restkess legs 12/19/22 [History Last Taken 09/28/23] spironolactone 25 mg tablet 25 mg PO DAILY diruretic #90 tabs 12/19/22 [Rx Last Taken 09/28/23] prednisone 10 mg tablet 5 mg PO DAILY inflammation 07/25/23 [History Last Taken 09/28/23] fluorometholone 0.1 % eye drops,suspension 1 drp ophthalmic (eye) Q12H dry eyes 10/19/23 [History Last Taken Unknown] Allergy/AdvReac Type Severity Reaction Status Date / Time furosemide [From Lasix] Allergy Intermediate elevated Verified 10/19/23 13:51 glucose simvastatin AdvReac Severe myalgia Verified 10/19/23 13:51 celecoxib [From Celebrex] AdvReac Intermediate GI upset Verified 10/19/23 13:51 codeine AdvReac Intermediate GI upset Verified 10/19/23 13:51 lisinopril AdvReac Intermediate cough Verified 10/19/23 13:51 hydrochlorothiazide AdvReac Unknown unknown, Verified 10/19/23 13:51 ask pt at appt metformin AdvReac Other Verified 10/19/23 13:51 naproxen [From Naprosyn] AdvReac Upset Verified 10/19/23 13:51 Stomach oxycodone AdvReac Nausea/Vom/ Verified 10/19/23 13:51 Diarrhea Family History Mother Arthritis CAD (coronary artery disease) Father CAD (coronary artery disease) Diabetes Sister Diabetes Hypertension Sister Diabetes Hypertension Sister Diabetes Hypertension Sister Hypertension Brother Diabetes Hypertension Brother Diabetes Hypertension Brother Hypertension Surgical History H/O cervical spine surgery (06/14/16) H/O lumbosacral spine surgery (~1989) H/O Spinal surgery History of arthroplasty of left shoulder (~2003) History of blepharoplasty (08/2009) History of carpal tunnel release of both wrists History of colonoscopy (12/16/08) History of esophagogastroduodenoscopy (EGD) (10/21/07) History of tonsillectomy History of total abdominal hysterectomy (1983) Hx of bilateral cataract extraction S/P PICC central line placement (02/26/19) Status post laser cataract surgery of right eye (12/2006) Social History household members: spouse housing: house Smoking Status: Former smoker quit date: 04/03/1968 Tobacco: How many years used: 1 how long ago did patient quit smokin alcohol intake: never substance use type: does not use caffeine: Yes Type: tea ROS ROS Narrative General: Denies fever/chills feels generally unwell HENT: Denies headache, denies stuffy nose, denies sore throat EYES: Denies changes in vision Resp: Has had cough without significant sputum and has had persistent shortness of breath Cardiac: Occasionally will have some left-sided chest discomfort that is reproducible GI: Intermittently has problems with nausea and diarrhea, had a dark bowel movement 2 days ago without any further episodes and not presently having any abdominal pain or nausea today : Denies changes in urination Extremity: Denies swelling MSK: Generalized weakness Neuro: Denies any numbness/tingling Heme: Denies any bleeding or bruising Skin: Denies rashes Psychiatric: No complaints voiced Vital Signs Vital Signs Vital Signs: 11/06/23 11:12 11/06/23 11:13 11/06/23 11:13 Temperature 97.5 F L Temperature Source Temporal Pulse Rate 95 92 Respiratory Rate 16 30 H Respiratory Effort Short of Breath Respiratory Pattern Tachypnea Blood Pressure 130/59 H Blood Pressure Mean 82 Blood Pressure Source Blood Pressure Position Blood Pressure Location Pulse Ox 94 95 Oxygen Delivery Method Room Air Room Air 11/06/23 11:21 11/06/23 12:51 11/06/23 13:51 Temperature 98.8 F Temperature Source Temporal Pulse Rate 87 88 89 Respiratory Rate 30 H 31 H 28 H Respiratory Effort Respiratory Pattern Tachypnea Blood Pressure 125/75 H 98/49 L Blood Pressure Mean 91 65 Blood Pressure Source Blood Pressure Position Blood Pressure Location Pulse Ox 98 98 Oxygen Delivery Method Room Air Room Air 11/06/23 15:34 Temperature 100.7 F H Temperature Source Oral Pulse Rate 95 Respiratory Rate 36 H Respiratory Effort Respiratory Pattern Blood Pressure 85/56 L Blood Pressure Mean 65 Blood Pressure Source Monitor Blood Pressure Position Semi-Fowlers Blood Pressure Location Right Arm Pulse Ox 92 Oxygen Delivery Method Room Air Weight Weight: 74.8 kg Body Mass Index (BMI) 32.2 Physical Exam Narrative General: Alert, oriented HEENT: Atraumatic, normocephalic Eyes: Anicteric, normal conjunctiva, extraocular movements grossly intact Neck: Supple Respiratory: Slight increased respiratory effort, breath sounds, diminished at the bases Cardiovascular: Regular rate and rhythm GI: Soft, nontender, nondistended Extremities: No edema Musculoskeletal: Moving all extremities Neuro: No overt focal neurological deficits Skin: No rashes appreciated Psych: Cooperative Results Lab / Micro Data 11/06/23 11:36 11/06/23 13:00 Labs: Laboratory Results - last 24 hr 11/06/23 11:36: WBC 5.3, RBC 2.72 L, Hgb 9.5 L, Hct 25.3 L, MCV 93.0, MCH 34.9 H, MCHC 37.5 H, RDW Std Deviation 50.0 H, RDW Coeff of Britt 16.2 H, Plt Count 170, MPV 10.5, Immature Gran % (Auto) 0.800, Neut % (Auto) 82.7 H, Lymph % (Auto) 6.1 L, [place] % (Auto) 10.2 H, Eos % (Auto) 0.0, Baso % (Auto) 0.2, Absolute Neuts (auto) 4.4, Absolute Lymphs (auto) 0.32 L, Nucleated RBC % 0, Anisocytosis 1+, PT Cancelled, INR Cancelled, APTT Cancelled, Sodium Cancelled, Potassium Cancelled, Chloride Cancelled, Carbon Dioxide Cancelled, Anion Gap Cancelled, BUN Cancelled, Creatinine Cancelled, Estim Creat Clear Calc Cancelled, Est GFR (MDRD) Af Amer Cancelled, Est GFR (MDRD) Non-Af Cancelled, BUN/Creatinine Ratio Cancelled, Glucose Cancelled, Lactic Acid Cancelled, Calcium Cancelled, Total Bilirubin Cancelled, AST Cancelled, ALT Cancelled, Alkaline Phosphatase Cancelled, Troponin I High Sens Cancelled, Total Protein Cancelled, Albumin Cancelled, Globulin Cancelled, Albumin/Globulin Ratio Cancelled, Blood Type B NEGATIVE, Antibody Screen NEGATIVE 11/06/23 13:00: PT 13.5, INR 1.0, APTT 26.1, Sodium 133 L, Potassium 4.8, Chloride 100, Carbon Dioxide 23.0, Anion Gap 10, BUN 37 H, Creatinine 2.04 H, Estim Creat Clear Calc 15.80, Est GFR (MDRD) Af Amer 30 L, Est GFR (MDRD) Non-Af 25 L, BUN/Creatinine Ratio 18.1, Glucose 357 H, Lactic Acid 2.6 H*, Calcium 8.6, Total Bilirubin 1.90 H, AST 39 H, ALT 18, Alkaline Phosphatase 92, Troponin I High Sens 35, Total Protein 6.1 L, Albumin 2.8 L, Globulin 3.3, Albumin/Globulin Ratio 0.8 L 11/06/23 14:02: Procalcitonin 1.53 H Micro: Microbiology 11/06/23 13:15 Stool Stool Occult Blood (SHERRI) - Final 11/06/23 11:39 Mucosa - Nose SARS-CoV-2, Influenza & RSV (PCR) - Final SARS-CoV-2 (COVID 19 PCR) Imagaing Radiology Impression Chest X-Ray 11/06/23 12:35 IMPRESSION: Bibasilar atelectasis. Early/developing pneumonia cannot be excluded so follow-up chest imaging to resolution is recommended. Electronically Signed: Pool Hickey MD at 12:53 EST Reading Location ID and State: [id number] [place] [address] , Service support , Assessment & Plan Assessment/Plan (1) Shortness of breath: (2) BERTA (acute kidney injury): (3) Anemia: QUALIFIERS: Anemia type: unspecified type Qualified Code(s): D64.9 - Anemia, unspecified (4) Central sleep apnea: (5) COVID-19: (6) Essential hypertension: (7) Paroxysmal atrial fibrillation: (8) Pulmonary emboli: QUALIFIERS: Pulmonary embolism type: unspecified Chronicity: unspecified Acute cor pulmonale presence: unspecified Qualified Code(s): I26.99 - Other pulmonary embolism without acute cor pulmonale PLAN: Plan # Generalized weakness and tachypnea in light of recent covid 19 with concern for development of bacterial pneumonia component/CAP -Concern that patient has superimposed pneumonia on top of her COVID, patient had COVID symptoms that started October 19 however recently worsened and has chest x-ray with possibly early developing pneumonia -DuoNebs and as needed albuterol -Sputum culture, COVID and flu w/ covid positive however pt has been positive since Oct 21, suspect this is not reinfection of covid but either additional bacterial component or other viral aspect, respiratory panel ordered -Urine antigens -Mucinex, I/S -Procal elevated, Will cover with antibiotics Rocephin and azithromycin -Will consult PT/OT -Pt on 5mg prednisone per med rec, will need to clarify reason for this, do not think pt needs stress dose steroids at this time #BERTA on likely CKD unclear subtype -Likely secondary to underlying illness and component of dehydration -Patient receiving gentle IV fluids -Monitor volume status -If not improving will need further workup -Hold spironolactone and losartan # History of chronic anemia -Does have history of GI bleed but also reported she does not make enough blood cells implying she has myelodysplastic component as well -Upon further review of records patient had low hemoglobin last month and was evaluated by GI and had upper endoscopy which did not show anything but mild hiatal hernia patient refused lower endoscopy so plan was for outpatient capsule endoscopy and she is currently off of her Xarelto -May be hemoconcentrated at this time but does not require transfusion -Continue to monitor -Did report she had 1 dark stool within the past 48 hours but FOBT negative # History of A-fib and pulmonary embolism -Off Xarelto due to anemia and concern for GI bleed last month with capsule endoscopy pending -Presently not hypoxic or tachycardic, only tachypneic, given abnormality on chest x-ray cannot perform VQ scan, given BERTA and PE being lower on differential do not think risks of contrast outweigh benefits, D-dimer likely of limited utility given patient also has COVID -Will obtain echocardiogram to assess for any right heart strain or other abnormalities -If any decompensation/lack of improvement will empirically anticoagulate #Type 2 diabetes mellitus -Glucose checks and sliding scale insulin -Continue long-acting insulin #RLS -Continue ropinirole #HTN -Pt has had BP on low side, will hold home antihypertensives #?Lymphoma -Follows with Dr. Lindo and per GI office note last month is undergoing chemotherapy but do not see other records of this -Will need to continue to f/u outpt #DVT ppx: Heparin subcu Saray Forte MD Charges/Coding Visit Charges Inpatient E&M: [id number] Init Hosp L2
--- NOTE | 2023-11-06 16:13 | EX.ED.DYSGE1 ---
HPI History of Present Illness Chief Complaint: Weakness Informant: patient Narrative Narrative: Patient is an 78-year-old female with history of proximal atrial fibrillation, sleep apnea, hypertension, hyperlipidemia, anemia requiring multiple blood transfusions as well as pulmonary emboli in 2019 presenting with generalized weakness. Patient receives a blood work every Friday and to monitor anemia. She states she is scheduled for capsule study. She is no longer on anticoagulation because of anemia and history of GI bleeding. Today was bringing her home from a lab appointment and she was very weak. He states he had to help her lift her legs just to get into the car and when she was walking inside (there are 2 steps) she sat down on the for step and cannot get her self back up. She did not fall. She has had a continued cough and shortness of breath since diagnosis of COVID-19 on October 19. Denies any recent fevers. Patient notes she did have black stools yesterday which he had not told her about. Denies any chest pain, nausea or vomiting. Denies any urinary symptoms. She is very weak and fatigued. Continues to have a progressively worsening cough and shortness of breath. [facility] Medical History Abnormality of gait Anxiety Arthritis Atrial fibrillation Cancer Central sleep apnea Cervical spondylosis with myelopathy Chronic constipation Constipation Deep vein thrombosis of both lower extremities (08/2020) Diabetes Diabetes mellitus type II, controlled Diverticulosis of colon Dizziness DVT (deep venous thrombosis) Dynamic left ventricular outflow obstruction Essential hypertension GERD (gastroesophageal reflux disease) Hyperlipidemia Hypertension Internal hemorrhoids Nonrheumatic aortic (valve) stenosis Obstructive sleep apnea Osteoarthritis Paroxysmal atrial fibrillation Right arm weakness Right hemiparesis RLS (restless legs syndrome) Rosacea 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 Vitamin D deficiency Home Medications atenolol 25 mg tablet 25 mg PO QHS blood pressure 12/18/21 [History Last Taken 09/28/23] cholecalciferol (vitamin D3) 25 mcg (1,000 unit) tablet 1,000 unit PO DAILY supplement 12/18/21 [History Last Taken 09/28/23] losartan 100 mg tablet 100 mg PO DAILY blood pressure 12/18/21 [History Last Taken 09/28/23] Lactobacillus acidophilus 10 billion cell capsule (Probiotic) 10,000 mmu cells PO DAILY supplement 10/21/22 [History Last Taken 09/28/23] folic acid 1 mg tablet 1 mg PO DAILY supplement 10/21/22 [History Last Taken 09/28/23] rosuvastatin 20 mg tablet 20 mg PO DAILY cholestrol 10/21/22 [History Last Taken 09/28/23] dulaglutide 4.5 mg/0.5 mL subcutaneous pen injector (Trulicity) 3 mg subcut QWEEK blood glucose 12/19/22 [History Last Taken 09/28/23] insulin glargine 100 unit/mL (3 mL) subcutaneous pen (Basaglar Tempo Pen (U-100) Insulin) 44 unit subcut QPM blood glucose 12/19/22 [History Last Taken 09/28/23] ropinirole 0.5 mg tablet 1 mg PO BID restkess legs 12/19/22 [History Last Taken 09/28/23] spironolactone 25 mg tablet 25 mg PO DAILY diruretic #90 tabs 12/19/22 [Rx Last Taken 09/28/23] prednisone 10 mg tablet 5 mg PO DAILY inflammation 07/25/23 [History Last Taken 09/28/23] fluorometholone 0.1 % eye drops,suspension 1 drp ophthalmic (eye) Q12H dry eyes 10/19/23 [History Last Taken Unknown] Allergy/AdvReac Type Severity Reaction Status Date / Time furosemide [From Lasix] Allergy Intermediate elevated Verified 10/19/23 13:51 glucose simvastatin AdvReac Severe myalgia Verified 10/19/23 13:51 celecoxib [From Celebrex] AdvReac Intermediate GI upset Verified 10/19/23 13:51 codeine AdvReac Intermediate GI upset Verified 10/19/23 13:51 lisinopril AdvReac Intermediate cough Verified 10/19/23 13:51 hydrochlorothiazide AdvReac Unknown unknown, Verified 10/19/23 13:51 ask pt at appt metformin AdvReac Other Verified 10/19/23 13:51 naproxen [From Naprosyn] AdvReac Upset Verified 10/19/23 13:51 Stomach oxycodone AdvReac Nausea/Vom/ Verified 10/19/23 13:51 Diarrhea Family History Mother Arthritis CAD (coronary artery disease) Father CAD (coronary artery disease) Diabetes Sister Diabetes Hypertension Sister Diabetes Hypertension Sister Diabetes Hypertension Sister Hypertension Brother Diabetes Hypertension Brother Diabetes Hypertension Brother Hypertension Surgical History H/O cervical spine surgery (06/14/16) H/O lumbosacral spine surgery (~1989) H/O Spinal surgery History of arthroplasty of left shoulder (~2003) History of blepharoplasty (08/2009) History of carpal tunnel release of both wrists History of colonoscopy (12/16/08) History of esophagogastroduodenoscopy (EGD) (10/21/07) History of tonsillectomy History of total abdominal hysterectomy (1983) Hx of bilateral cataract extraction S/P PICC central line placement (02/26/19) Status post laser cataract surgery of right eye (12/2006) Social History household members: spouse housing: house Smoking Status: Former smoker quit date: 04/03/1968 Tobacco: How many years used: 1 how long ago did patient quit smokin alcohol intake: never substance use type: does not use caffeine: Yes Type: tea ROS ROS ED Constitutional Constitutional ED: Reports other Details: Fatigue, lightheaded ; Denies chills or fever(s) Eyes Eyes: Denies blurry vision ENT ENT ED: Denies sore throat Cardiovascular Cardiovascular: Denies chest pain Respiratory/Chest Respiratory/Chest: Reports cough and dyspnea Gastrointestinal Gastrointestinal: Reports melena; Denies abdominal pain, nausea or vomiting Genitourinary Genitourinary ED: Denies dysuria Musculoskeletal Musculoskeletal: Reports myalgias; Denies arthralgias or back pain Neurologic Neurologic: Reports weakness; Denies headache(s) Hematologic/Lymphatic Hematologic/Lymphatic: Reports easy bleeding EXAM Physical Exam Const Vital Signs: 11/06/23 11:12 11/06/23 11:13 11/06/23 11:13 Temperature 97.5 F L Temperature Source Temporal Pulse Rate 95 92 Respiratory Rate 16 30 H Respiratory Effort Short of Breath Respiratory Pattern Tachypnea Blood Pressure 130/59 H Blood Pressure Mean 82 Pulse Ox 94 95 Oxygen Delivery Method Room Air Room Air 11/06/23 11:21 11/06/23 12:51 11/06/23 13:51 Temperature 98.8 F Temperature Source Temporal Pulse Rate 87 88 89 Respiratory Rate 30 H 31 H 28 H Respiratory Effort Respiratory Pattern Tachypnea Blood Pressure 125/75 H 98/49 L Blood Pressure Mean 91 65 Pulse Ox 98 98 Oxygen Delivery Method Room Air Room Air Positive well nourished and well developed Constitutional Narrative: Ill-appearing General Appearance ED: well developed and pallor HEENT Reports dry mucous membranes Mouth ED: Yes dry mucous membranes Mouth: dry mucous membranes Eyes PERRL and EOMs intact bilaterally Neck supple and no JVD Chest Wall inspection of chest normal and palpation of chest normal Resp Resp Narrative: Tachypneic, coarse breath sounds throughout with diminished breath sounds at the bases, dry hacking cough Cardio regular rate, regular rhythm and no murmurs GI normal to inspection, nondistended, normoactive bowel sounds and non-tender GI Narrative: Brown stool on rectal exam, guaiac negative Extremity normal to inspection Neuro oriented x3 Sensorium / Orientation: alert Motor Exam: general weakness Psych mental status grossly normal Skin no rashes or lesions noted and no wounds General Skin Exam: pallor MDM MDM MDM Narrative Medical decision making narrative: Patient is evaluated for generalized weakness. Has recent COVID-19 infection has history of anemia requiring blood transfusions most recently 3 weeks ago. Patient is persistently coughing in the ER and tachypneic. She does not appear to be in respiratory failure. She is given a DuoNeb with improvement of her cough. She does not have a leukocytosis. Her hemoglobin is actually mildly uptrending and I question if she could actually be dehydrated/hemoconcentrated. Her rectal exam is occult negative and patient does not have consistent with an acute bleed. Her lactate is elevated. Chest x-ray myself as well as radiology shows developing pneumonia. This is consistent with her clinical picture and likely the cause of her weakness. Patient does not meet SIRS criteria despite having an elevated lactic acid. Is given a total of 1 L fluid in the the ER. Patient does have BERTA with a creatinine of 2.04 (baseline is 1.30), this is more suggestive of dehydration. Started on Rocephin and azithromycin. Will be admitted for post-COVID pneumonia with generalized weakness and debility. Will add a procalcitonin after discussion with hospitalist. Pulmonary emboli is also on the differential for the cause of her tachypnea however clinical exam is more consistent with an infectious process. I am hesitant to anticoagulate at this time because of her history of GI bleeding/symptomatic anemia and she has an BERTA so do not feel comfortable CTA to her. This is discussed with hospitalist and she will follow the patient/determine anticoagulation needs. Continues to be COVID-positive. Given her COVID has been positive since the she is not a candidate for antiviral at this time. Lab Data Attestation: I reviewed the patient's lab results. Labs: Laboratory Results - last 24 hr 11/06/23 11/06/23 11/06/23 11:36 13:00 14:02 WBC 5.3 RBC 2.72 L Hgb 9.5 L Hct 25.3 L MCV 93.0 MCH 34.9 H MCHC 37.5 H RDW Std Deviation 50.0 H RDW Coeff of Britt 16.2 H Plt Count 170 MPV 10.5 Immature Gran % (Auto) 0.800 Neut % (Auto) 82.7 H Lymph % (Auto) 6.1 L [place] % (Auto) 10.2 H Eos % (Auto) 0.0 Baso % (Auto) 0.2 Absolute Neuts (auto) 4.4 Absolute Lymphs (auto) 0.32 L Nucleated RBC % 0 Anisocytosis 1+ PT Cancelled 13.5 INR Cancelled 1.0 APTT Cancelled 26.1 Sodium Cancelled 133 L Potassium Cancelled 4.8 Chloride Cancelled 100 Carbon Dioxide Cancelled 23.0 Anion Gap Cancelled 10 BUN Cancelled 37 H Creatinine Cancelled 2.04 H Estim Creat Clear Calc Cancelled 15.80 Est GFR (MDRD) Af Amer Cancelled 30 L Est GFR (MDRD) Non-Af Cancelled 25 L BUN/Creatinine Ratio Cancelled 18.1 Glucose Cancelled 357 H Lactic Acid Cancelled 2.6 H* Calcium Cancelled 8.6 Total Bilirubin Cancelled 1.90 H AST Cancelled 39 H ALT Cancelled 18 Alkaline Phosphatase Cancelled 92 Troponin I High Sens Cancelled 35 Total Protein Cancelled 6.1 L Albumin Cancelled 2.8 L Globulin Cancelled 3.3 Albumin/Globulin Ratio Cancelled 0.8 L Procalcitonin 1.53 H Blood Type B NEGATIVE Antibody Screen NEGATIVE Radiography Chest X-Ray - ED: 1 View, Read by ED Physician, Read by Radiologist and Right Infiltrate Diagnostic Testing: Clinical Impression(s) from Imaging Studies Chest X-Ray 11/06/23 12:35 IMPRESSION: Bibasilar atelectasis. Early/developing pneumonia cannot be excluded so follow-up chest imaging to resolution is recommended. Electronically Signed: Pool Hickey MD at 12:53 EST Reading Location ID and State: [address] [place] [address] , Service support , Rhythm Strip Rhythm Strip: Sinus Rhythm Rate: 105 Ectopy: None EKG Initial EKG: Attestation: I personally reviewed and interpreted this EKG as follows: Interpretation: Sinus Rhythm Comments: Normal sinus rhythm at a rate of 105 beats per minutes Significance artifact secondary to patient's coughing Minimal voltage criteria for LVH Normal ST segments Management Discussion w/another healthcare provider: Hospitalist Discharge Plan Dx/Rx/DC Orders Clinical Impression: Pneumonia, Anemia, COVID-19, Debility, BERTA (acute kidney injury) Disposition Disposition: Acute Care Hospital [facility] Discharge Date/Time: 11/06/23 15:16
[2023-11-06] MEDS: 0.9% Normal Saline (1000mL) 1,000 ML 75 ML IV (16:30)
[2023-11-06 16:44] LABS: Bedside Glucose 314 mg/dL (74-106)
[2023-11-06 17:05] LABS: Reflex Lactate? Y
[2023-11-06 18:16] LABS: Lactic Acid 1.8 mmol/L (0.4-1.9)
[2023-11-06] MEDS: Insulin Glargine-YFGN 100 UNIT/ML Pen 20 UNIT SC (21:11)
[2023-11-06] MEDS: Pramipexole Di-HCl 0.5 MG Tablet PO (21:15)
--- NOTE | 2023-11-06 21:26 | ECHOL_ITS ---
Reason For Study: DYSPNEA/SOB Procedure This was a limited 2D transthoracic echocardiogram. The study was technically difficult. PT refused to lie in position for testing & refused use of Definity for optimal ecndocardial imaging. Exam performed portable in patient room. The exam was abbreviated due to the COVID 19 protocol. Left Ventricle Normal LV size. Mild concentric left ventricular hypertrophy. The left ventricular ejection fraction is 65 %. Unable to assess diastolic function based on available data. Right Ventricle Normal right ventricle. Atria The left and right atria are normal. Mitral Valve Trivial mitral valve insufficiency. Tricuspid Valve Trivial tricuspid valve insufficiency. Normal pulmonary artery pressure. Aortic Valve Moderate diffuse aortic valve thickening. Mild diffuse aortic valve calcification. Aortic valve leaflet motion restricted. Consider mild aortic stenosis. No Doppler data available. Pulmonic Valve The pulmonic valve is not well visualized. Great Vessels Normal sized aortic root. Pericardium/Pleural No pericardial effusion. MMode/2D Measurements & Calculations LVIDd: 4.4 cm IVSd: 1.2 cm Ao root diam: 3.0 cm LVIDs: 3.4 cm LVPWd: 1.1 cm LA dimension: 3.4 cm RVDd: 2.9 cm FS: 22.8 % LAV(MOD-bp): 77.7 ml LVAd ap4: 24.8 cm2 SV(MOD-sp4): 46.7 ml LAV(MOD-bp) Indexed: 45.3 ml/m2 LVLd ap4: 7.3 cm LAV(MOD-sp2): 71.4 ml EDV(MOD-sp4): 68.8 ml LAV(MOD-sp4): 69.7 ml EDV(sp4-el): 71.5 ml LVAs ap4: 12.5 cm2 LVLs ap4: 6.1 cm ESV(MOD-sp4): 22.1 ml ESV(sp4-el): 21.6 ml EF(MOD-sp4): 67.9 % EF(sp4-el): 69.8 % SV(sp4-el): 49.9 ml LA A4 area: 23.0 cm2 Doppler Measurements & Calculations TR max romario: 224.4 cm/sec TR max P.1 mmHg ECHO/Echo, Limited Study Interpretation Summary The study was technically difficult. Mild concentric left ventricular hypertrophy. The left ventricular ejection fraction is 65 %. Mild diffuse aortic valve calcification. Aortic valve leaflet motion restricted. Consider mild aortic stenosis. No Doppl er data available. Ordering Physician: Saray Forte Referring Physician: Kameron Kemp Performed By: Isa Maravilla RDCS, RVT
[2023-11-06 22:36] LABS: Bedside Glucose 273 mg/dL (74-106)
[2023-11-06] MEDS: 0.9% Saline Lock 10 ML Syringe IV (22:48)
[2023-11-06] MEDS: Acetaminophen 325 MG Tablet 650 MG PO (22:48)
[2023-11-06] MEDS: guaiFENesin 1,200 MG Tablet 1200 MG PO (22:48)
[2023-11-07] VITALS (15 sets, daily range): BP systolic 97–129; BP diastolic 46–83; PULSE 67–104; RESP 14–22; TEMP 36.6–37.2; O2SAT 2–98; BMI 32.2
[2023-11-07] MEDS: Insulin Lispro 100 UNIT/ML INSULN.PEN SC ×4 (06:07→22:58)
[2023-11-07] MEDS: 0.9% Normal Saline (1000mL) 1,000 ML 75 ML IV (06:10)
[2023-11-07 06:33] LABS: Bedside Glucose 247 mg/dL (74-106)
[2023-11-07 07:21] LABS: Absolute Lymphocyte Count 0.48 X10^3/uL (0.83-4.51); Absolute Neutrophil Count 2.4 X10^3/uL (2.0-7.7); Basophil# 0.01 X10^3/uL; Basophil% 0.3 % (0-1); Eosinophil# 0.02 X10^3/uL; Eosinophils% 0.6 % (0-5); Hematocrit 23.8 % (37-47); Hemoglobin 7.5 g/dL (12.0-15.0); Lymphocyte # 0.48 X10^3/ul (0.83-4.51); Lymphocyte % 14.5 % (19-41); Mean Corp Hgb Conc 31.5 g/dL (32-36); Mean Corpuscular Hgb 28.2 pg (27.0-32.0); Mean Corpuscular Volume 89.5 fL (81-99); Mean Platelet Vol. 11.2 fl (6.2-12.0); Monocyte# 0.33 X10^3/uL; NRBC Flagged by Analyzer 0 % (0-5); Neutrophil # 2.44 X10^3/uL (2.7-7.7); POSITIVE DIFFERENTIAL YES; Platelet Count 128 K/mm3 (150-450); RBC Distribution Width CV 15.8 % (11.6-14.6); Red Blood Count 2.66 M/mm3 (4.2-5.4); White Blood Count 3.3 K/mm3 (4.4-11.0)
[2023-11-07] MEDS: Ipratropium/Albuterol Sulfate 3 ML AMPUL.NEB INHALATION ×3 (07:43→20:49)
[2023-11-07 08:13] LABS: ALB/GLOB Ratio 0.8 RATIO (0.9-2.4); AST(SGOT) 33 U/L (15-37); Alanine Aminotransfer ALT/SGPT 15 U/L (13-56); Albumin, Serum 2.3 g/dL (3.2-5.0); Alkaline Phosphatase 77 U/L (45-117); Anion Gap 6 (5-15); BUN 43 mg/dL (7-18); BUN/Creat Ratio 20.1 RATIO (10-20); Calcium,Total 8.1 mg/dL (8.5-10.1); Chloride 107 mmol/L (98-107); Creatinine, Serum 2.14 mg/dL (0.55-1.02); EST Glomerular Filtration Rate 24 mL/min (>60); Est Glom Filt Rate - Afr Amer 29 mL/min (>60); Estimated Creatinine Clearance 15.06 ml/min; Globulin 2.9 g/dL (2.2-4.2); Glucose 242 mg/dL (74-106); Potassium 4.4 mmol/L (3.5-5.1); Protein, Total 5.2 g/dL (6.4-8.2); Sodium Level 136 mmol/L (136-145); Thyroid Stim Hormone (TSH) 0.85 uIU/mL (0.358-3.74)
--- NOTE | 2023-11-07 08:31 | PN.HOSP_ITS ---
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) Essential (primary) hypertension (11/06/23) Other pulmonary embolism without acute cor pulmonale (11/06/23) Paroxysmal atrial fibrillation (11/06/23) Acute kidney failure, unspecified (11/06/23) Shortness of breath (11/06/23) COVID-19 (11/06/23) Subjective Subjective Patient is an 78-year-old lady who presented with progressive generalized weakness. Chest x-ray on admission demonstrated early developing pneumonia. Her COVID assay came back positive admitted to monitored bed for further management Objective Data Objective Data Vital Signs: Vital Signs Temp Pulse Resp BP Pulse Ox O2 Del Method O2 Flow Rate 98.2 F 96 18 97/83 H 95 Nasal Cannula 2 11/07/23 04:46 11/07/23 07:44 11/07/23 07:44 11/07/23 04:46 11/07/23 07:44 11/07/23 07:44 11/07/23 07:44 Oxygen Flow Rate (L/min) 2 Oxygen Delivery Method Nasal Cannula Weight: 74.8 kg Body Mass Index (BMI) 32.2 Intake & Output: Intake and Output for Last 24 Hours 11/05/23 11/06/23 11/07/23 23:59 23:59 23:59 Intake Total 1305 / 1425 620 / 620 Output Total 0 / 0 Balance 1305 / 1425 620 / 620 Lab / Micro Data 11/07/23 07:05 11/07/23 07:05 Labs: Laboratory Results - last 24 hr 11/06/23 11:36: WBC 5.3, RBC 2.72 L, Hgb 9.5 L, Hct 25.3 L, MCV 93.0, MCH 34.9 H , MCHC 37.5 H, RDW Std Deviation 50.0 H, RDW Coeff of Britt 16.2 H, Plt Count 170, MPV 10.5, Immature Gran % (Auto) 0.800, Neut % (Auto) 82.7 H, Lymph % (Auto) 6.1 L, [place] % (Auto) 10.2 H, Eos % (Auto) 0.0, Baso % (Auto) 0.2, Absolute Neuts (auto) 4.4, Absolute Lymphs (auto) 0.32 L, Nucleated RBC % 0, Anisocytosis 1+, PT Cancelled, INR Cancelled, APTT Cancelled, Sodium Cancelled, Potassium Cancelled, Chloride Cancelled, Carbon Dioxide Cancelled, Anion Gap Cancelled, BUN Cancelled, Creatinine Cancelled, Estim Creat Clear Calc Cancelled, Est GFR (MDRD) Af Amer Cancelled, Est GFR (MDRD) Non-Af Cancelled, BUN/Creatinine Ratio Cancelled, Glucose Cancelled, Lactic Acid Cancelled, Calcium Cancelled, Total Bilirubin Cancelled, AST Cancelled, ALT Cancelled, Alkaline Phosphatase Cancelled, Troponin I High Sens Cancelled, Total Protein Cancelled, Albumin Cancelled, Globulin Cancelled, Albumin/Globulin Ratio Cancelled, Blood Type B NEGATIVE, Antibody Screen NEGATIVE 11/06/23 13:00: PT 13.5, INR 1.0, APTT 26.1, Sodium 133 L, Potassium 4.8, Chloride 100, Carbon Dioxide 23.0, Anion Gap 10, BUN 37 H, Creatinine 2.04 H, Estim Creat Clear Calc 15.80, Est GFR (MDRD) Af Amer 30 L, Est GFR (MDRD) Non-Af 25 L, BUN/Creatinine Ratio 18.1, Glucose 357 H, Lactic Acid 2.6 H*, Calcium 8.6, Total Bilirubin 1.90 H, AST 39 H, ALT 18, Alkaline Phosphatase 92, Troponin I High Sens 35, Total Protein 6.1 L, Albumin 2.8 L, Globulin 3.3, Albumin/Globulin Ratio 0.8 L 11/06/23 14:02: Procalcitonin 1.53 H 11/06/23 16:23: POC Glucose 314 H 11/06/23 17:39: Lactic Acid 1.8 11/06/23 20:58: POC Glucose 273 H 11/07/23 06:05: POC Glucose 247 H 11/07/23 07:05: Sodium 136, Potassium 4.4, Chloride 107, Carbon Dioxide 23.0, Anion Gap 6, BUN 43 H, Creatinine 2.14 H, Estim Creat Clear Calc 15.06, Est GFR (MDRD) Af Amer 29 L, Est GFR (MDRD) Non-Af 24 L, BUN/Creatinine Ratio 20.1 H, Glucose 242 H, Calcium 8.1 L, Total Bilirubin 1.10 H, AST 33, ALT 15, Alkaline P hosphatase 77, Total Protein 5.2 L, Albumin 2.3 L, Globulin 2.9, Albumin/Globulin Ratio 0.8 L, TSH 0.85 Micro: Microbiology 11/07/23 04:42 Urine, Random Legionella Antigen - Final 11/07/23 04:42 Urine, Random Streptococcus pneumoniae Antigen (M - Final 11/07/23 23:58 Mucosa - Nasopharyngeal Respiratory Panel (PCR) - Final 11/06/23 13:15 Stool Stool Occult Blood (SHERRI) - Final 11/06/23 11:39 Mucosa - Nose SARS-CoV-2, Influenza & RSV (PCR) - Final SARS-CoV-2 (COVID 19 PCR) Radiography Diagnostic Testing: Radiology Impression Chest X-Ray 11/06/23 12:35 IMPRESSION: Bibasilar atelectasis. Early/developing pneumonia cannot be excluded so follow-up chest imaging to resolution is recommended. Electronically Signed: Pool Hickey MD at 12:53 EST , Rhythm Strip Rhythm Strip: Sinus Rhythm Rate: 105 Ectopy: None Physical Exam Narrative GENERAL: cooperative HEENT: Atraumatic; normocephalic EYES; Anicteric, Normal Conjunctiva NECK; supple, normal thyroid, RESPIRATORY: Diminished to auscultation CARDIOVASCULAR: Regular S1 S2, GI: soft, normoactive bowel sounds, : No Renal angle tenderness; EXTREMITIES: No edema, no clubbing, MUSCULOSKELETAL: no muscle wasting NEURO: Awake; no lateralizing signs. SKIN: No Rash PSYCH; Flat affect Assessment & Plan Assessment/Plan (1) BERTA (acute kidney injury): (2) Anemia: QUALIFIERS: Anemia type: unspecified type Qualified Code(s): D64.9 - Anemia, unspecified (3) COVID-19: PLAN: Plan Patient is an 78-year-old lady who presented with progressive generalized weakness. Chest x-ray on admission demonstrated early developing pneumonia. Her COVID assay came back positive admitted to monitored bed for further management 1. Acute COVID-19 infection ?Patient out of window for remdesivir. Admitted to knitted bed for symptom management 2. Suspected superimposed bacterial pneumonia ? In the setting of COVID-19 infection. Patient started on azithromycin as well as ceftriaxone 3. Acute kidney injury ? Baseline creatinine from 10/19/2023 was 1.3, creatinine on admission was 2.04 patient on fluids with avoidance of potential nephrotoxic medication with subsequent monitoring of electrolytes on a daily 4. Chronic kidney disease stage IIIa ? Patient presented with BERTA management as discussed above 6. Anemia - Secondary to chronic disorder as well as MDS monitoring H&H and transfuse if patient becomes symptomatic or hemoglobin falls below 7. Patient apparently underwent upper endoscopy a month prior which demonstrated mild hiatal hernia. Patient apparently refused lower endoscopy and is scheduled to undergo capsule endoscopy 7. History of pulmonary embolism ? Diagnosed in 2019. Patient was on Xarelto taking of given her concerns for recurrent GI bleed. Patient has an IVC filter placed 8. Paroxysmal A-fib ? Rate controlled. Currently not on systemic anticoagulation given her recent GI bleed significant anemia 9. Diabetes mellitus type II -patient's oral hypoglycemics held. Placed on long acting insulin, Accu-Cheks a.c. and at bedtime and covered with sliding scale insulin 10. Hypertension - Blood pressure controlled, home medications continued with dose adjustment as needed 11. Restless leg syndrome ? Patient is on ropinirole did continue 12. Recently diagnosed lymphoma ? Patient being managed by Dr. 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 DVT prophylaxis ? SC heparin Time spent in the patient's overall evaluation,decision-making process, review of diagnostic data, adjustment of management, discussion with other providers, nursing nursing and ancillary staff involved in patient's care documentation, 50 Minutes Advance planning; did discuss with the patient and family regarding advanced directives as well as CODE STATUS. Did explain the various scenarios involved ( FULL CODE, DNR CCA, DNR CCA with no intubation, and DNR CC and what each meant) patient elected to be full code with CPR and intubation if needed order was placed. Time spent on discussion 18 minutes. Charges/Coding Visit Charges Inpatient E&M: 80446 Subs Hosp L3 Procedures Hospitalists Procedures: 64314 Advncd Care Plan 30 Min
[2023-11-07] MEDS: Pramipexole Di-HCl 0.5 MG Tablet PO ×2 (09:23→22:55)
[2023-11-07] MEDS: Atorvastatin Calcium 40 MG Tablet PO (09:23)
[2023-11-07] MEDS: predniSONE 5 MG Tablet PO (09:24)
[2023-11-07] MEDS: Ceftriaxone 2 GM in 0.9% Normal Saline (50mL MB+) 50 ML IV (09:25)
[2023-11-07 09:30] LABS: Differential Indicated SCAN CRITERIA MET
[2023-11-07] MEDS: Azithromycin 500 MG in Dextrose 5%-Water (250mL Bag) 250 ML 250 MG IV (10:12)
[2023-11-07] MEDS: guaiFENesin 1,200 MG Tablet 1200 MG PO ×2 (10:24→22:55)
[2023-11-07 10:44] LABS: Bedside Glucose 197 mg/dL (74-106)
--- NOTE | 2023-11-07 10:50 | CASEMGMT ---
Addendum entered by Amparo Rader 11/07/23 21:31: 1600: Therapy has worked w/pt and SNF is recommended. Discussed this w/ and he states he would like to talk things over w/pt. He asked what SNF's are currently taking COVID + pt's. LYNSEY MARCOS verbally reviewed this list w/him. After he spoke w/pt he informed this RN CM their first and only preference is [facility]. TREVON, Demi, made aware. Original Note: RN?CM?TEACHING ASSISTANT?CM?to room to meet w/pt's for initial transition planning/care coordination?assessment.?RN?CM?introduced self and role at [facility].? voices understanding and consents to?assessment?at this time.? Care providers, pharmacy, and demographics verified/updated at this time. PCP:Dr Kemp Specialists: JACOBO/cardiology, Dr Luciano-pulmonology, Dr Lindo-oncology, Dr Garcia-podiatry, Dr Hurd-GI. Preferred Pharmacy: [facility] Insurance: [employer], [employer] Benefit:?yes LNOK: Wojciech Living Arrangements: Lives w/her in one-story home w/2 steps to enter. Pt has been becoming more weak and states it has been becoming more difficult getting pt in/out of vehicle and up/down steps into the home. Pt was independent w/ADL's until recently. assists her as needed and does home mgnt tasks. Pt manages her own medications. Transportation:? DME: ?States has the following DME:?shower chair, RTS, grab bars, cane, walker x 2, rollator, CPAP, pulse ox, functioning glucometer w/supplies. HHC/SNF: Has been to [facility] in the past and has had HHC in the past. told LYNSEY MARCOS he does not want pt going to a SNF and he wants to take her home. He would like HHC. A list of HHC providers including quality and resource use data and consistent with the patient?s preferred geographic region, medical needs, and insurance network were provided from the [employer] Guide. He chose [facility] as 1st choice. inquired if SN could do lab draws twice a week, stating pt has to go to Dr Lindo's office 2 x's week for labs. Referral made w/Re @ [facility] and she was made aware of request for lab draws 2 x/week. She states if they are able to accept pt, they will only be able to do this if pt has a need for a SN (other than lab draws) that often. Acceptance pending therapy evals. PLAN:??Home w/[facility] and spousal support. John BSN?RN?CM
[2023-11-07] MEDS: Ondansetron 4 MG/2 ML Vial IV (11:59)
--- NOTE | 2023-11-07 16:14 | CASEMGMT ---
Therapy is recommending patient go to a retirement facility for rehab. Per RN CM patient and her would like [facility]. TREVON asked Susu brandon/[employer] and planning to please send a referral to [facility]. Plan: SNF pending acceptance. Demi Archer DEPENDENCY DIRECTORJavon ADAMS
--- NOTE | 2023-11-07 16:32 | CASEMGMT ---
Discharge Planning Referral sent to [facility] via [facility]. Susu Durán, Discharge Planning Asst.
[2023-11-07 17:50] LABS: Bedside Glucose 316 mg/dL (74-106)
--- NOTE | 2023-11-07 18:09 | CASEMGMT ---
[facility] accepted patient and can accept on Friday. SW notified patient's and physician. SW completed a PASRR in [facility] system. Plan: d/c to [facility] under skilled level of care on a PASRR. Physicians will transport patient. Demi ADAMS
[2023-11-07] MEDS: Insulin Glargine-YFGN 100 UNIT/ML Pen 20 UNIT SC (22:59)
[2023-11-07 23:23] LABS: Bedside Glucose 275 mg/dL (74-106)
[2023-11-08] VITALS (26 sets, daily range): BP systolic 72–124; BP diastolic 40–76; PULSE 81–107; RESP 16–44; TEMP 36.5–37.2; O2SAT 87–100; BMI 32.6
[2023-11-08] MEDS: Insulin Lispro 100 UNIT/ML INSULN.PEN SC ×4 (06:50→23:43)
[2023-11-08 07:10] LABS: Bedside Glucose 288 mg/dL (74-106)
[2023-11-08] MEDS: Ipratropium/Albuterol Sulfate 3 ML AMPUL.NEB INHALATION ×3 (08:07→20:55)
--- NOTE | 2023-11-08 08:18 | PCM.PN.HOSP ---
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) Essential (primary) hypertension (11/06/23) Other pulmonary embolism without acute cor pulmonale (11/06/23) Paroxysmal atrial fibrillation (11/06/23) Acute kidney failure, unspecified (11/06/23) Shortness of breath (11/06/23) COVID-19 (11/06/23) Subjective Subjective Patient was reported to be significantly dyspneic at rest. Chest x-ray obtained did show New and increased bilateral consolidation, concerning for worsening pneumonia. Objective Data Objective Data Vital Signs: Vital Signs Temp Pulse Resp BP Pulse Ox O2 Del Method O2 Flow Rate 98.9 F 91 22 H 116/49 L 96 Nasal Cannula 3 11/08/23 04:15 11/08/23 08:05 11/08/23 08:05 11/08/23 04:15 11/08/23 08:05 11/08/23 08:05 11/08/23 08:05 Oxygen Flow Rate (L/min) 3 Oxygen Delivery Method Nasal Cannula Weight: 75.9 kg Body Mass Index (BMI) 32.6 Intake & Output: Intake and Output for Last 24 Hours 11/06/23 11/07/23 11/08/23 23:59 23:59 23:59 Intake Total 1305 / 1425 2385 / 2385 420 / 420 Output Total 0 / 0 Balance 1305 / 1425 2385 / 2385 420 / 420 Lab / Micro Data 11/08/23 12:45 11/08/23 12:45 Labs: Laboratory Results - last 24 hr 11/07/23 07:05: WBC 3.3 L, RBC 2.66 L, Hgb 7.5 L, Hct 23.8 L, MCV 89.5, MCH 28.2, MCHC 31.5 L D, RDW Std Deviation 52.0 H, RDW Coeff of Britt 15.8 H, Plt Count 128 L, MPV 11.2, Immature Gran % (Auto) 0.600, Neut % (Auto) 74.0 H, Lymph % (Auto) 14.5 L, [place] % (Auto) 10.0, Eos % (Auto) 0.6, Baso % (Auto) 0.3, Absolute Neuts (auto) 2.4, Absolute Lymphs (auto) 0.48 L, Nucleated RBC % 0, Diff Path Review May foll 11/07/23 10:23: POC Glucose 197 H 11/07/23 17:27: POC Glucose 316 H 11/07/23 22:56: POC Glucose 275 H 11/08/23 06:50: POC Glucose 288 H Micro: Microbiology 11/07/23 04:42 Urine, Random Legionella Antigen - Final 11/07/23 04:42 Urine, Random Streptococcus pneumoniae Antigen (M - Final 11/07/23 23:58 Mucosa - Nasopharyngeal Respiratory Panel (PCR) - Final 11/06/23 13:15 Stool Stool Occult Blood (SHERRI) - Final 11/06/23 11:39 Mucosa - Nose SARS-CoV-2, Influenza & RSV (PCR) - Final SARS-CoV-2 (COVID 19 PCR) Radiography Diagnostic Testing: Radiology Impression Echocardiogram 11/06/23 21:26 Interpretation Summary The study was technically difficult. Mild concentric left ventricular hypertrophy. The left ventricular ejection fraction is 65 %. Mild diffuse aortic valve calcification. Aortic valve leaflet motion restricted. Consider mild aortic stenosis. No Doppler data available. Ordering Physician: Saray Forte Referring Physician: Kameron Kemp Performed By: Isa Maravilla, CONCHA, RVT Rhythm Strip Rhythm Strip: Sinus Rhythm Rate: 105 Ectopy: None Physical Exam Narrative GENERAL: cooperative HEENT: Atraumatic; normocephalic EYES; Anicteric, Normal Conjunctiva NECK; supple, normal thyroid, RESPIRATORY: Diminished to auscultation CARDIOVASCULAR: Regular S1 S2, GI: soft, normoactive bowel sounds, : No Renal angle tenderness; EXTREMITIES: No edema, no clubbing, MUSCULOSKELETAL: no muscle wasting NEURO: Awake; no lateralizing signs. SKIN: No Rash PSYCH; Flat affect Assessment & Plan Assessment/Plan (1) BERTA (acute kidney injury): (2) Anemia: QUALIFIERS: Anemia type: unspecified type Qualified Code(s): D64.9 - Anemia, unspecified (3) COVID-19: PLAN: Plan Patient is an 78-year-old lady who presented with progressive generalized weakness. Chest x-ray on admission demonstrated early developing pneumonia. Her COVID assay came back positive admitted to monitored bed for further management 1. Acute COVID-19 infection ?Patient out of window for remdesivir. Admitted to knitted bed for symptom management 2. Suspected superimposed bacterial pneumonia ? In the setting of COVID-19 infection. Patient started on azithromycin as well as ceftriaxone -11/08/2023: Patient was reported to be significantly dyspneic at rest. Chest x-ray obtained did show New and increased bilateral consolidation, concerning for worsening pneumonia., Did broaden patient antibiotic therapy 3. Acute kidney injury ? Baseline creatinine from 10/19/2023 was 1.3, creatinine on admission was 2.04 patient on fluids with avoidance of potential nephrotoxic medication with subsequent monitoring of electrolytes on a daily 4. Chronic kidney disease stage IIIa ? Patient presented with BERTA management as discussed above 6. Anemia - Secondary to chronic disorder as well as MDS monitoring H&H and transfuse if patient becomes symptomatic or hemoglobin falls below 7. Patient apparently underwent upper endoscopy a month prior which demonstrated mild hiatal hernia. Patient apparently refused lower endoscopy and is scheduled to undergo capsule endoscopy ? 11/08/2023; patient hemoglobin down to 7.0 with patient deemed to be symptomatic an order was given for patient to be transfused 1 unit PRBC 7. History of pulmonary embolism ? Diagnosed in 2019. Patient was on Xarelto taking of given her concerns for recurrent GI bleed. Patient has an IVC filter placed 8. Paroxysmal A-fib ? Rate controlled. Currently not on systemic anticoagulation given her recent GI bleed significant anemia 9. Diabetes mellitus type II -patient's oral hypoglycemics held. Placed on long acting insulin, Accu-Cheks a.c. and at bedtime and covered with sliding scale insulin 10. Hypertension - Blood pressure controlled, home medications continued with dose adjustment as needed 11. Restless leg syndrome ? Patient is on ropinirole did continue 12. Recently diagnosed lymphoma ? Patient being managed by Dr. 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 DVT prophylaxis ? SC heparin Time spent in the patient's overall evaluation,decision-making process, review of diagnostic data, adjustment of management, discussion with other providers, nursing nursing and ancillary staff involved in patient's care documentation, 50 Minutes Sepsis Attestation Date exam was performed: 11/08/23 Charges/Coding Visit Charges Inpatient E&M: 18451 [facility] L3
--- NOTE | 2023-11-08 10:20 | RAD_ITS ---
HISTORY: SOB, tachypnea. TECHNIQUE: XR Chest 2 Views. COMPARISON: 11/06/2023. FINDINGS: LINES/TUBES: None. Cervical spinal fusion hardware, left shoulder arthroplasty, and IVC filter again noted. CARDIOMEDIASTINAL BORDERS: Stable. LUNGS: Increased consolidation throughout the bilateral lungs now seen in the upper to mid lungs. PLEURA: No pleural effusion or pneumothorax. RAD/Chest PA and Lateral IMPRESSION: New and increased bilateral consolidation, concerning for worsening pneumonia. Electronically Signed: Ivonne Carrasco MD at 11:09 EST ,
[2023-11-08] MEDS: guaiFENesin 1,200 MG Tablet 1200 MG PO ×2 (10:42→21:59)
[2023-11-08] MEDS: Pramipexole Di-HCl 0.5 MG Tablet PO ×2 (10:42→21:59)
[2023-11-08] MEDS: Atorvastatin Calcium 40 MG Tablet PO (10:42)
[2023-11-08] MEDS: predniSONE 5 MG Tablet PO (10:42)
[2023-11-08] MEDS: Ceftriaxone 2 GM in 0.9% Normal Saline (50mL MB+) 50 ML IV (10:43)
[2023-11-08 11:19] LABS: Bedside Glucose 351 mg/dL (74-106)
[2023-11-08] MEDS: Azithromycin 500 MG in Dextrose 5%-Water (250mL Bag) 250 ML 250 MG IV (11:56)
[2023-11-08] MEDS: Piperacil/Tazobactam 3.375 GM in 0.9% Normal Saline (50mL MB+) 50 ML IV ×2 (12:56→22:52)
[2023-11-08] MEDS: 0.9% Normal Saline (1000mL) 1,000 ML 999 ML IV ×3 (12:56→22:01)
[2023-11-08 13:04] LABS: Absolute Lymphocyte Count 0.34 X10^3/uL (0.83-4.51); Absolute Neutrophil Count 3.3 X10^3/uL (2.0-7.7); Hematocrit 22.5 % (37-47); Lymphocyte # 0.34 X10^3/ul (0.83-4.51); Lymphocyte % 8.1 % (19-41); Mean Corp Hgb Conc 31.1 g/dL (32-36); Mean Corpuscular Hgb 27.3 pg (27.0-32.0); Mean Corpuscular Volume 87.9 fL (81-99); Mean Platelet Vol. 11.2 fl (6.2-12.0); Monocyte# 0.51 X10^3/uL; Monocyte% 12.2 % (0-10); NRBC Flagged by Analyzer 0.5 % (0-5); Neutrophil # 3.31 X10^3/uL (2.7-7.7); POSITIVE DIFFERENTIAL YES; Platelet Count 147 K/mm3 (150-450); RBC Distribution Width CV 15.6 % (11.6-14.6); RBC Distribution Width SD 49.6 fl (35.1-43.9); Red Blood Count 2.56 M/mm3 (4.2-5.4); White Blood Count 4.2 K/mm3 (4.4-11.0)
[2023-11-08 13:06] LABS: Differential Indicated SCAN CRITERIA MET
[2023-11-08 13:22] LABS: Platelet Estimate ADEQUATE (ADEQ); Red Cell Morphology NORM C+C NORMAL (NORM C&C)
[2023-11-08 13:24] LABS: Lactic Acid 1.7 mmol/L (0.4-1.9)
[2023-11-08 13:41] LABS: Anion Gap 8 (5-15); BUN 52 mg/dL (7-18); BUN/Creat Ratio 26.5 RATIO (10-20); Calcium,Total 8.4 mg/dL (8.5-10.1); Chloride 104 mmol/L (98-107); Creatinine, Serum 1.96 mg/dL (0.55-1.02); EST Glomerular Filtration Rate 26 mL/min (>60); Est Glom Filt Rate - Afr Amer 32 mL/min (>60); Estimated Creatinine Clearance 16.44 ml/min; Glucose 450 mg/dL (74-106); Magnesium 1.9 mg/dL (1.6-2.6); Potassium 4.6 mmol/L (3.5-5.1); Sodium Level 133 mmol/L (136-145)
[2023-11-08] MEDS: 0.9% Saline Lock 10 ML Syringe IV (14:10)
[2023-11-08] MEDS: dexAMETHasone 10 MG/ML Vial 6 MG IV (14:10)
--- NOTE | 2023-11-08 15:31 | CON.PCM.CC_ITS ---
Assessment & Plan Assessment/Plan (1) Acute hypoxic respiratory failure: (2) COVID-19: (3) Pneumonia: (4) Debility: (5) BERTA (acute kidney injury): PLAN: Plan Assessment Acute hypoxic respiratory failure Multilobar pneumonia COVID-19 BERTA Acute blood loss anemia likely secondary to GI bleed. apparently underwent upper endoscopy a month prior which demonstrated mild hiatal hernia. Patient ap parently refused lower endoscopy and is scheduled to undergo capsule endoscop hyperglycemia Chronic Conditions hx PE status post IVC filter placement, A-fib not on AC secondary to history of GI bleed, diabetes type 2, hypertension, obesity BMI of 32.7, hypertension, lymphoma, primary cold agglutinin disease. These conditions will complicate treatment, prognosis and care PLAN * Patient was referred to the ICU for closer monitoring. She was desaturating on 7 L so she was switched to Airvo, maintain pulse ox at 92% * Confirmed full code * Patient is out of window for remdesivir. Will start her on Decadron given her severe hypoxia * Continue broad-spectrum antibiotics * Collect sputum cultures AND mrsa NASAL swab * Follow blood cultures * PPI twice daily IV ordered. * H&H every 8 * Avoid volume overload * Has been hyperglycemic after hyperglycemia persists will start insulin drip * Patient is at high risk of poor outcome given her age and comorbid conditions I spent 35 minutes of critical care time excluding the procedure time. I reviewed lab work, images, previous records and medication list. HPI Consult Data Date of Consult: 11/08/23 HPI Narrative HPI Narrative: MARCOS OLIVEIRA, is a 78 F who presents history of central sleep apnea, lymphoma, hypertension, DMII, paroxysmal atrial fibrillation, PE presented to [facility] 11/06/2023 with increased weakness and fatigue over several days, was diagnosed on COVID on October 21 with symptoms starting October 19 and has continued to have cough and shortness of breath with increased weakness prompting her to return to the emergency department. She completed Paxlovid for COVID in Oct but again still not feeling well overall. She Has felt some intermittent left-sided chest pains, and no swelling in legs. No current fevers or chills. She history of GI bleed and is supposed to have capsule endoscopy on outpatient basis. Her Hgb has trended down and she reports dark tarry stools Her respiratory has been worsening she was initially on 2 L via nasal cannula on admission but has been feeling worse and is desatting on heated high flow at 10 L. Decision was made to transfer her to the ICU. She is coughing and reports feeling worse. She will be switched to Airvo. Discussed with her intubation she reports that she will be okay with being on the vent for short period of time. [facility] Medical History Abnormality of gait Anxiety Arthritis Atrial fibrillation Cancer Central sleep apnea Cervical spondylosis with myelopathy Chronic constipation Constipation Deep vein thrombosis of both lower extremities (08/2020) Diabetes Diabetes mellitus type II, controlled Diverticulosis of colon Dizziness DVT (deep venous thrombosis) Dynamic left ventricular outflow obstruction Essential hypertension GERD (gastroesophageal reflux disease) Hyperlipidemia Hypertension Internal hemorrhoids Nonrheumatic aortic (valve) stenosis Obstructive sleep apnea Osteoarthritis Paroxysmal atrial fibrillation Right arm weakness Right hemiparesis RLS (restless legs syndrome) Rosacea 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 Vitamin D deficiency Home Medications atenolol 25 mg tablet 25 mg PO QHS blood pressure 12/18/21 [History Last Taken 09/28/23] cholecalciferol (vitamin D3) 25 mcg (1,000 unit) tablet 1,000 unit PO DAILY supplement 12/18/21 [History Last Taken 09/28/23] losartan 100 mg tablet 100 mg PO DAILY blood pressure 12/18/21 [History Last Taken 09/28/23] Lactobacillus acidophilus 10 billion cell capsule (Probiotic) 10,000 mmu cells PO DAILY supplement 10/21/22 [History Last Taken 09/28/23] folic acid 1 mg tablet 1 mg PO DAILY supplement 10/21/22 [History Last Taken 09/28/23] rosuvastatin 20 mg tablet 20 mg PO DAILY cholestrol 10/21/22 [History Last Taken 09/28/23] dulaglutide 4.5 mg/0.5 mL subcutaneous pen injector (Trulicity) 3 mg subcut QWEEK blood glucose 12/19/22 [History Last Taken 09/28/23] insulin glargine 100 unit/mL (3 mL) subcutaneous pen (Basaglar Tempo Pen (U-100) Insulin) 44 unit subcut QPM blood glucose 12/19/22 [History Last Taken 09/28/23] ropinirole 0.5 mg tablet 1 mg PO BID restkess legs 12/19/22 [History Last Taken 09/28/23] spironolactone 25 mg tablet 25 mg PO DAILY diruretic #90 tabs 12/19/22 [Rx Last Taken 09/28/23] prednisone 10 mg tablet 5 mg PO DAILY inflammation 07/25/23 [History Last Taken 09/28/23] fluorometholone 0.1 % eye drops,suspension 1 drp ophthalmic (eye) Q12H dry eyes 10/19/23 [History Last Taken Unknown] Allergy/AdvReac Type Severity Reaction Status Date / Time furosemide [From Lasix] Allergy Intermediate elevated Verified 10/19/23 13:51 glucose simvastatin AdvReac Severe myalgia Verified 10/19/23 13:51 celecoxib [From Celebrex] AdvReac Intermediate GI upset Verified 10/19/23 13:51 codeine AdvReac Intermediate GI upset Verified 10/19/23 13:51 lisinopril AdvReac Intermediate cough Verified 10/19/23 13:51 hydrochlorothiazide AdvReac Unknown unknown, Verified 10/19/23 13:51 ask pt at appt metformin AdvReac Other Verified 10/19/23 13:51 naproxen [From Naprosyn] AdvReac Upset Verified 10/19/23 13:51 Stomach oxycodone AdvReac Nausea/Vom/ Verified 10/19/23 13:51 Diarrhea Family History Mother Arthritis CAD (coronary artery disease) Father CAD (coronary artery disease) Diabetes Sister Diabetes Hypertension Sister Diabetes Hypertension Sister Diabetes Hypertension Sister Hypertension Brother Diabetes Hypertension Brother Diabetes Hypertension Brother Hypertension Surgical History H/O cervical spine surgery (06/14/16) H/O lumbosacral spine surgery (~1989) H/O Spinal surgery History of arthroplasty of left shoulder (~2003) History of blepharoplasty (08/2009) History of carpal tunnel release of both wrists History of colonoscopy (12/16/08) History of esophagogastroduodenoscopy (EGD) (10/21/07) History of tonsillectomy History of total abdominal hysterectomy (1983) Hx of bilateral cataract extraction S/P PICC central line placement (02/26/19) Status post laser cataract surgery of right eye (12/2006) Social History household members: spouse housing: house Smoking Status: Former smoker quit date: 04/03/1968 Tobacco: How many years used: 1 how long ago did patient quit smokin alcohol intake: never substance use type: does not use caffeine: Yes Type: tea ROS ROS Narrative Pertinent positives and pertinent negatives as noted in HPI. All other systems were reviewed and are negative Physical Exam Narrative General alert and mild distress HEENT. Normocephalic atraumatic, pupils equal and reactive Respiratory diffuse rhonchi no wheezing Cardiac S1-S2, regular rate and rhythm GI abdomen soft and nontender MSK +1 edema in bilateral lower extremities Neuro moves all extremities, no dysarthria, no facial droop Lab / Micro Data 11/08/23 12:45 11/08/23 12:45 Labs: Laboratory Results - last 24 hr 11/07/23 17:27: POC Glucose 316 H 11/07/23 22:56: POC Glucose 275 H 11/08/23 06:50: POC Glucose 288 H 11/08/23 10:57: POC Glucose 351 H 11/08/23 12:45: WBC 4.2 L, RBC 2.56 L, Hgb 7.0 L, Hct 22.5 L, MCV 87.9, MCH 27. 3, MCHC 31.1 L, RDW Std Deviation 49.6 H, RDW Coeff of Britt 15.6 H, Plt Count 147 L, MPV 11.2, Immature Gran % (Auto) 0.700, Neut % (Auto) 79.0 H, Lymph % (Auto) 8.1 L, [place] % (Auto) 12.2 H, Eos % (Auto) 0.0, Baso % (Auto) 0.0, Absolute Neuts (auto) 3.3, Absolute Lymphs (auto) 0.34 L, Nucleated RBC % 0.5, Platelet E stimate ADEQUATE, RBC Morphology NORM C+C, Sodium 133 L, Potassium 4.6, Chloride 104, Carbon Dioxide 21.0, Anion Gap 8, BUN 52 H, Creatinine 1.96 H, Estim Creat Clear Calc 16.44, Est GFR (MDRD) Af Amer 32 L, Est GFR (MDRD) Non-Af 26 L, BUN/Creatinine Ratio 26.5 H, Glucose 450 H, Lactic Acid 1.7, Calcium 8.4 L, Magn esium 1.9 Micro: Microbiology 11/08/23 14:15 Mucosa - Throat Streptococcus pyogenes (PCR) - Final 11/08/23 14:15 Urine Catheter - Crawford Streptococcus pneumoniae Antigen (M - Final 11/08/23 14:15 Urine Catheter - [place] Legionella Antigen - Final 11/08/23 13:30 Mucosa - Nasopharyngeal Influenza & RSV (PCR) - Final Rhythm Strip Rhythm Strip: Sinus Rhythm Rate: 105 Ectopy: None Imagaing Radiology Impression Chest X-Ray 11/08/23 10:20 IMPRESSION: New and increased bilateral consolidation, concerning for worsening pneumonia. Electronically Signed: Marcos Carrasco MD at 11:09 EST Reading Location ID and State: [facility] / [place] Tel , Service support , Charges/Coding Procedures Hospitalists Procedures: [id number] Critical Care 1st Hr
[2023-11-08] MEDS: Vancomycin HCl 2,000 MG in 0.9% Normal Saline (500mL Bag) 500 ML 250 MG IV (17:05)
[2023-11-08 18:00] LABS: Bedside Glucose 421 mg/dL (74-106)
[2023-11-08 18:41] LABS: Bedside Glucose 315 mg/dL (74-106)
[2023-11-08] MEDS: Insulin Lispro 100 UNIT/ML INSULN.PEN 12 UNIT SC (18:43)
[2023-11-08] MEDS: Insulin Glargine-YFGN 100 UNIT/ML Pen 20 UNIT SC (18:46)
--- NOTE | 2023-11-08 18:54 | PCM.RX.CS ---
Consult Antibiotic Management Pharmacy has been consulted to manage selected antibiotic: Vancomycin Type of Intervention Type of Consult: New start Suspected Infection Suspected Infection: Other Labs Labs: Sodium 133 mmol/L (136-145) L 11/08/23 12:45 Potassium 4.6 mmol/L (3.5-5.1) 11/08/23 12:45 Chloride 104 mmol/L (98-107) 11/08/23 12:45 Carbon Dioxide 21.0 mmol/L (21.0-32.0) 11/08/23 12:45 Anion Gap 8 (5-15) 11/08/23 12:45 BUN 52 mg/dL (7-18) H 11/08/23 12:45 Creatinine 1.96 mg/dL (0.55-1.02) H 11/08/23 12:45 Est GFR (MDRD) Af Amer 32 mL/min (>60) L 11/08/23 12:45 Est GFR (MDRD) Non-Af 26 mL/min (>60) L 11/08/23 12:45 BUN/Creatinine Ratio 26.5 RATIO (10-20) H 11/08/23 12:45 Glucose 450 mg/dL (74-106) H 11/08/23 12:45 Microbiology Microbiology: Microbiology 11/08/23 14:15 Stool Stool Occult Blood (SHERRI) - Final Occult Blood Positive 11/08/23 14:15 Mucosa - Throat Streptococcus pyogenes (PCR) - Final 11/08/23 14:15 Urine Catheter - [place] Streptococcus pneumoniae Antigen (M - Final 11/08/23 14:15 Urine Catheter - [place] Legionella Antigen - Final 11/08/23 13:30 Mucosa - Nasopharyngeal Influenza & RSV (PCR) - Final 11/07/23 04:42 Urine, Random Legionella Antigen - Final 11/07/23 04:42 Urine, Random Streptococcus pneumoniae Antigen (M - Final 11/07/23 23:58 Mucosa - Nasopharyngeal Respiratory Panel (PCR) - Final 11/06/23 13:15 Stool Stool Occult Blood (SHERRI) - Final 11/06/23 11:39 Mucosa - Nose SARS-CoV-2, Influenza & RSV (PCR) - Final SARS-CoV-2 (COVID 19 PCR) Goal Trough Goal Trough: 15-20 mcg/mL Pharmacy Plan for Drug Dosing Pharmacy Plan for Drug Dosing: NEW START IV VANCOMYCIN Consulting Physician: Dr. Oliveira Indication: Respiratory failure Goal Trough: 15-20 SrCr: 1.96 CrCl: 21 mL/min (using AdjBW) Comments: vancomycin loading dose 2000mg IV x1 ordered and administered 11/08/23 @1705 Vancomycin Dose: 750mg IV Q24hr to start 11/09/23 @1700 Pending Level: 11/10/23 @1630, prior to 3rd total dose per protocol Pharmacy Service will continue to monitor and adjust dosing as required.
[2023-11-08 20:48] LABS: Allen Test Positive; Base Excess -7 mmol/L (-2 to +2); Bicarbonate 17.5 mmol/L (22-26); Blood Gas Specimen Type ART; Comment AirVo 60 lpm; Mode Not entered; O2 Delivery Device Vapotherm; PO2 76 mmHG (75-100); SITE L Radial; SO2 95 % (95-99); Total Carbon Dioxide 18 mmol/L; pH 7.39 (7.35-7.45)
[2023-11-08] MEDS: MELATONIN 10 MG TABLET PO (21:59)
[2023-11-08] MEDS: Pantoprazole Sodium 40 MG in 0.9% Normal Saline (100mL MB+) 100 ML 330 MG IV (22:30)
[2023-11-08 23:11] LABS: Bedside Glucose 326 mg/dL (74-106)
--- NOTE | 2023-11-08 23:22 | NURSING ---
Brito catheter was in place prior to 1899 on 11/08/23. Brito had not been charted that it had ever been placed. This RN charted brito insertion.
[2023-11-09] VITALS (37 sets, daily range): BP systolic 75–120; BP diastolic 42–87; PULSE 70–109; RESP 15–53; TEMP 36.1–36.9; O2SAT 88–99; BMI 33.7
--- NOTE | 2023-11-09 01:00 | NURSING ---
This RN was notified by [employer] that patient's blood needed to be warmed in the warmer. I was unaware of this prior to receiving the unit of blood. The fluid warmer did not have water in it as we were unprepared to use it. We sent the blood back because it had surpassed the 30 minute time limit and prepared the fluid warmer for the next unit of blood to be sent up.
[2023-11-09 01:36] LABS: Bedside Glucose 288 mg/dL (74-106)
[2023-11-09] MEDS: Ipratropium/Albuterol Sulfate 3 ML AMPUL.NEB INHALATION ×4 (01:55→19:30)
[2023-11-09] MEDS: Furosemide 40 MG/4 ML Vial IV (03:43)
[2023-11-09 06:19] LABS: Absolute Lymphocyte Count 0.19 X10^3/uL (0.83-4.51); Absolute Neutrophil Count 2.5 X10^3/uL (2.0-7.7); Hematocrit 23.7 % (37-47); Hemoglobin 7.6 g/dL (12.0-15.0); Lymphocyte # 0.19 X10^3/ul (0.83-4.51); Lymphocyte % 6.3 % (19-41); Mean Corp Hgb Conc 32.1 g/dL (32-36); Mean Corpuscular Hgb 28.1 pg (27.0-32.0); Mean Corpuscular Volume 87.8 fL (81-99); Mean Platelet Vol. 11.3 fl (6.2-12.0); Monocyte# 0.32 X10^3/uL; Monocyte% 10.6 % (0-10); NRBC Flagged by Analyzer 0 % (0-5); Neutrophil # 2.46 X10^3/uL (2.7-7.7); Neutrophil % 81.4 % (47-70); POSITIVE DIFFERENTIAL YES; Platelet Count 117 K/mm3 (150-450); RBC Distribution Width CV 15.1 % (11.6-14.6); RBC Distribution Width SD 48.3 fl (35.1-43.9)
[2023-11-09] MEDS: Insulin Lispro 100 UNIT/ML INSULN.PEN SC ×4 (06:28→22:52)
[2023-11-09] MEDS: Piperacil/Tazobactam 3.375 GM in 0.9% Normal Saline (50mL MB+) 50 ML IV ×3 (06:28→22:50)
[2023-11-09 06:29] LABS: International Normalized Ratio 1.1; Prothrombin Time (Protime)PT. 14.5 SECONDS (11.7-14.9)
[2023-11-09 06:32] LABS: Anion Gap 9 (5-15); BUN 49 mg/dL (7-18); BUN/Creat Ratio 29.5 RATIO (10-20); Calcium,Total 7.6 mg/dL (8.5-10.1); Chloride 112 mmol/L (98-107); Creatinine, Serum 1.66 mg/dL (0.55-1.02); EST Glomerular Filtration Rate 32 mL/min (>60); Est Glom Filt Rate - Afr Amer 38 mL/min (>60); Estimated Creatinine Clearance 19.42 ml/min; Glucose 261 mg/dL (74-106); Magnesium 1.8 mg/dL (1.6-2.6); Phosphorus 2.2 mg/dL (2.5-4.9); Potassium 3.6 mmol/L (3.5-5.1); Sodium Level 139 mmol/L (136-145)
[2023-11-09 06:56] LABS: Bedside Glucose 237 mg/dL (74-106)
--- NOTE | 2023-11-09 07:07 | PN.HOSP_ITS ---
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 Was also transfused 1 unit PRBC. Patient did receive Lasix and was placed on Airvo Objective Data Objective Data Vital Signs: Vital Signs Temp Pulse Resp BP Pulse Ox O2 Del Method O2 Flow Rate 97.6 F L 76 22 H 92/45 L 94 Airvo 60 11/09/23 06:00 11/09/23 06:00 11/09/23 06:00 11/09/23 06:00 11/09/23 06:00 11/09/23 06:00 11/09/23 06:00 FiO2 53 11/09/23 06:00 Oxygen Flow Rate (L/min) 60 Oxygen Delivery Method Airvo Weight: 78.3 kg Body Mass Index (BMI) 33.7 Intake & Output: Intake and Output for Last 24 Hours 11/07/23 11/08/23 11/09/23 23:59 23:59 23:59 Intake Total 2385 / 2385 4295.83 / 4295.83 101 / 101 Output Total 1075 / 1325 250 / 250 Balance 2385 / 2385 3220.83 / 2970.83 -149 / -149 Lab / Micro Data 11/09/23 06:05 11/09/23 06:05 Labs: Laboratory Results - last 24 hr 11/06/23 11:36: Crossmatch See Detail 11/08/23 06:50: POC Glucose 288 H 11/08/23 10:57: POC Glucose 351 H 11/08/23 12:45: WBC 4.2 L, RBC 2.56 L, Hgb 7.0 L, Hct 22.5 L, MCV 87.9, MCH 27.3, MCHC 31.1 L, RDW Std Deviation 49.6 H, RDW Coeff of Britt 15.6 H, Plt Count 147 L, MPV 11.2, Immature Gran % (Auto) 0.700, Neut % (Auto) 79.0 H, Lymph % (Auto) 8.1 L, [place] % (Auto) 12.2 H, Eos % (Auto) 0.0, Baso % (Auto) 0.0, Absolute Neuts (auto) 3.3, Absolute Lymphs (auto) 0.34 L, Nucleated RBC % 0.5, Diff Path Review March, Platelet Estimate ADEQUATE, RBC Morphology NORM C+C, Sodium 133 L, Potassium 4.6, Chloride 104, Carbon Dioxide 21.0, Anion Gap 8, BUN 52 H, Creatinine 1.96 H, Estim Creat Clear Calc 16.44, Est GFR (MDRD) Af Amer 32 L, Est GFR (MDRD) Non-Af 26 L, BUN/Creatinine Ratio 26.5 H, Glucose 450 H, Lactic Acid 1.7, Calcium 8.4 L, Magnesium 1.9 11/08/23 16:05: POC Glucose 421 H 11/08/23 18:15: POC Glucose 315 H 11/08/23 19:45: Blood Type B NEGATIVE, Antibody Screen NEGATIVE, Crossmatch See Detail 11/08/23 22:06: POC Glucose 326 H 11/08/23 23:41: POC Glucose 288 H 11/09/23 06:05: PT 14.5, INR 1.1, Sodium 139, Potassium 3.6, Chloride 112 H, Carbon Dioxide 18.0 L, Anion Gap 9, BUN 49 H, Creatinine 1.66 H, Estim Creat Clear Calc 19.42, Est GFR (MDRD) Af Amer 38 L, Est GFR (MDRD) Non-Af 32 L, BUN/Creatinine Ratio 29.5 H, Glucose 261 H, Calcium 7.6 L, Phosphorus 2.2 L, Magnesium 1.8 11/09/23 06:26: POC Glucose 237 H Micro: Microbiology 11/08/23 14:15 Stool Stool Occult Blood (SHERRI) - Final Occult Blood Positive 11/08/23 14:15 Mucosa - Throat Streptococcus pyogenes (PCR) - Final 11/08/23 14:15 Urine Catheter - Crawford Streptococcus pneumoniae Antigen (M - Final 11/08/23 14:15 Urine Catheter - [place] Legionella Antigen - Final 11/08/23 13:30 Mucosa - Nasopharyngeal Influenza & RSV (PCR) - Final 11/07/23 04:42 Urine, Random Legionella Antigen - Final 11/07/23 04:42 Urine, Random Streptococcus pneumoniae Antigen (M - Final 11/07/23 23:58 Mucosa - Nasopharyngeal Respiratory Panel (PCR) - Final 11/06/23 13:15 Stool Stool Occult Blood (SHERRI) - Final 11/06/23 11:39 Mucosa - Nose SARS-CoV-2, Influenza & RSV (PCR) - Final SARS-CoV-2 (COVID 19 PCR) ABG Data ABG results: ABG 11/08/23 20:43 Specimen Type ART Sample Site L Radial pH 7.39 Bicarbonate Actual 17.5 L Total CO2 18 Base Excess -7 L O2 Saturation 95 O2 % 80.0 ABG pCO2 29.0 L ABG pO2 76 Ethan Test Positive O2 Delivery Device Vapotherm Vent Mode Not entered Clinical Comments AirVo 60 lpm Radiography Diagnostic Testing: Radiology Impression Chest X-Ray 11/08/23 10:20 IMPRESSION: New and increased bilateral consolidation, concerning for worsening pneumonia. Electronically Signed: Ivonne Carrasco MD at 11:09 EST Reading Location ID and State: [facility] / [place] Tel , Service support , Rhythm Strip Rhythm Strip: Sinus Rhythm Rate: 105 Ectopy: None Physical Exam Narrative GENERAL: cooperative HEENT: Atraumatic; normocephalic EYES; Anicteric, Normal Conjunctiva NECK; supple, normal thyroid, RESPIRATORY: Diminished to auscultation CARDIOVASCULAR: Regular S1 S2, GI: soft, normoactive bowel sounds, : No Renal angle tenderness; EXTREMITIES: edema, no clubbing, MUSCULOSKELETAL: no muscle wasting NEURO: Awake; no lateralizing signs. SKIN: No Rash PSYCH; Flat affect Assessment & Plan Assessment/Plan (1) BERTA (acute kidney injury): (2) Anemia: QUALIFIERS: Anemia type: unspecified type Qualified Code(s): D64.9 - Anemia, unspecified (3) COVID-19: PLAN: Plan Patient is an 78-year-old lady who presented with progressive generalized weakness. Chest x-ray on admission demonstrated early developing pneumonia. Her COVID assay came back positive admitted to monitored bed for further management 1. Acute COVID-19 infection ?Patient out of window for remdesivir. Admitted to knitted bed for symptom elidia salcedo 2. Suspected superimposed bacterial pneumonia ? In the setting of COVID-19 infection. Patient started on azithromycin as well as ceftriaxone -11/08/2023: Patient was reported to be significantly dyspneic at rest. Chest x- ray obtained did show New and increased bilateral consolidation, concerning for worsening pneumonia., Did broaden patient antibiotic therapy 3. Acute hypoxic respiratory failure ? This was manifested by patient being tachypneic with significant hypoxia. Had to be transferred to the intensive care unit placed on Airvo. Respiratory failure multifactorial including recent COVID, suspected bacterial pneumonia as well as fluid overload. 4. Acute kidney injury ? Baseline creatinine from 10/19/2023 was 1.3, creatinine on admission was 2.04 patient on fluids with avoidance of potential nephrotoxic medication with subsequent monitoring of electrolytes on a daily ? 11/09/2023; creatinine down to 1.66 5. Acute congestive heart failure?suspected heart failure with preserved ejection fraction ? Patient responded to Lasix echo ordered on 11/06/2023?Mild concentric left ventricular hypertrophy. The left ventricular ejection fraction is 65 %.Mild diffuse aortic valve calcification. 6. Anemia - Secondary to chronic disorder as well as MDS monitoring H&H and transfuse if patient becomes symptomatic or hemoglobin falls below 7. Patient apparently underwent upper endoscopy a month prior which demonstrated mild hiatal hernia. Patient apparently refused lower endoscopy and is scheduled to undergo capsule endoscopy ? 11/08/2023; patient hemoglobin down to 7.0 with patient deemed to be symptomatic an order was given for patient to be transfused 1 unit PRBC ?11/09/2023; patient hemoglobin came up to 7.6 however she still remains symptom atic additional unit ordered 7. Chronic kidney disease stage IIIa ? Patient presented with BERTA management as discussed above 8. History of pulmonary embolism ? Diagnosed in 2019. Patient was on Xarelto taking of given her concerns for recurrent GI bleed. Patient has an IVC filter placed 9. Paroxysmal A-fib ? Rate controlled. Currently not on systemic anticoagulation given her recent GI bleed significant anemia 10. Diabetes mellitus type II -patient's oral hypoglycemics held. Placed on long acting insulin, Accu-Cheks a.c. and at bedtime and covered with sliding scale insulin 11. Hypertension - Blood pressure controlled, home medications continued with dose adjustment as needed 12. Recently diagnosed lymphoma ? Patient being managed by Dr. 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 Restless leg syndrome ? Patient is on ropinirole did continue 15. DVT prophylaxis ? SC heparin Time spent in the patient's overall evaluation,decision-making process, review of diagnostic data, adjustment of management, discussion with other providers, nursing nursing and ancillary staff involved in patient's care documentation, 50 Minutes Charges/Coding Visit Charges Inpatient E&M: 53998 Subs Hosp L3
[2023-11-09 07:10] LABS: Differential Indicated SCAN CRITERIA MET
[2023-11-09 07:50] LABS: M R Staph aureus DNA By PCR Negative (Negative); Probe Check PASS; Specimen Processing Control PASS
[2023-11-09] MEDS: Pantoprazole Sodium 40 MG in 0.9% Normal Saline (100mL MB+) 100 ML 330 MG IV ×2 (10:01→22:08)
[2023-11-09] MEDS: dexAMETHasone 10 MG/ML Vial 6 MG IV (10:05)
[2023-11-09] MEDS: 0.9% Saline Lock 10 ML Syringe IV ×2 (10:05→12:18)
[2023-11-09] MEDS: Pramipexole Di-HCl 0.5 MG Tablet PO ×2 (10:08→22:09)
[2023-11-09] MEDS: Atorvastatin Calcium 40 MG Tablet PO (10:08)
[2023-11-09] MEDS: guaiFENesin 1,200 MG Tablet 1200 MG PO ×2 (10:08→22:09)
[2023-11-09 10:54] LABS: Differential Comment SCANNED
[2023-11-09 12:06] LABS: Bedside Glucose 275 mg/dL (74-106)
[2023-11-09 12:40] LABS: Hematocrit 22.7 % (37-47); Hemoglobin 7.5 g/dL (12.0-15.0)
--- NOTE | 2023-11-09 13:23 | PN.CC_ITS ---
Assessment & Plan Assessment/Plan (1) Acute hypoxic respiratory failure: (2) COVID-19: (3) Pneumonia: (4) Debility: (5) BERTA (acute kidney injury): PLAN: Plan Assessment -Acute hypoxic respiratory failure -Multilobar pneumonia -COVID-19 -BERTA -Acute blood loss anemia likely secondary to GI bleed. apparently underwent upper endoscopy a month prior which demonstrated mild hiatal hernia. Patient apparently refused lower endoscopy and is scheduled to undergo capsule endoscop -hyperglycemia -Chronic Conditions hx PE status post IVC filter placement, A-fib not on AC secondary to history of GI bleed, diabetes type 2, hypertension, obesity BMI of 32.7, hypertension, lymphoma, primary cold agglutinin disease. These conditions will complicate treatment, recovery, prognosis and care PLAN * She is tolerating Aervo * Patient is out of window for remdesivir. Cont Decadron given her severe hypoxia * Collect sputum cultures. MRSA nasal swab is -ve will d/c vanc. cont zosyn * Follow blood cultures * PPI twice daily IV ordered. * H&H every 8 * Cr improving * Avoid volume overload, If BP trends down then recommend initiating pressors instead of more fluids/ Discussed with primary. 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 Subjective Subjective she reports feeling better. she is on aervo. Objective Data Objective Data Vital Signs: Vital Signs Temp Pulse Resp BP Pulse Ox O2 Del Method O2 Flow Rate 36.5 C L 93 33 H 113/45 L 93 Airvo 60 11/09/23 08:00 11/09/23 11:00 11/09/23 11:00 11/09/23 11:00 11/09/23 11:00 11/09/23 11:11/09/23 11:00 FiO2 53 11/09/23 11:00 Oxygen Flow Rate (L/min) 60 Oxygen Delivery Method Airvo Weight: 78.3 kg Body Mass Index (BMI) 33.7 Intake & Output: Intake and Output for Last 24 Hours 11/07/23 11/08/23 11/09/23 23:59 23:59 23:59 Intake Total 2385 / 2385 4295.83 / 4295.83 151 / 151 Output Total 1075 / 1325 1570 / 1570 Balance 2385 / 2385 3220.83 / 2970.83 -1419 / -1419 Lab / Micro Data 11/09/23 11:25 11/09/23 06:05 Labs: Laboratory Results - last 24 hr 11/06/23 11:36: Crossmatch See Detail 11/08/23 12:45: Diff Path Review March foll, Sodium 133 L, Potassium 4.6, Chloride 104, Carbon Dioxide 21.0, Anion Gap 8, BUN 52 H, Creatinine 1.96 H, Estim Creat Clear Calc 16.44, Est GFR (MDRD) Af Amer 32 L, Est GFR (MDRD) Non-Af 26 L, BUN/Creatinine Ratio 26.5 H, Glucose 450 H, Lactic Acid 1.7, Calcium 8.4 L, Magnesium 1.9 11/08/23 16:05: POC Glucose 421 H 11/08/23 18:15: POC Glucose 315 H 11/08/23 19:45: Blood Type B NEGATIVE, Antibody Screen NEGATIVE, Crossmatch See Detail 11/08/23 19:45: Crossmatch See Detail 11/08/23 22:06: POC Glucose 326 H 11/08/23 23:41: POC Glucose 288 H 11/09/23 06:05: WBC 3.0 L, RBC 2.70 L, Hgb 7.6 L, Hct 23.7 L, MCV 87.8, MCH 28.1, MCHC 32.1, RDW Std Deviation 48.3 H, RDW Coeff of Britt 15.1 H, Plt Count 117 L, MPV 11.3, Immature Gran % (Auto) 1.700 H, Neut % (Auto) 81.4 H, Lymph % (Auto) 6.3 L, [place] % (Auto) 10.6 H, Eos % (Auto) 0.0, Baso % (Auto) 0.0, Absolute Neuts (auto) 2.5, Absolute Lymphs (auto) 0.19 L, Nucleated RBC % 0, Differential Comment SCANNED, Diff Path Review March foll, PT 14.5, INR 1.1, Sodium 139, Potassium 3.6, Chloride 112 H, Carbon Dioxide 18.0 L, Anion Gap 9, BUN 49 H, Creatinine 1.66 H, Estim Creat Clear Calc 19.42, Est GFR (MDRD) Af Amer 38 L, Est GFR (MDRD) Non-Af 32 L, BUN/Creatinine Ratio 29.5 H, Glucose 261 H, Calcium 7.6 L, Phosphorus 2.2 L, Magnesium 1.8, MRSA (PCR) Negative 11/09/23 06:26: POC Glucose 237 H 11/09/23 11:12: POC Glucose 275 H 11/09/23 11:25: Hgb 7.5 L, Hct 22.7 L Micro: Microbiology 11/08/23 14:15 Urine Catheter - Crawford Urine Culture - Preliminary Culture exhibits no growth. 11/08/23 14:15 Stool Stool Occult Blood (SHERRI) - Final Occult Blood Positive 11/08/23 14:15 Mucosa - Throat Streptococcus pyogenes (PCR) - Final 11/08/23 14:15 Urine Catheter - Crawford Streptococcus pneumoniae Antigen (M - Final 11/08/23 14:15 Urine Catheter - Crawford Legionella Antigen - Final 11/08/23 13:30 Mucosa - Nasopharyngeal Influenza & RSV (PCR) - Final 11/07/23 04:42 Urine, Random Legionella Antigen - Final 11/07/23 04:42 Urine, Random Streptococcus pneumoniae Antigen (M - Final 11/07/23 23:58 Mucosa - Nasopharyngeal Respiratory Panel (PCR) - Final 11/06/23 13:15 Stool Stool Occult Blood (SHERRI) - Final 11/06/23 11:39 Mucosa - Nose SARS-CoV-2, Influenza & RSV (PCR) - Final SARS-CoV-2 (COVID 19 PCR) ABG Data ABG results: ABG 11/08/23 20:43 Specimen Type ART Sample Site L Radial pH 7.39 Bicarbonate Actual 17.5 L Total CO2 18 Base Excess -7 L O2 Saturation 95 O2 % 80.0 ABG pCO2 29.0 L ABG pO2 76 Ethan Test Positive O2 Delivery Device Vapotherm Vent Mode Not entered Clinical Comments AirVo 60 lpm Rhythm Strip Rhythm Strip: Sinus Rhythm Rate: 105 Ectopy: None Physical Exam Narrative General alert and no distress Respiratory diffuse rhonchi no wheezing Cardiac S1-S2, regular rate and rhythm GI abdomen soft and nontender MSK +1 edema in bilateral lower extremities Neuro moves all extremities, no dysarthria, no facial droop Charges/Coding Visit Charges Inpatient E&M: 88592 Subs Hosp L3
[2023-11-09] MEDS: Insulin Glargine-YFGN 100 UNIT/ML Pen SC (14:12)
[2023-11-09] MEDS: Magnesium Sulfate 2 GM in Dextrose 5%-Water (100mL Bag) 100 ML IV (14:41)
[2023-11-09] MEDS: Na Biphos/Potassium Phosphate PACKET 1 PACKET PO ×2 (18:06→22:09)
[2023-11-09 18:19] LABS: Hemoglobin 7.4 g/dL (12.0-15.0)
[2023-11-09 18:30] LABS: Bedside Glucose 386 mg/dL (74-106)
[2023-11-09] MEDS: MELATONIN 10 MG TABLET PO (22:50)
[2023-11-09] MEDS: Insulin Glargine-YFGN 100 UNIT/ML Pen 20 UNIT SC (22:51)
[2023-11-09 23:28] LABS: Bedside Glucose 307 mg/dL (74-106)
[2023-11-10] VITALS (32 sets, daily range): BP systolic 94–145; BP diastolic 51–97; PULSE 67–109; RESP 12–49; TEMP 36.4–36.9; O2SAT 82–100; BMI 33.9
[2023-11-10 00:44] LABS: Absolute Lymphocyte Count 0.25 X10^3/uL (0.83-4.51); Absolute Neutrophil Count 4.7 X10^3/uL (2.0-7.7); Basophil# 0.01 X10^3/uL; Basophil% 0.2 % (0-1); Eosinophil# 0.01 X10^3/uL; Eosinophils% 0.2 % (0-5); Hematocrit 23.5 % (37-47); Hemoglobin 7.6 g/dL (12.0-15.0); Lymphocyte # 0.25 X10^3/ul (0.83-4.51); Lymphocyte % 4.6 % (19-41); Mean Corp Hgb Conc 32.3 g/dL (32-36); Mean Corpuscular Hgb 28.3 pg (27.0-32.0); Mean Corpuscular Volume 87.4 fL (81-99); Mean Platelet Vol. 11.3 fl (6.2-12.0); Monocyte# 0.38 X10^3/uL; NRBC Flagged by Analyzer 0 % (0-5); Neutrophil # 4.69 X10^3/uL (2.7-7.7); Neutrophil % 86.7 % (47-70); POSITIVE DIFFERENTIAL YES; Platelet Count 133 K/mm3 (150-450); RBC Distribution Width CV 15.2 % (11.6-14.6); RBC Distribution Width SD 47.7 fl (35.1-43.9); Red Blood Count 2.69 M/mm3 (4.2-5.4); White Blood Count 5.4 K/mm3 (4.4-11.0)
[2023-11-10 00:45] LABS: Differential Indicated SCAN CRITERIA MET
[2023-11-10 01:19] LABS: Differential Comment SCANNED
[2023-11-10] MEDS: Ipratropium/Albuterol Sulfate 3 ML AMPUL.NEB INHALATION ×4 (01:20→19:58)
[2023-11-10] MEDS: Piperacil/Tazobactam 3.375 GM in 0.9% Normal Saline (50mL MB+) 50 ML IV ×3 (06:22→21:58)
[2023-11-10] MEDS: Insulin Lispro 100 UNIT/ML INSULN.PEN SC ×3 (06:25→18:09)
[2023-11-10 06:47] LABS: Anion Gap 8 (5-15); BUN 51 mg/dL (7-18); BUN/Creat Ratio 25.4 RATIO (10-20); Calcium,Total 8.3 mg/dL (8.5-10.1); Chloride 111 mmol/L (98-107); Creatinine, Serum 2.01 mg/dL (0.55-1.02); EST Glomerular Filtration Rate 25 mL/min (>60); Est Glom Filt Rate - Afr Amer 31 mL/min (>60); Estimated Creatinine Clearance 16.03 ml/min; Glucose 184 mg/dL (74-106); Potassium 3.7 mmol/L (3.5-5.1); Sodium Level 138 mmol/L (136-145)
[2023-11-10 07:22] LABS: Bedside Glucose 164 mg/dL (74-106)
--- NOTE | 2023-11-10 07:24 | PCM.PN.INT ---
Assessment & Plan Assessment/Plan (1) Acute hypoxic respiratory failure: (2) COVID-19: PLAN: Plan RECOMMENDATIONS: 1. Continue heated high flow oxygen and wean FiO2 for saturations greater than 90%. 2. Continue empiric broad-spectrum antimicrobials. 3. Continue Decadron to complete 10 days of therapy. 4. Transfuse if hemoglobin drops below 7 g/dL. 5. Continue PPI therapy. IMPRESSIONS: 1. Acute hypoxemic respiratory failure Most likely secondary to COVID-19 with concern for superimposed bacterial pneumonia as well. The patient has been maintained on Decadron. She is not a candidate for remdesivir. She will be continued on empiric broad-spectrum antimicrobials. Plan to continue heated high flow oxygen with a goal to wean FiO2 for saturations greater than 90%. The patient is not a candidate for aggressive diuresis on account of underlying renal insufficiency. The patient is at high risk for further clinical decompensation given her significant comorbidities and COVID-19 pneumonia, which could ultimately result in the need for intubation. 2. Acute kidney injury/heart failure with preserved ejection fraction/anemia/history of PE status post IVC filter/paroxysmal atrial fibrillation Complicates care, management, recovery and prognosis. Continue supportive care as noted above. The patient was previously taken off of Xarelto over concerns for recurrent GI bleeding. CODE STATUS: Full code (This was again discussed with the patient's at the bedside) This note was generated with [employer] dictation software. It may contain incorrect words, spelling, and punctuation that were not noted in checking the note before signing. Subjective Subjective The patient was seen and examined at the bedside this morning. Events from the last 24 hours have been reviewed. The patient is currently afebrile, hemodynamically stable and maintaining appropriate oxygen saturations on heated high flow oxygen with an FiO2 requirement of 92% and flow rate of 60 L/min. The patient is documented to be overall net +5.1 L for the hospitalization. Hemoglobin is stable at 7.6 g/dL. Platelet count is low at 133,000. Serum bicarbonate is low at 19 with a creatinine of 2.01, which is increased from yesterday at 1.6. The patient remains on scheduled bronchodilators, antibiotics and Decadron. Objective Data Objective Data The patient's most recent lab work, culture data and imaging studies have all been personally reviewed. Surface echocardiogram from November 07 demonstrated mild concentric LVH with an ejection fraction of 65%. COVID PCR was positive on November 06. Strep and urine Legionella antigens were negative. Vital Signs: Vital Signs Temp Pulse Resp BP Pulse Ox O2 Del Method O2 Flow Rate 97.8 F 91 34 H 123/97 H 100 Airvo 60 11/10/23 00:15 11/10/23 06:00 11/10/23 06:00 11/10/23 06:00 11/10/23 06:00 11/10/23 06:00 11/10/23 06:00 FiO2 92 11/10/23 06:00 Oxygen Flow Rate (L/min) 60 Oxygen Delivery Method Airvo Weight: 173 lb 11.588 oz Body Mass Index (BMI) 33.9 Intake & Output: Intake and Output for Last 24 Hours 11/08/23 11/09/23 11/10/23 23:59 23:59 23:59 Intake Total 4295.83 / 4295.83 525 / 525 450 / 450 Output Total 1075 / 1325 2045 / 2445 700 / 700 Balance 3220.83 / 2970.83 -1520 / -1920 -250 / -250 Lab / Micro Data 11/10/23 08:30 11/10/23 05:50 Labs: Laboratory Results - last 24 hr 11/08/23 19:45: Crossmatch See Detail 11/09/23 06:05: Differential Comment SCANNED, Diff Path Review March, MRSA (PCR) Negative 11/09/23 11:12: POC Glucose 275 H 11/09/23 11:25: Hgb 7.5 L, Hct 22.7 L 11/09/23 17:37: POC Glucose 386 H 11/09/23 18:00: Hgb 7.4 L, Hct 23.0 L 11/09/23 22:48: POC Glucose 307 H 11/10/23 00:30: WBC 5.4, RBC 2.69 L, Hgb 7.6 L, Hct 23.5 L, MCV 87.4, MCH 28.3, MCHC 32.3, RDW Std Deviation 47.7 H, RDW Coeff of Britt 15.2 H, Plt Count 133 L, MPV 11.3, Immature Gran % (Auto) 1.300 H, Neut % (Auto) 86.7 H, Lymph % (Auto) 4.6 L, [place] % (Auto) 7.0, Eos % (Auto) 0.2, Baso % (Auto) 0.2, Absolute Neuts (auto) 4.7, Absolute Lymphs (auto) 0.25 L, Nucleated RBC % 0, Differential Comment SCANNED 11/10/23 05:50: Sodium 138, Potassium 3.7, Chloride 111 H, Carbon Dioxide 19.0 L, Anion Gap 8, BUN 51 H, Creatinine 2.01 H, Estim Creat Clear Calc 16.03, Est GFR (MDRD) Af Amer 31 L, Est GFR (MDRD) Non-Af 25 L, BUN/Creatinine Ratio 25.4 H, Glucose 184 H, Calcium 8.3 L 11/10/23 06:01: POC Glucose 164 H Micro: Microbiology 11/08/23 14:15 Urine Catheter - Crawford Urine Culture - Preliminary Culture exhibits no growth. 11/08/23 14:15 Stool Stool Occult Blood (SHERRI) - Final Occult Blood Positive 11/08/23 14:15 Mucosa - Throat Streptococcus pyogenes (PCR) - Final 11/08/23 14:15 Urine Catheter - Crawford Streptococcus pneumoniae Antigen (M - Final 11/08/23 14:15 Urine Catheter - Crawford Legionella Antigen - Final 11/08/23 13:30 Mucosa - Nasopharyngeal Influenza & RSV (PCR) - Final 11/07/23 04:42 Urine, Random Legionella Antigen - Final 11/07/23 04:42 Urine, Random Streptococcus pneumoniae Antigen (M - Final 11/07/23 23:58 Mucosa - Nasopharyngeal Respiratory Panel (PCR) - Final 11/06/23 13:15 Stool Stool Occult Blood (SHERRI) - Final 11/06/23 11:39 Mucosa - Nose SARS-CoV-2, Influenza & RSV (PCR) - Final SARS-CoV-2 (COVID 19 PCR) Rhythm Strip Rhythm Strip: Sinus Rhythm Rate: 105 Ectopy: None Physical Exam Const alert Constitutional Narrative: Somewhat confused this morning. General Appearance: cooperative HEENT normocephalic and head/scalp atraumatic Eyes PERRL, EOMs intact bilaterally and conjunctivae normal Neck supple General: trachea midline Chest inspection of chest normal Resp Effort and Inspection: tachypneic Auscultation: diminished lung sounds Cardio regular rate and regular rhythm GI normal to inspection, nondistended, normoactive bowel sounds Extremity no clubbing, cyanosis or edema Skin no rashes or lesions noted Neuro moves all extremities and no focal motor deficits Psych Activity / Motor Behavior: restless Charges/Coding Visit Charges Inpatient E&M: 19260 Subs Hosp L3
--- NOTE | 2023-11-10 07:24 | PCM.PN.HOSP ---
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 Per nursing staff patient was delirious during the night. Her oxygen requirement did increase. Currently remains tachypneic on Airvo 60 L flow per minute with saturation of 92% Objective Data Objective Data Vital Signs: Vital Signs Temp Pulse Resp BP Pulse Ox O2 Del Method O2 Flow Rate 97.8 F 91 34 H 123/97 H 100 Airvo 60 11/10/23 00:15 11/10/23 06:00 11/10/23 06:00 11/10/23 06:00 11/10/23 06:00 11/10/23 06:00 11/10/23 06:00 FiO2 92 11/10/23 06:00 Oxygen Flow Rate (L/min) 60 Oxygen Delivery Method Airvo Weight: 78.8 kg Body Mass Index (BMI) 33.9 Intake & Output: Intake and Output for Last 24 Hours 11/08/23 11/09/23 11/10/23 23:59 23:59 23:59 Intake Total 4295.83 / 4295.83 525 / 525 450 / 450 Output Total 1075 / 1325 2045 / 2445 700 / 700 Balance 3220.83 / 2970.83 -1520 / -1920 -250 / -250 Lab / Micro Data 11/10/23 08:30 11/10/23 05:50 Labs: Laboratory Results - last 24 hr 11/08/23 19:45: Crossmatch See Detail 11/09/23 06:05: Differential Comment SCANNED, Diff Path Review March johana, MRSA (PCR) Negative 11/09/23 11:12: POC Glucose 275 H 11/09/23 11:25: Hgb 7.5 L, Hct 22.7 L 11/09/23 17:37: POC Glucose 386 H 11/09/23 18:00: Hgb 7.4 L, Hct 23.0 L 11/09/23 22:48: POC Glucose 307 H 11/10/23 00:30: WBC 5.4, RBC 2.69 L, Hgb 7.6 L, Hct 23.5 L, MCV 87.4, MCH 28.3, MCHC 32.3, RDW Std Deviation 47.7 H, RDW Coeff of Britt 15.2 H, Plt Count 133 L, MPV 11.3, Immature Gran % (Auto) 1.300 H, Neut % (Auto) 86.7 H, Lymph % (Auto) 4.6 L, Ellsworth % (Auto) 7.0, Eos % (Auto) 0.2, Baso % (Auto) 0.2, Absolute Neuts (auto) 4.7, Absolute Lymphs (auto) 0.25 L, Nucleated RBC % 0, Differential Comment SCANNED 11/10/23 05:50: Sodium 138, Potassium 3.7, Chloride 111 H, Carbon Dioxide 19.0 L, Anion Gap 8, BUN 51 H, Creatinine 2.01 H, Estim Creat Clear Calc 16.03, Est GFR (MDRD) Af Amer 31 L, Est GFR (MDRD) Non-Af 25 L, BUN/Creatinine Ratio 25.4 H, Glucose 184 H, Calcium 8.3 L 11/10/23 06:01: POC Glucose 164 H Micro: Microbiology 11/08/23 14:15 Urine Catheter - Crawford Urine Culture - Preliminary Culture exhibits no growth. 11/08/23 14:15 Stool Stool Occult Blood (SHERRI) - Final Occult Blood Positive 11/08/23 14:15 Mucosa - Throat Streptococcus pyogenes (PCR) - Final 11/08/23 14:15 Urine Catheter - Crawford Streptococcus pneumoniae Antigen (M - Final 11/08/23 14:15 Urine Catheter - Crawford Legionella Antigen - Final 11/08/23 13:30 Mucosa - Nasopharyngeal Influenza & RSV (PCR) - Final 11/07/23 04:42 Urine, Random Legionella Antigen - Final 11/07/23 04:42 Urine, Random Streptococcus pneumoniae Antigen (M - Final 11/07/23 23:58 Mucosa - Nasopharyngeal Respiratory Panel (PCR) - Final 11/06/23 13:15 Stool Stool Occult Blood (SHERRI) - Final 11/06/23 11:39 Mucosa - Nose SARS-CoV-2, Influenza & RSV (PCR) - Final SARS-CoV-2 (COVID 19 PCR) Rhythm Strip Rhythm Strip: Sinus Rhythm Rate: 105 Ectopy: None Physical Exam Narrative GENERAL: Dyspneic at rest HEENT: Atraumatic; normocephalic EYES; Anicteric, Normal Conjunctiva NECK; supple, normal thyroid, RESPIRATORY: Diminished to auscultation CARDIOVASCULAR: Regular S1 S2, GI: soft, normoactive bowel sounds, : No Renal angle tenderness; EXTREMITIES: edema, no clubbing, MUSCULOSKELETAL: no muscle wasting NEURO: Awake; no lateralizing signs. SKIN: No Rash PSYCH; Flat affect Assessment & Plan Assessment/Plan (1) BERTA (acute kidney injury): (2) Anemia: QUALIFIERS: Anemia type: unspecified type Qualified Code(s): D64.9 - Anemia, unspecified (3) COVID-19: PLAN: Plan Patient is an 78-year-old lady who presented with progressive generalized weakness. Chest x-ray on admission demonstrated early developing pneumonia. Her COVID assay came back positive admitted to monitored bed for further management 1. Acute COVID-19 infection ?Patient out of window for remdesivir. Admitted to knitted bed for symptom management 2. Suspected superimposed bacterial pneumonia ? In the setting of COVID-19 infection. Patient started on azithromycin as well as ceftriaxone -11/08/2023: Patient was reported to be significantly dyspneic at rest. Chest x-ray obtained did show New and increased bilateral consolidation, concerning for worsening pneumonia., Did broaden patient antibiotic therapy 3. Acute hypoxic respiratory failure ? This was manifested by patient being tachypneic with significant hypoxia. Had to be transferred to the intensive care unit placed on Airvo. Respiratory failure multifactorial including recent COVID, suspected bacterial pneumonia as well as fluid overload. -11/10/2023;Seen remains in the ICU. Per nursing staff patient was delirious during the night. Her oxygen requirement did increase. Currently remains tachypneic on Airvo 60 L flow per minute with saturation of 92% 4. Acute kidney injury ? Baseline creatinine from 10/19/2023 was 1.3, creatinine on admission was 2.04 patient on fluids with avoidance of potential nephrotoxic medication with subsequent monitoring of electrolytes on a daily ? 11/09/2023; creatinine down to 1.66 5. Acute congestive heart failure?suspected heart failure with preserved ejection fraction ? Patient responded to Lasix echo ordered on 11/06/2023?Mild concentric left ventricular hypertrophy. The left ventricular ejection fraction is 65 %.Mild diffuse aortic valve calcification. ? 11/10/2023; did hold back Lasix given worsening kidney function 6. Acute metabolic encephalopathy ? Multifactorial including patient COVID-19 infection, acute hypoxic respiratory failure and acute kidney injury plan is to treat underlying condition 7. Anemia - Secondary to chronic disorder as well as MDS monitoring H&H and transfuse if patient becomes symptomatic or hemoglobin falls below 7. Patient apparently underwent upper endoscopy a month prior which demonstrated mild hiatal hernia. Patient apparently refused lower endoscopy and is scheduled to undergo capsule endoscopy ? 11/08/2023; patient hemoglobin down to 7.0 with patient deemed to be symptomatic an order was given for patient to be transfused 1 unit PRBC ?11/09/2023; patient hemoglobin came up to 7.6 however she still remains symptomatic additional unit ordered 8. History of pulmonary embolism ? Diagnosed in 2019. Patient was on Xarelto taking of given her concerns for recurrent GI bleed. Patient has an IVC filter placed 9. Paroxysmal A-fib ? Rate controlled. Currently not on systemic anticoagulation given her recent GI bleed significant anemia 10. Diabetes mellitus type II -patient's oral hypoglycemics held. Placed on long acting insulin, Accu-Cheks a.c. and at bedtime and covered with sliding scale insulin 11. Hypertension - Blood pressure controlled, home medications continued with dose adjustment as needed 12. Recently diagnosed lymphoma ? Patient being managed by Dr. 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 Restless leg syndrome ? Patient is on ropinirole did continue 15. Chronic kidney disease stage IIIa ? Patient presented with BERTA management as discussed above 18. DVT prophylaxis ? SC heparin Time spent in the patient's overall evaluation,decision-making process, review of diagnostic data, adjustment of management, discussion with other providers, nursing nursing and ancillary staff involved in patient's care documentation, 50 Minutes Charges/Coding Visit Charges Inpatient E&M: 56018 [facility] Hosp L3
[2023-11-10 08:45] LABS: Absolute Neutrophil Count 5.5 X10^3/uL (2.0-7.7); Basophil# 0.01 X10^3/uL; Basophil% 0.2 % (0-1); Hematocrit 25.4 % (37-47); Hemoglobin 8.3 g/dL (12.0-15.0); Lymphocyte % 3.2 % (19-41); Mean Corp Hgb Conc 32.7 g/dL (32-36); Mean Corpuscular Hgb 28.2 pg (27.0-32.0); Mean Corpuscular Volume 86.4 fL (81-99); Mean Platelet Vol. 10.9 fl (6.2-12.0); Monocyte# 0.45 X10^3/uL; Monocyte% 7.2 % (0-10); NRBC Flagged by Analyzer 0 % (0-5); Neutrophil # 5.53 X10^3/uL (2.7-7.7); Neutrophil % 87.8 % (47-70); POSITIVE DIFFERENTIAL YES; Platelet Count 152 K/mm3 (150-450); RBC Distribution Width CV 15.3 % (11.6-14.6); RBC Distribution Width SD 47.4 fl (35.1-43.9); Red Blood Count 2.94 M/mm3 (4.2-5.4); White Blood Count 6.3 K/mm3 (4.4-11.0)
[2023-11-10 09:02] LABS: Differential Indicated SCAN CRITERIA MET
[2023-11-10 09:39] LABS: Anisocytosis 1+
[2023-11-10] MEDS: Pramipexole Di-HCl 0.5 MG Tablet PO (10:48)
[2023-11-10] MEDS: Atorvastatin Calcium 40 MG Tablet PO (10:48)
[2023-11-10] MEDS: guaiFENesin 1,200 MG Tablet 1200 MG PO (10:48)
[2023-11-10] MEDS: dexAMETHasone 10 MG/ML Vial 6 MG IV (10:49)
[2023-11-10] MEDS: Pantoprazole Sodium 40 MG in 0.9% Normal Saline (100mL MB+) 100 ML 330 MG IV ×2 (10:49→21:42)
[2023-11-10] MEDS: Na Biphos/Potassium Phosphate PACKET 1 PACKET PO (10:49)
[2023-11-10] MEDS: Insulin Glargine-YFGN 100 UNIT/ML Pen SC (11:42)
--- NOTE | 2023-11-10 11:49 | CASEMGMT ---
Social Work RN CM spoke w/, he is aware LW/POA not on file at the hospital. NILESH Adler
[2023-11-10 11:56] LABS: Pathologist Review Reviewed
[2023-11-10 11:57] LABS: Pathologist Review Reviewed
[2023-11-10 12:28] LABS: Bedside Glucose 176 mg/dL (74-106)
[2023-11-10 14:58] LABS: Allen Test Positive; Base Excess -7 mmol/L (-2 to +2); Bicarbonate 17.2 mmol/L (22-26); Blood Gas Specimen Type ART; Mode Not entered; O2 Delivery Device Not entered; PO2 60 mmHG (75-100); SITE R Radial; SO2 92 % (95-99); Total Carbon Dioxide 18 mmol/L; pCO2 25.9 mmHg (35-45); pH 7.43 (7.35-7.45)
--- NOTE | 2023-11-10 15:17 | CASEMGMT ---
Discharge Planning Updates sent to [facility] [place] Susu Dur[place], Discharge Planning Asst.
[2023-11-10] MEDS: dexMEDEtomidine 400 MCG in 0.9% Normal Saline (100mL Bag) 96 ML 9.90000000000000036 MCG CONT INF (15:49)
[2023-11-10 17:18] LABS: Bedside Glucose 213 mg/dL (74-106)
--- NOTE | 2023-11-10 17:28 | CPS ---
Patient immediately started pulling at mask and would not let me fasten headgear. Placed back on AIRVO. RN and DR Wright aware.
[2023-11-10] MEDS: dexMEDEtomidine 400 MCG in 0.9% Normal Saline (100mL Bag) 96 ML 15.8000000000000007 MCG CONT INF (21:41)
[2023-11-10] MEDS: Insulin Glargine-YFGN 100 UNIT/ML Pen 20 UNIT SC (21:47)
[2023-11-11] VITALS (35 sets, daily range): BP systolic 90–163; BP diastolic 49–110; PULSE 56–73; RESP 14–41; TEMP 35.6–36.6; O2SAT 90–99; BMI 33.5
[2023-11-11] MEDS: Insulin Lispro 100 UNIT/ML INSULN.PEN SC ×2 (00:32→17:59)
[2023-11-11 00:54] LABS: Bedside Glucose 158 mg/dL (74-106)
[2023-11-11 00:54] LABS: Bedside Glucose 174 mg/dL (74-106)
[2023-11-11] MEDS: Ipratropium/Albuterol Sulfate 3 ML AMPUL.NEB INHALATION ×4 (01:29→19:05)
[2023-11-11] MEDS: 0.9% Saline Lock 10 ML Syringe IV ×2 (04:07→12:10)
[2023-11-11] MEDS: dexMEDEtomidine 400 MCG in 0.9% Normal Saline (100mL Bag) 96 ML 15.8000000000000007 MCG CONT INF (04:08)
[2023-11-11 04:28] LABS: Absolute Lymphocyte Count 0.13 X10^3/uL (0.83-4.51); Basophil# 0.01 X10^3/uL; Basophil% 0.2 % (0-1); Hematocrit 25.6 % (37-47); Hemoglobin 8.6 g/dL (12.0-15.0); Lymphocyte # 0.13 X10^3/ul (0.83-4.51); Lymphocyte % 2.4 % (19-41); Mean Corp Hgb Conc 33.6 g/dL (32-36); Mean Corpuscular Hgb 28.5 pg (27.0-32.0); Mean Corpuscular Volume 84.8 fL (81-99); Mean Platelet Vol. 11.4 fl (6.2-12.0); Monocyte# 0.24 X10^3/uL; Monocyte% 4.4 % (0-10); NRBC Flagged by Analyzer 0 % (0-5); Neutrophil # 4.96 X10^3/uL (2.7-7.7); Neutrophil % 91.2 % (47-70); POSITIVE DIFFERENTIAL YES; Platelet Count 143 K/mm3 (150-450); RBC Distribution Width CV 15.5 % (11.6-14.6); RBC Distribution Width SD 47.1 fl (35.1-43.9); Red Blood Count 3.02 M/mm3 (4.2-5.4); White Blood Count 5.4 K/mm3 (4.4-11.0)
[2023-11-11 04:30] LABS: Differential Indicated SCAN CRITERIA MET
--- NOTE | 2023-11-11 04:37 | CPS ---
o2 decreased to 80% -nurse aware
[2023-11-11 04:38] LABS: Anion Gap 8 (5-15); BUN 45 mg/dL (7-18); BUN/Creat Ratio 27.8 RATIO (10-20); Calcium,Total 7.9 mg/dL (8.5-10.1); Chloride 114 mmol/L (98-107); Creatinine, Serum 1.62 mg/dL (0.55-1.02); EST Glomerular Filtration Rate 32 mL/min (>60); Est Glom Filt Rate - Afr Amer 39 mL/min (>60); Estimated Creatinine Clearance 19.89 ml/min; Glucose 140 mg/dL (74-106); Potassium 3.4 mmol/L (3.5-5.1); Sodium Level 143 mmol/L (136-145)
[2023-11-11 05:26] LABS: Differential Comment SCANNED
[2023-11-11 05:39] LABS: Phosphorus 3.9 mg/dL (2.5-4.9)
[2023-11-11] MEDS: Piperacil/Tazobactam 3.375 GM in 0.9% Normal Saline (50mL MB+) 50 ML IV ×3 (06:24→21:34)
[2023-11-11] MEDS: Potassium Chloride 10mEq/100mL 10 MEQ/100 ML IV.SOLN. 100 MEQ IV BOLUS ×5 (06:44→12:10)
--- NOTE | 2023-11-11 07:31 | PCM.PN.INT ---
Assessment & Plan Assessment/Plan (1) Acute hypoxic respiratory failure: (2) COVID-19: PLAN: Plan RECOMMENDATIONS: 1. Continue heated high flow oxygen and wean FiO2 for saturations greater than 90%. 2. Continue empiric broad-spectrum antimicrobials. 3. Continue Decadron to complete 10 days of therapy. 4. Transfuse if hemoglobin drops below 7 g/dL. 5. Obtain follow-up chest x-ray and ABG. 6. Continue PPI therapy. IMPRESSIONS: 1. Acute hypoxemic respiratory failure Most likely secondary to COVID-19 with concern for superimposed bacterial pneumonia as well. The patient has been maintained on Decadron. She is not a candidate for remdesivir. She will be continued on empiric broad-spectrum antimicrobials. Plan to continue heated high flow oxygen with a goal to wean FiO2 for saturations greater than 90%. The patient is not a candidate for aggressive diuresis on account of underlying renal insufficiency. The patient is at high risk for further clinical decompensation given her significant comorbidities and COVID-19 pneumonia, which could ultimately result in the need for intubation. Plan to obtain follow-up ABG and chest x-ray this morning. 2. Acute kidney injury/heart failure with preserved ejection fraction/anemia/history of PE status post IVC filter/paroxysmal atrial fibrillation Complicates care, management, recovery and prognosis. Continue supportive care as noted above. The patient was previously taken off of Xarelto over concerns for recurrent GI bleeding. CODE STATUS: Full code (This was again discussed with the patient's ) This note was generated with [employer] dictation software. It may contain incorrect words, spelling, and punctuation that were not noted in checking the note before signing. Subjective Subjective The patient was seen and examined at the bedside this morning. Events from the last 24 hours have been reviewed. The patient remains on heated high flow oxygen with a flow rate of 60 L/min and FiO2 of 75%. The patient ultimately had to be placed on Precedex yesterday and put into restraints to facilitate adherence with prescribed medical therapy due to refractory hypoxemia. The patient was unable to tolerate PAP therapy. Potassium is low this morning at 3.4 with a creatinine of 1.62. She is documented to be overall net +4.8 L for the hospitalization. Objective Data Objective Data The patient's most recent lab work, culture data and imaging studies have all been personally reviewed. Surface echocardiogram from November 07 demonstrated mild concentric LVH with an ejection fraction of 65%. COVID PCR was positive on November 06. Strep and urine Legionella antigens were negative. Vital Signs: Vital Signs Temp Pulse Resp BP Pulse Ox O2 Del Method O2 Flow Rate 97.7 F L 68 35 H 154/71 H 94 Airvo 60 11/11/23 06:00 11/11/23 07:27 11/11/23 07:27 11/11/23 07:00 11/11/23 07:27 11/11/23 07:00 11/11/23 07:00 FiO2 75 11/11/23 07:27 Oxygen Flow Rate (L/min) 60 Oxygen Delivery Method Airvo Weight: 171 lb 15.369 oz Body Mass Index (BMI) 33.5 Intake & Output: Intake and Output for Last 24 Hours 11/09/23 11/10/23 11/11/23 23:59 23:59 23:59 Intake Total 525 / 525 883.31 / 899.11 129.2 / 129.2 Output Total 2045 / 2445 1350 / 1400 250 / 250 Balance -1520 / -1920 -466.69 / -500.89 -120.8 / -120.8 Lab / Micro Data Attestation: I reviewed the patient's lab results. 11/11/23 04:15 11/11/23 04:15 Labs: Laboratory Results - last 24 hr 11/08/23 12:45: Diff Path Review Reviewed 11/09/23 06:05: Diff Path Review Reviewed 11/10/23 08:30: WBC 6.3, RBC 2.94 L, Hgb 8.3 L, Hct 25.4 L, MCV 86.4, MCH 28.2, MCHC 32.7, RDW Std Deviation 47.4 H, RDW Coeff of Britt 15.3 H, Plt Count 152, MPV 10.9, Immature Gran % (Auto) 1.600 H, Neut % (Auto) 87.8 H, Lymph % (Auto) 3.2 L, Morgan % (Auto) 7.2, Eos % (Auto) 0.0, Baso % (Auto) 0.2, Absolute Neuts (auto) 5.5, Absolute Lymphs (auto) 0.20 L, Nucleated RBC % 0, Anisocytosis 1+ 11/10/23 11:38: POC Glucose 176 H 11/10/23 16:59: POC Glucose 213 H 11/10/23 21:46: POC Glucose 174 H 11/11/23 00:18: POC Glucose 158 H 11/11/23 04:15: WBC 5.4, RBC 3.02 L, Hgb 8.6 L, Hct 25.6 L, MCV 84.8, MCH 28.5, MCHC 33.6, RDW Std Deviation 47.1 H, RDW Coeff of Britt 15.5 H, Plt Count 143 L, MPV 11.4, Immature Gran % (Auto) 1.800 H, Neut % (Auto) 91.2 H, Lymph % (Auto) 2.4 L, Morgan % (Auto) 4.4, Eos % (Auto) 0.0, Baso % (Auto) 0.2, Absolute Neuts (auto) 5.0, Absolute Lymphs (auto) 0.13 L, Nucleated RBC % 0, Differential Comment SCANNED, Sodium 143, Potassium 3.4 L, Chloride 114 H, Carbon Dioxide 21.0, Anion Gap 8, BUN 45 H, Creatinine 1.62 H, Estim Creat Clear Calc 19.89, Est GFR (MDRD) Af Amer 39 L, Est GFR (MDRD) Non-Af 32 L, BUN/Creatinine Ratio 27.8 H, Glucose 140 H, Calcium 7.9 L, Phosphorus 3.9 Micro: Microbiology 11/08/23 12:45 Blood Culture (Wb) - Left Hand Blood Culture - Preliminary No growth in 48 hours. 11/08/23 12:45 Blood Culture (Wb) - Anticubital Left Blood Culture - Preliminary No growth in 48 hours. 11/08/23 14:15 Urine Catheter - Crawford Urine Culture - Final Culture exhibits no growth. 11/08/23 14:15 Stool Stool Occult Blood (SHERRI) - Final Occult Blood Positive 11/08/23 14:15 Mucosa - Throat Streptococcus pyogenes (PCR) - Final 11/08/23 14:15 Urine Catheter - Crawford Streptococcus pneumoniae Antigen (M - Final 11/08/23 14:15 Urine Catheter - Crawford Legionella Antigen - Final 11/08/23 13:30 Mucosa - Nasopharyngeal Influenza & RSV (PCR) - Final 11/07/23 04:42 Urine, Random Legionella Antigen - Final 11/07/23 04:42 Urine, Random Streptococcus pneumoniae Antigen (M - Final 11/07/23 23:58 Mucosa - Nasopharyngeal Respiratory Panel (PCR) - Final 11/06/23 13:15 Stool Stool Occult Blood (SHERRI) - Final 11/06/23 11:39 Mucosa - Nose SARS-CoV-2, Influenza & RSV (PCR) - Final SARS-CoV-2 (COVID 19 PCR) ABG Data ABG results: ABG 11/10/23 14:54 Specimen Type ART Sample Site R Radial pH 7.43 Bicarbonate Actual 17.2 L Total CO2 18 Base Excess -7 L O2 Saturation 92 L O2 % 92.0 ABG pCO2 25.9 L ABG pO2 60 L Ethan Test Positive O2 Delivery Device Not entered Vent Mode Not entered Clinical Comments AIRVO 60 LPM Rhythm Strip Rhythm Strip: Sinus Rhythm Rate: 105 Ectopy: None Physical Exam Const alert General Appearance: lethargic and ill appearing HEENT normocephalic and head/scalp atraumatic Eyes PERRL, EOMs intact bilaterally and conjunctivae normal Neck supple General: trachea midline Chest inspection of chest normal Resp Effort and Inspection: tachypneic Auscultation: diminished lung sounds Cardio regular rate and regular rhythm GI normal to inspection, nondistended, normoactive bowel sounds Extremity no clubbing, cyanosis or edema Skin no rashes or lesions noted Neuro moves all extremities and no focal motor deficits Psych Activity / Motor Behavior: restless Charges/Coding Visit Charges Inpatient E&M: 92596 [facility] Hosp L3
--- NOTE | 2023-11-11 07:50 | PCM.PN.HOSP ---
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) Essential (primary) hypertension (11/06/23) Other pulmonary embolism without acute cor pulmonale (11/06/23) Paroxysmal atrial fibrillation (11/06/23) Pneumonia, unspecified organism (11/06/23) Acute respiratory failure with hypoxia (11/06/23) Acute kidney failure, unspecified (11/06/23) Shortness of breath (11/06/23) Other malaise (11/06/23) COVID-19 (11/06/23) Subjective Subjective Patient had to be placed in soft restraints and started on Precedex drip as a result of agitation Objective Data Objective Data Vital Signs: Vital Signs Temp Pulse Resp BP Pulse Ox O2 Del Method O2 Flow Rate 97.7 F L 68 35 H 154/71 H 94 Airvo 60 11/11/23 06:00 11/11/23 07:27 11/11/23 07:27 11/11/23 07:00 11/11/23 07:27 11/11/23 07:00 11/11/23 07:00 FiO2 75 11/11/23 07:27 Oxygen Flow Rate (L/min) 60 Oxygen Delivery Method Airvo Weight: 78 kg Body Mass Index (BMI) 33.5 Intake & Output: Intake and Output for Last 24 Hours 11/09/23 11/10/23 11/11/23 23:59 23:59 23:59 Intake Total 525 / 525 883.31 / 899.11 129.2 / 129.2 Output Total 2045 / 2445 1350 / 1400 250 / 250 Balance -1520 / -1920 -466.69 / -500.89 -120.8 / -120.8 Lab / Micro Data 11/11/23 04:15 11/11/23 04:15 Labs: Laboratory Results - last 24 hr 11/08/23 12:45: Diff Path Review Reviewed 11/09/23 06:05: Diff Path Review Reviewed 11/10/23 08:30: WBC 6.3, RBC 2.94 L, Hgb 8.3 L, Hct 25.4 L, MCV 86.4, MCH 28.2, MCHC 32.7, RDW Std Deviation 47.4 H, RDW Coeff of Britt 15.3 H, Plt Count 152, MPV 10.9, Immature Gran % (Auto) 1.600 H, Neut % (Auto) 87.8 H, Lymph % (Auto) 3.2 L, Brooks % (Auto) 7.2, Eos % (Auto) 0.0, Baso % (Auto) 0.2, Absolute Neuts (auto) 5.5, Absolute Lymphs (auto) 0.20 L, Nucleated RBC % 0, Anisocytosis 1+ 11/10/23 11:38: POC Glucose 176 H 11/10/23 16:59: POC Glucose 213 H 11/10/23 21:46: POC Glucose 174 H 11/11/23 00:18: POC Glucose 158 H 11/11/23 04:15: WBC 5.4, RBC 3.02 L, Hgb 8.6 L, Hct 25.6 L, MCV 84.8, MCH 28.5, MCHC 33.6, RDW Std Deviation 47.1 H, RDW Coeff of Britt 15.5 H, Plt Count 143 L, MPV 11.4, Immature Gran % (Auto) 1.800 H, Neut % (Auto) 91.2 H, Lymph % (Auto) 2.4 L, Brooks % (Auto) 4.4, Eos % (Auto) 0.0, Baso % (Auto) 0.2, Absolute Neuts (auto) 5.0, Absolute Lymphs (auto) 0.13 L, Nucleated RBC % 0, Differential Comment SCANNED, Sodium 143, Potassium 3.4 L, Chloride 114 H, Carbon Dioxide 21.0, Anion Gap 8, BUN 45 H, Creatinine 1.62 H, Estim Creat Clear Calc 19.89, Est GFR (MDRD) Af Amer 39 L, Est GFR (MDRD) Non-Af 32 L, BUN/Creatinine Ratio 27.8 H, Glucose 140 H, Calcium 7.9 L, Phosphorus 3.9 Micro: Microbiology 11/08/23 12:45 Blood Culture (Wb) - Left Hand Blood Culture - Preliminary No growth in 48 hours. 11/08/23 12:45 Blood Culture (Wb) - Anticubital Left Blood Culture - Preliminary No growth in 48 hours. 11/08/23 14:15 Urine Catheter - Crawford Urine Culture - Final Culture exhibits no growth. 11/08/23 14:15 Stool Stool Occult Blood (SHERRI) - Final Occult Blood Positive 11/08/23 14:15 Mucosa - Throat Streptococcus pyogenes (PCR) - Final 11/08/23 14:15 Urine Catheter - Crawford Streptococcus pneumoniae Antigen (M - Final 11/08/23 14:15 Urine Catheter - Crawford Legionella Antigen - Final 11/08/23 13:30 Mucosa - Nasopharyngeal Influenza & RSV (PCR) - Final 11/07/23 04:42 Urine, Random Legionella Antigen - Final 11/07/23 04:42 Urine, Random Streptococcus pneumoniae Antigen (M - Final 11/07/23 23:58 Mucosa - Nasopharyngeal Respiratory Panel (PCR) - Final 11/06/23 13:15 Stool Stool Occult Blood (SHERRI) - Final 11/06/23 11:39 Mucosa - Nose SARS-CoV-2, Influenza & RSV (PCR) - Final SARS-CoV-2 (COVID 19 PCR) ABG Data ABG results: ABG 11/10/23 14:54 Specimen Type ART Sample Site R Radial pH 7.43 Bicarbonate Actual 17.2 L Total CO2 18 Base Excess -7 L O2 Saturation 92 L O2 % 92.0 ABG pCO2 25.9 L ABG pO2 60 L Ethan Test Positive O2 Delivery Device Not entered Vent Mode Not entered Clinical Comments AIRVO 60 LPM Rhythm Strip Rhythm Strip: Sinus Rhythm Rate: 105 Ectopy: None Physical Exam Narrative GENERAL: Dyspneic at rest HEENT: Atraumatic; normocephalic EYES; Anicteric, Normal Conjunctiva NECK; supple, normal thyroid, RESPIRATORY: Diminished to auscultation CARDIOVASCULAR: Regular S1 S2, GI: soft, normoactive bowel sounds, : No Renal angle tenderness; EXTREMITIES: edema, no clubbing, MUSCULOSKELETAL: no muscle wasting NEURO: Awake; no lateralizing signs. SKIN: No Rash PSYCH; Flat affect Assessment & Plan Assessment/Plan (1) BERTA (acute kidney injury): (2) Anemia: QUALIFIERS: Anemia type: unspecified type Qualified Code(s): D64.9 - Anemia, unspecified (3) COVID-19: PLAN: Plan Patient is an 78-year-old lady who presented with progressive generalized weakness. Chest x-ray on admission demonstrated early developing pneumonia. Her COVID assay came back positive admitted to monitored bed for further management 1. Acute COVID-19 infection ?Patient out of window for remdesivir. Admitted to knitted bed for symptom management 2. Suspected superimposed bacterial pneumonia ? In the setting of COVID-19 infection. Patient started on azithromycin as well as ceftriaxone -11/08/2023: Patient was reported to be significantly dyspneic at rest. Chest x-ray obtained did show New and increased bilateral consolidation, concerning for worsening pneumonia., Did broaden patient antibiotic therapy 3. Acute hypoxic respiratory failure ? This was manifested by patient being tachypneic with significant hypoxia. Had to be transferred to the intensive care unit placed on Airvo. Respiratory failure multifactorial including recent COVID, suspected bacterial pneumonia as well as fluid overload. -11/10/2023;Seen remains in the ICU. Per nursing staff patient was delirious during the night. Her oxygen requirement did increase. Currently remains tachypneic on Airvo 60 L flow per minute with saturation of 92% 4. Acute kidney injury ? Baseline creatinine from 10/19/2023 was 1.3, creatinine on admission was 2.04 patient on fluids with avoidance of potential nephrotoxic medication with subsequent monitoring of electrolytes on a daily ? 11/09/2023; creatinine down to 1.66 5. Acute congestive heart failure?suspected heart failure with preserved ejection fraction ? Patient responded to Lasix echo ordered on 11/06/2023?Mild concentric left ventricular hypertrophy. The left ventricular ejection fraction is 65 %.Mild diffuse aortic valve calcification. ? 11/10/2023; did hold back Lasix given worsening kidney function 6. Acute metabolic encephalopathy ? Multifactorial including patient COVID-19 infection, acute hypoxic respiratory failure and acute kidney injury plan is to treat underlying condition ? 11/11/2023;Patient had to be placed in soft restraints and started on Precedex drip as a result of agitation 7. Anemia - Secondary to chronic disorder as well as MDS monitoring H&H and transfuse if patient becomes symptomatic or hemoglobin falls below 7. Patient apparently underwent upper endoscopy a month prior which demonstrated mild hiatal hernia. Patient apparently refused lower endoscopy and is scheduled to undergo capsule endoscopy ? 11/08/2023; patient hemoglobin down to 7.0 with patient deemed to be symptomatic an order was given for patient to be transfused 1 unit PRBC ?11/09/2023; patient hemoglobin came up to 7.6 however she still remains symptomatic additional unit ordered 8. History of pulmonary embolism ? Diagnosed in 2019. Patient was on Xarelto taking of given her concerns for recurrent GI bleed. Patient has an IVC filter placed 9. Paroxysmal A-fib ? Rate controlled. Currently not on systemic anticoagulation given her recent GI bleed significant anemia 10. Diabetes mellitus type II -patient's oral hypoglycemics held. Placed on long acting insulin, Accu-Cheks a.c. and at bedtime and covered with sliding scale insulin 11. Hypertension - Blood pressure controlled, home medications continued with dose adjustment as needed 12. Recently diagnosed lymphoma ? Patient being managed by Dr. 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 Restless leg syndrome ? Patient is on ropinirole did continue 15. Chronic kidney disease stage IIIa ? Patient presented with BERTA management as discussed above 18. DVT prophylaxis ? SC heparin Time spent in the patient's overall evaluation,decision-making process, review of diagnostic data, adjustment of management, discussion with other providers, nursing nursing and ancillary staff involved in patient's care documentation, 50 Minutes Charges/Coding Visit Charges Inpatient E&M: 08717 [facility] Hosp L3
[2023-11-11 08:43] LABS: Allen Test Positive; Base Excess -7 mmol/L (-2 to +2); Bicarbonate 17.3 mmol/L (22-26); Blood Gas Specimen Type ART; Comment airvo 60lpm; Mode Not entered; O2 Delivery Device Not entered; PO2 46 mmHG (75-100); SITE R Radial; SO2 84 % (95-99); Total Carbon Dioxide 18 mmol/L; pCO2 26.7 mmHg (35-45); pH 7.42 (7.35-7.45)
--- NOTE | 2023-11-11 08:45 | RAD_ITS ---
INDICATION: Respiratory Failure EXAMINATION/TECHNIQUE: X-RAY - XR Chest 1 View COMPARISON: November 08, 2023 FINDINGS: LINES/DEVICES: None. LUNGS: There are patchy opacities within the left mid and lower lung that have progressed since the prior examination. There are stable patchy opacities scattered throughout the right lung. No pneumothorax. MEDIASTINUM AND CARDIOVASCULAR STRUCTURES: Cardiac silhouette not enlarged. Central airways and mediastinal contour are unremarkable. BONES AND SOFT TISSUES: There are degenerative changes of the right shoulder. 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 RAD/Chest 1 View (Portable) IMPRESSION: Bilateral ill-defined opacities with interval progression on the left, may reflect some combination of pneumonia, atelectasis and/or edema. Electronically Signed: Philomena Saucedo MD at 9:12 EST ,
[2023-11-11 08:59] LABS: Bedside Glucose 125 mg/dL (74-106)
[2023-11-11] MEDS: Pantoprazole Sodium 40 MG in 0.9% Normal Saline (100mL MB+) 100 ML 330 MG IV ×2 (09:55→21:19)
[2023-11-11] MEDS: Insulin Glargine-YFGN 100 UNIT/ML Pen SC (09:57)
[2023-11-11] MEDS: dexAMETHasone 10 MG/ML Vial 6 MG IV (09:58)
[2023-11-11 10:20] LABS: Pathologist Review Reviewed
--- NOTE | 2023-11-11 11:33 | RAD_ITS ---
INDICATION: Intubation -- Will call when ready EXAMINATION/TECHNIQUE: X-RAY - XR Chest 1 View COMPARISON: November 11, 2023 at 8:53 AM FINDINGS: LINES/DEVICES: There is an endotracheal tube in place. The deondre is difficult to visualize and the endotracheal tube appears to be terminating approximately 0.6 cm above the deondre. There is a central venous catheter in place terminating within the expected region of the superior vena cava. There is an enteric tube in place terminating within the expected region of the gastric fundus. LUNGS: There are bilateral patchy opacities that have progressed within the right upper lung since the prior examination. No pneumothorax. MEDIASTINUM AND CARDIOVASCULAR STRUCTURES: Cardiac silhouette not enlarged. Central airways and mediastinal contour are unremarkable. BONES AND SOFT TISSUES: There is a prosthetic left proximal humerus. RAD/Chest 1 View (Portable) IMPRESSION: Low-lying endotracheal tube that appears to be 0.6 cm above the deondre, recommend retraction by 3 cm. Bilateral patchy opacities, with worsening within the right upper lung, concerning for some combination of multifocal pneumonia, edema and/or atelectasis. Electronically Signed: Philomena Saucedo MD at 14:03 EST ,
[2023-11-11 11:35] LABS: Bedside Glucose 121 mg/dL (74-106)
[2023-11-11] MEDS: Midazolam 2 MG/2 ML Syringe 4 MG IV (11:58)
[2023-11-11] MEDS: Etomidate 20 MG/10 ML Vial IV (11:58)
[2023-11-11] MEDS: Propofol 10MG/Ml 1,000 MG/100 ML Bottle 4.70000000000000018 MG CONT INF (12:00)
[2023-11-11] MEDS: fentaNYL drip 100 ML 15 MCG CONT INF ×2 (12:09→17:54)
--- NOTE | 2023-11-11 12:11 | PN_ITS ---
Subjective Subjective Over the course of the morning, the patient continued to decompensate from a respiratory perspective. After being maxed out on heated high flow oxygen, the patient was transiently transition to BiPAP therapy, but remained significantly tachypneic despite the aforementioned interventions. Therefore, the decision w as made to proceed with intubation. Objective Data Objective Data Vital Signs: Vital Signs Temp Pulse Resp BP Pulse Ox O2 Del Method O2 Flow Rate 96.2 F L 62 35 H 132/110 H 90 Airvo 60 11/11/23 08:40 11/11/23 08:40 11/11/23 08:40 11/11/23 08:40 11/11/23 08:40 11/11/23 08:40 11/11/23 08:40 FiO2 87 11/11/23 08:40 Oxygen Flow Rate (L/min) 60 Oxygen Delivery Method Airvo Weight: 171 lb 15.369 oz Body Mass Index (BMI) 33.5 Intake & Output: Intake and Output for Last 24 Hours 11/09/23 11/10/23 11/11/23 23:59 23:59 23:59 Intake Total 525 / 525 883.31 / 899.11 689.20 / 689.20 Output Total 2045 / 2445 1350 / 1400 400 / 400 Balance -1520 / -1920 -466.69 / -500.89 289.20 / 289.20 Lab / Micro Data 11/11/23 04:15 11/11/23 04:15 Labs: Laboratory Results - last 24 hr 11/07/23 07:05: Diff Path Review Reviewed 11/10/23 11:38: POC Glucose 176 H 11/10/23 16:59: POC Glucose 213 H 11/10/23 21:46: POC Glucose 174 H 11/11/23 00:18: POC Glucose 158 H 11/11/23 04:15: WBC 5.4, RBC 3.02 L, Hgb 8.6 L, Hct 25.6 L, MCV 84.8, MCH 28.5, MCHC 33.6, RDW Std Deviation 47.1 H, RDW Coeff of Britt 15.5 H, Plt Count 143 L, MPV 11.4, Immature Gran % (Auto) 1.800 H, Neut % (Auto) 91.2 H, Lymph % (Auto) 2.4 L, [place] % (Auto) 4.4, Eos % (Auto) 0.0, Baso % (Auto) 0.2, Absolute Neuts ( auto) 5.0, Absolute Lymphs (auto) 0.13 L, Nucleated RBC % 0, Differential Com ment SCANNED, Sodium 143, Potassium 3.4 L, Chloride 114 H, Carbon Dioxide 21.0, Anion Gap 8, BUN 45 H, Creatinine 1.62 H, Estim Creat Clear Calc 19.89, Est GFR (MDRD) Af Amer 39 L, Est GFR (MDRD) Non-Af 32 L, BUN/Creatinine Ratio 27.8 H, Glucose 140 H, Calcium 7.9 L, Phosphorus 3.9 11/11/23 06:22: POC Glucose 125 H 11/11/23 11:02: POC Glucose 121 H Micro: Microbiology 11/08/23 12:45 Blood Culture (Wb) - Left Hand Blood Culture - Preliminary No growth in 48 hours. 11/08/23 12:45 Blood Culture (Wb) - Anticubital Left Blood Culture - Preliminary No growth in 48 hours. 11/08/23 14:15 Urine Catheter - Crawford Urine Culture - Final Culture exhibits no growth. 11/08/23 14:15 Stool Stool Occult Blood (SHERRI) - Final Occult Blood Positive 11/08/23 14:15 Mucosa - Throat Streptococcus pyogenes (PCR) - Final 11/08/23 14:15 Urine Catheter - Crawford Streptococcus pneumoniae Antigen (M - Final 11/08/23 14:15 Urine Catheter - Crawford Legionella Antigen - Final 11/08/23 13:30 Mucosa - Nasopharyngeal Influenza & RSV (PCR) - Final 11/07/23 04:42 Urine, Random Legionella Antigen - Final 11/07/23 04:42 Urine, Random Streptococcus pneumoniae Antigen (M - Final 11/07/23 23:58 Mucosa - Nasopharyngeal Respiratory Panel (PCR) - Final 11/06/23 13:15 Stool Stool Occult Blood (SHERRI) - Final 11/06/23 11:39 Mucosa - Nose SARS-CoV-2, Influenza & RSV (PCR) - Final SARS-CoV-2 (COVID 19 PCR) ABG Data ABG results: ABG 11/10/23 11/11/23 14:54 08:38 Specimen Type ART ART Sample Site R Radial R Radial pH 7.43 7.42 Bicarbonate Actual 17.2 L 17.3 L Total CO2 18 18 Base Excess -7 L -7 L O2 Saturation 92 L 84 L O2 % 92.0 75.0 ABG pCO2 25.9 L 26.7 L ABG pO2 60 L 46 L Ethan Test Positive Positive O2 Delivery Device Not entered Not entered Vent Mode Not entered Not entered Clinical Comments AIRVO 60 LPM airvo 60lpm Radiography Diagnostic Testing: Radiology Impression Chest X-Ray 11/11/23 08:45 IMPRESSION: Bilateral ill-defined opacities with interval progression on the left, may reflect some combination of pneumonia, atelectasis and/or edema. Electronically Signed: Philomena Saucedo MD at 9:12 EST , Rhythm Strip Rhythm Strip: Sinus Rhythm Rate: 105 Ectopy: None
--- NOTE | 2023-11-11 12:12 | PCM.OP.PRO ---
Procedure Report Date of Procedure: 11/11/23 Intubation Indication: Respiratory failure Consent was obtained from: Patient's The patient was placed in the appropriate sniffing position. Preoxygenated sedation via [id number]-[id number]-lube was provided for a minimum of 3 minutes. The patient had continuous cardiac as well as pulse oximetry monitoring during the procedure. Procedure sedation was provided by the administration of 4 mg of Versed and 20 mg of etomidate. Direct laryngoscopy was then performed using a number 3 MAC blade, which revealed a grade 1 view. A 7.5 mm endotracheal tube was visualized advancing between the cords to the level of 24 cm at the lip. The stylette was then removed and discarded. Tube placement was confirmed by fogging in the tube along with equal and bilateral breath sounds. Colorimetric change was visualized on the CO2 meter. The cuff was then inflated and the tube secured using a commercially available device. A good pulse oximetry waveform was seen on the monitor throughout the procedure. A portable chest x-ray has been ordered to confirm appropriate placement. The patient tolerated the procedure well. Procedures Pulmonary 9xxxx: [id number] Insert emergency airway
[2023-11-11 12:37] LABS: Allen Test Positive; Base Excess -9 mmol/L (-2 to +2); Bicarbonate 17.2 mmol/L (22-26); Blood Gas Specimen Type ART; Mode AC; O2 Delivery Device Adult Vent; PEEP 8; PO2 106 mmHG (75-100); RR 14; SITE R Radial; SO2 98 % (95-99); Total Carbon Dioxide 18 mmol/L; pCO2 34.8 mmHg (35-45)
--- NOTE | 2023-11-11 13:11 | CASEMGMT ---
Per physician patient's said patient had been to [facility] in the past and didn't want to go back. SW called patient's Wojciech. Introduced self and role at [facility]. SW asked if would like a list of assisted facilities since patient was still at [facility] and they would have more options now. Wojciech said they will stay with [facility]. SW let him know if they change their mind and would like a list of other options SW would be able to do this. Demi Archer UX ARCHITECTJavon ADAMS
[2023-11-11 13:40] LABS: BNP,B-Type NATRIURETIC PEPTIDE 354.5 pg/mL (0-100)
[2023-11-11] MEDS: Chlorhexidine 15 ML PO ×2 (14:00→21:19)
[2023-11-11] MEDS: Propofol 10MG/Ml 1,000 MG/100 ML Bottle 9.40000000000000036 MG CONT INF (17:54)
[2023-11-11 18:29] LABS: Bedside Glucose 170 mg/dL (74-106)
[2023-11-11] MEDS: Insulin Glargine-YFGN 100 UNIT/ML Pen 20 UNIT SC (21:19)
[2023-11-11] MEDS: Na Biphos/Potassium Phosphate PACKET 1 PACKET PO (21:19)
[2023-11-11] MEDS: Pramipexole Di-HCl 0.5 MG Tablet PO (21:19)
[2023-11-11 22:02] LABS: Bedside Glucose 212 mg/dL (74-106)
[2023-11-11 23:26] LABS: CPK Total, Creatine Kinase 26 U/L (26-192); Triglycerides 191 mg/dL
[2023-11-12] VITALS (33 sets, daily range): BP systolic 95–156; BP diastolic 42–69; PULSE 62–111; RESP 14–28; TEMP 35.9–37.2; O2SAT 85–98; BMI 34.2
[2023-11-12] MEDS: fentaNYL drip 100 ML 15 MCG CONT INF ×2 (00:35→07:00)
[2023-11-12] MEDS: Insulin Lispro 100 UNIT/ML INSULN.PEN SC ×4 (00:54→16:24)
[2023-11-12] MEDS: Propofol 10MG/Ml 1,000 MG/100 ML Bottle 7 MG CONT INF (00:54)
[2023-11-12 01:22] LABS: Bedside Glucose 223 mg/dL (74-106)
[2023-11-12] MEDS: Ipratropium/Albuterol Sulfate 3 ML AMPUL.NEB INHALATION ×4 (01:30→19:25)
[2023-11-12] MEDS: Piperacil/Tazobactam 3.375 GM in 0.9% Normal Saline (50mL MB+) 50 ML IV ×3 (06:05→21:24)
[2023-11-12] MEDS: TITRATION PARAMETER CHANGE 1 EACH IV (06:05)
[2023-11-12 06:39] LABS: Bedside Glucose 270 mg/dL (74-106)
[2023-11-12 06:53] LABS: Absolute Lymphocyte Count 0.12 X10^3/uL (0.83-4.51); Absolute Neutrophil Count 10.8 X10^3/uL (2.0-7.7); Basophil# 0.02 X10^3/uL; Basophil% 0.2 % (0-1); Hematocrit 24.9 % (37-47); Hemoglobin 8.2 g/dL (12.0-15.0); Lymphocyte # 0.12 X10^3/ul (0.83-4.51); Mean Corp Hgb Conc 32.9 g/dL (32-36); Mean Corpuscular Hgb 28.4 pg (27.0-32.0); Mean Corpuscular Volume 86.2 fL (81-99); Mean Platelet Vol. 10.8 fl (6.2-12.0); Monocyte# 0.36 X10^3/uL; Monocyte% 3.1 % (0-10); NRBC Flagged by Analyzer 0.2 % (0-5); Neutrophil # 10.76 X10^3/uL (2.7-7.7); Neutrophil % 92.4 % (47-70); POSITIVE DIFFERENTIAL YES; Platelet Count 202 K/mm3 (150-450); RBC Distribution Width CV 15.9 % (11.6-14.6); RBC Distribution Width SD 49.4 fl (35.1-43.9); Red Blood Count 2.89 M/mm3 (4.2-5.4); White Blood Count 11.7 K/mm3 (4.4-11.0)
[2023-11-12] MEDS: Propofol 10MG/Ml 1,000 MG/100 ML Bottle 9.5 MG CONT INF ×2 (07:00→16:23)
[2023-11-12 07:15] LABS: ALB/GLOB Ratio 0.5 RATIO (0.9-2.4); AST(SGOT) 46 U/L (15-37); Alanine Aminotransfer ALT/SGPT 28 U/L (13-56); Albumin, Serum 1.7 g/dL (3.2-5.0); Alkaline Phosphatase 100 U/L (45-117); Anion Gap 12 (5-15); BUN 45 mg/dL (7-18); BUN/Creat Ratio 25.3 RATIO (10-20); Calcium,Total 8.5 mg/dL (8.5-10.1); Chloride 114 mmol/L (98-107); Creatinine, Serum 1.78 mg/dL (0.55-1.02); EST Glomerular Filtration Rate 29 mL/min (>60); Est Glom Filt Rate - Afr Amer 35 mL/min (>60); Estimated Creatinine Clearance 23.52 ml/min; Globulin 3.5 g/dL (2.2-4.2); Glucose 275 mg/dL (74-106); Potassium 4.6 mmol/L (3.5-5.1); Protein, Total 5.2 g/dL (6.4-8.2); Sodium Level 140 mmol/L (136-145)
[2023-11-12 07:49] LABS: Differential Indicated SCAN CRITERIA MET
[2023-11-12 07:59] LABS: Differential Comment SCANNED
--- NOTE | 2023-11-12 08:20 | PCM.PN.INT ---
Assessment & Plan Assessment/Plan (1) Acute hypoxic respiratory failure: (2) COVID-19: PLAN: Plan RECOMMENDATIONS: 1. Continue assist-control mode mechanical ventilation. Wean FiO2 and PEEP to maintain saturations at or above 90%. 2. Continue empiric broad-spectrum antimicrobials. 3. Continue Decadron to complete 10 days of therapy. 4. Transfuse if hemoglobin drops below 7 g/dL. 5. Continue PPI therapy. 6. Initiate tube feeding today. IMPRESSIONS: 1. Acute hypoxemic respiratory failure Most likely secondary to COVID-19 with concern for superimposed bacterial pneumonia as well. Although initially maintained on heated high flow oxygen, the patient eventually decompensated and required intubation on November 11. She will be maintained on Decadron as ordered. The patient is not a candidate for remdesivir. In addition to the aforementioned, she will be continued on empiric broad-spectrum antimicrobials to cover for possible superimposed bacterial pneumonia. Continue to wean FiO2 and PEEP to maintain oxygen saturations at or above 90%. Okay to initiate tube feeding today from my perspective. 2. Acute kidney injury/heart failure with preserved ejection fraction/anemia/history of PE status post IVC filter/paroxysmal atrial fibrillation Complicates care, management, recovery and prognosis. Continue supportive care as noted above. The patient was previously taken off of Xarelto over concerns for recurrent GI bleeding. CODE STATUS: Full code (This was again discussed with the patient's ) TIME: 34 minutes of critical care time, independent of procedures, was spent addressing the patient's acute hypoxemic respiratory failure, COVID-19 pneumonia, review of all data and collaboration with care team. Subjective Subjective The patient was seen and examined at the bedside this morning. Events from the last 24 hours have been reviewed. The patient is currently afebrile, hemodynamically stable and maintaining appropriate oxygen saturations on assist control mode of mechanical ventilation with an FiO2 requirement of 50% and PEEP of 8. The patient is currently sedated on propofol and fentanyl. She is documented to be overall net +5.6 L for the hospitalization. Objective Data Objective Data The patient's most recent lab work, culture data and imaging studies have all been personally reviewed. Surface echocardiogram from November 07 demonstrated mild concentric LVH with an ejection fraction of 65%. COVID PCR was positive on November 06. Strep and urine Legionella antigens were negative. Vital Signs: Vital Signs Temp Pulse Resp BP Pulse Ox O2 Del Method O2 Flow Rate 97.3 F L 97 22 H 116/51 L 93 Mechanical Ventilator 60 11/12/23 06:00 11/12/23 07:28 11/12/23 07:28 11/12/23 07:00 11/12/23 07:28 11/12/23 07:00 11/12/23 06:00 FiO2 50 11/12/23 07:28 Oxygen Flow Rate (L/min) 60 Oxygen Delivery Method Mechanical Ventilator Weight: 175 lb 4.28 oz Body Mass Index (BMI) 34.2 Intake & Output: Intake and Output for Last 24 Hours 11/10/23 11/11/23 11/12/23 23:59 23:59 23:59 Intake Total 883.31 / 899.11 1359.38 / 1381.38 237.95 / 237.95 Output Total 1350 / 1400 500 / 500 350 / 350 Balance -466.69 / -500.89 859.38 / 881.38 -112.05 / -112.05 Lab / Micro Data Attestation: I reviewed the patient's lab results. 11/12/23 06:20 11/12/23 06:20 Labs: Laboratory Results - last 24 hr 11/07/23 07:05: Diff Path Review Reviewed 11/08/23 19:45: Crossmatch See Detail 11/11/23 04:15: Total Creatine Kinase 26, Triglycerides 191 11/11/23 04:18: B-Natriuretic Peptide 354.5 H 11/11/23 06:22: POC Glucose 125 H 11/11/23 11:02: POC Glucose 121 H 11/11/23 17:58: POC Glucose 170 H 11/11/23 21:18: POC Glucose 212 H 11/12/23 00:53: POC Glucose 223 H 11/12/23 06:07: POC Glucose 270 H 11/12/23 06:20: WBC 11.7 H, RBC 2.89 L, Hgb 8.2 L, Hct 24.9 L, MCV 86.2, MCH 28.4, MCHC 32.9, RDW Std Deviation 49.4 H, RDW Coeff of Britt 15.9 H, Plt Count 202, MPV 10.8, Immature Gran % (Auto) 3.300 H, Neut % (Auto) 92.4 H, Lymph % (Auto) 1.0 L, [place] % (Auto) 3.1, Eos % (Auto) 0.0, Baso % (Auto) 0.2, Absolute Neuts (auto) 10.8 H, Absolute Lymphs (auto) 0.12 L, Nucleated RBC % 0.2, Differential Comment SCANNED, Sodium 140, Potassium 4.6, Chloride 114 H, Carbon Dioxide 14.0 L, Anion Gap 12, BUN 45 H, Creatinine 1.78 H, Estim Creat Clear Calc 23.52, Est GFR (MDRD) Af Amer 35 L, Est GFR (MDRD) Non-Af 29 L, BUN/Creatinine Ratio 25.3 H, Glucose 275 H, Calcium 8.5, Total Bilirubin 1.40 H, AST 46 H, ALT 28, Alkaline Phosphatase 100, Total Protein 5.2 L, Albumin 1.7 L, Globulin 3.5, Albumin/Globulin Ratio 0.5 L Micro: Microbiology 11/11/23 12:00 Sputum, Induced/Lukens Gram Stain - Final 11/08/23 12:45 Blood Culture (Wb) - Left Hand Blood Culture - Preliminary No growth in 48 hours. 11/08/23 12:45 Blood Culture (Wb) - Anticubital Left Blood Culture - Preliminary No growth in 48 hours. 11/08/23 14:15 Urine Catheter - Crawford Urine Culture - Final Culture exhibits no growth. 11/08/23 14:15 Stool Stool Occult Blood (SHERRI) - Final Occult Blood Positive 11/08/23 14:15 Mucosa - Throat Streptococcus pyogenes (PCR) - Final 11/08/23 14:15 Urine Catheter - Crawford Streptococcus pneumoniae Antigen (M - Final 11/08/23 14:15 Urine Catheter - Crawford Legionella Antigen - Final 11/08/23 13:30 Mucosa - Nasopharyngeal Influenza & RSV (PCR) - Final 11/07/23 04:42 Urine, Random Legionella Antigen - Final 11/07/23 04:42 Urine, Random Streptococcus pneumoniae Antigen (M - Final 11/07/23 23:58 Mucosa - Nasopharyngeal Respiratory Panel (PCR) - Final 11/06/23 13:15 Stool Stool Occult Blood (SHERRI) - Final 11/06/23 11:39 Mucosa - Nose SARS-CoV-2, Influenza & RSV (PCR) - Final SARS-CoV-2 (COVID 19 PCR) ABG Data ABG results: ABG 11/11/23 11/11/23 08:38 12:33 Specimen Type ART ART Sample Site R Radial R Radial pH 7.42 7.30 L Bicarbonate Actual 17.3 L 17.2 L Total CO2 18 18 Base Excess -7 L -9 L O2 Saturation 84 L 98 O2 % 75.0 100.0 ABG pCO2 26.7 L 34.8 L ABG pO2 46 L 106 H Ethan Test Positive Positive Respiration Rate 14 O2 Delivery Device Not entered Adult Vent Vent Mode Not entered AC Tidal Volume 450.0 POC PEEP 8 Clinical Comments airvo 60lpm Radiography Diagnostic Testing: Radiology Impression Chest X-Ray 11/11/23 08:45 IMPRESSION: Bilateral ill-defined opacities with interval progression on the left, may reflect some combination of pneumonia, atelectasis and/or edema. Electronically Signed: Philomena Saucedo MD at 9:12 EST , Chest X-Ray 11/11/23 11:33 IMPRESSION: Low-lying endotracheal tube that appears to be 0.6 cm above the deondre, recommend retraction by 3 cm. Bilateral patchy opacities, with worsening within the right upper lung, concerning for some combination of multifocal pneumonia, edema and/or atelectasis. Electronically Signed: Philomena Saucedo MD at 14:03 EST , Rhythm Strip Rhythm Strip: Sinus Rhythm Rate: 105 Ectopy: None Physical Exam Const Constitutional Narrative: Intubated, sedated and mechanically ventilated. HEENT normocephalic and head/scalp atraumatic Mouth: endotracheal tube in place and OG tube in place Eyes PERRL and EOMs intact bilaterally Neck supple General: trachea midline Chest inspection of chest normal Resp normal respiratory effort Auscultation: diminished lung sounds Cardio regular rate and regular rhythm GI normal to inspection, nondistended, normoactive bowel sounds Extremity no clubbing, cyanosis or edema Skin no rashes or lesions noted Neuro Sensorium / Orientation: sedated on vent Charges/Coding Procedures Hospitalists Procedures: [id number] Critical Care 1st Hr
--- NOTE | 2023-11-12 08:21 | PCM.PN.HOSP ---
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 Seen this a.m. remains on the vent. Responds to tactile stimulation Objective Data Objective Data Vital Signs: Vital Signs Temp Pulse Resp BP Pulse Ox O2 Del Method O2 Flow Rate 97.3 F L 97 22 H 116/51 L 93 Mechanical Ventilator 60 11/12/23 06:00 11/12/23 07:28 11/12/23 07:28 11/12/23 07:00 11/12/23 07:28 11/12/23 07:00 11/12/23 06:00 FiO2 50 11/12/23 07:28 Oxygen Flow Rate (L/min) 60 Oxygen Delivery Method Mechanical Ventilator Weight: 79.5 kg Body Mass Index (BMI) 34.2 Intake & Output: Intake and Output for Last 24 Hours 11/10/23 11/11/23 11/12/23 23:59 23:59 23:59 Intake Total 883.31 / 899.11 1359.38 / 1381.38 237.95 / 237.95 Output Total 1350 / 1400 500 / 500 350 / 350 Balance -466.69 / -500.89 859.38 / 881.38 -112.05 / -112.05 Lab / Micro Data 11/12/23 06:20 11/12/23 06:20 Labs: Laboratory Results - last 24 hr 11/07/23 07:05: Diff Path Review Reviewed 11/08/23 19:45: Crossmatch See Detail 11/11/23 04:15: Total Creatine Kinase 26, Triglycerides 191 11/11/23 04:18: B-Natriuretic Peptide 354.5 H 11/11/23 06:22: POC Glucose 125 H 11/11/23 11:02: POC Glucose 121 H 11/11/23 17:58: POC Glucose 170 H 11/11/23 21:18: POC Glucose 212 H 11/12/23 00:53: POC Glucose 223 H 11/12/23 06:07: POC Glucose 270 H 11/12/23 06:20: WBC 11.7 H, RBC 2.89 L, Hgb 8.2 L, Hct 24.9 L, MCV 86.2, MCH 28.4, MCHC 32.9, RDW Std Deviation 49.4 H, RDW Coeff of Britt 15.9 H, Plt Count 202, MPV 10.8, Immature Gran % (Auto) 3.300 H, Neut % (Auto) 92.4 H, Lymph % (Auto) 1.0 L, [place] % (Auto) 3.1, Eos % (Auto) 0.0, Baso % (Auto) 0.2, Absolute Neuts (auto) 10.8 H, Absolute Lymphs (auto) 0.12 L, Nucleated RBC % 0.2, Differential Comment SCANNED, Sodium 140, Potassium 4.6, Chloride 114 H, Carbon Dioxide 14.0 L, Anion Gap 12, BUN 45 H, Creatinine 1.78 H, Estim Creat Clear Calc 23.52, Est GFR (MDRD) Af Amer 35 L, Est GFR (MDRD) Non-Af 29 L, BUN/Creatinine Ratio 25.3 H, Glucose 275 H, Calcium 8.5, Total Bilirubin 1.40 H, AST 46 H, ALT 28, Alkaline Phosphatase 100, Total Protein 5.2 L, Albumin 1.7 L, Globulin 3.5, Albumin/Globulin Ratio 0.5 L Micro: Microbiology 11/11/23 12:00 Sputum, Induced/Lukens Gram Stain - Final 11/08/23 12:45 Blood Culture (Wb) - Left Hand Blood Culture - Preliminary No growth in 48 hours. 11/08/23 12:45 Blood Culture (Wb) - Anticubital Left Blood Culture - Preliminary No growth in 48 hours. 11/08/23 14:15 Urine Catheter - Crawford Urine Culture - Final Culture exhibits no growth. 11/08/23 14:15 Stool Stool Occult Blood (SHERRI) - Final Occult Blood Positive 11/08/23 14:15 Mucosa - Throat Streptococcus pyogenes (PCR) - Final 11/08/23 14:15 Urine Catheter - Crawford Streptococcus pneumoniae Antigen (M - Final 11/08/23 14:15 Urine Catheter - Crawford Legionella Antigen - Final 11/08/23 13:30 Mucosa - Nasopharyngeal Influenza & RSV (PCR) - Final 11/07/23 04:42 Urine, Random Legionella Antigen - Final 11/07/23 04:42 Urine, Random Streptococcus pneumoniae Antigen (M - Final 11/07/23 23:58 Mucosa - Nasopharyngeal Respiratory Panel (PCR) - Final 11/06/23 13:15 Stool Stool Occult Blood (SHERRI) - Final 11/06/23 11:39 Mucosa - Nose SARS-CoV-2, Influenza & RSV (PCR) - Final SARS-CoV-2 (COVID 19 PCR) ABG Data ABG results: ABG 11/11/23 11/11/23 08:38 12:33 Specimen Type ART ART Sample Site R Radial R Radial pH 7.42 7.30 L Bicarbonate Actual 17.3 L 17.2 L Total CO2 18 18 Base Excess -7 L -9 L O2 Saturation 84 L 98 O2 % 75.0 100.0 ABG pCO2 26.7 L 34.8 L ABG pO2 46 L 106 H Ethan Test Positive Positive Respiration Rate 14 O2 Delivery Device Not entered Adult Vent Vent Mode Not entered AC Tidal Volume 450.0 POC PEEP 8 Clinical Comments airvo 60lpm Radiography Diagnostic Testing: Radiology Impression Chest X-Ray 11/11/23 08:45 IMPRESSION: Bilateral ill-defined opacities with interval progression on the left, may reflect some combination of pneumonia, atelectasis and/or edema. Electronically Signed: Philomena Saucedo MD at 9:12 EST Reading Location ID and State: [facility] / [place] Tel , Service support , Chest X-Ray 11/11/23 11:33 IMPRESSION: Low-lying endotracheal tube that appears to be 0.6 cm above the deondre, recommend retraction by 3 cm. Bilateral patchy opacities, with worsening within the right upper lung, concerning for some combination of multifocal pneumonia, edema and/or atelectasis. Electronically Signed: Philomena Saucedo MD at 14:03 EST Reading Location ID and State: [facility] / [place] Tel , Service support , Rhythm Strip Rhythm Strip: Sinus Rhythm Rate: 105 Ectopy: None Physical Exam Narrative GENERAL: Sedated on the vent HEENT: Atraumatic; normocephalic EYES; Anicteric, Normal Conjunctiva NECK; supple, normal thyroid, RESPIRATORY: Diminished to auscultation CARDIOVASCULAR: Regular S1 S2, GI: soft, normoactive bowel sounds, : No Renal angle tenderness; EXTREMITIES: edema, no clubbing, MUSCULOSKELETAL: no muscle wasting NEURO: Sedated on the vent but responds to tactile stimulation SKIN: No Rash PSYCH; unable to assess Assessment & Plan Assessment/Plan (1) BERTA (acute kidney injury): (2) Anemia: QUALIFIERS: Anemia type: unspecified type Qualified Code(s): D64.9 - Anemia, unspecified (3) COVID-19: PLAN: Plan Patient is an 78-year-old lady who presented with progressive generalized weakness. Chest x-ray on admission demonstrated early developing pneumonia. Her COVID assay came back positive admitted to monitored bed for further management 1. Acute COVID-19 infection ?Patient out of window for remdesivir. Admitted to knitted bed for symptom management 2. Suspected superimposed bacterial pneumonia ? In the setting of COVID-19 infection. Patient started on azithromycin as well as ceftriaxone -11/08/2023: Patient was reported to be significantly dyspneic at rest. Chest x-ray obtained did show New and increased bilateral consolidation, concerning for worsening pneumonia., Did broaden patient antibiotic therapy 3. Acute hypoxic respiratory failure ? This was manifested by patient being tachypneic with significant hypoxia. Had to be transferred to the intensive care unit placed on Airvo. Respiratory failure multifactorial including recent COVID, suspected bacterial pneumonia as well as fluid overload. -11/10/2023;Seen remains in the ICU. Per nursing staff patient was delirious during the night. Her oxygen requirement did increase. Currently remains tachypneic on Airvo 60 L flow per minute with saturation of 92% ? 11/12/2023 patient had to be intubated given her worsening respiratory symptoms. Subsequent vent management deferred to gis software engineer 4. Acute kidney injury ? Baseline creatinine from 10/19/2023 was 1.3, creatinine on admission was 2.04 patient on fluids with avoidance of potential nephrotoxic medication with subsequent monitoring of electrolytes on a daily ? 11/09/2023; creatinine down to 1.66 5. Acute congestive heart failure?suspected heart failure with preserved ejection fraction ? Patient responded to Lasix echo ordered on 11/06/2023?Mild concentric left ventricular hypertrophy. The left ventricular ejection fraction is 65 %.Mild diffuse aortic valve calcification. ? 11/10/2023; did hold back Lasix given worsening kidney function 6. Acute metabolic encephalopathy ? Multifactorial including patient COVID-19 infection, acute hypoxic respiratory failure and acute kidney injury plan is to treat underlying condition ? 11/11/2023;Patient had to be placed in soft restraints and started on Precedex drip as a result of agitation 7. Anemia - Secondary to chronic disorder as well as MDS monitoring H&H and transfuse if patient becomes symptomatic or hemoglobin falls below 7. Patient apparently underwent upper endoscopy a month prior which demonstrated mild hiatal hernia. Patient apparently refused lower endoscopy and is scheduled to undergo capsule endoscopy ? 11/08/2023; patient hemoglobin down to 7.0 with patient deemed to be symptomatic an order was given for patient to be transfused 1 unit PRBC ?11/09/2023; patient hemoglobin came up to 7.6 however she still remains symptomatic additional unit ordered 8. History of pulmonary embolism ? Diagnosed in 2019. Patient was on Xarelto taking of given her concerns for recurrent GI bleed. Patient has an IVC filter placed 9. Paroxysmal A-fib ? Rate controlled. Currently not on systemic anticoagulation given her recent GI bleed significant anemia 10. Diabetes mellitus type II -patient's oral hypoglycemics held. Placed on long acting insulin, Accu-Cheks a.c. and at bedtime and covered with sliding scale insulin 11. Hypertension - Blood pressure controlled, home medications continued with dose adjustment as needed 12. Recently diagnosed lymphoma ? Patient being managed by Dr. 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 Restless leg syndrome ? Patient is on ropinirole did continue 15. Chronic kidney disease stage IIIa ? Patient presented with BERTA management as discussed above 18. DVT prophylaxis ? SC heparin Time spent in the patient's overall evaluation,decision-making process, review of diagnostic data, adjustment of management, discussion with other providers, nursing nursing and ancillary staff involved in patient's care documentation, 50 Minutes Charges/Coding Visit Charges Inpatient E&M: 85981 Subs Hosp L3
[2023-11-12] MEDS: Pantoprazole Sodium 40 MG in 0.9% Normal Saline (100mL MB+) 100 ML 330 MG IV ×2 (10:07→20:54)
[2023-11-12] MEDS: Insulin Glargine-YFGN 100 UNIT/ML Pen 10 UNIT SC (10:08)
[2023-11-12] MEDS: dexAMETHasone 10 MG/ML Vial 6 MG IV (10:08)
[2023-11-12] MEDS: Na Biphos/Potassium Phosphate PACKET 1 PACKET PO ×2 (10:08→21:25)
[2023-11-12] MEDS: Pramipexole Di-HCl 0.5 MG Tablet PO ×2 (10:08→21:25)
[2023-11-12] MEDS: Atorvastatin Calcium 40 MG Tablet PO (10:08)
[2023-11-12] MEDS: Chlorhexidine 15 ML PO ×2 (10:08→20:54)
[2023-11-12] MEDS: Vital AF 1.2 Cal Liquid 1,000 ML 10 ML GT (10:16)
--- NOTE | 2023-11-12 10:54 | CASEMGMT ---
Discharge Planning Updates sent to [facility] via [facility]. Susu Durán, Discharge Planning Asst.
[2023-11-12] MEDS: fentaNYL drip 100 ML 17.5 MCG CONT INF ×2 (12:53→19:00)
[2023-11-12 13:28] LABS: Bedside Glucose 232 mg/dL (74-106)
[2023-11-12 17:10] LABS: Bedside Glucose 246 mg/dL (74-106)
[2023-11-12] MEDS: Insulin Glargine-YFGN 100 UNIT/ML Pen 20 UNIT SC (20:12)
[2023-11-13] VITALS (36 sets, daily range): BP systolic 111–137; BP diastolic 47–74; PULSE 78–114; RESP 14–27; TEMP 36.7–37; O2SAT 88–96; BMI 34.1
[2023-11-13] MEDS: fentaNYL drip 100 ML 17.5 MCG CONT INF ×3 (00:43→13:10)
[2023-11-13] MEDS: Propofol 10MG/Ml 1,000 MG/100 ML Bottle 11.9000000000000004 MG CONT INF (01:10)
[2023-11-13] MEDS: Insulin Lispro 100 UNIT/ML INSULN.PEN SC ×4 (01:11→18:30)
[2023-11-13] MEDS: Ipratropium/Albuterol Sulfate 3 ML AMPUL.NEB INHALATION ×4 (01:20→19:37)
[2023-11-13 01:59] LABS: Bedside Glucose 294 mg/dL (74-106)
[2023-11-13 01:59] LABS: Bedside Glucose 336 mg/dL (74-106)
[2023-11-13] MEDS: Piperacil/Tazobactam 3.375 GM in 0.9% Normal Saline (50mL MB+) 50 ML IV ×3 (05:12→20:17)
[2023-11-13] MEDS: 0.9% Saline Lock 10 ML Syringe IV ×2 (05:25→11:02)
[2023-11-13 05:41] LABS: Hematocrit 21.5 % (37-47); Hemoglobin 6.9 g/dL (12.0-15.0); Mean Corp Hgb Conc 32.1 g/dL (32-36); Mean Corpuscular Hgb 28.2 pg (27.0-32.0); Mean Corpuscular Volume 87.8 fL (81-99); Mean Platelet Vol. 10.4 fl (6.2-12.0); POSITIVE COUNT YES; POSITIVE DIFFERENTIAL YES; POSITIVE MORPHOLOGY YES; Platelet Count 213 K/mm3 (150-450); RBC Distribution Width CV 16.1 % (11.6-14.6); RBC Distribution Width SD 51.5 fl (35.1-43.9); Red Blood Count 2.45 M/mm3 (4.2-5.4); White Blood Count 11.5 K/mm3 (4.4-11.0)
[2023-11-13 05:52] LABS: Bedside Glucose 327 mg/dL (74-106)
[2023-11-13 06:01] LABS: Anion Gap 9 (5-15); BUN 46 mg/dL (7-18); BUN/Creat Ratio 25.4 RATIO (10-20); Calcium,Total 7.6 mg/dL (8.5-10.1); Chloride 114 mmol/L (98-107); Creatinine, Serum 1.81 mg/dL (0.55-1.02); EST Glomerular Filtration Rate 29 mL/min (>60); Est Glom Filt Rate - Afr Amer 35 mL/min (>60); Glucose 355 mg/dL (74-106); Potassium 4.2 mmol/L (3.5-5.1); Sodium Level 141 mmol/L (136-145)
[2023-11-13] MEDS: CHLORHEXIDINE GLUC 2% CLOTH 1 EACH TOWELETTE TOPICAL (06:43)
[2023-11-13] MEDS: TITRATION PARAMETER CHANGE 1 EACH IV (06:43)
[2023-11-13 06:45] LABS: Differential Comment SCANNED
[2023-11-13 06:46] LABS: Differential Indicated MANUAL DIFF; Lymphocyte 4 % (19-41); Metamyelocyte 1 % (0-1); Monocyte 5 % (0-10); Myelocyte 2 % (0-0); Neutrophil-Segmented 89 % (47-70); Total Cells Counted 100 (MANUAL DIFF)
[2023-11-13 06:47] LABS: Absolute Neutrophil Count 10.2 X10^3/uL (2.0-7.7); Lymphocyte # 0.46 X10^3/ul (0.83-4.51)
[2023-11-13 07:12] LABS: Absolute Lymphocyte Count 0.46 X10^3/uL (0.83-4.51)
--- NOTE | 2023-11-13 07:31 | PCM.PN.HOSP ---
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 Patient has hyperglycemia adjusted insulin regimen. Hemoglobin down to 6.9 and order given for patient to be transfused 1 unit Objective Data Objective Data Vital Signs: Vital Signs Temp Pulse Resp BP Pulse Ox O2 Del Method O2 Flow Rate 98.0 F 91 17 117/50 L 92 Mechanical Ventilator 60 11/13/23 06:00 11/13/23 07:00 11/13/23 07:00 11/13/23 07:00 11/13/23 07:00 11/13/23 07:00 11/13/23 06:00 FiO2 90 11/13/23 07:00 Oxygen Flow Rate (L/min) 60 Oxygen Delivery Method Mechanical Ventilator Weight: 79.3 kg Body Mass Index (BMI) 34.1 Intake & Output: Intake and Output for Last 24 Hours 11/11/23 11/12/23 11/13/23 23:59 23:59 23:59 Intake Total 1359.38 / 1381.38 1368.99 / 1495.99 873.16 / 873.16 Output Total 500 / 500 750 / 1050 650 / 650 Balance 859.38 / 881.38 618.99 / 445.99 223.16 / 223.16 Lab / Micro Data 11/13/23 05:20 11/13/23 05:20 Labs: Laboratory Results - last 24 hr 11/08/23 19:45: Crossmatch See Detail 11/12/23 06:20: WBC 11.7 H, RBC 2.89 L, Hgb 8.2 L, Hct 24.9 L, MCV 86.2, MCH 28.4, MCHC 32.9, RDW Std Deviation 49.4 H, RDW Coeff of Britt 15.9 H, Plt Count 202, MPV 10.8, Immature Gran % (Auto) 3.300 H, Neut % (Auto) 92.4 H, Lymph % (Auto) 1.0 L, [place] % (Auto) 3.1, Eos % (Auto) 0.0, Baso % (Auto) 0.2, Absolute Neuts (auto) 10.8 H, Absolute Lymphs (auto) 0.12 L, Nucleated RBC % 0.2, Differential Comment SCANNED 11/12/23 12:50: POC Glucose 232 H 11/12/23 16:22: POC Glucose 246 H 11/12/23 20:12: POC Glucose 294 H 11/13/23 01:05: POC Glucose 336 H 11/13/23 05:16: POC Glucose 327 H 11/13/23 05:20: WBC 11.5 H, RBC 2.45 L, Hgb 6.9 L, Hct 21.5 L, MCV 87.8, MCH 28.2, MCHC 32.1, RDW Std Deviation 51.5 H, RDW Coeff of Britt 16.1 H, Plt Count 213, MPV 10.4, Immature Gran % (Auto) COMPOSITION WORKER, Neut % (Auto) COMPOSITION WORKER, Lymph % (Auto) COMPOSITION WORKER, [place] % (Auto) COMPOSITION WORKER, Eos % (Auto) COMPOSITION WORKER, Baso % (Auto) COMPOSITION WORKER, Absolute Neuts (auto) 10.2 H, Absolute Lymphs (auto) 0.46 L, Total Counted 100, Neutrophils % (Manual) 89 H, Lymphocytes % (Manual) 4 L, Monocytes % (Manual) 5, Metamyelocytes % 1, Myelocytes % 2 H, Nucleated RBC % COMPOSITION WORKER, Differential Comment SCANNED, Diff Path Review March, Sodium 141, Potassium 4.2, Chloride 114 H, Carbon Dioxide 18.0 L, Anion Gap 9, BUN 46 H, Creatinine 1.81 H, Estim Creat Clear Calc 23.10, Est GFR (MDRD) Af Amer 35 L, Est GFR (MDRD) Non-Af 29 L, BUN/Creatinine Ratio 25.4 H, Glucose 355 H, Calcium 7.6 L Micro: Microbiology 11/11/23 12:00 Sputum, Induced/Lukens Gram Stain - Final 11/11/23 12:00 Sputum, Induced/Lukens Respiratory Culture - Preliminary Yeast Like Organism 11/08/23 12:45 Blood Culture (Wb) - Left Hand Blood Culture - Preliminary No growth in 48 hours. 11/08/23 12:45 Blood Culture (Wb) - Anticubital Left Blood Culture - Preliminary No growth in 48 hours. 11/08/23 14:15 Urine Catheter - Crawford Urine Culture - Final Culture exhibits no growth. 11/08/23 14:15 Stool Stool Occult Blood (SHERRI) - Final Occult Blood Positive 11/08/23 14:15 Mucosa - Throat Streptococcus pyogenes (PCR) - Final 11/08/23 14:15 Urine Catheter - Crawford Streptococcus pneumoniae Antigen (M - Final 11/08/23 14:15 Urine Catheter - Crawford Legionella Antigen - Final 11/08/23 13:30 Mucosa - Nasopharyngeal Influenza & RSV (PCR) - Final 11/07/23 04:42 Urine, Random Legionella Antigen - Final 11/07/23 04:42 Urine, Random Streptococcus pneumoniae Antigen (M - Final 11/07/23 23:58 Mucosa - Nasopharyngeal Respiratory Panel (PCR) - Final 11/06/23 13:15 Stool Stool Occult Blood (SHERRI) - Final 11/06/23 11:39 Mucosa - Nose SARS-CoV-2, Influenza & RSV (PCR) - Final SARS-CoV-2 (COVID 19 PCR) Rhythm Strip Rhythm Strip: Sinus Rhythm Rate: 105 Ectopy: None Physical Exam Narrative GENERAL: Sedated on the vent HEENT: Atraumatic; normocephalic EYES; Anicteric, Normal Conjunctiva NECK; supple, normal thyroid, RESPIRATORY: Diminished to auscultation CARDIOVASCULAR: Regular S1 S2, GI: soft, normoactive bowel sounds, : No Renal angle tenderness; EXTREMITIES: edema, no clubbing, MUSCULOSKELETAL: no muscle wasting NEURO: Sedated on the vent but responds to tactile stimulation SKIN: No Rash PSYCH; unable to assess Assessment & Plan Assessment/Plan (1) BERTA (acute kidney injury): (2) Anemia: QUALIFIERS: Anemia type: unspecified type Qualified Code(s): D64.9 - Anemia, unspecified (3) COVID-19: PLAN: Plan Patient is an 78-year-old lady who presented with progressive generalized weakness. Chest x-ray on admission demonstrated early developing pneumonia. Her COVID assay came back positive admitted to monitored bed for further management 1. Acute COVID-19 infection ?Patient out of window for remdesivir. Admitted to knitted bed for symptom management 2. Suspected superimposed bacterial pneumonia ? In the setting of COVID-19 infection. Patient started on azithromycin as well as ceftriaxone -11/08/2023: Patient was reported to be significantly dyspneic at rest. Chest x-ray obtained did show New and increased bilateral consolidation, concerning for worsening pneumonia., Did broaden patient antibiotic therapy 3. Acute hypoxic respiratory failure ? This was manifested by patient being tachypneic with significant hypoxia. Had to be transferred to the intensive care unit placed on Airvo. Respiratory failure multifactorial including recent COVID, suspected bacterial pneumonia as well as fluid overload. -11/10/2023;Seen remains in the ICU. Per nursing staff patient was delirious during the night. Her oxygen requirement did increase. Currently remains tachypneic on Airvo 60 L flow per minute with saturation of 92% ? 11/12/2023 patient had to be intubated given her worsening respiratory symptoms. Subsequent vent management deferred to horse and wagon driver ?11/13/2023 patient remains sedated on the vent 4. Acute kidney injury ? Baseline creatinine from 10/19/2023 was 1.3, creatinine on admission was 2.04 patient on fluids with avoidance of potential nephrotoxic medication with subsequent monitoring of electrolytes on a daily ? 11/09/2023; creatinine down to 1.66 5. Acute congestive heart failure?suspected heart failure with preserved ejection fraction ? Patient responded to Lasix echo ordered on 11/06/2023?Mild concentric left ventricular hypertrophy. The left ventricular ejection fraction is 65 %.Mild diffuse aortic valve calcification. ? 11/10/2023; did hold back Lasix given worsening kidney function 6. Acute metabolic encephalopathy ? Multifactorial including patient COVID-19 infection, acute hypoxic respiratory failure and acute kidney injury plan is to treat underlying condition ? 11/11/2023;Patient had to be placed in soft restraints and started on Precedex drip as a result of agitation 7. Anemia - Secondary to chronic disorder as well as MDS monitoring H&H and transfuse if patient becomes symptomatic or hemoglobin falls below 7. Patient apparently underwent upper endoscopy a month prior which demonstrated mild hiatal hernia. Patient apparently refused lower endoscopy and is scheduled to undergo capsule endoscopy ? 11/08/2023; patient hemoglobin down to 7.0 with patient deemed to be symptomatic an order was given for patient to be transfused 1 unit PRBC ?11/09/2023; patient hemoglobin came up to 7.6 however she still remains symptomatic additional unit ordered 9?1 09/22/2024 hemoglobin down to 6.9 and additional unit ordered 8. History of pulmonary embolism ? Diagnosed in 2019. Patient was on Xarelto taking of given her concerns for recurrent GI bleed. Patient has an IVC filter placed 9. Paroxysmal A-fib ? Rate controlled. Currently not on systemic anticoagulation given her recent GI bleed significant anemia 10. Diabetes mellitus type II -patient's oral hypoglycemics held. Placed on long acting insulin, Accu-Cheks a.c. and at bedtime and covered with sliding scale insulin ? 11/13/2023 patient has hyperglycemia adjusted insulin regimen 11. Hypertension - Blood pressure controlled, home medications continued with dose adjustment as needed 12. Recently diagnosed lymphoma ? Patient being managed by Dr. 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 Restless leg syndrome ? Patient is on ropinirole did continue 15. Chronic kidney disease stage IIIa ? Patient presented with BERTA management as discussed above 18. DVT prophylaxis ? SC heparin Time spent in the patient's overall evaluation,decision-making process, review of diagnostic data, adjustment of management, discussion with other providers, nursing nursing and ancillary staff involved in patient's care documentation, 50 Minutes Charges/Coding Visit Charges Inpatient E&M: 03211 [facility] [[email or web address]] Hosp L3
[2023-11-13] MEDS: Chlorhexidine 15 ML PO ×2 (08:20→20:16)
[2023-11-13] MEDS: Propofol 10MG/Ml 1,000 MG/100 ML Bottle 9.5 MG CONT INF (10:15)
[2023-11-13] MEDS: dexAMETHasone 10 MG/ML Vial 6 MG IV (11:02)
[2023-11-13] MEDS: Atorvastatin Calcium 40 MG Tablet PO (11:03)
[2023-11-13] MEDS: Pramipexole Di-HCl 0.5 MG Tablet PO ×2 (11:03→20:17)
[2023-11-13] MEDS: Pantoprazole Sodium 40 MG in 0.9% Normal Saline (100mL MB+) 100 ML 330 MG IV ×2 (11:03→20:17)
[2023-11-13] MEDS: Senna/Docusate Sodium 1 Tablet 2 TABLET GT ×2 (11:03→20:17)
[2023-11-13] MEDS: Na Biphos/Potassium Phosphate PACKET 1 PACKET PO ×2 (11:03→20:16)
[2023-11-13] MEDS: Insulin Glargine-YFGN 100 UNIT/ML Pen 25 UNIT SC (11:16)
[2023-11-13 11:38] LABS: Bedside Glucose 389 mg/dL (74-106)
--- NOTE | 2023-11-13 11:53 | PN.CC_ITS ---
Assessment & Plan Assessment/Plan (1) Acute hypoxic respiratory failure: (2) COVID-19: PLAN: Plan RECOMMENDATIONS: 1. Continue assist-control mode mechanical ventilation. Wean FiO2 and PEEP to maintain saturations at or above 90%. 2. Continue empiric broad-spectrum antimicrobials. 3. Attempt gentle diuresis 4. Transfuse blood products as ordered. Check H&H posttransfusion. 5. Continue Decadron to complete 10 days of therapy. 6. Continue PPI therapy. 7. Continue tube feeding as tolerated. IMPRESSIONS: 1. Acute hypoxemic respiratory failure Most likely secondary to COVID-19 with concern for superimposed bacterial pn eumonia as well. Although initially maintained on heated high flow oxygen, the patient eventually decompensated and required intubation on November 11. She will be maintained on Decadron as ordered. The patient is not a candidate for remdesivir. In addition to the aforementioned, she will be continued on empiric broad-spectrum antimicrobials to cover for possible superimposed bacterial pneumonia. Continue to wean FiO2 and PEEP to maintain oxygen saturations at or above 90%. Continue tube feeding as tolerated. Prognosis overall is quite guarded. 2. Acute kidney injury/heart failure with preserved ejection fraction/anemia/history of PE status post IVC filter/paroxysmal atrial fibrillation Complicates care, management, recovery and prognosis. Continue supportive care as noted above. The patient was previously taken off of Xarelto over concerns for recurrent GI bleeding. CODE STATUS: Full code (This was again discussed with the patient's ) TIME: 32 minutes of critical care time, independent of procedures, was spent addr essing the patient's acute hypoxemic respiratory failure, COVID-19 pneumonia, review of all data and collaboration with care team. Subjective Subjective The patient was seen and examined at the bedside this morning. Events from the last 24 hours have been reviewed. The patient is currently afebrile, hemodynamically stable and maintaining appropriate oxygen saturations on assist control mode of mechanical ventilation with an FiO2 requirement of 60% and PEEP of 8. Today is ventilator day #3. The patient remains sedated on propofol and fentanyl. She is documented to be overall net +7.1 L for the hospitalization. Hemoglobin is down to 6.9 g/dL. Serum bicarbonate is low at 18 with a creatinine of 1.8. Objective Data Objective Data The patient's most recent lab work, culture data and imaging studies have all been personally reviewed. Surface echocardiogram from November 07 demonstrated mild concentric LVH with an ejection fraction of 65%. COVID PCR was positive on November 06. Strep and urine Legionella antigens were negative. Vital Signs: Vital Signs Temp Pulse Resp BP Pulse Ox O2 Del Method O2 Flow Rate 98.5 F 99 16 119/58 L 93 Mechanical Ventilator 60 11/13/23 11:00 11/13/23 11:00 11/13/23 11:00 11/13/23 11:00 11/13/23 11:00 11/13/23 11:00 11/13/23 06:00 FiO2 50 11/13/23 11:00 Oxygen Flow Rate (L/min) 60 Oxygen Delivery Method Mechanical Ventilator Weight: 174 lb 13.225 oz Body Mass Index (BMI) 34.1 Intake & Output: Intake and Output for Last 24 Hours 11/11/23 11/12/23 11/13/23 23:59 23:59 23:59 Intake Total 1359.38 / 1381.38 1368.99 / 1495.99 1541.90 / 1541.90 Output Total 500 / 500 750 / 1050 800 / 800 Balance 859.38 / 881.38 618.99 / 445.99 741.90 / 741.90 Lab / Micro Data Attestation: I reviewed the patient's lab results. 11/13/23 05:20 11/13/23 05:20 Labs: Laboratory Results - last 24 hr 11/12/23 12:50: POC Glucose 232 H 11/12/23 16:22: POC Glucose 246 H 11/12/23 20:12: POC Glucose 294 H 11/13/23 01:05: POC Glucose 336 H 11/13/23 05:16: POC Glucose 327 H 11/13/23 05:20: WBC 11.5 H, RBC 2.45 L, Hgb 6.9 L, Hct 21.5 L, MCV 87.8, MCH 28.2, MCHC 32.1, RDW Std Deviation 51.5 H, RDW Coeff of Britt 16.1 H, Plt Count 213, MPV 10.4, Immature Gran % (Auto) [employer]OM[employer]IVE QUALITY MANAGER, Neut % (Auto) AUTOMOTIVE QUALITY MANAGER, Lymph % (Auto) AUTOMOTIVE QUALITY MANAGER, [place] % (Auto) AUTOMOTIVE QUALITY MANAGER, Eos % (Auto) AUTOMOTIVE QUALITY MANAGER, Baso % (Auto) AUTOMOTIVE QUALITY MANAGER, Absolute Neuts (auto) 10.2 H, Absolute Lymphs (auto) 0.46 L, Total Counted 100, Neutrophils % (Manual) 89 H , Lymphocytes % (Manual) 4 L, Monocytes % (Manual) 5, Metamyelocytes % 1, Myelocytes % 2 H, Nucleated RBC % [employer]OM[employer] QUALITY MANAGER, Differential Comment SCANNED, Diff Path Review March, Sodium 141, Potassium 4.2, Chloride 114 H, Carbon Dioxide 18.0 L, Anion Gap 9, BUN 46 H, Creatinine 1.81 H, Estim Creat Clear Calc 23.10, Est GFR (MDRD) Af Amer 35 L, Est GFR (MDRD) Non-Af 29 L, BUN/Creatinine Ratio 25.4 H , Glucose 355 H, Calcium 7.6 L 11/13/23 11:00: Crossmatch See Detail 11/13/23 11:15: POC Glucose 389 H Micro: Microbiology 11/11/23 12:00 Sputum, Induced/Lukens Gram Stain - Final 11/11/23 12:00 Sputum, Induced/Lukens Respiratory Culture - Preliminary Yeast Like Organism 11/08/23 12:45 Blood Culture (Wb) - Left Hand Blood Culture - Preliminary No growth in 48 hours. 11/08/23 12:45 Blood Culture (Wb) - Anticubital Left Blood Culture - Preliminary No growth in 48 hours. 11/08/23 14:15 Urine Catheter - Crawford Urine Culture - Final Culture exhibits no growth. 11/08/23 14:15 Stool Stool Occult Blood (SHERRI) - Final Occult Blood Positive 11/08/23 14:15 Mucosa - Throat Streptococcus pyogenes (PCR) - Final 11/08/23 14:15 Urine Catheter - Crawford Streptococcus pneumoniae Antigen (M - Final 11/08/23 14:15 Urine Catheter - Crawford Legionella Antigen - Final 11/08/23 13:30 Mucosa - Nasopharyngeal Influenza & RSV (PCR) - Final 11/07/23 04:42 Urine, Random Legionella Antigen - Final 11/07/23 04:42 Urine, Random Streptococcus pneumoniae Antigen (M - Final 11/07/23 23:58 Mucosa - Nasopharyngeal Respiratory Panel (PCR) - Final 11/06/23 13:15 Stool Stool Occult Blood (SHERRI) - Final 11/06/23 11:39 Mucosa - Nose SARS-CoV-2, Influenza & RSV (PCR) - Final SARS-CoV-2 (COVID 19 PCR) ABG Data ABG results: ABG 11/11/23 11/11/23 08:38 12:33 Specimen Type ART ART Sample Site R Radial R Radial pH 7.42 7.30 L Bicarbonate Actual 17.3 L 17.2 L Total CO2 18 18 Base Excess -7 L -9 L O2 Saturation 84 L 98 O2 % 75.0 100.0 ABG pCO2 26.7 L 34.8 L ABG pO2 46 L 106 H Ethan Test Positive Positive Respiration Rate 14 O2 Delivery Device Not entered Adult Vent Vent Mode Not entered AC Tidal Volume 450.0 POC PEEP 8 Clinical Comments airvo 60lpm Radiography Diagnostic Testing: Radiology Impression Chest X-Ray 11/11/23 08:45 IMPRESSION: Bilateral ill-defined opacities with interval progression on the left, may reflect some combination of pneumonia, atelectasis and/or edema. Electronically Signed: Philomena Saucedo MD at 9:12 EST , Chest X-Ray 11/11/23 11:33 IMPRESSION: Low-lying endotracheal tube that appears to be 0.6 cm above the deondre, recommend retraction by 3 cm. Bilateral patchy opacities, with worsening within the right upper lung, concerning for some combination of multifocal pneumonia, edema and/or atelectasis. Electronically Signed: Philomena Saucedo MD at 14:03 EST , Rhythm Strip Rhythm Strip: Sinus Rhythm Rate: 105 Ectopy: None Physical Exam Const Constitutional Narrative: Intubated, sedated and mechanically ventilated. HEENT normocephalic and head/scalp atraumatic Mouth: endotracheal tube in place and OG tube in place Eyes PERRL and EOMs intact bilaterally Neck supple General: trachea midline Chest inspection of chest normal Resp normal respiratory effort Auscultation: diminished lung sounds Cardio regular rate and regular rhythm GI normal to inspection, nondistended, normoactive bowel sounds Extremity no clubbing, cyanosis or edema Skin no rashes or lesions noted Neuro Sensorium / Orientation: sedated on vent Charges/Coding Procedures Hospitalists Procedures: 25187 Critical Care 1st Hr
[2023-11-13 13:46] LABS: Pathologist Review Reviewed
[2023-11-13] MEDS: Furosemide 40 MG/4 ML Vial IV (13:53)
[2023-11-13] MEDS: Vital AF 1.2 Cal Liquid 1,000 ML 55 ML GT (15:46)
[2023-11-13 18:40] LABS: Bedside Glucose 469 mg/dL (74-106)
[2023-11-13] MEDS: Insulin Glargine-YFGN 100 UNIT/ML Pen 30 UNIT SC (20:18)
[2023-11-13] MEDS: fentaNYL drip 100 ML 10 MCG CONT INF (20:26)
[2023-11-13] MEDS: Propofol 10MG/Ml 1,000 MG/100 ML Bottle 7.09999999999999964 MG CONT INF (20:27)
[2023-11-14] VITALS (25 sets, daily range): BP systolic 117–154; BP diastolic 44–69; PULSE 87–130; RESP 14–40; TEMP 36.2–36.7; O2SAT 50–100; BMI 35.6
[2023-11-14] MEDS: Insulin Lispro 100 UNIT/ML INSULN.PEN SC ×2 (00:39→11:18)
[2023-11-14 00:47] LABS: Bedside Glucose 479 mg/dL (74-106)
--- NOTE | 2023-11-14 01:40 | PCM.HOSP.N ---
Hospitalist Note 1:42am Hospitalist informed by patient's nurse that patient's blood sugar was up to 479 at 12:33am. Patient was given a bolus of SC insulin lispro 15 units x 1. Blood sugars rechecked an hour later was 522. Patient currently intubated, on a decadron and tube feeds which are all likely contributing to the elevated blood sugar. Patient is fluid overloaded so will hold off on IVF. Patient started on insulin drip for now due to severe hyperglycemia
[2023-11-14] MEDS: Ipratropium/Albuterol Sulfate 3 ML AMPUL.NEB INHALATION ×3 (01:46→13:44)
[2023-11-14 01:49] LABS: Bedside Glucose > 500 mg/dL (74-106)
[2023-11-14] MEDS: Insulin Lispro 100 UNIT in 0.9% Normal Saline (100mL Bag) 99 ML 7.90000000000000036 UNIT CONT INF (02:14)
[2023-11-14 03:32] LABS: Hematocrit 28.3 % (37-47); Hemoglobin 8.9 g/dL (12.0-15.0); Mean Corp Hgb Conc 31.4 g/dL (32-36); Mean Corpuscular Hgb 28.7 pg (27.0-32.0); Mean Corpuscular Volume 91.3 fL (81-99); Mean Platelet Vol. 10.8 fl (6.2-12.0); POSITIVE COUNT YES; POSITIVE DIFFERENTIAL YES; POSITIVE MORPHOLOGY YES; Platelet Count 218 K/mm3 (150-450); RBC Distribution Width CV 15.8 % (11.6-14.6); RBC Distribution Width SD 52.3 fl (35.1-43.9); White Blood Count 14.2 K/mm3 (4.4-11.0)
[2023-11-14] MEDS: CHLORHEXIDINE GLUC 2% CLOTH 1 EACH TOWELETTE TOPICAL (04:17)
[2023-11-14 04:28] LABS: Anion Gap 8 (5-15); BUN 53 mg/dL (7-18); BUN/Creat Ratio 26.2 RATIO (10-20); Calcium,Total 7.9 mg/dL (8.5-10.1); Chloride 112 mmol/L (98-107); Creatinine, Serum 2.02 mg/dL (0.55-1.02); EST Glomerular Filtration Rate 25 mL/min (>60); Est Glom Filt Rate - Afr Amer 30 mL/min (>60); Glucose 538 mg/dL (74-106); Magnesium 2.2 mg/dL (1.6-2.6); Phosphorus 4.2 mg/dL (2.5-4.9); Potassium 4.2 mmol/L (3.5-5.1); Sodium Level 142 mmol/L (136-145)
[2023-11-14 04:37] LABS: Differential Indicated MANUAL DIFF
[2023-11-14 04:38] LABS: Lymphocyte 2 % (19-41); Metamyelocyte 2 % (0-1); Monocyte 4 % (0-10); Myelocyte 1 % (0-0); Neutrophil-Segmented 91 % (47-70); Total Cells Counted 100 (MANUAL DIFF)
[2023-11-14 04:39] LABS: Absolute Neutrophil Count 12.9 X10^3/uL (2.0-7.7); Lymphocyte # 12.95 X10^3/ul (0.83-4.51)
[2023-11-14 04:40] LABS: Absolute Lymphocyte Count 0.28 X10^3/uL (0.83-4.51); Monocyte# 0.28 X10^3/uL
[2023-11-14 04:40] LABS: Bedside Glucose 451 mg/dL (74-106)
[2023-11-14 04:40] LABS: Bedside Glucose 423 mg/dL (74-106)
[2023-11-14 04:42] LABS: Ovalocyte RARE
[2023-11-14 04:45] LABS: Platelet Morphology ADEQ; Polychromasia RARE
[2023-11-14] MEDS: Piperacil/Tazobactam 3.375 GM in 0.9% Normal Saline (50mL MB+) 50 ML IV (05:14)
[2023-11-14 05:46] LABS: Bedside Glucose 433 mg/dL (74-106)
[2023-11-14] MEDS: TITRATION PARAMETER CHANGE 1 EACH IV (06:17)
[2023-11-14] MEDS: fentaNYL drip 100 ML 10 MCG CONT INF (06:24)
[2023-11-14] MEDS: Propofol 10MG/Ml 1,000 MG/100 ML Bottle 9.5 MG CONT INF (06:24)
[2023-11-14 06:44] LABS: Bedside Glucose 412 mg/dL (74-106)
--- NOTE | 2023-11-14 06:52 | PCM.PN.INT ---
Assessment & Plan Assessment/Plan (1) Acute hypoxic respiratory failure: (2) COVID-19: PLAN: Plan RECOMMENDATIONS: 1. Continue assist-control mode mechanical ventilation. Wean FiO2 and PEEP to maintain saturations at or above 90%. 2. Continue empiric broad-spectrum antimicrobials. 3. Continue attempts at diuresis as tolerated by hemodynamics and renal function. 4. Transfuse for a hemoglobin less than 7 g/dL. 5. Continue Decadron to complete 10 days of therapy. 6. Continue PPI therapy. 7. Continue tube feeding as tolerated. 8. Await outcome from family meeting regarding goals of care. IMPRESSIONS: 1. Acute hypoxemic respiratory failure Most likely secondary to COVID-19 with concern for superimposed bacterial pneumonia as well. Although initially maintained on heated high flow oxygen, the patient eventually decompensated and required intubation on November 11. She will be maintained on Decadron as ordered. The patient is not a candidate for remdesivir. In addition to the aforementioned, she will be continued on empiric broad-spectrum antimicrobials to cover for possible superimposed bacterial pneumonia. Continue to wean FiO2 and PEEP to maintain oxygen saturations at or above 90%. Continue tube feeding as tolerated. Continue attempts at diuresis as tolerated by hemodynamics and renal function. Prognosis overall is quite guarded. 2. Acute kidney injury/heart failure with preserved ejection fraction/anemia/history of PE status post IVC filter/paroxysmal atrial fibrillation Complicates care, management, recovery and prognosis. Continue supportive care as noted above. The patient was previously taken off of Xarelto over concerns for recurrent GI bleeding. TIME: 37 minutes of critical care time, independent of procedures, was spent addressing the patient's acute hypoxemic respiratory failure, COVID-19 pneumonia, review of all data and collaboration with care team. Subjective Subjective The patient was seen and examined at the bedside this morning. Events from the last 24 hours have been reviewed. The patient is currently afebrile, hemodynamically stable and maintaining appropriate oxygen saturations on assist control mode of mechanical ventilation with an FiO2 requirement of 60% and PEEP of 8. Overnight, the patient was initiated on an insulin infusion due to persistent hyperglycemia. She is documented to be overall net +7 L for the hospitalization. Hemoglobin is improved this morning at 8.9 g/dL. Creatinine is increased to 2.02. Overall, the patient continues to decline clinically from day today, despite interventions. I had a meeting this morning with the patient's and son regarding overall prognosis and goals of care. They are planning to meet with 1 additional family member later this morning to discuss options. Nevertheless, they are currently leaning towards terminal extubation with initiation of comfort care measures later today. Objective Data Objective Data The patient's most recent lab work, culture data and imaging studies have all been personally reviewed. Surface echocardiogram from November 07 demonstrated mild concentric LVH with an ejection fraction of 65%. COVID PCR was positive on November 06. Strep and urine Legionella antigens were negative. Vital Signs: Vital Signs Temp Pulse Resp BP Pulse Ox O2 Del Method O2 Flow Rate 97.3 F L 90 17 128/54 H 90 Mechanical Ventilator 60 11/14/23 03:00 11/14/23 06:00 11/14/23 06:00 11/14/23 06:00 11/14/23 06:00 11/14/23 06:00 11/13/23 06:00 FiO2 60 11/14/23 06:00 Oxygen Flow Rate (L/min) 60 Oxygen Delivery Method Mechanical Ventilator Weight: 182 lb 8.684 oz Body Mass Index (BMI) 35.6 Intake & Output: Intake and Output for Last 24 Hours 11/12/23 11/13/23 11/14/23 23:59 23:59 23:59 Intake Total 1368.99 / 1495.99 2463.25 / 2582.75 512.36 / 512.36 Output Total 750 / 1050 1225 / 1775 1050 / 1050 Balance 618.99 / 445.99 1238.25 / 807.75 -537.64 / -537.64 Lab / Micro Data Attestation: I reviewed the patient's lab results. 11/14/23 03:15 11/14/23 03:15 Labs: Laboratory Results - last 24 hr 11/08/23 19:45: Crossmatch See Detail 11/13/23 05:20: Absolute Lymphs (auto) 0.46 L, Diff Path Review Reviewed 11/13/23 11:00: Blood Type B NEGATIVE, Antibody Screen NEGATIVE, Crossmatch See Detail 11/13/23 11:15: POC Glucose 389 H 11/13/23 18:20: POC Glucose 469 H* 11/14/23 00:27: POC Glucose 479 H* 11/14/23 01:31: POC Glucose > 500 H* 11/14/23 03:15: WBC 14.2 H, RBC 3.10 L, Hgb 8.9 L, Hct 28.3 L, MCV 91.3, MCH 28.7, MCHC 31.4 L, RDW Std Deviation 52.3 H, RDW Coeff of Britt 15.8 H, Plt Count 218, MPV 10.8, Neut % (Auto) Not Reportable, Absolute Neuts (auto) 12.9 H, Absolute Lymphs (auto) 0.28 L, Total Counted 100, Neutrophils % (Manual) 91 H, Lymphocytes % (Manual) 2 L, Monocytes % (Manual) 4, Metamyelocytes % 2 H, Myelocytes % 1 H, Diff Path Review May foll, Plt Morphology Comment ADEQ, Polychromasia RARE, Ovalocytes RARE, Sodium 142, Potassium 4.2, Chloride 112 H, Carbon Dioxide 22.0, Anion Gap 8, BUN 53 H, Creatinine 2.02 H, Estim Creat Clear Calc 20.70, Est GFR (MDRD) Af Amer 30 L, Est GFR (MDRD) Non-Af 25 L, BUN/Creatinine Ratio 26.2 H, Glucose 538 H*, Calcium 7.9 L, Phosphorus 4.2, Magnesium 2.2 11/14/23 03:16: POC Glucose 423 H 11/14/23 04:14: POC Glucose 451 H* 11/14/23 05:23: POC Glucose 433 H 11/14/23 06:19: POC Glucose 412 H Micro: Microbiology 11/11/23 12:00 Sputum, Induced/Lukens Gram Stain - Final 11/11/23 12:00 Sputum, Induced/Lukens Respiratory Culture - Final Pretty albicans 11/08/23 12:45 Blood Culture (Wb) - Left Hand Blood Culture - Final No growth in 5 days. 11/08/23 12:45 Blood Culture (Wb) - Anticubital Left Blood Culture - Final No growth in 5 days. 11/08/23 14:15 Urine Catheter - Crawford Urine Culture - Final Culture exhibits no growth. 11/08/23 14:15 Stool Stool Occult Blood (SHERRI) - Final Occult Blood Positive 11/08/23 14:15 Mucosa - Throat Streptococcus pyogenes (PCR) - Final 11/08/23 14:15 Urine Catheter - Crawford Streptococcus pneumoniae Antigen (M - Final 11/08/23 14:15 Urine Catheter - Crawford Legionella Antigen - Final 11/08/23 13:30 Mucosa - Nasopharyngeal Influenza & RSV (PCR) - Final 11/07/23 04:42 Urine, Random Legionella Antigen - Final 11/07/23 04:42 Urine, Random Streptococcus pneumoniae Antigen (M - Final 11/07/23 23:58 Mucosa - Nasopharyngeal Respiratory Panel (PCR) - Final 11/06/23 13:15 Stool Stool Occult Blood (SHERRI) - Final 11/06/23 11:39 Mucosa - Nose SARS-CoV-2, Influenza & RSV (PCR) - Final SARS-CoV-2 (COVID 19 PCR) ABG Data ABG results: ABG 11/11/23 11/11/23 08:38 12:33 Specimen Type ART ART Sample Site R Radial R Radial pH 7.42 7.30 L Bicarbonate Actual 17.3 L 17.2 L Total CO2 18 18 Base Excess -7 L -9 L O2 Saturation 84 L 98 O2 % 75.0 100.0 ABG pCO2 26.7 L 34.8 L ABG pO2 46 L 106 H Ethan Test Positive Positive Respiration Rate 14 O2 Delivery Device Not entered Adult Vent Vent Mode Not entered AC Tidal Volume 450.0 POC PEEP 8 Clinical Comments airvo 60lpm Radiography Diagnostic Testing: Radiology Impression Chest X-Ray 11/11/23 08:45 IMPRESSION: Bilateral ill-defined opacities with interval progression on the left, may reflect some combination of pneumonia, atelectasis and/or edema. Electronically Signed: Philomena Saucedo MD at 9:12 EST Reading Location ID and State: [facility] / [place] Tel , Service support , Chest X-Ray 11/11/23 11:33 IMPRESSION: Low-lying endotracheal tube that appears to be 0.6 cm above the deondre, recommend retraction by 3 cm. Bilateral patchy opacities, with worsening within the right upper lung, concerning for some combination of multifocal pneumonia, edema and/or atelectasis. Electronically Signed: Philomena Saucedo MD at 14:03 EST , Rhythm Strip Rhythm Strip: Sinus Rhythm Rate: 105 Ectopy: None Physical Exam Const Constitutional Narrative: Intubated, sedated and mechanically ventilated. General Appearance: ill appearing and patient mechanically ventilated HEENT normocephalic and head/scalp atraumatic Mouth: endotracheal tube in place and OG tube in place Eyes PERRL and EOMs intact bilaterally Neck supple General: trachea midline Chest inspection of chest normal Resp Effort and Inspection: tachypneic and labored Auscultation: diminished lung sounds Cardio regular rate and regular rhythm GI normal to inspection, nondistended, normoactive bowel sounds Extremity General Extremity: edema; Negative for clubbing Skin no rashes or lesions noted Neuro Sensorium / Orientation: sedated on vent Charges/Coding Procedures Hospitalists Procedures: 25345 Critical Care 1st Hr
--- NOTE | 2023-11-14 06:53 | RAD_ITS ---
INDICATION: Respiratory Failure EXAMINATION/TECHNIQUE: X-RAY - XR Chest 1 View COMPARISON: Chest x-ray from 11/11/2023 FINDINGS: LINES/DEVICES: ET tube tip just above deondre, approximately 5 mm. Enteric tube tip at mid stomach. Left PICC tip at lower SVC. LUNGS: Slightly improving lung volumes with persistent multifocal bilateral pulmonary opacities. No sizable pleural effusion. No pneumothorax detected. MEDIASTINUM AND CARDIOVASCULAR STRUCTURES: Heart size within normal limits. Mediastinal contours unremarkable. BONES AND SOFT TISSUES: Cervical spinal fusion hardware noted. Skeletal degenerative changes. Status post left shoulder arthroplasty. RAD/Chest 1 View (Portable) IMPRESSION: ET tube tip just above deondre, consider withdrawing 1 to 2 cm. Bilateral pulmonary opacity changes with slightly improving lung volumes. Electronically Signed: Kameron Puri MD at 8:10 EST ,
[2023-11-14 07:40] LABS: Bedside Glucose 384 mg/dL (74-106)
--- NOTE | 2023-11-14 08:17 | PN.HOSP_ITS ---
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 Patient had to be started on insulin drip as a result of hyperglycemia. Objective Data Objective Data Vital Signs: Vital Signs Temp Pulse Resp BP Pulse Ox O2 Del Method O2 Flow Rate 97.3 F L 93 17 130/57 H 90 Mechanical Ventilator 60 11/14/23 03:00 11/14/23 07:28 11/14/23 07:28 11/14/23 07:00 11/14/23 07:28 11/14/23 07:00 11/13/23 06:00 FiO2 60 11/14/23 07:28 Oxygen Flow Rate (L/min) 60 Oxygen Delivery Method Mechanical Ventilator Weight: 82.8 kg Body Mass Index (BMI) 35.6 Intake & Output: Intake and Output for Last 24 Hours 11/12/23 11/13/23 11/14/23 23:59 23:59 23:59 Intake Total 1368.99 / 1495.99 2463.25 / 2582.75 524.06 / 524.06 Output Total 750 / 1050 1225 / 1775 1050 / 1050 Balance 618.99 / 445.99 1238.25 / 807.75 -525.94 / -525.94 Lab / Micro Data 11/14/23 03:15 11/14/23 03:15 Labs: Laboratory Results - last 24 hr 11/08/23 19:45: Crossmatch See Detail 11/13/23 05:20: Diff Path Review Reviewed 11/13/23 11:00: Blood Type B NEGATIVE, Antibody Screen NEGATIVE, Crossmatch See Detail 11/13/23 11:15: POC Glucose 389 H 11/13/23 18:20: POC Glucose 469 H* 11/14/23 00:27: POC Glucose 479 H* 11/14/23 01:31: POC Glucose > 500 H* 11/14/23 03:15: WBC 14.2 H, RBC 3.10 L, Hgb 8.9 L, Hct 28.3 L, MCV 91.3, MCH 28.7, MCHC 31.4 L, RDW Std Deviation 52.3 H, RDW Coeff of Britt 15.8 H, Plt Count 218, MPV 10.8, Neut % (Auto) Not Reportable, Absolute Neuts (auto) 12.9 H, Absolute Lymphs (auto) 0.28 L, Total Counted 100, Neutrophils % (Manual) 91 H, Lymphocytes % (Manual) 2 L, Monocytes % (Manual) 4, Metamyelocytes % 2 H, Myelocytes % 1 H, Diff Path Review May foll, Plt Morphology Comment ADEQ, Polychromasia RARE, Ovalocytes RARE, Sodium 142, Potassium 4.2, Chloride 112 H, Carbon Dioxide 22.0, Anion Gap 8, BUN 53 H, Creatinine 2.02 H, Estim Creat Clear Calc 20.70, Est GFR (MDRD) Af Amer 30 L, Est GFR (MDRD) Non-Af 25 L, BUN/Creatinine Ratio 26.2 H, Glucose 538 H*, Calcium 7.9 L, Phosphorus 4.2, Magnesium 2.2 11/14/23 03:16: POC Glucose 423 H 11/14/23 04:14: POC Glucose 451 H* 11/14/23 05:23: POC Glucose 433 H 11/14/23 06:19: POC Glucose 412 H 11/14/23 07:21: POC Glucose 384 H Micro: Microbiology 11/11/23 12:00 Sputum, Induced/Lukens Gram Stain - Final 11/11/23 12:00 Sputum, Induced/Lukens Respiratory Culture - Final Pretty albicans 11/08/23 12:45 Blood Culture (Wb) - Left Hand Blood Culture - Final No growth in 5 days. 11/08/23 12:45 Blood Culture (Wb) - Anticubital Left Blood Culture - Final No growth in 5 days. 11/08/23 14:15 Urine Catheter - Crawford Urine Culture - Final Culture exhibits no growth. 11/08/23 14:15 Stool Stool Occult Blood (SHERRI) - Final Occult Blood Positive 11/08/23 14:15 Mucosa - Throat Streptococcus pyogenes (PCR) - Final 11/08/23 14:15 Urine Catheter - Crawford Streptococcus pneumoniae Antigen (M - Final 11/08/23 14:15 Urine Catheter - Crawford Legionella Antigen - Final 11/08/23 13:30 Mucosa - Nasopharyngeal Influenza & RSV (PCR) - Final 11/07/23 04:42 Urine, Random Legionella Antigen - Final 11/07/23 04:42 Urine, Random Streptococcus pneumoniae Antigen (M - Final 11/07/23 23:58 Mucosa - Nasopharyngeal Respiratory Panel (PCR) - Final 11/06/23 13:15 Stool Stool Occult Blood (SHERRI) - Final 11/06/23 11:39 Mucosa - Nose SARS-CoV-2, Influenza & RSV (PCR) - Final SARS-CoV-2 (COVID 19 PCR) Radiography Diagnostic Testing: Radiology Impression Chest X-Ray 11/14/23 06:53 IMPRESSION: ET tube tip just above deondre, consider withdrawing 1 to 2 cm. Bilateral pulmonary opacity changes with slightly improving lung volumes. Electronically Signed: Kameron Puri MD at 8:10 EST , Rhythm Strip Rhythm Strip: Sinus Rhythm Rate: 105 Ectopy: None Physical Exam Narrative GENERAL: Sedated on the vent HEENT: Atraumatic; normocephalic EYES; Anicteric, Normal Conjunctiva NECK; supple, normal thyroid, RESPIRATORY: Diminished to auscultation CARDIOVASCULAR: Regular S1 S2, GI: soft, normoactive bowel sounds, : No Renal angle tenderness; EXTREMITIES: edema, no clubbing, MUSCULOSKELETAL: no muscle wasting NEURO: Sedated on the vent but responds to tactile stimulation SKIN: No Rash PSYCH; unable to assess Assessment & Plan Assessment/Plan (1) BERTA (acute kidney injury): (2) Anemia: QUALIFIERS: Anemia type: unspecified type Qualified Code(s): D64.9 - Anemia, unspecified (3) COVID-19: PLAN: Plan Patient is an 78-year-old lady who presented with progressive generalized weakness. Chest x-ray on admission demonstrated early developing pneumonia. Her COVID assay came back positive admitted to monitored bed for further management 1. Acute COVID-19 infection ?Patient out of window for remdesivir. Admitted to knitted bed for symptom management 2. Suspected superimposed bacterial pneumonia ? In the setting of COVID-19 infection. Patient started on azithromycin as well as ceftriaxone -11/08/2023: Patient was reported to be significantly dyspneic at rest. Chest x- ray obtained did show New and increased bilateral consolidation, concerning for worsening pneumonia., Did broaden patient antibiotic therapy 3. Acute hypoxic respiratory failure ? This was manifested by patient being tachypneic with significant hypoxia. Had to be transferred to the intensive care unit placed on Airvo. Respiratory failure multifactorial including recent COVID, suspected bacterial pneumonia as well as fluid overload. -11/10/2023;Seen remains in the ICU. Per nursing staff patient was delirious during the night. Her oxygen requirement did increase. Currently remains tachypneic on Airvo 60 L flow per minute with saturation of 92% ? 11/12/2023 patient had to be intubated given her worsening respiratory symptoms. Subsequent vent management deferred to project product manager ?11/13/2023 patient remains sedated on the vent ? 11/14/2023; patient remains sedated on the vent 4. Acute kidney injury ? Baseline creatinine from 10/19/2023 was 1.3, creatinine on admission was 2.04 patient on fluids with avoidance of potential nephrotoxic medication with subse quent monitoring of electrolytes on a daily ? 11/09/2023; creatinine down to 1.66?11/14/2023 creatinine worsened to 2.2 is 5. Acute congestive heart failure?suspected heart failure with preserved eject ion fraction ? Patient responded to Lasix echo ordered on 11/06/2023?Mild concentric left ventricular hypertrophy. The left ventricular ejection fraction is 65 %.Mild diffuse aortic valve calcification. ? 11/10/2023; did hold back Lasix given worsening kidney function 6. Acute metabolic encephalopathy ? Multifactorial including patient COVID-19 infection, acute hypoxic respiratory failure and acute kidney injury plan is to treat underlying condition ? 11/11/2023;Patient had to be placed in soft restraints and started on Precedex drip as a result of agitation 7. Anemia - Secondary to chronic disorder as well as MDS monitoring H&H and transfuse if patient becomes symptomatic or hemoglobin falls below 7. Patient apparently underwent upper endoscopy a month prior which demonstrated mild hiatal hernia. Patient apparently refused lower endoscopy and is scheduled to undergo capsule endoscopy ? 11/08/2023; patient hemoglobin down to 7.0 with patient deemed to be symptomatic an order was given for patient to be transfused 1 unit PRBC ?11/09/2023; patient hemoglobin came up to 7.6 however she still remains symptomatic additional unit ordered 9 ?09/22/2024 hemoglobin down to 6.9 and additional unit ordered ? 10/22/2024 hemoglobin up to 8.9 following transfusion with 1 unit PRBC 8. History of pulmonary embolism ? Diagnosed in 2019. Patient was on Xarelto taking of given her concerns for recurrent GI bleed. Patient has an IVC filter placed 9. Paroxysmal A-fib ? Rate controlled. Currently not on systemic anticoagulation given her recent GI bleed significant anemia 10. Diabetes mellitus type II -patient's oral hypoglycemics held. Placed on long acting insulin, Accu-Cheks a.c. and at bedtime and covered with sliding scale insulin ? 11/13/2023 patient has hyperglycemia adjusted insulin regimen 11. Hypertension - Blood pressure controlled, home medications continued with dose adjustment as needed 12. Recently diagnosed lymphoma ? Patient being managed by Dr. 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 Restless leg syndrome ? Patient is on ropinirole did continue 15. Chronic kidney disease stage IIIa ? Patient presented with BERTA management as discussed above 18. DVT prophylaxis ? SC heparin Time spent in the patient's overall evaluation,decision-making process, review of diagnostic data, adjustment of management, discussion with other providers, nursing nursing and ancillary staff involved in patient's care documentation, 50 Minutes Charges/Coding Visit Charges Inpatient E&M: 38214 [facility] L3
--- NOTE | 2023-11-14 09:32 | CASEMGMT ---
SW spoke with patient's Wojciech and son per their request. They asked if it was time to take patient off of the ventilator since she continues to get worse. SW explained to them that SW will have the physician come and talk with them about this. SW then spoke with physician letting him know family's thoughts and questions. SW accompanied physician to talk with and son. End of life care was discussed. Family is leaning towards terminally extubating patient. Patient's and son would like to talk with patient's other son and will get back to SW or ICU. TREVON updated RN. Await call from family. Demi Archer LOAN SERVICING SPECIALIST BRYAN
[2023-11-14] MEDS: Chlorhexidine 15 ML PO (09:35)
[2023-11-14] MEDS: Pantoprazole Sodium 40 MG in 0.9% Normal Saline (100mL MB+) 100 ML 330 MG IV (09:36)
[2023-11-14] MEDS: guaiFENesin 1,200 MG Tablet 1200 MG PO (09:38)
[2023-11-14] MEDS: Na Biphos/Potassium Phosphate PACKET 1 PACKET PO (09:38)
[2023-11-14] MEDS: dexAMETHasone 10 MG/ML Vial 6 MG IV (09:39)
[2023-11-14] MEDS: Pramipexole Di-HCl 0.5 MG Tablet PO (09:39)
[2023-11-14] MEDS: Atorvastatin Calcium 40 MG Tablet PO (09:39)
[2023-11-14 10:12] LABS: Bedside Glucose 375 mg/dL (74-106)
[2023-11-14 10:13] LABS: Bedside Glucose 284 mg/dL (74-106)
[2023-11-14] MEDS: Bumetanide 1 MG/4 ML Vial IV (11:09)
[2023-11-14] MEDS: Insulin Glargine-YFGN 100 UNIT/ML Pen 35 UNIT SC (11:15)
[2023-11-14] MEDS: Vancomycin HCl 2,000 MG in 0.9% Normal Saline (500mL Bag) 500 ML 250 MG IV (11:17)
[2023-11-14 11:21] LABS: Bedside Glucose 361 mg/dL (74-106)
[2023-11-14] MEDS: Vital AF 1.2 Cal Liquid 1,000 ML 55 ML GT (11:28)
--- NOTE | 2023-11-14 13:04 | CASEMGMT ---
TREVON spoke with patient's and two sons. They have decided to have patient terminally extubated. They do not want to stay at [facility] [place]. TREVON asked about a home. Patient's said that he was under the impression they would have her body for 2 years to use for research. It appears as though patient must have wanted her body donated to science. Director of ICU Radha came out to assist with questions. Family is going to try and find paperwork regarding body donation to science and get back to . Family said if they cannot find anything they would like to proceed with organ donation and use [facility] for cremation. Radha is going to locate a policy regarding this matter. Family will get back to . Family then left. TREVON notified RN and physician. Demi ADAMS
--- NOTE | 2023-11-14 13:05 | PCM.RX.CS ---
Consult Antibiotic Management Pharmacy has been consulted to manage selected antibiotic: Vancomycin Type of Intervention Type of Consult: New start Suspected Infection Suspected Infection: Pneumonia Prior Doses of Antibiotics Prior Doses of Antibiotics Received/Current Regimen: the patient received x1 dose of vanc 2000mg IV on 11/08/23 Labs Labs: Sodium 142 mmol/L (136-145) 11/14/23 03:15 Potassium 4.2 mmol/L (3.5-5.1) 11/14/23 03:15 Chloride 112 mmol/L (98-107) H 11/14/23 03:15 Carbon Dioxide 22.0 mmol/L (21.0-32.0) 11/14/23 03:15 Anion Gap 8 (5-15) 11/14/23 03:15 BUN 53 mg/dL (7-18) H 11/14/23 03:15 Creatinine 2.02 mg/dL (0.55-1.02) H 11/14/23 03:15 Est GFR (MDRD) Af Amer 30 mL/min (>60) L 11/14/23 03:15 Est GFR (MDRD) Non-Af 25 mL/min (>60) L 11/14/23 03:15 BUN/Creatinine Ratio 26.2 RATIO (10-20) H 11/14/23 03:15 Glucose 538 mg/dL (74-106) H* 11/14/23 03:15 Microbiology Microbiology: Microbiology 11/11/23 12:00 Sputum, Induced/Lukens Gram Stain - Final 11/11/23 12:00 Sputum, Induced/Lukens Respiratory Culture - Final Pretty albicans 11/08/23 12:45 Blood Culture (Wb) - Left Hand Blood Culture - Final No growth in 5 days. 11/08/23 12:45 Blood Culture (Wb) - Anticubital Left Blood Culture - Final No growth in 5 days. 11/08/23 14:15 Urine Catheter - Crawford Urine Culture - Final Culture exhibits no growth. 11/08/23 14:15 Stool Stool Occult Blood (SHERRI) - Final Occult Blood Positive 11/08/23 14:15 Mucosa - Throat Streptococcus pyogenes (PCR) - Final 11/08/23 14:15 Urine Catheter - Crawford Streptococcus pneumoniae Antigen (M - Final 11/08/23 14:15 Urine Catheter - Crawford Legionella Antigen - Final 11/08/23 13:30 Mucosa - Nasopharyngeal Influenza & RSV (PCR) - Final 11/07/23 04:42 Urine, Random Legionella Antigen - Final 11/07/23 04:42 Urine, Random Streptococcus pneumoniae Antigen (M - Final 11/07/23 23:58 Mucosa - Nasopharyngeal Respiratory Panel (PCR) - Final 11/06/23 13:15 Stool Stool Occult Blood (SHERRI) - Final 11/06/23 11:39 Mucosa - Nose SARS-CoV-2, Influenza & RSV (PCR) - Final SARS-CoV-2 (COVID 19 PCR) Dosing Weight Weight used for dosin.8 kg Estimated Creatinine Clearance Estimated Creatinine Clearance: 20.7ml/min Goal Trough Goal Trough: 15-20 mcg/mL Pharmacy Plan for Drug Dosing Pharmacy Plan for Drug Dosing: It has been 6 days since the one-time dose of 2000mg on 11/08/23 so will give another initial dose of 2000mg IV x1 today. Since the patient's renal function is unstable (SCr 1.62 on 11/11, 1.78 on 11/12, 1.81 on 11/13, and 2.02 today) with CrCl just over 20, will not schedule a dose at this time. Will order a random vanc level for tomorrow at 0600 with AM labs and dose off that result. Pharmacy Service will continue to monitor and adjust dosing as required. Follow-Up Labs Follow-Up Labs: Trough: Vancomycin (random) Date/Time Labs Ordered Labs to be done on [date and time ordered]: 11/15/23 0600
[2023-11-14] MEDS: LORazepam 2 MG/ML Syringe IV ×2 (15:35→16:11)
--- NOTE | 2023-11-14 15:36 | CASEMGMT ---
SW spoke with patient's son Alcides. They did not find paperwork indicating patient wanted her body donated to science. They did find organ donor information. SW let RN know this information and they will extubate patient. SW called patient's son Alcides and let him know this information. SW also let him know SW told RN the home would be [facility]. RN will also call family once patient has passed. Demi ADAMS
[2023-11-14] MEDS: Morphine 2 MG/ML Syringe IV ×2 (15:38→16:13)
--- NOTE | 2023-11-14 15:40 | NURSING ---
extubated - 4l per nc, og removed ,medicated as per order with ativan & morphine for comfort
--- NOTE | 2023-11-14 16:58 | NURSING ---
pt Wojciech notified, released by [facility]
--- NOTE | 2023-11-14 17:35 | PCM.DEATH ---
Preliminary Cause of Preliminary Cause of Preliminary Cause of : COVID-19 pneumonia Date of Admission: 11/06/23 Date of : 11/14/23 Principle Diagnosis 1. Acute COVID-19 pneumonia 2. Superimposed bacterial pneumonia 3. Acute hypoxic respiratory failure 4. Acute kidney injury Problem List: Active and Suspected Problems (Updated 11/08/23 @ 18:[address] Maria De Jesus Mc MD) Acute hypoxic respiratory failure (Acute) Shortness of breath (Acute) BERTA (acute kidney injury) (Acute) Debility (Acute) Pneumonia (Acute) COVID-19 (Acute) Pulmonary emboli (Suspected 07/2020) Hospital Course Patient is an 78-year-old lady with with a recent diagnosis of lymphoma who presented to the emergency department with progressive generalized weakness. Chest x-ray did show evidence of early pneumonia her COVID assay came back positive. Patient was admitted to a monitored bed for subsequent management. Patient was deemed to be outside the window for remdesivir. Patient was covered with broad-spectrum antibiotic therapy her clinical condition however continued to deteriorate despite optimal management. Patient went into acute congestive heart failure as well as hypoxic respiratory failure resulting in patient being intubated. Despite patient being on the vent clinical condition continued to Giachetti rate. Discussions were held with patient decision was made to terminally wean patient off the vent. Patient was found without spontaneous breathing as well as heart tones on 11/14/2023 at 1658. Patient was pronounced . Visit Charges Inpatient E&M: 36775 Disch Hosp
[2023-11-18 09:29] LABS: Pathologist Review Reviewed
== END 2023-11-14 18:53 | DRG 208 ==
LOC: ED 11:48 → PCU 14:27 → ICU 11-08 17:47
PROVIDERS: Family Medicine; Internal Medicine; Internal Medicine Critical Care Medicine; Admitting Provider Internal Medicine; Emergency Provider Emergency Medicine; PCP Family Medicine; Visit Provider Internal Medicine
DX: U07.1 COVID-19 (principal); J96.01 Acute respiratory failure with hypoxia; J12.82 Pneumonia due to coronavirus disease 2019; I50.31 Acute diastolic (congestive) heart failure; G93.41 Metabolic encephalopathy; J15.9 Unspecified bacterial pneumonia; D59.12 Cold autoimmune hemolytic anemia; N17.9 Acute kidney failure, unspecified; I13.0 Hypertensive heart and chronic kidney disease with heart failure and stage 1 through stage 4 chronic kidney disease, or unspecified chronic kidney disease; C85.90 Non-Hodgkin lymphoma, unspecified, unspecified site; D63.1 Anemia in chronic kidney disease; E11.65 Type 2 diabetes mellitus with hyperglycemia; N18.31 Chronic kidney disease, stage 3a; D46.9 Myelodysplastic syndrome, unspecified; I48.0 Paroxysmal atrial fibrillation; Z79.4 Long term (current) use of insulin; E11.22 Type 2 diabetes mellitus with diabetic chronic kidney disease; G25.81 Restless legs syndrome; E78.5 Hyperlipidemia, unspecified; G47.31 Primary central sleep apnea; K44.9 Diaphragmatic hernia without obstruction or gangrene; E86.0 Dehydration; E66.9 Obesity, unspecified; R45.1 Restlessness and agitation; Z68.32 Body mass index [BMI] 32.0-32.9, adult; Z66 Do not resuscitate; Z79.52 Long term (current) use of systemic steroids; Z86.711 Personal history of pulmonary embolism; Z86.718 Personal history of other venous thrombosis and embolism; Z87.19 Personal history of other diseases of the digestive system; Z87.891 Personal history of nicotine dependence
CPT/HCPCS: 31500; 31720; 36415; 36569; 36600; 71045; 71046; 80048; 80053; 82274; 82550; 82803; 82962; 83605; 83735; 83880; 84100; 84145; 84443; 84478; 84484; 85014; 85018; 85025; 85610; 85730; 86850; 86900; 86901; 86920; 86922; 87040; 87070; 87086; 87205; 87449; 87631; 87633; 87641; 87651; 93005; 93308; 94002; 94003; 94640; 94660; 94668; 94762; 97162; 97166; 97802; 97803; 99252; 99284; J7030; J7040; P9016; Q9957; A4216; G0463; J1940; J2405